=== PATIENT | female | born 1990 | race Caucasian/White ===

== ENCOUNTER 2020-08-13 11:05 | Outpatient (REF) | payer OTHER, SELFPAY ==
[2020-08-13 13:56] LABS: MANUAL DIFF FLAG NO
[2020-08-13 14:07] LABS: Basophils Percent Auto 0.2 % (0-2); Eosinophils Absolute Auto 0.2 X10*3/uL (0.0-0.4); Eosinophils Percent Auto 1.4 % (0-4); Hematocrit 40.6 % (37-47); Hemoglobin 13.1 g/dl (12.0-16.0); Imm Gran Abs Auto 0.08 X10*3/uL (0.00-0.03); Imm Gran Pct Auto 0.5 % (0.0-0.4); Lymphocytes Absolute Auto 3.9 X10*3/uL (1.2-4.9); Lymphocytes Percent Auto 26.5 % (20-40); Mean Corpuscular HGB Conc 32.3 g/dl (31.0-35.0); Mean Corpuscular Hemoglobin 27.6 pg (27.0-33.0); Mean Corpuscular Volume 85.7 fL (80-98); Mean Platelet Volume 9.1 fL (9.4-12.3); Monocytes Absolute Auto 0.9 X10*3/uL (0.1-1.2); Neutrophils Absolute Auto 9.6 X10*3/uL (2.0-8.3); Neutrophils Percent Auto 65.4 % (45-73); Platelet Count 381 X10*3/uL (160-400); Red Blood Count 4.74 X10*6/uL (4.20-5.50); Red Cell Distribution Width 13.5 % (11.0-16.0); White Blood Count 14.7 X10*3/uL (4.8-10.8)
[2020-08-13 14:52] LABS: Alanine Aminotransferase 13 U/L (0-31); Albumin Level 4.2 g/dL (3.5-5.0); Alkaline Phosphatase 112 U/L (39-117); Anion Gap 14 (12-20); Aspartate Amino Transferase 12 U/L (5-31); Bilirubin Total 0.3 mg/dL (0.0-1.0); Blood Urea Nitrogen 10 mg/dL (9-16); Calcium 9.3 mg/dL (8.4-10.2); Carbon Dioxide 26 mmol/L (22-29); Chloride 104 mmol/L (96-108); Estimated Glomerular Filt Rate > 60; Glucose Random 93 mg/dL (60-115); Potassium 4.2 mmol/L (3.3-5.1); Sodium 140 mmol/L (135-145); Total Protein 7.1 g/dL (6.5-8.0)
== END 2020-08-13 11:06 | disposition home or self-care (01) ==
LOC: HO.HMGCLDS 11:05
PROVIDERS: PCP Internal Medicine; Visit Provider Nurse Practitioner Family
DX: R10.9 Unspecified abdominal pain (principal)
CPT/HCPCS: 36415; 80053; 85025

== ENCOUNTER 2020-08-26 09:49 | Outpatient (REF) | payer OTHER, SELFPAY ==
[2020-08-26 12:41] LABS: Thyroid Stimulating Hormone 1.44 uIU/mL (0.32-4.0)
[2020-08-27 09:27] LABS: DHEA Sulfate 158 mcg/dL (18-391)
[2020-08-27 09:52] LABS: Prolactin 6.7 ng/mL
[2020-08-27 09:59] LABS: CT PCR NOT DETECTED (Not Detect.); NG PCR NOT DETECTED (Not Detect.)
[2020-08-27 10:42] LABS: BV Int Neg Control Negative (Negative); BV Int Pos Control Positive (Positive)
[2020-08-30 20:22] LABS: Testosterone, Total 34 ng/dL (2-45)
== END 2020-08-26 09:50 | disposition home or self-care (01) ==
LOC: HO.LAB 09:49
PROVIDERS: PCP Internal Medicine; Visit Provider Advanced Practice Midwife
DX: N93.9 Abnormal uterine and vaginal bleeding, unspecified (principal); L68.0 Hirsutism; E66.01 Morbid (severe) obesity due to excess calories; F17.210 Nicotine dependence, cigarettes, uncomplicated; Z68.43 Body mass index [BMI] 50.0-59.9, adult; Z72.0 Tobacco use
CPT/HCPCS: 36415; 81025; 82627; 83498; 84146; 84402; 84403; 84443; 87480; 87491; 87510; 87591; 87660; 88142; 99202

== ENCOUNTER 2021-04-01 | Outpatient (REF) | payer OTHER, SELFPAY | END 2021-04-01 00:01 | disposition home or self-care (01) | LOC: CF | PROVIDERS: Visit Provider Advanced Practice Midwife | DX: E66.01 Morbid (severe) obesity due to excess calories (principal); Z68.43 Body mass index [BMI] 50.0-59.9, adult; Z20.2 Contact with and (suspected) exposure to infections with a predominantly sexual mode of transmission | CPT/HCPCS: 81025; 99212 ==

== ENCOUNTER 2021-04-01 11:53 | Outpatient (REF) | payer OTHER, SELFPAY ==
--- NOTE | ~2021-04-01 | US_ITS ---
EXAMINATION: US PELVIS COMPLETE US PELVIS TRANSVAGINAL CLINICAL INFORMATION: 30-year-old female with history of hirsutism. LMP of 02/03/2021. COMPARISON: None TECHNIQUE: Sonographic imaging of the pelvis was performed using transabdominal and transvaginal transducers. FINDINGS: US PELVIS, COMPLETE Transabdominal imaging of the pelvis is performed. The urinary bladder is grossly normal. No pelvic free fluid. The anteflexed, anteverted uterus has normal size, contour and echotexture. No evidence of leiomyoma. The endometrium measures up to approximately 1.4 cm AP on these transabdominal images. The ovaries have normal size and echotexture. The right ovary is 2.7 x 1.5 x 3.5 cm, volume of 7.4 mL. The left ovary is 3.6 x 1.6 x 2.1 cm, volume of 6.3 mL. There are no prominent follicles or ovarian masses. US PELVIS, TRANSVAGINAL On the transvaginal images, the uterus measures 10 x 4.6 x 6 cm (cervix to fundus x AP x transverse dimension). No evidence of uterine leiomyoma. The cervix is approximately 3 cm in length. A few small nabothian cysts of the cervix are noted. No cervical mass. The endometrium has normal echotexture and measures up to 1.2 cm AP. The ovaries are not visualized on transvaginal imaging. No pelvic free fluid. US/US pelvic complete IMPRESSION: Normal sonographic examination of the uterus and ovaries.
--- NOTE | ~2021-04-01 | US_ITS ---
EXAMINATION: US PELVIS COMPLETE US PELVIS TRANSVAGINAL CLINICAL INFORMATION: 30-year-old female with history of hirsutism. LMP of 02/03/2021. COMPARISON: None TECHNIQUE: Sonographic imaging of the pelvis was performed using transabdominal and transvaginal transducers. FINDINGS: US PELVIS, COMPLETE Transabdominal imaging of the pelvis is performed. The urinary bladder is grossly normal. No pelvic free fluid. The anteflexed, anteverted uterus has normal size, contour and echotexture. No evidence of leiomyoma. The endometrium measures up to approximately 1.4 cm AP on these transabdominal images. The ovaries have normal size and echotexture. The right ovary is 2.7 x 1.5 x 3.5 cm, volume of 7.4 mL. The left ovary is 3.6 x 1.6 x 2.1 cm, volume of 6.3 mL. There are no prominent follicles or ovarian masses. US PELVIS, TRANSVAGINAL On the transvaginal images, the uterus measures 10 x 4.6 x 6 cm (cervix to fundus x AP x transverse dimension). No evidence of uterine leiomyoma. The cervix is approximately 3 cm in length. A few small nabothian cysts of the cervix are noted. No cervical mass. The endometrium has normal echotexture and measures up to 1.2 cm AP. The ovaries are not visualized on transvaginal imaging. No pelvic free fluid. US/US transvaginal IMPRESSION: Normal sonographic examination of the uterus and ovaries.
[2021-04-02 08:43] LABS: ~HepC Num1 0.07 S/CO (0.00-0.79); ~Hepatitis C Antibody Nonreactive (Nonreactive)
[2021-04-02 08:52] LABS: HBsAGNum1 0.14 S/CO (0.00-0.99); HIV AB/AG Nonreactive (Nonreactive); HIV Num 1 0.07 S/CO (0.00-0.99); Hepatitis B Surface Antigen Negative (Negative)
[2021-04-02 10:00] LABS: Syphilis Screen Nonreactive (Nonreactive)
[2021-04-02 13:58] LABS: CT PCR NOT DETECTED (Not Detect.); NG PCR NOT DETECTED (Not Detect.)
[2021-04-03 10:53] LABS: BV Int Neg Control Negative (Negative); BV Int Pos Control Positive (Positive)
== END 2021-04-01 11:54 | disposition home or self-care (01) ==
LOC: HO.LAB 11:53
PROVIDERS: Visit Provider Advanced Practice Midwife
DX: Z01.84 Encounter for antibody response examination (principal); Z11.3 Encounter for screening for infections with a predominantly sexual mode of transmission; Z11.4 Encounter for screening for human immunodeficiency virus [HIV]; N89.8 Other specified noninflammatory disorders of vagina; L68.0 Hirsutism; N93.9 Abnormal uterine and vaginal bleeding, unspecified; E66.01 Morbid (severe) obesity due to excess calories; Z68.43 Body mass index [BMI] 50.0-59.9, adult; Z20.2 Contact with and (suspected) exposure to infections with a predominantly sexual mode of transmission
CPT/HCPCS: 36415; 76830; 76856; 86780; 86803; 87340; 87389; 87480; 87491; 87510; 87591; 87660

== ENCOUNTER 2021-04-04 10:01 | Inpatient (IN) | payer OTHER, SELFPAY ==
[2021-04-04] VITALS (12 sets, daily range): BP systolic 121–160; BP diastolic 54–91; PULSE 78–95; RESP 14–24; TEMP 36.3–37.1; O2SAT 91–100; BMI 53.5; BMI 53.3
--- NOTE | ~2021-04-04 | US_ITS ---
EXAMINATION: US ABDOMEN LIMITED CLINICAL INFORMATION: Right upper quadrant pain with guarding and rebound.. COMPARISON: Pelvic ultrasound 04/01/2021. TECHNIQUE: Real-time imaging of the right upper quadrant abdominal viscera. FINDINGS: PANCREAS: The pancreas is normal in echogenicity and shows no ductal dilatation. There is no retroperitoneal effusion. LIVER: The liver is mildly enlarged measuring 20.7 cm in length. The liver surface is smooth. There is increased hepatic parenchymal echogenicity consistent with hepatic steatosis. There is no focal hepatic parenchymal lesion or intrahepatic biliary ductal dilatation. Doppler shows portal flow towards the liver. GALLBLADDER: There is a 1.2 cm stone near neck of the gallbladder. There is a second stone or small polyp only 0.5 cm. There is no gallbladder dilatation. The gallbladder measures 3.1 cm in diameter. There is no wall thickening or subserosal edema or pericholecystic fluid. Patient is tender right upper quadrant with sonographic compression/positive sonographic Villagomez's sign. COMMON BILE DUCT: Normal in caliber measuring 0.6 cm in diameter. The common duct is not seen in its entirety. The visualized portions show no calculi or sludge. RIGHT KIDNEY: Normal. No hydronephrosis. No renal calculi or focal parenchymal lesions. The kidney measures 13.7 cm in maximum dimension. FREE FLUID: None. US/US abdomen limited IMPRESSION: 1. Cholelithiasis. Positive sonographic Villagomez's sign. No gallbladder wall thickening or biliary ductal dilatation. 2. Mild hepatic enlargement secondary to hepatic steatosis. No focal parenchymal lesion. 3. Pancreas unremarkable. No right hydronephrosis.
--- NOTE | 2021-04-04 10:16 | ED_ITS ---
HPI - Abdominal Pain General Chief Complaint: Abdominal Pain Stated Complaint: abd pain Time Seen by Provider: 04/04/21 10:16 Source: patient Mode of arrival: ambulatory Limitations: no limitations History of Present Illness HPI narrative: epigastric pain for 2 days. Patient had been on metronidazole for BV and she has been having pain since. MD elicited complaint: abdominal pain Onset (ago): week(s) Pain Consistency: intermittent Location: epigastric Severity: moderate Quality: other (throbbing) Exacerbating factors: nothing Relieving factors: nothing Associated symptoms: denies other symptoms, nausea, vomiting and diarrhea Related Data Home Medications Medication Instructions Recorded Confirmed ibuprofen 200 mg tablet 200 mg PO Q6H PRN 04/01/21 04/01/21 Previous Rx's Medication Instructions Recorded metronidazole 500 mg tablet 500 mg PO BID 7 Days #14 tab 09/02/20 (Flagyl) Allergies Allergy/AdvReac Type Severity Reaction Status Date / Time No Known Allergies Allergy Verified 04/01/21 11:26 Review of Systems Constitutional: Reports no additional constitutional complaints Eyes: Reports no additional eye complaints Denies dizziness Cardiovascular: Reports no additional cardiovascular complaints Respiratory: Reports as per HPI Gastrointestinal: Reports no additional gastrointestinal complaints Genitourinary: Reports no additional female genitourinary complaints Musculoskeletal: Reports no additional musculoskeletal complaints Skin/Breast: Denies rash Reports system reviewed and no additional complaints, except as documented, Denies dizziness and Denies Sensory deficit (Neuro) Psychiatric: Denies anxiety Physical Exam Vital Signs: Vital Signs: Last Vital Signs Temp 98.3 F 04/04/21 10:03 Pulse 84 04/04/21 13:00 Resp 18 04/04/21 13:00 BP 121/68 04/04/21 13:00 Pulse Ox 99 04/04/21 13:00 Body Mass Index 53.5 Const: Other: female in pain, diaphoretic Nutritional Appearance: obese Orientation/consciousness: oriented to person and patient oriented x3 Limitations: no limitations HENMT: Head: Yes normal to inspection Ears: external ears normal General nose exam: Normal external nose present Mouth: Normal oral and palatal mucosa present and oropharynx normal Throat: Yes posterior oropharynx normal Eyes: General: appearance normal, both eyes and all related structures Neck: Other: supple Neck: Yes normal visual inspection Chest: Chest palpation & inspection: normal inspection of the chest Resp: Auscultation: clear to auscultation bilaterally Cardio: Jugular venous distension: no JVD Rate: regular rate Rhythm: regular rhythm Heart sounds: S1 normal heart sound present and S2 normal heart sound present GI: Other: right upper quadrant with guarding and rebound Auscultation: normal bowel sounds : General: Yes no CVA tenderness Back/Spine/Pelvis: Back: no CVA tenderness Skin: General skin exam: no rashes or lesions noted Neuro: General: oriented to person and patient oriented x3 Cranial nerves: Yes CN's II-XII intact bilaterally Motor exam (neuro): 5/5 motor strength present throughout Sensory Exam: No Sensory deficit (Neuro) Extrem: General: Yes normal to inspection Psych: Appearance: grossly normal Course Reevaluation(s) Reevaluation #1: unofficial bedside ultrasound reveals gallstones with question of thickened wall will obtain official US Time: 10:31 Reevaluation #2: patient with continued pain will give abx and admit to surgery Time: 13:49 MDM - Abdominal Pain Lab Data Result diagrams: 04/04/21 10:39 04/04/21 10:39 Labs: Lab Results 04/04/21 04/04/21 04/04/21 Range/Units 10:39 10:39 10:39 WBC 14.3 H (4.8-10.8) X10*3/uL RBC 4.66 (4.20-5.50) X10*6/uL Hgb 13.0 (12.0-16.0) g/dl Hct 39.6 (37.0-47.0) % MCV 85.0 (80.0-98.0) fL MCH 27.9 (27.0-33.0) pg MCHC 32.8 (31.0-35.0) g/dl RDW 14.7 (11.0-16.0) % Plt Count 323 (160-400) X10*3/uL MPV 8.2 L (9.4-12.3) fL Immature Gran % (Auto) 0.6 H (0.0-0.4) % Neut % (Auto) 72.6 (45-73) % Lymph % (Auto) 20.6 (20-40) % [place] % (Auto) 4.9 (2-11) % Eos % (Auto) 1.1 (0-4) % Baso % (Auto) 0.2 (0-2) % Lymph # (Auto) 2.9 (1.2-4.9) X10*3/uL [place] # (Auto) 0.7 (0.1-1.2) X10*3/uL Eos # (Auto) 0.2 (0.0-0.4) X10*3/uL Baso # (Auto) 0.0 (0.0-0.2) X10*3/uL Abs Immat Gran (auto) 0.08 H (0.00-0.03) X10*3/uL Absolute Neuts (auto) 10.4 H (2.0-8.3) x10*3/uL Absolute Nucleated RBC 0.000 (0.0-0.012) X10*3/uL Nucleated RBC % (auto) 0.0 (0.0-0.2) /100WBC Sodium 139 (135-145) mmol/L Potassium 4.6 (3.3-5.1) mmol/L Chloride 105 (96-108) mmol/L Carbon Dioxide 26 (22-29) mmol/L Anion Gap 13 (12-20) BUN 9 (9-16) mg/dL Creatinine 0.68 (0.5-1.4) mg/dL Estim Creat Clear Calc 198.7 Estimated GFR > 60 Random Glucose 104 (60-115) mg/dL Calcium 9.0 (8.4-10.2) mg/dL Total Bilirubin 0.3 (0.0-1.0) mg/dL Direct Bilirubin < 0.2 (0.0-0.5) mg/dL AST 12 (5-31) U/L ALT 19 (0-31) U/L Alkaline Phosphatase 94 (39-117) U/L Total Protein 6.8 (6.5-8.0) g/dL Albumin 3.9 (3.5-5.0) g/dL Lipase 16 (8-78) U/L Urine Color YELLOW Urine Appearance CLOUDY Urine pH 6.0 (5.0-8.0) Ur Specific [place] >= 1.030 H (1.005-1.025) Urine Protein TRACE (NEG-TRACE) MG/DL Urine Glucose (UA) NEG (NEG) MG/DL Urine Ketones NEG (NEG) MG/DL Urine Blood NEG (NEG) Urine Nitrite NEG (NEG) Ur Leukocyte Esterase NEG (NEG) Urine Test (NEGATIVE) 04/04/21 Range/Units 10:39 WBC (4.8-10.8) X10*3/uL RBC (4.20-5.50) X10*6/uL Hgb (12.0-16.0) g/dl Hct (37.0-47.0) % MCV (80.0-98.0) fL MCH (27.0-33.0) pg MCHC (31.0-35.0) g/dl RDW (11.0-16.0) % Plt Count (160-400) X10*3/uL MPV (9.4-12.3) fL Immature Gran % (Auto) (0.0-0.4) % Neut % (Auto) (45-73) % Lymph % (Auto) (20-40) % [place] % (Auto) (2-11) % Eos % (Auto) (0-4) % Baso % (Auto) (0-2) % Lymph # (Auto) (1.2-4.9) X10*3/uL [place] # (Auto) (0.1-1.2) X10*3/uL Eos # (Auto) (0.0-0.4) X10*3/uL Baso # (Auto) (0.0-0.2) X10*3/uL Abs Immat Gran (auto) (0.00-0.03) X10*3/uL Absolute Neuts (auto) (2.0-8.3) x10*3/uL Absolute Nucleated RBC (0.0-0.012) X10*3/uL Nucleated RBC % (auto) (0.0-0.2) /100WBC Sodium (135-145) mmol/L Potassium (3.3-5.1) mmol/L Chloride (96-108) mmol/L Carbon Dioxide (22-29) mmol/L Anion Gap (12-20) BUN (9-16) mg/dL Creatinine (0.5-1.4) mg/dL Estim Creat Clear Calc Estimated GFR Random Glucose (60-115) mg/dL Calcium (8.4-10.2) mg/dL Total Bilirubin (0.0-1.0) mg/dL Direct Bilirubin (0.0-0.5) mg/dL AST (5-31) U/L ALT (0-31) U/L Alkaline Phosphatase (39-117) U/L Total Protein (6.5-8.0) g/dL Albumin (3.5-5.0) g/dL Lipase (8-78) U/L Urine Color Urine Appearance Urine pH (5.0-8.0) Ur Specific [place] (1.005-1.025) Urine Protein (NEG-TRACE) MG/DL Urine Glucose (UA) (NEG) MG/DL Urine Ketones (NEG) MG/DL Urine Blood (NEG) Urine Nitrite (NEG) Ur Leukocyte Esterase (NEG) Urine Test NEGATIVE (NEGATIVE) Discharge Plan Discharge Clinical Impression: Acute cholecystitis, Biliary colic Patient Disposition: Admitted As Inpatient Prescriptions: No Action metronidazole [Flagyl] 500 mg tablet 500 mg PO BID 7 Days Qty: 14 RF: 0 ibuprofen 200 mg tablet 200 mg PO Q6H PRNRF: 0 PMFSH Past Medical History Medical History Morbid obesity with BMI of 50.0-59.9, adult Surgical History Hx of tonsillectomy Social History Social History Alcohol intake: current Alcohol intake frequency: a few times a month Patient Tobacco Use Status: Current everyday Tobacco user Cigarettes Per Day: 2 Substance Use Type: Marijuana Gender identity: Female
[2021-04-04 10:44] LABS: MANUAL DIFF FLAG NO
[2021-04-04 10:45] LABS: Basophils Percent Auto 0.2 % (0-2); Eosinophils Absolute Auto 0.2 X10*3/uL (0.0-0.4); Eosinophils Percent Auto 1.1 % (0-4); Hematocrit 39.6 % (37.0-47.0); Imm Gran Abs Auto 0.08 X10*3/uL (0.00-0.03); Imm Gran Pct Auto 0.6 % (0.0-0.4); Lymphocytes Absolute Auto 2.9 X10*3/uL (1.2-4.9); Lymphocytes Percent Auto 20.6 % (20-40); Mean Corpuscular HGB Conc 32.8 g/dl (31.0-35.0); Mean Corpuscular Hemoglobin 27.9 pg (27.0-33.0); Mean Platelet Volume 8.2 fL (9.4-12.3); Monocytes Absolute Auto 0.7 X10*3/uL (0.1-1.2); Monocytes Percent Auto 4.9 % (2-11); Neutrophils Absolute Auto 10.4 x10*3/uL (2.0-8.3); Neutrophils Percent Auto 72.6 % (45-73); Platelet Count 323 X10*3/uL (160-400); Red Blood Count 4.66 X10*6/uL (4.20-5.50); Red Cell Distribution Width 14.7 % (11.0-16.0); White Blood Count 14.3 X10*3/uL (4.8-10.8)
[2021-04-04 10:47] LABS: Appearance Urine CLOUDY; Color Urine YELLOW; Glucose Urine UA NEG (NEG); Leukocyte Esterase Urine NEG (NEG); Nitrite Urine NEG (NEG); Specific Gravity - Urine >= 1.030 (1.005-1.025); Urine Blood NEG (NEG); Urine Ketones NEG (NEG); Urine Protein TRACE MG/DL (NEG-TRACE)
[2021-04-04 10:49] LABS: UPreg QC Valid YES; Urine Pregnancy NEGATIVE (NEGATIVE)
[2021-04-04] MEDS: Morphine Sulfate 4 MG/ML CARTRIDGE IVPUSH (10:49)
[2021-04-04] MEDS: ondansetron HCL 4 MG/2 ML VIAL IVPUSH ×2 (10:49→18:17)
[2021-04-04] MEDS: Pantoprazole Sodium 40 MG/10 ML VIAL IVPUSH (10:55)
[2021-04-04] MEDS: Magnesium Hydrox/Alum Hydrox 30 ML ORAL.SUSP PO (10:55)
[2021-04-04] MEDS: PHENobarb/Hyoscy/Atropine/Scop 10 ML ELIXIR PO (10:55)
[2021-04-04] MEDS: Lidocaine HCl Viscous 2 % 15 ML SOLUTION MUCOUS MEM (10:55)
--- NOTE | 2021-04-04 11:00 | PC.NURSE ---
pt reports she was started on flagyl for BV and has been having epigastric pain since. she states the pain woke her up from her sleep. pt denies sob/difficulty breathing/headache/dizziness. no chest pain. pt took ibuprofen and did not get any relief. pt denies n/v/d. no other complaints. pt alert and oriented, vss.
[2021-04-04 11:05] LABS: Alanine Aminotransferase 19 U/L (0-31); Albumin Level 3.9 g/dL (3.5-5.0); Alkaline Phosphatase 94 U/L (39-117); Anion Gap 13 (12-20); Aspartate Amino Transferase 12 U/L (5-31); Bilirubin Direct < 0.2 mg/dL (0.0-0.5); Bilirubin Total 0.3 mg/dL (0.0-1.0); Blood Urea Nitrogen 9 mg/dL (9-16); Carbon Dioxide 26 mmol/L (22-29); Chloride 105 mmol/L (96-108); Creatinine Clr Calc Pharmacy 198.7; Estimated Glomerular Filt Rate > 60; Glucose Random 104 mg/dL (60-115); Lipase 16 U/L (8-78); Potassium 4.6 mmol/L (3.3-5.1); Sodium 139 mmol/L (135-145); Total Protein 6.8 g/dL (6.5-8.0)
--- NOTE | 2021-04-04 13:59 | PHA.MEDREC ---
Pharmacy Consult ? Medication Reconciliation Pharmacy has completed the medication reconciliation. Patient reports she finished her ABX metronidazole and cefixime. She only take ibuprofen as home. Usually take ibuprofen 200 mg 3 tablet but this morning took 4 tablets. Meggan Menendez, TammieD
[2021-04-04] MEDS: cefTRIAXone sodium 2 GM in 0.9 % Sodium Chloride 50 ML IV (14:48)
--- NOTE | 2021-04-04 15:04 | P.HPGS_ITS ---
History of Present Illness History of Present Illness Date of Service: 04/04/21 Chief complaint: abd pain Narrative: Barbie Tom is a 30 year old female presented to the emergency department today with a several day history of worsening high epigastric and substernal squeezing, pressure-like pain associated with nausea. She had 1 episode of vomiting associated with the pain this morning. The severity of the pain has been escalating and was 10/10 on presentation to the emergency department today. It has declined for out of 10 following administration of analgesics. She has not experienced similar pain in the past. She has not identified anything that exacerbates the pain. Initially, she thought that it was related to metronidazole, which she had started taking a short time before. She does not report fever, chills, jaundice, or dark urine. In the emergency department, laboratory studies revealed an elevated white blood count of 14.3, liver function studies were normal. Ultrasound demonstrated a gallstone near the neck of the gallbladder and a possible 2nd stone versus gallbladder wall polyp. There is no wall thickening or pericholecystic fluid to suggest the presence of acute cholecystitis, but sonographic Villagomez sign was positive. Review of Systems Constitutional: Constitutional: Denies chills and Denies fever(s) Eyes: Eyes: Denies requires corrective lenses ENT: Reports Normal hearing present Cardiovascular: Cardiovascular: Reports chest pain Respiratory: Respiratory: Reports cough and Denies wheezing Gastrointestinal: Gastrointestinal: Reports as per HPI Genitourinary: Genitourinary: Denies abnormal vaginal bleeding and Denies dysuria Musculoskeletal: Comments: Chronic right shoulder pain Integumentary/Breasts: Skin/Breast: Denies unusual bruising Neurologic: Reports Normal hearing present Hematologic/Lymphatic: Hematologic/Lymphatic: Denies easy bleeding Allergic/Immunologic: Allergic/Immunologic: Denies wheezing PMFSH Past Medical History Medical History Morbid obesity with BMI of 50.0-59.9, adult Functional capacity: independent ambulation Family History Pertinent family history: Blood clots in grandmother and uncle, no known family history of clotting disorder Surgical History Surgical History Hx of tonsillectomy Social History Social History Alcohol intake: current Alcohol intake frequency: a few times a month Patient Tobacco Use Status: Current everyday Tobacco user Cigarettes Per Day: 2 Substance Use Type: Marijuana Gender identity: Female Meds Allergies Allergy/AdvReac Type Severity Reaction Status Date / Time No Known Allergies Allergy Verified 04/01/21 11:26 Home Medications Medication Instructions Recorded Confirmed Last Taken Type ibuprofen 200 mg tablet 600 mg PO Q6H PRN 04/01/21 04/04/21 04/04/21 History Physical Exam Vital Signs: Vital Signs: Last Vital Signs Temp 98.3 F 04/04/21 10:03 Pulse 84 04/04/21 13:00 Resp 18 04/04/21 13:00 BP 121/68 04/04/21 13:00 Pulse Ox 99 04/04/21 13:00 Body Mass Index 53.5 Const: General: cooperative and alert HENMT: Head: Yes normocephalic and Yes atraumatic Eyes: General: appearance normal, both eyes and all related structures Neck: Neck: Yes trachea midline and Yes supple Resp: Effort & Inspection: normal respiratory effort Auscultation: clear to auscultation bilaterally GI: Other: Soft, no palpable masses, no obvious organomegaly. Marked right upper quadrant and moderate epigastric tenderness. Bowel sounds active. Rectal Exam - Female: deferred Skin: General skin exam: no rashes or lesions noted Neuro: Cranial nerves: Yes Normal hearing present Extrem: General: Yes normal to inspection Results Results Labs: Short CBC 04/04/21 Range/Units 10:39 WBC 14.3 H (4.8-10.8) X10*3/uL Hgb 13.0 (12.0-16.0) g/dl Hct 39.6 (37.0-47.0) % Plt Count 323 (160-400) X10*3/uL BMP 04/04/21 10:39 Sodium 139 Potassium 4.6 Chloride 105 Carbon Dioxide 26 BUN 9 Creatinine 0.68 Calcium 9.0 Liver Function 04/04/21 Range/Units 10:39 Total Bilirubin 0.3 (0.0-1.0) mg/dL Direct Bilirubin < 0.2 (0.0-0.5) mg/dL AST 12 (5-31) U/L ALT 19 (0-31) U/L Alkaline Phosphatase 94 (39-117) U/L Albumin 3.9 (3.5-5.0) g/dL Urine 04/04/21 04/04/21 Range/Units 10:39 10:39 Urine Color YELLOW Urine Appearance CLOUDY Urine pH 6.0 (5.0-8.0) Ur Specific [place] >= 1.030 H (1.005-1.025) Urine Protein TRACE (NEG-TRACE) MG/DL Urine Glucose (UA) NEG (NEG) MG/DL Urine Test NEGATIVE (NEGATIVE) Abdominal ultrasound report/results: report reviewed and image reviewed Assessment and Plan (1) Acute cholecystitis: Status: Acute (2) Morbid obesity with BMI of 50.0-59.9, adult: Status: Acute 30-year-old female presenting with gallstones, persistent epigastric and substernal pain and exam findings consistent with acute cholecystitis. Severe biliary colic as also a possibility. We discussed treatment options including antibiotic therapy and observation and surgery. We discussed the technique of laparoscopic cholecystectomy and potential need to convert to open cholecystectomy. We reviewed risks of surgery including but not limited to infection, bleeding, DVT and PE, chronic diarrhea, retained stones, bile duct stones, bile leak, and injuries to the bile ducts or other adjacent structures potentially requiring further surgery. She wishes to proceed with surgery and that will be performed later today. Quality Stroke Does the patient have a stroke diagnosis?: No VTE Prior VTE?: No VTE Risk Level:: Surgical - low VTE Device Contraindication: N/A - Device Ordered VTE Drug Contraindication: N/A - Med Ordered Procedures Date of Service Date of Service: 04/04/21
[2021-04-04] MEDS: metroNIDAZOLE/NS 500 MG/100 ML PIGGYBACK 100 MG IV (15:42)
--- NOTE | 2021-04-04 15:45 | MHC.SHP ---
Pre-Procedural Eval Section A Date of Service: 04/04/21 The patient is an INPATIENT: Yes The History & Physical has been completed within 30 days and I have reviewed it.: Yes Section B Chief Complaint: acute cholecystitis, chloelithiasis Allergies: Allergies Allergy/AdvReac Type Severity Reaction Status Date / Time No Known Allergies Allergy Verified 04/01/21 11:26 Plan I have reviewed the history and physical and performed a pertinent physical examination on my patient. No changes have occurred unless specified.
--- NOTE | 2021-04-04 15:55 | HO.ANESPROP2 ---
[facility] Active Problems Active Problems: All Active Problems (Updated 04/04/21 @ 13:50 by Nabeel Mckeon MD) Acute cholecystitis (Acute) Biliary colic (Acute) Potential exposure to STD (Acute) Hirsutism (Acute) Morbid obesity with BMI of 50.0-59.9, adult (Acute) Vaginal bleeding (Acute) Nausea & vomiting (Acute) Abdominal pain (Acute) Past Medical History Medical History Morbid obesity with BMI of 50.0-59.9, adult Functional capacity: independent ambulation Surgical History Surgical History Hx of tonsillectomy Social History Social History Alcohol intake: current Alcohol intake frequency: a few times a month Patient Tobacco Use Status: Current everyday Tobacco user Cigarettes Per Day: 2 Use of substances other than those prescribed or required for medical reasons: Yes Substance Use Type: Marijuana Substance Use Frequency: Daily Last Used Substance: Unknown Advance Directives: No Advance Directives Information Provided: No Gender identity: Female Meds Allergies Allergy/AdvReac Type Severity Reaction Status Date / Time No Known Allergies Allergy Verified 04/01/21 11:26 Home Medications Medication Instructions Recorded Confirmed Last Taken Type ibuprofen 200 mg tablet 600 mg PO Q6H PRN 04/01/21 04/04/21 04/04/21 History Exam Exam Date and Time: April 04, 2021 1555 Height,Weight and Vital Signs: Height 5 ft 8 in Weight 159.665 kg Last Vital Signs Temp 98.3 F 04/04/21 10:03 Pulse 78 04/04/21 15:18 Resp 14 04/04/21 15:18 BP 130/54 L 04/04/21 15:18 Pulse Ox 100 04/04/21 15:18 Pertinent Lab Results Pertinent Lab Results: Laboratory Tests 04/04/21 04/04/21 04/04/21 10:39 10:39 10:39 WBC 14.3 H RBC 4.66 Hgb 13.0 Hct 39.6 MCV 85.0 MCH 27.9 MCHC 32.8 RDW 14.7 Plt Count 323 MPV 8.2 L Immature Gran % (Auto) 0.6 H Neut % (Auto) 72.6 Lymph % (Auto) 20.6 [place] % (Auto) 4.9 Eos % (Auto) 1.1 Baso % (Auto) 0.2 Lymph # (Auto) 2.9 [place] # (Auto) 0.7 Eos # (Auto) 0.2 Baso # (Auto) 0.0 Abs Immat Gran (auto) 0.08 H Absolute Neuts (auto) 10.4 H Absolute Nucleated RBC 0.000 Nucleated RBC % (auto) 0.0 Sodium 139 Potassium 4.6 Chloride 105 Carbon Dioxide 26 Anion Gap 13 BUN 9 Creatinine 0.68 Estim Creat Clear Calc 198.7 Estimated GFR > 60 Random Glucose 104 Calcium 9.0 Total Bilirubin 0.3 Direct Bilirubin < 0.2 AST 12 ALT 19 Alkaline Phosphatase 94 Total Protein 6.8 Albumin 3.9 Lipase 16 Urine Color YELLOW Urine Appearance CLOUDY Urine pH 6.0 Ur Specific [place] >= 1.030 H Urine Protein TRACE Urine Glucose (UA) NEG Urine Ketones NEG Urine Blood NEG Urine Nitrite NEG Ur Leukocyte Esterase NEG Urine Test 04/04/21 10:39 WBC RBC Hgb Hct MCV MCH MCHC RDW Plt Count MPV Immature Gran % (Auto) Neut % (Auto) Lymph % (Auto) [place] % (Auto) Eos % (Auto) Baso % (Auto) Lymph # (Auto) [place] # (Auto) Eos # (Auto) Baso # (Auto) Abs Immat Gran (auto) Absolute Neuts (auto) Absolute Nucleated RBC Nucleated RBC % (auto) Sodium Potassium Chloride Carbon Dioxide Anion Gap BUN Creatinine Estim Creat Clear Calc Estimated GFR Random Glucose Calcium Total Bilirubin Direct Bilirubin AST ALT Alkaline Phosphatase Total Protein Albumin Lipase Urine Color Urine Appearance Urine pH Ur Specific [place] Urine Protein Urine Glucose (UA) Urine Ketones Urine Blood Urine Nitrite Ur Leukocyte Esterase Urine Test NEGATIVE Airway Mallampati Class: I TM Dist: >3cm Neck ROM: Full
[2021-04-04] MEDS: Lactated Ringers 1,000 ML 100 ML IVCONT ×2 (16:08→20:40)
[2021-04-04 16:29] LABS: COVID-19 Test Negative (Negative); IDNOW Serial# 9DD0AD1C
--- NOTE | 2021-04-04 17:45 | W.PM.OPN ---
Operative Note Operative Note Date of Service: 04/04/21 Narrative: Operative diagnosis: Acute cholecystitis, cholelithiasis Postoperative diagnosis: Same Procedure: Laparoscopic cholecystectomy X Ray Equipment Tester: RERE Damon Anesthesia: General endotracheal estimated blood loss: 10 cc Specimen: Gallbladder Immediate complications none Indications: This is a 30-year-old female who had acute onset of episodic, severe, squeezing epigastric and substernal pain associated with nausea and 1 episode of vomiting. Workup revealed gallstones with marked right upper quadrant tenderness and positive Villagomez sign. Laparoscopic cholecystectomy was planned. Procedure in detail: With the patient in the supine position following induction of adequate general anesthesia, the abdomen was prepped with ChloraPrep and was draped sterilely. Time-out procedure was performed. 2 g of cefotetan were infused for antibiotic prophylaxis and each trocar site was infiltrated with local anesthetic prior to making incisions. A supraumbilical incision was made and was carried down to level the fascia. The fascia was elevated in midline with Alissa clamp and holding sutures were placed on either side. Fascia was then released and was split in the midline. The peritoneal cavity was entered. The Beasley trocar was inserted and was stabilized with the fascial sutures. The abdomen was insufflated with carbon dioxide to a pressure of 15 mm of mercury. The 0 degree 30 mm laparoscopic was inserted in the peritoneal cavity was visualized. No abnormalities were noted. The gallbladder did not appear acutely inflamed. The patient was placed in reverse Trendelenburg position and was rotated slightly left side down. A 5 mm trocar was placed just to the right of the midline about a quarter the way between the xiphoid and umbilicus and 2 additional 5 mm trocars were placed, 1 in approximately the midclavicular line and the 2nd in the anterior axillary line a couple of cm below the costal margin. The gallbladder was grasped along the fundus at the anterior liver margin was retracted cephalad. It was then grasped along the infundibulum and was retracted laterally. Dissection began on the infundibulum and was carried medially to expose the cystic duct gallbladder junction. Dissection was carried circumferentially along the posterior aspect of the infundibulum. Two branches of cystic artery were identified running slightly cephalad to the cystic duct and also were dissected free circumferentially. Dissection along the gallbladder margin of the liver bed was it continued to obtain the critical view. Once this was done, the cystic duct was then singly clipped at the junction with the gallbladder and doubly clipped just medial to it. Cystic duct was then divided between clips. The 2 branches of cystic artery were treated in the same fashion. The gallbladder was then dissected free from the liver bed using a combination of blunt and L hook electrosurgical dissection. No significant bleeding was encountered. Once the gallbladder was completely freed, the laparoscopic was removed and was reinserted through the upper medial port. The specimen pouch was inserted through the Beasley trocar. The gallbladder was placed into the pouch and the pouch was closed and withdrawn along with the Sean trocar. The Sean was then reinserted and the laparoscopic placed back through it. The operative field was visualized. There was copiously irrigated with saline solution and was inspected for bleeding. No bleeding was present. Clips were noted to be intact on the cystic duct and cystic artery stumps. Patient was returned to the supine position. Upper abdominal trocars were removed under direct vision. There was no bleeding from trocar sites. Insufflation was discontinued and gas was allowed to escape from the peritoneal cavity. The laparoscope and Sean trocar were removed. The fascia at the Sean site was closed with a [id number] suture of 0 Polysorb and the holding sutures were tied to 1 another. Skin incisions were closed with subcuticular sutures of 4-0 Polysorb and Steri-Strips and dry sterile dressings were applied. Patient tolerated the procedure well and was transported to the postanesthesia care unit in stable condition. There were no immediate complications.
[2021-04-04] MEDS: oxyCODONE HCl Immed Release 5 MG TABLET PO (20:38)
[2021-04-04] MEDS: Ibuprofen 600 MG TABLET PO (22:55)
[2021-04-05] VITALS: BP 129/75; PULSE 72; RESP 16; TEMP 36.2; O2SAT 98
[2021-04-05] MEDS: Acetaminophen 325 MG TABLET 650 MG PO ×2 (00:43→08:10)
[2021-04-05] MEDS: metroNIDAZOLE 500 MG TABLET PO ×2 (00:43→08:10)
[2021-04-05 04:00] VITALS: BP 121/65; PULSE 82; RESP 16; TEMP 36.8; O2SAT 98
[2021-04-05] MEDS: Lactated Ringers 1,000 ML 100 ML IVCONT (05:53)
[2021-04-05 08:00] VITALS: BP 129/80; PULSE 89; RESP 18; TEMP 36.7; O2SAT 97
--- NOTE | 2021-04-05 10:04 | MHC.CM.PN ---
PATIENT IS INDEPENDENT WITH ALL ADLS. NO DME OR VNA SERVICES PATIENT HAS NO PCP BUT DOES USE HEALTHCARE SERVICES WHEN NEEDED AT [facility] WITH [facility] PATIENT'S SISTER WILL PROVIDE TRANSPORT HOME. NEW HCP IN CHART, NAMING MOTHER, [facility].
[2021-04-05 11:16] VITALS: BP 113/58; PULSE 93; RESP 18; TEMP 36.3; O2SAT 96
[2021-04-05] MEDS: oxyCODONE HCl Immed Release 5 MG TABLET PO (11:30)
--- NOTE | 2021-04-05 13:05 | P.PNGS_ITS ---
Subjective Subjective Date of Service: 04/05/21 Interval history: Reports significant discomfort around the umbilical incision, but trying to avoid the use of oxycodone. Preoperative pain has resolved. Tolerating solid diet. Feels ready to go home. Physical Exam Vital Signs: Vital Signs: Last Vital Signs Temp 97.3 F 04/05/21 11:16 Pulse 93 04/05/21 11:16 Resp 18 04/05/21 11:16 BP 113/58 L 04/05/21 11:16 Pulse Ox 96 04/05/21 11:16 Body Mass Index 53.3 Resp: Effort & Inspection: normal respiratory effort Auscultation: clear to auscultation bilaterally Cardio: Rate: regular rate Rhythm: regular rhythm GI: Other: Soft, dressings clean dry and intact. Bowel sounds active. Appropriate incisional tenderness. Skin: Other: Normal color, warm and dry Objective Data Active Medications Acetaminophen (Acetaminophen 325 Mg Tablet) 650 mg PO Q6H [facility] Last Admin: 04/05/21 08:10 Dose: 650 mg Documented by: FLO Lactated Ringer's (Lr) 1,000 mls @ 100 mls/hr IVCONT .Q10H [facility] Last Admin: 04/05/21 05:53 Dose: 100 mls/hr Documented by: FLO Ibuprofen (Ibuprofen 600 Mg Tablet) 600 mg PO Q6H PRN PRN Reason: Pain, Moderate (Pain Scale 4-6 Last Admin: 04/04/21 22:55 Dose: 600 mg Documented by: FLO Metronidazole (Metronidazole 500 Mg Tablet) 500 mg PO Q8H [facility] Last Admin: 04/05/21 08:10 Dose: 500 mg Documented by: FLO Morphine Sulfate (Morphine Sulfate 4 Mg/Ml Cartridge) 4 mg IVPUSH Q3H PRN; Protocol PRN Reason: Pain, severe Ondansetron HCl (Ondansetron Hcl 4 Mg/2 Ml Vial) 4 mg IVPUSH Q8H PRN PRN Reason: Nausea Oxycodone HCl (Oxycodone Hcl Immed Release 5 Mg Tablet) 5 mg PO Q4H PRN PRN Reason: Pain, Moderate (Pain Scale 4-6 Last Admin: 04/05/21 11:30 Dose: 5 mg Documented by: WILLIAM Labs CBC & Chem 7: 04/04/21 10:39 04/04/21 10:39 Labs: Laboratory Results - last 24 hr 04/04/21 16:00 COVID-19 ([facility]) Negative COVID-19 Clin Com See Note Procedures Date of Service Date of Service: 04/05/21 Progress Note: A&P Assessment and plan (1) Acute cholecystitis: Status: Acute Assessment and Plan: 30-year-old female day 1 status post laparoscopic cholecystectomy. She is doing well. She will be discharged home this afternoon and will follow up in the office in about 2 weeks. Fall Risk Details Current Medications: Current Medications Acetaminophen (Acetaminophen 325 Mg Tablet) 650 mg PO Q6H [facility] Last Admin: 04/05/21 08:10 Dose: 650 mg Documented by: Lactated Ringer's (Lr) 1,000 mls @ 100 mls/hr IVCONT .Q10H [facility] Last Admin: 04/05/21 05:53 Dose: 100 mls/hr Documented by: Ibuprofen (Ibuprofen 600 Mg Tablet) 600 mg PO Q6H PRN PRN Reason: Pain, Moderate (Pain Scale 4-6 Last Admin: 04/04/21 22:55 Dose: 600 mg Documented by: Metronidazole (Metronidazole 500 Mg Tablet) 500 mg PO Q8H [facility] Last Admin: 04/05/21 08:10 Dose: 500 mg Documented by: Morphine Sulfate (Morphine Sulfate 4 Mg/Ml Cartridge) 4 mg IVPUSH Q3H PRN; Protocol PRN Reason: Pain, severe Ondansetron HCl (Ondansetron Hcl 4 Mg/2 Ml Vial) 4 mg IVPUSH Q8H PRN PRN Reason: Nausea Oxycodone HCl (Oxycodone Hcl Immed Release 5 Mg Tablet) 5 mg PO Q4H PRN PRN Reason: Pain, Moderate (Pain Scale 4-6 Last Admin: 04/05/21 11:30 Dose: 5 mg Documented by: Time Spent With Patient Time: Total time spent is greater than 50% in coordination of care (as documented) at patient's floor/unit and/or counseling patient: Time with patient: less than 15 minutes Quality Stroke Does the patient have a stroke diagnosis?: No VTE Prior VTE?: No VTE Risk Level:: Surgical - low VTE Device Contraindication: N/A - Device Ordered VTE Drug Contraindication: N/A - Med Ordered
--- NOTE | 2021-04-05 13:07 | PM.DS ---
DS: Providers Provider Date of Service: 04/05/21 Date of admission: 04/04/21 15:16 Date of discharge: 04/05/21 Primary care physician: Unknown Physician Admitting clinician: Francheska Nixon Attending physician on admission: Francheska Nixon Attending physician on discharge: Francheska Nixon Discharging clinician: Francheska Nixon DS: Diagnosis Discharge Diagnosis (1) Acute cholecystitis: Status: Acute DS: Summary Hospital Course Hospital Course: This is a 30-year-old female who presented to the emergency department on the day of admission with a several-day history of high epigastric and low substernal squeezing pain associated with nausea and 1 episode of vomiting. Workup in the emergency department revealed gallstones without imaging evidence of acute cholecystitis, but examination findings were concerning for acute cholecystitis with significant right upper quadrant tenderness and positive Villagomez sign. Treatment options were reviewed. After discussion, she elected to proceed with laparoscopic cholecystectomy and this was performed on the day of admission. She tolerated the procedure well. By the 1st postoperative day, she was able to tolerate a solid diet and had good pain control with oral analgesics and topical ice packs to the supraumbilical incision area. She was felt to be ready for discharge at that time. Pathology results were pending at the time of discharge. Status at Discharge Functional status at discharge: independent ambulation Overall status at discharge: patient is not back to baseline Time Spent with Patient Time attestation: Total time spent providing and/or coordinating discharge services: Discharge coordination time: Less than 30 minutes Quality: Stroke Does the patient have a stroke diagnosis?: No Physical Exam Vital Signs: Vital Signs: Last Vital Signs Temp 97.3 F 04/05/21 11:16 Pulse 93 04/05/21 11:16 Resp 18 04/05/21 11:16 BP 113/58 L 04/05/21 11:16 Pulse Ox 96 04/05/21 11:16 Body Mass Index 53.3 Const: General: cooperative, alert and awake HENMT: Head: Yes normocephalic and Yes atraumatic Resp: Effort & Inspection: normal respiratory effort Auscultation: clear to auscultation bilaterally Cardio: Rate: regular rate Rhythm: regular rhythm GI: Other: Round, soft, normal bowel sounds, dressings clean dry and intact. Nontender except in incisional areas Skin: Other: Normal color, warm and dry DS: Data Data Completed and Pending Pending studies at discharge: Pending at discharge 04/04/21 17:08 Surgical [PTH] Routine Labs on day of discharge: Laboratory Results - last 24 hr 04/04/21 16:00 COVID-19 ([facility]) Negative COVID-19 Clin Com See Note Discharge Plan Discharge Patient Disposition: Home, Self-Care Discharge Diagnosis: cholecystitis, cholelithiasis Referrals: Kaiden Wintres MD [Physician] - 2 Weeks Physician,Unknown J [Primary Care Provider] - 1 Week Discharge Medications: New oxycodone 5 mg Tablet 5 mg PO Q4H PRN (Reason: Pain, Moderate (Pain Scale 4-6) Qty: 7 RF: 0 Continued ibuprofen 200 mg tablet 600 mg PO Q6H PRN (Reason: Pain) RF: 0 Discharge Orders: Discharge Order (Routine); Ordered 04/05/21 Ordered By: Francheska Nixon Diet: advance to usual diet Activity on Discharge: No heavy lifting Stand Alone Forms: Patient Portal Discharge page Activity Restrictions/Additional Instructions: Remove the dressings Wednesday night or Wednesday morning. Leave the small white tapes in place on the incisions if possible. You may shower after removing the dressings. Pat the areas dry. Use an ice pack over the umbilical incision area 4 times a day for about 10-15 minutes at a time for the 1st 2 days after surgery and then as needed for pain. If you still have metronidazole at home from your recent prescription, complete the course of the medication as prescribed. Care Plan Goals: Recovery following surgery and return to usual activity Health Concerns: Recovery following gallbladder surgery. Morbid obesity. Plan of Treatment: Avoid lifting anything over 10-15 lb and strenuous activity for 2 weeks following surgery, resume usual diet as tolerated. Assessment: Improved
--- NOTE | 2021-04-06 19:47 | HO.POSTANES ---
Post Anesthesia Evaluation Post Anesthesia Evaluation Anesthesia: General Endotracheal-GETA Mental Status: Awake Pain Control: Satisfactory Nausea/Vomiting: None Hydration: Adequate Anesthesia-Related Issues: No Anes. Related Issues
== END 2021-04-05 13:30 | disposition home or self-care (01) | DRG 263 ==
LOC: HO.ED 15:10 → HO.SSS 15:22 → HO.SSSA 17:58 → HO.S3 18:10
PROVIDERS: Admitting Provider Surgery; Emergency Provider Emergency Medicine; Visit Provider Surgery
PROC: 0FT44ZZ Resection of Gallbladder, Percutaneous Endoscopic Approach (ICD-10-PCS; CPT 47562; principal; 2021-04-04 16:00)
DX: K80.00 Calculus of gallbladder with acute cholecystitis without obstruction (principal); F17.210 Nicotine dependence, cigarettes, uncomplicated; Z71.6 Tobacco abuse counseling; Z20.822 Contact with and (suspected) exposure to COVID-19; Z79.1 Long term (current) use of non-steroidal anti-inflammatories (NSAID)
CPT/HCPCS: 47562; 36415; 76705; 80048; 80076; 81003; 81025; 83690; 85025; 87040; 87635; 88304; 99024; 99285; J0131; J0696; J1100; J1170; J2250; J2270; J2405; J3010

== ENCOUNTER → 2021-05-01 11:12 | Outpatient (BNVA) | payer OTHER, SELFPAY | PROVIDERS: Visit Provider Advanced Practice Midwife ==

== ENCOUNTER 2021-05-20 10:44 | Outpatient (REF) | payer OTHER, SELFPAY ==
[2021-05-22 21:32] LABS: TS Negative Control Passed; TS Panel A 0; TS Panel B 0; TS Positive Control Passed; TSpotTB Negative (Negative)
== END 2021-05-20 10:45 | disposition home or self-care (01) ==
LOC: HO.HMGCLDS 10:44
PROVIDERS: PCP Internal Medicine; Visit Provider Internal Medicine
DX: Z11.1 Encounter for screening for respiratory tuberculosis (principal)
CPT/HCPCS: 36415; 86481

== ENCOUNTER 2021-05-22 09:21 | Outpatient (REF) | payer OTHER, SELFPAY ==
[2021-05-22 10:13] LABS: Alanine Aminotransferase 15 U/L (0-31); Albumin Level 3.9 g/dL (3.5-5.0); Alkaline Phosphatase 101 U/L (39-117); Anion Gap 9 (12-20); Aspartate Amino Transferase 9 U/L (5-31); Bilirubin Total 0.5 mg/dL (0.0-1.0); Blood Urea Nitrogen 10 mg/dL (9-16); Calcium 9.1 mg/dL (8.4-10.2); Carbon Dioxide 28 mmol/L (22-29); Chloride 106 mmol/L (96-108); Cholesterol 163 mg/dL; Estimated Glomerular Filt Rate > 60; Glucose Fasting 104 mg/dL (60-99); HDL Cholesterol 37 mg/dL; LDL Cholesterol Calculated 104 mg/dl; Potassium 4.2 mmol/L (3.3-5.1); Sodium 139 mmol/L (135-145); Total Protein 6.9 g/dL (6.5-8.0); Triglycerides 113 mg/dL
[2021-05-22 10:33] LABS: TSH reflex Free T4 1.44 uIU/mL (0.32-4.0)
[2021-05-23 06:02] LABS: Rubella IgG Antibody 1.33 Index
== END 2021-05-22 09:22 | disposition home or self-care (01) ==
LOC: HO.LAB 09:21
PROVIDERS: PCP Internal Medicine; Visit Provider Internal Medicine
DX: Z00.00 Encounter for general adult medical examination without abnormal findings (principal); L98.9 Disorder of the skin and subcutaneous tissue, unspecified
CPT/HCPCS: 36415; 80053; 80061; 84443; 86735; 86762; 86765

== ENCOUNTER 2021-08-13 13:51 | Outpatient (REF) | payer OTHER, SELFPAY ==
[2021-08-13 16:40] LABS: CT PCR NOT DETECTED (Not Detect.); NG PCR NOT DETECTED (Not Detect.)
[2021-08-14 13:03] LABS: BV Int Neg Control Negative (Negative); BV Int Pos Control Positive (Positive)
== END 2021-08-13 13:52 | disposition home or self-care (01) ==
LOC: HO.LNP 13:51
PROVIDERS: Visit Provider Physician Assistant
DX: N89.8 Other specified noninflammatory disorders of vagina (principal)
CPT/HCPCS: 87480; 87491; 87510; 87591; 87660

== ENCOUNTER 2021-08-30 08:53 | Emergency (ER) | payer OTHER, SELFPAY ==
[2021-08-30 08:58] VITALS: BP 144/99; PULSE 102; RESP 18; TEMP 36.1; O2SAT 95; BMI 53.1
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
[2021-08-30] MEDS: Ketorolac Tromethamine 30 MG/ML VIAL IM (09:42)
[2021-08-30] MEDS: Cyclobenzaprine HCl 10 MG TABLET PO (09:42)
== END 2021-08-30 09:45 | disposition home or self-care (01) ==
LOC: HO.ED 09:29
PROVIDERS: Emergency Provider Emergency Medicine; PCP Internal Medicine
DX: Z04.1 Encounter for examination and observation following transport accident (principal); M54.50 Low back pain, unspecified
CPT/HCPCS: 96372; 99284; J1885

== ENCOUNTER 2021-10-25 02:11 | Emergency (ER) | payer OTHER, SELFPAY ==
--- NOTE | ~2021-10-25 | CT_ITS ---
EXAMINATION: CT ABDOMEN AND PELVIS WITHOUT CONTRAST CLINICAL INFORMATION: Pelvic pain COMPARISON: Ultrasound 07/30/2020 TECHNIQUE: Multidetector volumetric imaging was performed from the superior aspect of the liver through the pubic symphysis. Sagittal and coronal reformatted images were obtained on the technologist's workstation. This CT examination was performed using dose optimization techniques as appropriate, variously including the following: *Automated exposure control *Adjustment of mA and/or kV according to patient size (this includes techniques or standardized protocols for targeted exams where dose is matched to indication/reason for exam; i.e. extremities or head) *Use of iterative reconstruction technique DLP: 1412 mGy-cm FINDINGS: LUNG BASES: The visualized lung bases are unremarkable. LIVER, GALLBLADDER, AND BILIARY TREE: The liver is enlarged, measuring approximately 23 cm in craniocaudal dimension. No focal hepatic lesion or biliary ductal dilatation is identified. Patient is status post cholecystectomy. PANCREAS: Unremarkable. SPLEEN: Unremarkable. ADRENAL GLANDS: Unremarkable. KIDNEYS AND URETERS: The kidneys are normal in size, shape, and attenuation. No hydronephrosis, hydroureter, or calculi seen. No perinephric stranding. BLADDER: Minimally distended and not adequately evaluated. GASTROINTESTINAL TRACT: No evidence of bowel obstruction or significant wall thickening. The appendix is unremarkable. No free fluid or free air is seen. ABDOMINAL WALL: No significant hernia is appreciated. LYMPH NODES: Borderline enlarged right pelvic sidewall lymph node, nonspecific. VASCULAR: Unremarkable. PELVIC VISCERA: Unremarkable. OSSEOUS STRUCTURES: Unremarkable. CT/CT abdomen pelvis wo con IMPRESSION: No acute findings identified in the abdomen/pelvis.
[2021-10-25 02:18] VITALS: BP 151/75; PULSE 98; RESP 20; TEMP 36.6; O2SAT 97; BMI 53.1
--- NOTE | 2021-10-25 02:30 | ED_ITS ---
HPI - Female Genitourinary General Chief complaint: Urogenital-Female Stated complaint: urogen-female Time Seen by Provider: 10/25/21 02:14 Source: patient Mode of arrival: ambulatory Limitations: no limitations History of Present Illness HPI Narrative: denies new sexual partner, reports swelling in the vaginal area MD elicited complaint: pelvic pain and prolapse Onset (ago): day(s) (2) Location of symptoms: suprapubic and vaginal Severity: moderate Female Urogenital Radiation: Suprapubic Quality of pain: dull and aching Consistency: constant Vaginal discharge: white and yellow Vaginal bleeding: none Urinary symptoms: Urgency and Frequency Exacerbating factors: urination Relieving factors: none Associated symptoms: prolapse and other (pelvic pain) Treatment prior to arrival: none Sexual activity: Yes Patient : No Related Data Previous Rx's Medication Instructions Recorded albuterol sulfate 90 mcg/actuation 1 inh INHALATION QID PRN #6.7 g 09/30/21 aerosol inhaler azithromycin 250 mg tablet See Rx Instructions PO .COMPLEX #6 09/30/21 tab cefuroxime axetil 500 mg tablet 500 mg PO BID 7 Days #14 tab 10/25/21 doxycycline monohydrate 100 mg 100 mg PO BID 10 Days #20 tab 10/25/21 tablet hydrocodone 5 mg-acetaminophen 325 1 tab PO Q6H PRN #10 tab 10/25/21 mg tablet ondansetron 4 mg disintegrating 4 mg PO Q8H PRN #20 tab 10/25/21 tablet Allergies Allergy/AdvReac Type Severity Reaction Status Date / Time No Known Allergies Allergy Verified 10/25/21 02:22 Review of Systems Review of Systems: Constitutional : No Fever, No Chills ENT/Mouth : No sore throat, No Rhinorrhea Eyes: No Eye Pain, No Redness Cardiovascular : No Chest Pain, No SOB Respiratory : No Cough, No Sputum, No Wheezing Gastrointestinal : no Nausea, No Vomiting, No Diarrhea, positive abdominal pain, Genitourinary : no irregular bleeding, No Dysuria, No Urinary Frequency, positive pelvic pain, pos vaginal lump felt Musculoskeletal : No Myalgias Skin : No rash Neuro : No Weakness, No Headache Psych : No Anxiety/Panic, No Depression Heme/Lymph: No bruising, No Lymphadenopathy Endocrine : No Polyuria, No Polydipsia All other systems reviewed and are negative PMFSH Past Medical History Attestation statement: The following information was validated with the patient. Medical History Annual physical exam Anxiety Hx of acute cholecystitis Morbid obesity with BMI of 50.0-59.9, adult Normal pelvic exam Skin lesion Sleep apnea Surgical History Hx of tonsillectomy Social History Social History Household Members: Children Household Members Other:: 8 yr old son, Housing: Apartment Are you a primary child adolescent care to a significant other at home: Yes Do you presently have visiting nurse or other home services: No Alcohol intake: current Alcohol intake frequency: holidays/special occasions only Patient Tobacco Use Status: Current someday Tobacco user Tobacco use type: Cigarette Cigarette Packs Per Day: 1 Cigarettes Per Day: 20.0 Smoked in Last 30 Days: Yes e-Cigarette/Vaping Use: Currently Using Second Hand Smoke Exposure: No Use of substances other than those prescribed or required for medical reasons: Yes Substance Use Type: Marijuana Substance Use Frequency: Occasionally Last Used Substance: Days (ago) Advance Directives Date on File: 04/07/21 Patient : No service: No Current occupational status: unemployed Gender identity: Female Physical Exam Vital Signs: Vital Signs: Last Vital Signs Temp 98 F 10/25/21 02:18 Pulse 98 10/25/21 02:18 Resp 20 10/25/21 02:18 BP 151/75 H 10/25/21 02:18 Pulse Ox 97 10/25/21 02:18 BMI result Body Mass Index 53.1 Appearance: Alert. Oriented X3. No acute distress. Eyes: Pupils equal, round and reactive to light. ENT: Pharynx normal. Neck: Normal inspection. Neck supple. CVS: Normal heart rate and rhythm. Pulses normal. Respiratory: No respiratory distress. Breath sounds normal. Abdomen: Soft and mild suprapubic ttp : yellow discharge noted, no swelling, prolapsed area ?bladder ttp noted, no labial abscess no bartholin cyst, CMT + Skin: Skin warm and dry. Normal skin color. Normal skin turgor. Extremities: No lower extremity edema. No calf ttp Neuro: Oriented X 3. No motor deficit. No sensory deficit. MDM - Female Genitourinary MDM Narrative Medical decision making narrative: 31 yo female with hx of yeast infection, anxiety, here with what appears to be prolapsed bladder - will obtain labs, UA, pelvic labs, CT scan for mass, bladder scan. Lab Data Result diagrams: 10/25/21 03:04 10/25/21 03:04 Labs: Lab Results 10/25/21 10/25/21 10/25/21 Range/Units 02:47 02:47 03:04 WBC 14.2 H (4.8-10.8) X10*3/uL RBC 4.28 (4.20-5.50) X10*6/uL Hgb 11.3 L (12.0-16.0) g/dl Hct 35.2 L (37.0-47.0) % MCV 82.2 (80.0-98.0) fL MCH 26.4 L (27.0-33.0) pg MCHC 32.1 (31.0-35.0) g/dl RDW 14.7 (11.0-16.0) % Plt Count 331 (160-400) X10*3/uL MPV 8.7 L (9.4-12.3) fL Immature Gran % (Auto) 0.6 H (0.0-0.4) % Neut % (Auto) 62.6 (45-73) % Lymph % (Auto) 29.0 (20-40) % [place] % (Auto) 5.9 (2-11) % Eos % (Auto) 1.8 (0-4) % Baso % (Auto) 0.1 (0-2) % Lymph # (Auto) 4.1 (1.2-4.9) X10*3/uL [place] # (Auto) 0.8 (0.1-1.2) X10*3/uL Eos # (Auto) 0.3 (0.0-0.4) X10*3/uL Baso # (Auto) 0.0 (0.0-0.2) X10*3/uL Abs Immat Gran (auto) 0.08 H (0.00-0.03) X10*3/uL Absolute Neuts (auto) 8.9 H (2.0-8.3) x10*3/uL Absolute Nucleated RBC 0.000 (0.0-0.012) X10*3/uL Nucleated RBC % (auto) 0.0 (0.0-0.2) /100WBC Smear Tech's Comments VERIFIED Sodium (135-145) mmol/L Potassium (3.3-5.1) mmol/L Chloride (96-108) mmol/L Carbon Dioxide (22-29) mmol/L Anion Gap (12-20) BUN (9-16) mg/dL Creatinine (0.5-1.4) mg/dL Estim Creat Clear Calc Estimated GFR Random Glucose (60-115) mg/dL Calcium (8.4-10.2) mg/dL Urine Color DK YELLOW Urine Appearance CLOUDY Urine pH 6.0 (5.0-8.0) Ur Specific [place] >= 1.030 H (1.005-1.025) Urine Protein TRACE (NEG-TRACE) MG/DL Urine Glucose (UA) NEG (NEG) MG/DL Urine Ketones 5 (NEG) MG/DL Urine Blood NEG (NEG) Urine Nitrite NEG (NEG) Ur Leukocyte Esterase 2+ H (NEG) Urine RBC 1-4 (0) /HPF Urine WBC 10-14 H (0-4) /HPF Ur Squamous Epith Cells 2+ /LPF Urine Bacteria 1+ /LPF Urine Mucus 4+ /LPF Urine Test NEGATIVE (NEGATIVE) 10/25/21 Range/Units 03:04 WBC (4.8-10.8) X10*3/uL RBC (4.20-5.50) X10*6/uL Hgb (12.0-16.0) g/dl Hct (37.0-47.0) % MCV (80.0-98.0) fL MCH (27.0-33.0) pg MCHC (31.0-35.0) g/dl RDW (11.0-16.0) % Plt Count (160-400) X10*3/uL MPV (9.4-12.3) fL Immature Gran % (Auto) (0.0-0.4) % Neut % (Auto) (45-73) % Lymph % (Auto) (20-40) % [place] % (Auto) (2-11) % Eos % (Auto) (0-4) % Baso % (Auto) (0-2) % Lymph # (Auto) (1.2-4.9) X10*3/uL [place] # (Auto) (0.1-1.2) X10*3/uL Eos # (Auto) (0.0-0.4) X10*3/uL Baso # (Auto) (0.0-0.2) X10*3/uL Abs Immat Gran (auto) (0.00-0.03) X10*3/uL Absolute Neuts (auto) (2.0-8.3) x10*3/uL Absolute Nucleated RBC (0.0-0.012) X10*3/uL Nucleated RBC % (auto) (0.0-0.2) /100WBC Smear Tech's Comments Sodium 138 (135-145) mmol/L Potassium 3.8 (3.3-5.1) mmol/L Chloride 103 (96-108) mmol/L Carbon Dioxide 27 (22-29) mmol/L Anion Gap 12 (12-20) BUN 6 L (9-16) mg/dL Creatinine 0.67 (0.5-1.4) mg/dL Estim Creat Clear Calc 199.2 Estimated GFR > 60 Random Glucose 101 (60-115) mg/dL Calcium 9.4 (8.4-10.2) mg/dL Urine Color Urine Appearance Urine pH (5.0-8.0) Ur Specific [place] (1.005-1.025) Urine Protein (NEG-TRACE) MG/DL Urine Glucose (UA) (NEG) MG/DL Urine Ketones (NEG) MG/DL Urine Blood (NEG) Urine Nitrite (NEG) Ur Leukocyte Esterase (NEG) Urine RBC (0) /HPF Urine WBC (0-4) /HPF Ur Squamous Epith Cells /LPF Urine Bacteria /LPF Urine Mucus /LPF Urine Test (NEGATIVE) Discharge Plan Discharge Clinical Impression: Pelvic pain, Female bladder prolapse, Acute pelvic inflammatory disease (PID) Patient Disposition: Home, Self-Care Instructions: Pelvic Inflammatory Disease (ED), Urinary Tract Infection in Women (ED), Pelvic Pain (ED) Additional Instructions: return to ED for any worsening symptoms or concerns take all medications as prescribed follow up with [facility] and no intercourse for 10 days Prescriptions: New cefuroxime axetil 500 mg tablet 500 mg PO BID 7 Days Qty: 14 0RF doxycycline monohydrate 100 mg tablet 100 mg PO BID 10 Days Qty: 20 0RF hydrocodone-acetaminophen 5-325 mg tablet 1 tab PO Q6H PRN (Reason: pain) Qty: 10 0RF Rx Instructions: partial fill okay ondansetron 4 mg tablet,disintegrating 4 mg PO Q8H PRN (Reason: nausea and vomiting) Qty: 20 0RF No Action azithromycin 250 mg tablet See Rx Instructions PO .COMPLEX Qty: 6 0RF Rx Instructions: take 500 mg today (day 1), then 250 mg for 4 days (days 2-5) PO albuterol sulfate 90 mcg/actuation HFA aerosol inhaler 1 inh inhalation QID PRN (Reason: shortness of breath or wheezing) Qty: 6.7 1RF Referrals: Serafin Grover MD [Physician] - 1 week Stand Alone Forms: Work/School Release
[2021-10-25 02:56] LABS: Appearance Urine CLOUDY; Color Urine DK YELLOW; Glucose Urine UA NEG (NEG); Leukocyte Esterase Urine 2+ (NEG); Nitrite Urine NEG (NEG); Specific Gravity - Urine >= 1.030 (1.005-1.025); UACC Culture Trigger YES; UPreg QC Valid YES; Urine Blood NEG (NEG); Urine Ketones 5 MG/DL (NEG); Urine Pregnancy NEGATIVE (NEGATIVE); Urine Protein TRACE MG/DL (NEG-TRACE)
[2021-10-25 03:02] LABS: Bacteria Urine 1+ /LPF; Mucus Urine 4+ /LPF; Squamous Epithelial Cell Urine 2+ /LPF
[2021-10-25 03:10] LABS: Basophils Percent Auto 0.1 % (0-2); Eosinophils Absolute Auto 0.3 X10*3/uL (0.0-0.4); Eosinophils Percent Auto 1.8 % (0-4); Hematocrit 35.2 % (37.0-47.0); Hemoglobin 11.3 g/dl (12.0-16.0); Imm Gran Abs Auto 0.08 X10*3/uL (0.00-0.03); Imm Gran Pct Auto 0.6 % (0.0-0.4); Lymphocytes Absolute Auto 4.1 X10*3/uL (1.2-4.9); MANUAL DIFF FLAG SCAN; Mean Corpuscular HGB Conc 32.1 g/dl (31.0-35.0); Mean Corpuscular Hemoglobin 26.4 pg (27.0-33.0); Mean Corpuscular Volume 82.2 fL (80.0-98.0); Mean Platelet Volume 8.7 fL (9.4-12.3); Monocytes Absolute Auto 0.8 X10*3/uL (0.1-1.2); Monocytes Percent Auto 5.9 % (2-11); Neutrophils Absolute Auto 8.9 x10*3/uL (2.0-8.3); Neutrophils Percent Auto 62.6 % (45-73); Platelet Count 331 X10*3/uL (160-400); Red Blood Count 4.28 X10*6/uL (4.20-5.50); Red Cell Distribution Width 14.7 % (11.0-16.0); SCAN SMEAR FLAG 1; White Blood Count 14.2 X10*3/uL (4.8-10.8)
[2021-10-25 03:27] LABS: Anion Gap 12 (12-20); Blood Urea Nitrogen 6 mg/dL (9-16); Calcium 9.4 mg/dL (8.4-10.2); Carbon Dioxide 27 mmol/L (22-29); Chloride 103 mmol/L (96-108); Creatinine Clr Calc Pharmacy 199.2; Estimated Glomerular Filt Rate > 60; Glucose Random 101 mg/dL (60-115); Potassium 3.8 mmol/L (3.3-5.1); SLIDE REVIEW VERIFIED; Sodium 138 mmol/L (135-145)
[2021-10-25] MEDS: cefTRIAXone sodium 500 MG, Lidocaine HCl 1 % MPF 1 ML IM (05:03)
[2021-10-25 10:23] LABS: CT PCR NOT DETECTED (Not Detect.); NG PCR NOT DETECTED (Not Detect.)
== END 2021-10-25 05:11 | disposition home or self-care (01) ==
LOC: HO.ED 04:19
PROVIDERS: Emergency Provider Emergency Medicine; PCP Internal Medicine
DX: N73.0 Acute parametritis and pelvic cellulitis (principal); R39.15 Urgency of urination; R35.0 Frequency of micturition; N81.10 Cystocele, unspecified; F17.210 Nicotine dependence, cigarettes, uncomplicated; Z71.6 Tobacco abuse counseling; Z79.899 Other long term (current) drug therapy
CPT/HCPCS: 36415; 74176; 80048; 81001; 81025; 85025; 87086; 87491; 87591; 96365; 99284; J0696

== ENCOUNTER 2021-10-28 12:56 | Outpatient (REF) | payer OTHER, SELFPAY ==
[2021-10-29 06:49] LABS: HBc Num1 0.06 S/CO (0.00-0.79); HIV AB/AG Nonreactive (Nonreactive); HIV Num 1 0.06 S/CO (0.00-0.99); Hepatitis B Core Antibody Nonreactive (Nonreactive); ~HepC Num1 0.07 S/CO (0.00-0.79); ~Hepatitis C Antibody Nonreactive (Nonreactive)
[2021-10-29 06:51] LABS: Syphilis Screen Nonreactive (Nonreactive)
[2021-10-29 13:01] LABS: BV Int Neg Control Negative (Negative); BV Int Pos Control Positive (Positive)
== END 2021-10-28 12:57 | disposition home or self-care (01) ==
LOC: HO.LAB 12:56
PROVIDERS: PCP Internal Medicine; Visit Provider Advanced Practice Midwife
DX: Z11.4 Encounter for screening for human immunodeficiency virus [HIV] (principal); R10.2 Pelvic and perineal pain; N89.8 Other specified noninflammatory disorders of vagina; Z20.2 Contact with and (suspected) exposure to infections with a predominantly sexual mode of transmission
CPT/HCPCS: 36415; 86704; 86780; 86803; 87389; 87480; 87510; 87660; 99212

== ENCOUNTER 2021-10-28 14:01 | Outpatient (REF) | payer OTHER, SELFPAY | END 2021-10-28 14:02 | disposition home or self-care (01) | LOC: HO.LAB 14:01 | PROVIDERS: PCP Internal Medicine; Visit Provider Advanced Practice Midwife | DX: Z13.89 Encounter for screening for other disorder (principal) ==

== ENCOUNTER → 2021-11-03 13:13 | Outpatient (BNVA) | payer OTHER, SELFPAY | PROVIDERS: PCP Internal Medicine; Visit Provider Advanced Practice Midwife | DX: N76.0 Acute vaginitis (principal); B96.89 Other specified bacterial agents as the cause of diseases classified elsewhere | CPT/HCPCS: 99212 ==

== ENCOUNTER 2021-12-13 11:45 | Emergency (ER) | payer OTHER, SELFPAY ==
--- NOTE | ~2021-12-13 | XR_ITS ---
EXAMINATION: XR CHEST CLINICAL INFORMATION: Cough COMPARISON: 03/11/2017 TECHNIQUE: Frontal view of the chest was obtained. FINDINGS: Lungs are well expanded and clear. No evidence of airspace disease or pleural effusion. Cardiac silhouette has normal size. The hilar contours are normal. The visualized bones and upper abdomen are unremarkable. XR/XR chest 1V IMPRESSION: No evidence of pneumonia. No acute cardiopulmonary findings.
[2021-12-13 13:01] VITALS: BP 143/99; PULSE 99; RESP 18; TEMP 37.1; O2SAT 98; BMI 53.1
[2021-12-13 14:28] LABS: Influenza A PCR NEGATIVE (Negative); Influenza B PCR NEGATIVE (Negative); Resp Syncy Virus RNA Qual PCR NEGATIVE (Negative); SARS COV2 PCR INHOUSE NEGATIVE (Negative)
--- NOTE | 2021-12-13 16:01 | ED_ITS ---
HPI - General Adult General Chief complaint: General Medical Stated complaint: Cold Symptoms Not Feeling Well Time Seen by Provider: 12/13/21 15:07 Source: patient Mode of arrival: ambulatory Limitations: no limitations History of Present Illness HPI narrative: 31-year-old female who presents with 4 days of cough, sinus congestion, left- sided sinus pain and pressure, headache, sore throat. No fevers or chills. Related Data Previous Rx's Medication Instructions Recorded cefuroxime axetil 500 mg tablet 500 mg PO BID 7 days #14 tabs 10/25/21 doxycycline monohydrate 100 mg 100 mg PO BID 10 days #20 tabs 10/25/21 tablet hydrocodone 5 mg-acetaminophen 325 1 tab PO Q6H PRN pain #10 tabs 10/25/21 mg tablet ondansetron 4 mg disintegrating 4 mg PO Q8H PRN nausea and 10/25/21 tablet vomiting #20 tabs metronidazole 500 mg tablet 500 mg PO BID 14 days #28 tabs 10/28/21 amoxicillin 875 mg-potassium 1 tab PO Q12H #14 tabs 12/13/21 clavulanate 125 mg tablet prednisone 20 mg tablet 40 mg PO DAILY #10 tabs 12/13/21 Allergies Allergy/AdvReac Type Severity Reaction Status Date / Time No Known Allergies Allergy Verified 12/13/21 13:09 Review of Systems Review of Systems: Yes all other systems are reviewed and are negative Constitutional: Constitutional: Reports no additional constitutional complaints, Denies body ache(s), Denies chills, Denies fever(s), Reports headache(s) and Denies weakness Eyes: Eyes: Reports no additional eye complaints and Denies change in vision ENT: Reports system reviewed and no additional complaints, except as documented, Denies dizziness, Reports headache(s), Reports nasal congestion, Denies nasal discharge, Denies neck pain, Reports sinus pain, Reports sinus pressure and Reports sore throat Cardiovascular: Cardiovascular: Reports no additional cardiovascular complaints, Denies chest pain, Denies leg edema and Denies dyspnea Respiratory: Respiratory: Reports no additional respiratory complaints, Reports cough and Denies dyspnea Gastrointestinal: Gastrointestinal: Reports no additional gastrointestinal complaints, Denies abdominal pain, Denies diarrhea, Denies nausea and Denies vomiting Genitourinary: Genitourinary: Reports no additional female genitourinary complaints and Denies urinary incontinence Musculoskeletal: Musculoskeletal: Reports no additional musculoskeletal complaints, Denies back pain, Denies arthralgias, Denies joint swelling, Denies neck pain, Denies numbness and Denies tingling Integumentary/Breasts: Skin/Breast: Reports system reviewed and no additional complaints, except as docu and Denies rash Neurologic: Reports system reviewed and no additional complaints, except as documented, Denies dizziness, Reports headache(s), Denies numbness, Denies tingling and Denies weakness PMFSH Past Medical History Attestation statement: The following information was validated with the patient. Source: old records reviewed and nursing notes reviewed Medical History Anxiety Hx of acute cholecystitis Morbid obesity with BMI of 50.0-59.9, adult Skin lesion Sleep apnea Surgical History Hx of tonsillectomy Social History Social History Household Members: Children Household Members Other:: 8 yr old son, Housing: Apartment Are you a primary pet care worker to a significant other at home: Yes Do you presently have visiting nurse or other home services: No Alcohol intake: current Alcohol intake frequency: holidays/special occasions only Patient Tobacco Use Status: Current someday Tobacco user Tobacco use type: Cigarette Cigarette Packs Per Day: 1 Cigarettes Per Day: 20.0 e-Cigarette/Vaping Use: Currently Using Second Hand Smoke Exposure: No Substance Use Type: Marijuana Advance Directives: Yes Advance Directives on File: Yes Advance Directives Date on File: 04/07/21 service: No Current occupational status: unemployed Gender identity: Female Physical Exam ED Vital Signs: Vital Signs - 24 hr 12/13/21 13:01 Temperature 98.7 F Pulse Rate 99 Respiratory Rate 18 Blood Pressure 143/99 H Pulse Oximetry 98 Oxygen Delivery Method Room Air BMI result Body Mass Index 53.1 Const General: cooperative, healthy appearing, comfortable and no acute distress Orientation/consciousness: patient oriented x3 Limitations: no limitations HENMT Head: Yes normal to inspection Ears: hearing grossly normal bilaterally and TM abnormal (Mild bilateral TM erythema) General nose exam: Normal external nose present Face and sinus: Yes normal facial exam and Yes sinus tenderness (Left maxillary) Mouth: Normal oral and palatal mucosa present Throat: Yes posterior oropharynx normal, Yes tonsils normal and Yes uvula midline Eyes General: appearance normal, both eyes and all related structures Pupils: Equal, round and reactive pupils present Neck Neck: Yes normal visual inspection, Yes full ROM and Yes no lymphadenopathy Chest Chest palpation & inspection: normal inspection of the chest Resp Effort & Inspection: normal respiratory effort Auscultation: clear to auscultation bilaterally Cardio Rate: regular rate Rhythm: regular rhythm Peripheral pulses: Peripheral pulses 2+ throughout GI Inspection: Yes normal to inspection Palpation (GI): Soft to palpation and nontender Back/Spine/Pelvis Thoracic/Lumbar Spine: thoracic and lumbar spine normal to inspection Skin General skin exam: no rashes or lesions noted Neuro General: patient oriented x3 and moves all extremities Cranial nerves: Yes Equal, round and reactive pupils present Cognition (Neuro): normal cognition Gait exam (Neuro): Normal gait present Motor exam (neuro): 5/5 motor strength present throughout Sensory Exam: Normal double simultaneous stimulation for sensation Extrem General: Yes normal to inspection Course Course Course Narrative: COVID test is negative. Chest x-ray shows no acute finding. Exam is consistent with sinusitis. Patient will be treated with course of antibiotics and prednisone. Reviewed worrisome signs and symptoms of when to return to the emergency department. Comfortable discharge home. Medical Decision Making MDM Narrative Medical decision making narrative: 31-year-old female here with URI symptoms for 4 days. On exam patient has a sinusitis. Lungs are clear. Vitals are stable. Will check COVID testing and chest x-ray Medical Records Medical records reviewed: Yes I reviewed the patient's medical records. Lab Data Lab results reviewed: Yes I reviewed the patient's lab results. Labs: Lab Results 12/13/21 Range/Units 13:44 Influenza Type A (PCR) NEGATIVE (Negative) Influenza Type B (PCR) NEGATIVE (Negative) RSV RNA Qual (PCR) NEGATIVE (Negative) SARS-CoV-2 RNA (RT-PCR) NEGATIVE (Negative) Imaging Data Chest x-ray: Attestation: I personally reviewed and interpreted this imaging study as follows: Radiologist's impression: [address] [address] XRay Report Signed Patient: Barbie Tom MR#: [id number] : 1990 Acct:[id number] Age/Sex: 31 / F ADM Date: 12/13/21 Loc: HO.ED Attending Dr: Ordering Physician: Mary ED Physician Date of Service: 12/13/21 Procedure(s): XR chest 1V Accession Number(s): [id number] cc: Generic ED Physician~ EXAMINATION: XR CHEST CLINICAL INFORMATION: Cough COMPARISON: 03/11/2017 TECHNIQUE: Frontal view of the chest was obtained. FINDINGS: Lungs are well expanded and clear. No evidence of airspace disease or pleural effusion. Cardiac silhouette has normal size. The hilar contours are normal. The visualized bones and upper abdomen are unremarkable. XR/XR chest 1V IMPRESSION: No evidence of pneumonia. No acute cardiopulmonary findings. ? Discharge Plan Discharge Clinical Impression: Sinusitis Patient Disposition: Home, Self-Care Instructions: Sinusitis (ED) Additional Instructions: COVID and flu testing are negative X-ray shows no acute finding Increase fluids, rest Motrin or Tylenol as needed Prescriptions: New prednisone 20 mg tablet 40 mg PO DAILY Qty: 10 0RF amoxicillin-pot clavulanate 875-125 mg tablet 1 tab PO Q12H Qty: 14 0RF No Action cefuroxime axetil 500 mg tablet 500 mg PO BID 7 Days Qty: 14 0RF doxycycline monohydrate 100 mg tablet 100 mg PO BID 10 Days Qty: 20 0RF hydrocodone-acetaminophen 5-325 mg tablet 1 tab PO Q6H PRN (Reason: pain) Qty: 10 0RF Rx Instructions: partial fill okay ondansetron 4 mg tablet,disintegrating 4 mg PO Q8H PRN (Reason: nausea and vomiting) Qty: 20 0RF metronidazole 500 mg tablet 500 mg PO BID 14 Days Qty: 28 0RF Referrals: Madina Corado MD [Primary Care Provider] - Stand Alone Forms: Work/School Release Interventions: ED Discharge Assessment Last Done: 12/13/21 16:12 Discharge Date/Time: 12/13/21 16:15
== END 2021-12-13 16:15 | disposition home or self-care (01) ==
PROVIDERS: Emergency Provider Student in an Organized Health Care Education/Training Program; PCP Internal Medicine
DX: J32.0 Chronic maxillary sinusitis (principal); H92.03 Otalgia, bilateral; Z20.822 Contact with and (suspected) exposure to COVID-19; E66.01 Morbid (severe) obesity due to excess calories; Z68.43 Body mass index [BMI] 50.0-59.9, adult; F17.210 Nicotine dependence, cigarettes, uncomplicated; F12.90 Cannabis use, unspecified, uncomplicated
CPT/HCPCS: 0241U; 71045; 99282; 99283

== ENCOUNTER 2022-04-07 14:00 | Outpatient (REF) | payer OTHER, SELFPAY ==
[2022-04-08 15:15] LABS: CT PCR NOT DETECTED (Not Detect.); NG PCR NOT DETECTED (Not Detect.)
== END 2022-04-07 14:01 | disposition home or self-care (01) ==
LOC: HO.LNP 14:00
PROVIDERS: Visit Provider Advanced Practice Midwife
DX: Z11.3 Encounter for screening for infections with a predominantly sexual mode of transmission (principal); Z11.8 Encounter for screening for other infectious and parasitic diseases
CPT/HCPCS: 87491; 87591

== ENCOUNTER → 2022-05-04 10:06 | Outpatient (REF) | payer OTHER, SELFPAY | LOC: HO.SL 10:06 | PROVIDERS: PCP Internal Medicine; Visit Provider Internal Medicine | DX: G47.33 Obstructive sleep apnea (adult) (pediatric) (principal) | CPT/HCPCS: 95806 ==

== ENCOUNTER 2022-05-06 14:25 | Outpatient (REF) | payer OTHER, SELFPAY ==
[2022-05-06 16:02] LABS: Influenza A PCR NEGATIVE (Negative); Influenza B PCR NEGATIVE (Negative); Resp Syncy Virus RNA Qual PCR POSITIVE (Negative); SARS COV2 PCR INHOUSE NEGATIVE (Negative)
== END 2022-05-06 14:26 | disposition home or self-care (01) ==
LOC: HO.LNP 14:25
PROVIDERS: Visit Provider Nurse Practitioner Family
DX: Z20.822 Contact with and (suspected) exposure to COVID-19 (principal); R09.89 Other specified symptoms and signs involving the circulatory and respiratory systems
CPT/HCPCS: 0241U

== ENCOUNTER 2022-06-18 09:50 | Outpatient (REF) | payer OTHER, SELFPAY ==
--- NOTE | ~2022-06-18 | CT_ITS ---
EXAMINATION: CT HEAD WITHOUT CONTRAST CLINICAL INFORMATION: Headache COMPARISON: None TECHNIQUE: Contiguous axial imaging was performed from the skull base to vertex without intravenous administration of contrast. This CT examination was performed using dose optimization techniques as appropriate, variously including the following: *Automated exposure control *Adjustment of mA and/or kV according to patient size (this includes techniques or standardized protocols for targeted exams where dose is matched to indication/reason for exam; i.e. extremities or head) *Use of iterative reconstruction technique DLP: 837 mGy-cm FINDINGS: There is no evidence of acute intracranial hemorrhage or territorial infarction. No abnormal mass effect or midline shift is seen. Lobo to white matter differentiation is well preserved. No extra-axial fluid collections are identified. The ventricles are normal in size. There is no abnormal attenuation within the brain parenchyma. The osseous structures and soft tissues are normal. The mastoid air cells and visualized portions of the paranasal sinuses are well aerated. CT/CT head/brain wo IV con IMPRESSION: No acute intracranial pathology.
== END 2022-06-18 09:51 | disposition home or self-care (01) ==
LOC: HO.CT 09:50
PROVIDERS: PCP Internal Medicine; Visit Provider Internal Medicine
DX: R51.9 Headache, unspecified (principal); F41.9 Anxiety disorder, unspecified
CPT/HCPCS: 70450

== ENCOUNTER → 2022-06-25 11:05 | Outpatient (BNVA) | payer OTHER, SELFPAY | PROVIDERS: PCP Internal Medicine; Visit Provider Nurse Practitioner Family | DX: G47.30 Sleep apnea, unspecified (principal); E66.01 Morbid (severe) obesity due to excess calories; U07.0 Vaping-related disorder; Z68.43 Body mass index [BMI] 50.0-59.9, adult; Z87.891 Personal history of nicotine dependence | CPT/HCPCS: 99202 ==

== ENCOUNTER 2022-07-04 13:43 | Outpatient (REF) | payer OTHER, SELFPAY ==
[2022-07-04 14:44] LABS: Influenza A PCR NEGATIVE (Negative); Influenza B PCR NEGATIVE (Negative); Resp Syncy Virus RNA Qual PCR NEGATIVE (Negative); SARS COV2 PCR INHOUSE NEGATIVE (Negative)
== END 2022-07-04 13:44 | disposition home or self-care (01) ==
LOC: HO.LNP 13:43
PROVIDERS: Visit Provider Physician Assistant Medical
DX: Z20.822 Contact with and (suspected) exposure to COVID-19 (principal); R05.9 Cough, unspecified
CPT/HCPCS: 0241U

== ENCOUNTER 2022-10-07 09:55 | Outpatient (REF) | payer OTHER, SELFPAY ==
[2022-10-07 11:28] LABS: MANUAL DIFF FLAG NO
[2022-10-07 11:55] LABS: Basophils Percent Auto 0.3 % (0-2); Eosinophils Absolute Auto 0.2 X10*3/uL (0.0-0.4); Eosinophils Percent Auto 1.6 % (0-4); Hematocrit 41.2 % (37.0-47.0); Hemoglobin 13.2 g/dl (12.0-16.0); Imm Gran Abs Auto 0.07 X10*3/uL (0.00-0.03); Imm Gran Pct Auto 0.6 % (0.0-0.4); Lymphocytes Absolute Auto 3.4 X10*3/uL (1.2-4.9); Lymphocytes Percent Auto 29.2 % (20-40); Mean Corpuscular Hemoglobin 26.9 pg (27.0-33.0); Mean Corpuscular Volume 83.9 fL (80.0-98.0); Mean Platelet Volume 8.8 fL (9.4-12.3); Monocytes Absolute Auto 0.6 X10*3/uL (0.1-1.2); Monocytes Percent Auto 5.2 % (2-11); Neutrophils Absolute Auto 7.3 x10*3/uL (2.0-8.3); Neutrophils Percent Auto 63.1 % (45-73); Platelet Count 364 X10*3/uL (160-400); Red Blood Count 4.91 X10*6/uL (4.20-5.50); Red Cell Distribution Width 14.1 % (11.0-16.0); White Blood Count 11.6 X10*3/uL (4.8-10.8)
[2022-10-07 12:45] LABS: Alanine Aminotransferase 21 U/L (0-31); Albumin Level 3.8 g/dL (3.5-5.0); Alkaline Phosphatase 99 U/L (39-117); Anion Gap 13 (12-20); Aspartate Amino Transferase 13 U/L (5-31); Bilirubin Total 0.3 mg/dL (0.0-1.0); Blood Urea Nitrogen 6 mg/dL (9-16); Calcium 9.2 mg/dL (8.4-10.2); Carbon Dioxide 26 mmol/L (22-29); Chloride 107 mmol/L (96-108); Cholesterol 164 mg/dL; Estimated Glomerular Filt Rate > 60; Glucose Fasting 97 mg/dL (60-99); HDL Cholesterol 34 mg/dL; LDL Cholesterol Calculated 111 mg/dl; Potassium 4.5 mmol/L (3.3-5.1); Sodium 141 mmol/L (135-145); Total Protein 6.6 g/dL (6.5-8.0); Triglycerides 96 mg/dL
[2022-10-07 13:13] LABS: TSH reflex Free T4 1.29 uIU/mL (0.32-4.0)
== END 2022-10-07 09:56 | disposition home or self-care (01) ==
LOC: HO.WFDLDS 09:55
PROVIDERS: Visit Provider Internal Medicine
DX: Z00.00 Encounter for general adult medical examination without abnormal findings (principal)
CPT/HCPCS: 36415; 80053; 80061; 84443; 85025

== ENCOUNTER → 2022-10-26 10:49 | Outpatient (BNVA) | payer OTHER, SELFPAY | PROVIDERS: PCP Internal Medicine; Visit Provider Nurse Practitioner Family | DX: G47.30 Sleep apnea, unspecified (principal) | CPT/HCPCS: 99212 ==

== ENCOUNTER 2022-11-12 07:29 | Outpatient (REF) | payer OTHER, SELFPAY ==
[2022-11-12 17:24] LABS: CT PCR NOT DETECTED (Not Detect.); NG PCR NOT DETECTED (Not Detect.)
[2022-11-13 05:09] LABS: Syphilis Screen Nonreactive (Nonreactive)
[2022-11-13 05:27] LABS: HBc Num1 0.07 S/CO (0.00-0.79); HIV AB/AG Nonreactive (Nonreactive); HIV Num 1 0.06 S/CO (0.00-0.99); Hepatitis B Core Antibody Nonreactive (Nonreactive); ~Hepatitis C Antibody Nonreactive (Nonreactive)
[2022-11-13 13:44] LABS: BV Int Neg Control Negative (Negative); BV Int Pos Control Positive (Positive)
[2022-11-14 07:19] LABS: DHEA Sulfate 149 mcg/dL (14-349); Follicle Stimulating Hormone 9.6 mIU/mL; Prolactin 6.3 ng/mL
[2022-11-18 16:58] LABS: Testosterone, Free 5.1 pg/mL (0.1-6.4); Testosterone, Total 36 ng/dL (2-45)
[2022-11-28 22:34] LABS: Estradiol Free 0.86 pg/mL; Estradiol, Ultrasensitive 41 pg/mL
== END 2022-11-12 07:30 | disposition home or self-care (01) ==
LOC: HO.LAB 07:29
PROVIDERS: PCP Internal Medicine; Visit Provider Advanced Practice Midwife
DX: Z11.4 Encounter for screening for human immunodeficiency virus [HIV] (principal); Z20.2 Contact with and (suspected) exposure to infections with a predominantly sexual mode of transmission; N92.6 Irregular menstruation, unspecified; R10.2 Pelvic and perineal pain; R23.2 Flushing; F41.9 Anxiety disorder, unspecified; L73.2 Hidradenitis suppurativa
CPT/HCPCS: 0353U; 81025; 82627; 82670; 82681; 83001; 83498; 84146; 84402; 84403; 86704; 86780; 86803; 87389; 87480; 87510; 87660; 99212

== ENCOUNTER 2022-11-12 08:17 | Outpatient (REF) | payer OTHER, SELFPAY | END 2022-11-12 08:18 | disposition home or self-care (01) | LOC: HO.LNP 08:17 | PROVIDERS: Visit Provider Advanced Practice Midwife | DX: Z13.89 Encounter for screening for other disorder (principal) ==

== ENCOUNTER 2022-11-17 14:03 | Emergency (ER) | payer OTHER, SELFPAY ==
--- NOTE | ~2022-11-17 | XR_ITS ---
EXAMINATION: XR CHEST CLINICAL INFORMATION: Left chest and upper back pain COMPARISON: 12/13/2021 TECHNIQUE: 2 views of the chest were obtained. FINDINGS: No significant abnormality is noted involving the heart, lungs, mediastinum, bony thorax or soft tissues. Cholecystectomy clips. XR/XR chest 2V IMPRESSION: Unremarkable examination.
--- NOTE | 2022-11-17 14:04 | ECG_ITS ---
Test Reason : cp Blood Pressure : / mmHG Vent. Rate : 117 BPM Atrial Rate : 117 BPM P-R Int : 112 ms QRS Dur : 076 ms QT Int : 312 ms P-R-T Axes : 032 031 043 degrees QTc Int : 435 ms Poor data quality Sinus tachycardia Otherwise normal ECG No previous ECGs available Referred By: Kalyani Lamb Electronically Signed By:Nash Sheriff
--- NOTE | 2022-11-17 14:10 | ED.GENADULT ---
HPI - General Adult General Chief complaint: Chest Pain Stated complaint: Chest Pain Time Seen by Provider: 11/17/22 19:49 Source: patient Mode of arrival: ambulatory History of Present Illness HPI narrative: 32-year-old female presents with atraumatic pain the started at the left inferior border of the shoulder blade and has not been associated with any fever, chills but states that the pain prevents her from deep inspiration she otherwise denies any GI or symptoms. Patient states that from the limited movement she is now having significant discomfort along her left shoulder from the base the neck out her left upper extremity. Related Data Previous Rx's Medication Instructions Recorded medroxyprogesterone 10 mg tablet 10 mg PO DAILY #10 tabs 11/12/22 (Provera) vitamin with calcium 1 tab PO DAILY #90 tabs 11/12/22 no.72-iron 27 mg-folic acid 1 mg tablet ( Vitamins Plus Low Iron) cyclobenzaprine 10 mg tablet 10 mg PO BEDTIME PRN muscle spasm 11/17/22 #4 tabs ketorolac 10 mg tablet 10 mg PO Q6H PRN pain 5 days #20 11/17/22 tabs Allergies Allergy/AdvReac Type Severity Reaction Status Date / Time No Known Allergies Allergy Verified 11/17/22 14:11 Review of Systems Review of Systems: Pertinent positives and negatives as stated in HPI [facility] Past Medical History Source: nursing notes reviewed Medical History Anxiety FH: cholecystectomy Flu-like symptoms Hx of acute cholecystitis Hydradenitis Irregular menses Morbid obesity with BMI of 50.0-59.9, adult Pelvic cramping Skin lesion Sleep apnea Surgical History Hx of tonsillectomy Family History Family History Mother Heart disease Vascular disease Father Lupus Pre-diabetes Paternal Grandfather Diabetes HTN (hypertension) Social History Social History Household Members: Children Household Members Other:: 8 yr old son, Housing: Apartment Are you a primary clinical care coordinator to a significant other at home: Yes Do you presently have visiting nurse or other home services: No Alcohol intake: current Alcohol intake frequency: holidays/special occasions only Patient Tobacco Use Status: Former Tobacco user Tobacco use type: Cigarette Cigarette Packs Per Day: 1 Cigarettes Per Day: 2 Years Smoked: 25 Smoked in Last 30 Days: No e-Cigarette/Vaping Use: Currently Using Second Hand Smoke Exposure: No Use of substances other than those prescribed or required for medical reasons: No Substance Use Type: Marijuana Advance Directives: Yes Advance Directives on File: Yes Advance Directives Date on File: 04/07/21 Patient : No service: No Current occupational status: unemployed Gender identity: Female Cognitive needs: No Hearing needs: No Vision needs: Yes Physical Exam ED Vital Signs: Vital Signs - 24 hr 11/17/22 14:12 11/17/22 17:34 Temperature 98 F 96.8 F Pulse Rate 109 H 104 H Respiratory Rate 19 18 Blood Pressure 133/54 L 151/91 H Pulse Oximetry 99 99 Oxygen Delivery Method Room Air Room Air BMI result Body Mass Index 55.3 VITAL SIGNS: Reviewed. GENERAL: Well developed, well nourished, in no acute distress. HEAD: Normocephalic/atraumatic EYES: PERRLA, EOMI EARS: Ext canals without abnormality NOSE: Nares patent bilateral OROPHARYNX: no oral lesions noted, posterior pharynx clear NECK: Supple, no adenopathy LUNGS: Normal breath sounds. No adventitious sounds or accessory muscle use. SpO2<99> CARDIOVASCULAR: Regular rate and rhythm without noted murmurs ABDOMEN: Soft, non-tender, non-distended with bowel sounds. MUSCULOSKELETAL: No tenderness, deformities, or effusions noted on gross inspection; BACK: There are clear muscle spasms along the left scapula and due to inactivity appear to extend from left base of neck out work towards the left shoulder. EXTREMITIES: No cyanosis, clubbing or edema. SKIN: Inspection of the skin reveals no rashes NEUROLOGIC: Alert and oriented x 4. Strength and sensation to light touch were grossly intact x 4. Course Course Course Narrative: This is an RME: Additional HPI, ROS, PE not included below will be deferred to primary provider. Patient is a 32-year-old female with history of hirsutism, obesity, anxiety, cholecystectomy presenting to the emergency department with a pulled muscle under left shoulder blade since yesterday afternoon which today began radiating to her left chest. Also reports feeling hot, is very diaphoretic, anxious. Feels short of breath, pain with breathing. Tight, pulling sensation through chest and back. No fever. Just started a new medication for hydrademitis suppurativa. Plan: EKG, labs, CXR Medical Decision Making Medical Decision Making [facility] Narrative: 32-year-old female with history and clinical presentation after review of all investigations which appear to be chronically stable I suspect that this is a muscle spasm, there is no traumatic injury reported and there is no symptoms or history to suggest acute infection. Patient was treated with combination analgesics, muscle relaxants as well as lidocaine patch and discharged home in stable condition. Differential Diagnosis Please see the discussion above Lab Data Please see the discussion above 11/17/22 14:26 11/17/22 14:26 Labs: Lab Results 11/17/22 11/17/22 11/17/22 Range/Units 14:26 14:26 14:26 WBC 15.3 H (4.8-10.8) X10*3/uL RBC 5.48 (4.20-5.50) X10*6/uL Hgb 14.8 (12.0-16.0) g/dl Hct 45.7 (37.0-47.0) % MCV 83.4 (80.0-98.0) fL MCH 27.0 (27.0-33.0) pg MCHC 32.4 (31.0-35.0) g/dl RDW 13.9 (11.0-16.0) % Plt Count 409 H (160-400) X10*3/uL MPV 8.3 L (9.4-12.3) fL Immature Gran % (Auto) 0.4 (0.0-0.4) % Neut % (Auto) 68.8 (45-73) % Lymph % (Auto) 24.8 (20-40) % Harris % (Auto) 4.4 (2-11) % Eos % (Auto) 1.2 (0-4) % Baso % (Auto) 0.4 (0-2) % Lymph # (Auto) 3.8 (1.2-4.9) X10*3/uL Harris # (Auto) 0.7 (0.1-1.2) X10*3/uL Eos # (Auto) 0.2 (0.0-0.4) X10*3/uL Baso # (Auto) 0.1 (0.0-0.2) X10*3/uL Abs Immat Gran (auto) 0.06 H (0.00-0.03) X10*3/uL Absolute Neuts (auto) 10.5 H (2.0-8.3) x10*3/uL Absolute Nucleated RBC 0.000 (0.0-0.012) X10*3/uL Nucleated RBC % (auto) 0.0 (0.0-0.2) /100WBC PT (10.0-13.1) SEC INR (0.9-1.1) Sodium 140 (135-145) mmol/L Potassium 4.2 (3.3-5.1) mmol/L Chloride 106 (96-108) mmol/L Carbon Dioxide 24 (22-29) mmol/L Anion Gap 14 (12-20) BUN 9 (9-16) mg/dL Creatinine 0.68 (0.5-1.4) mg/dL Estim Creat Clear Calc 192.9 Estimated GFR > 60 Random Glucose 103 (60-115) mg/dL Calcium 10.3 H D (8.4-10.2) mg/dL Total Bilirubin 0.6 (0.0-1.0) mg/dL AST 13 (5-31) U/L ALT 19 (0-31) U/L Alkaline Phosphatase 107 (39-117) U/L Troponin I High Sens (<3.5-17.0) ng/L Total Protein 7.8 (6.5-8.0) g/dL Albumin 4.3 (3.5-5.0) g/dL Beta HCG, Quant < 2 mIU/mL Urine Color Urine Appearance Urine pH (5.0-9.0) Ur Specific White (1.005-1.025) Urine Protein (Neg-Trace) mg/dL Urine Glucose (UA) (Negative) mg/dL Urine Ketones (Negative) mg/dL Urine Blood (Negative) Urine Nitrite (Negative) Ur Leukocyte Esterase (Negative) 11/17/22 11/17/22 11/17/22 Range/Units 14:26 14:26 17:42 WBC (4.8-10.8) X10*3/uL RBC (4.20-5.50) X10*6/uL Hgb (12.0-16.0) g/dl Hct (37.0-47.0) % MCV (80.0-98.0) fL MCH (27.0-33.0) pg MCHC (31.0-35.0) g/dl RDW (11.0-16.0) % Plt Count (160-400) X10*3/uL MPV (9.4-12.3) fL Immature Gran % (Auto) (0.0-0.4) % Neut % (Auto) (45-73) % Lymph % (Auto) (20-40) % Harris % (Auto) (2-11) % Eos % (Auto) (0-4) % Baso % (Auto) (0-2) % Lymph # (Auto) (1.2-4.9) X10*3/uL Harris # (Auto) (0.1-1.2) X10*3/uL Eos # (Auto) (0.0-0.4) X10*3/uL Baso # (Auto) (0.0-0.2) X10*3/uL Abs Immat Gran (auto) (0.00-0.03) X10*3/uL Absolute Neuts (auto) (2.0-8.3) x10*3/uL Absolute Nucleated RBC (0.0-0.012) X10*3/uL Nucleated RBC % (auto) (0.0-0.2) /100WBC PT 11.0 (10.0-13.1) SEC INR 1.0 (0.9-1.1) Sodium (135-145) mmol/L Potassium (3.3-5.1) mmol/L Chloride (96-108) mmol/L Carbon Dioxide (22-29) mmol/L Anion Gap (12-20) BUN (9-16) mg/dL Creatinine (0.5-1.4) mg/dL Estim Creat Clear Calc Estimated GFR Random Glucose (60-115) mg/dL Calcium (8.4-10.2) mg/dL Total Bilirubin (0.0-1.0) mg/dL AST (5-31) U/L ALT (0-31) U/L Alkaline Phosphatase (39-117) U/L Troponin I High Sens < 2.7 (<3.5-17.0) ng/L Total Protein (6.5-8.0) g/dL Albumin (3.5-5.0) g/dL Beta HCG, Quant mIU/mL Urine Color Dark Yellow Urine Appearance Cloudy Urine pH 5.5 (5.0-9.0) Ur Specific White 1.025 (1.005-1.025) Urine Protein Trace (Neg-Trace) mg/dL Urine Glucose (UA) Negative (Negative) mg/dL Urine Ketones Trace (Negative) mg/dL Urine Blood Negative (Negative) Urine Nitrite Negative (Negative) Ur Leukocyte Esterase Negative (Negative) Independent Interpretation I performed an independent interpretation of an: EKG Interpretation: Poor data quality, but appears to be sounds tachycardia without evidence of STEMI, HR-117, VT/QRS/QTC is within normal limits. Radiology Impression Radiologist Impression: My interpretation is in agreement with radiology's impression. External Record Review External record reviewed: Prior outpatient labs Discharge Plan Discharge Clinical Impression: Muscle spasm, Atypical chest pain Patient Disposition: Home, Self-Care Instructions: Muscle Spasm (ED), Chest Wall Pain (ED) Additional Instructions: 1. Tylenol 1000 mg, orally, every 6 hours as needed for pain control. Do not exceed 4000 mg within 24 hours. 2. Lidocaine patch, apply to area of maximal tenderness as directed on the outside packaging. 3. 2 prescriptions have been sent to your pharmacy please take these medications as prescribed. 4. Follow-up with your primary care provider in the next 1-2 days for re-evaluation further outpatient management. Return to the ER for any worsening symptoms. Prescriptions: New cyclobenzaprine 10 mg tablet 10 mg PO BEDTIME PRN (Reason: muscle spasm) Qty: 4 0RF ketorolac 10 mg tablet 10 mg PO Q6H PRN (Reason: pain) 5 Days Qty: 20 0RF No Action Vitamin Plus Low Iron 27 mg iron- 1 mg tablet 1 tab PO DAILY Qty: 90 4RF medroxyprogesterone [Provera] 10 mg tablet 10 mg PO DAILY Qty: 10 0RF Referrals: Madina Corado MD [Primary Care Provider] - Stand Alone Forms: Work/School Release
[2022-11-17 14:12] VITALS: BP 133/54; PULSE 109; RESP 19; TEMP 36.6; O2SAT 99; BMI 55.3
[2022-11-17 14:36] LABS: MANUAL DIFF FLAG NO
[2022-11-17 14:37] LABS: Basophils Absolute Auto 0.1 X10*3/uL (0.0-0.2); Basophils Percent Auto 0.4 % (0-2); Eosinophils Absolute Auto 0.2 X10*3/uL (0.0-0.4); Eosinophils Percent Auto 1.2 % (0-4); Hematocrit 45.7 % (37.0-47.0); Hemoglobin 14.8 g/dl (12.0-16.0); Imm Gran Abs Auto 0.06 X10*3/uL (0.00-0.03); Imm Gran Pct Auto 0.4 % (0.0-0.4); Lymphocytes Absolute Auto 3.8 X10*3/uL (1.2-4.9); Lymphocytes Percent Auto 24.8 % (20-40); Mean Corpuscular HGB Conc 32.4 g/dl (31.0-35.0); Mean Corpuscular Volume 83.4 fL (80.0-98.0); Mean Platelet Volume 8.3 fL (9.4-12.3); Monocytes Absolute Auto 0.7 X10*3/uL (0.1-1.2); Monocytes Percent Auto 4.4 % (2-11); Neutrophils Absolute Auto 10.5 x10*3/uL (2.0-8.3); Neutrophils Percent Auto 68.8 % (45-73); Platelet Count 409 X10*3/uL (160-400); Red Blood Count 5.48 X10*6/uL (4.20-5.50); Red Cell Distribution Width 13.9 % (11.0-16.0); White Blood Count 15.3 X10*3/uL (4.8-10.8)
[2022-11-17 14:53] LABS: Alanine Aminotransferase 19 U/L (0-31); Albumin Level 4.3 g/dL (3.5-5.0); Alkaline Phosphatase 107 U/L (39-117); Anion Gap 14 (12-20); Aspartate Amino Transferase 13 U/L (5-31); Bilirubin Total 0.6 mg/dL (0.0-1.0); Blood Urea Nitrogen 9 mg/dL (9-16); Calcium 10.3 mg/dL (8.4-10.2); Carbon Dioxide 24 mmol/L (22-29); Chloride 106 mmol/L (96-108); Creatinine Clr Calc Pharmacy 192.9; Estimated Glomerular Filt Rate > 60; Glucose Random 103 mg/dL (60-115); Potassium 4.2 mmol/L (3.3-5.1); Sodium 140 mmol/L (135-145); Total Protein 7.8 g/dL (6.5-8.0)
[2022-11-17 15:02] LABS: HCG Quantitative < 2 mIU/mL; Troponin-I High Sensitivity < 2.7 ng/L (<3.5-17.0)
[2022-11-17 17:34] VITALS: BP 151/91; PULSE 104; RESP 18; TEMP 36; O2SAT 99
[2022-11-17 17:52] LABS: Appearance Urine Cloudy; Color Urine Dark Yellow; Glucose Urine UA Negative (Negative); Leukocyte Esterase Urine Negative (Negative); Nitrite Urine Negative (Negative); PH 5.5 (5.0-9.0); Specific Gravity - Urine 1.025 (1.005-1.025); Urine Blood Negative (Negative); Urine Ketones Trace mg/dL (Negative); Urine Protein Trace mg/dL (Neg-Trace)
--- NOTE | 2022-11-17 19:43 | PC.NURSE ---
pt right upper arm infiltrated, iv removed
[2022-11-17] MEDS: Cyclobenzaprine HCl 10 MG TABLET PO (21:03)
[2022-11-17] MEDS: Acetaminophen 325 MG TABLET 975 MG PO (21:03)
[2022-11-17] MEDS: Lidocaine 4 % Patch ADH..PATCH 1 PATCH TRANSDERMA (21:04)
[2022-11-17] MEDS: Ketorolac Tromethamine 15 MG/ML VIAL IM (21:04)
--- NOTE | 2022-11-17 21:09 | PC.NURSE ---
pt tolerated po and IM medications well
== END 2022-11-17 21:25 | disposition home or self-care (01) ==
PROVIDERS: Registered Nurse Emergency; Emergency Provider Student in an Organized Health Care Education/Training Program; PCP Internal Medicine
DX: R07.89 Other chest pain (principal); M62.838 Other muscle spasm; Z87.891 Personal history of nicotine dependence; Z79.899 Other long term (current) drug therapy
CPT/HCPCS: 36415; 71046; 80053; 81003; 84484; 84702; 85025; 85610; 93005; 96372; 99284; 99285; J1885

== ENCOUNTER 2022-12-04 10:26 | Outpatient (AMB) | payer OTHER, SELFPAY ==
--- NOTE | 2022-12-04 10:27 | A.OFFVIS_ITS ---
Intake Intake Visit Reasons: TV lab work Intake Note: The patient agreed to use of a medical malpractice paralegal during this encounter. Scribed for YENNIFER Cevallos by Violet Reina medical malpractice paralegal, on 12/04/2022 at 10:55 am EST Supervisor Knitting Required: No Information Interpreted: non-clinical & clinical Allergies No Known Allergies Allergy (Verified 12/04/22 10:27) HPI HPI Comments History of Present Illness Details Doximity live video 10:54 -?11:05. Phone Call due to Covid-19 Pandemic. Video was utilized. She presents via phone/live video to discuss?test results secondary to irregular menses. Has not had a menses. Finished her course of Provera, finished 11/23/22. Reports acne on face and chest since last week. Admits to hx of irregular menses prior to having her son, did not bleed for one year. Took Provera and sx resolved within 3 weeks. Hx of BV at last visit, not treated, asymptomatic. Reports occasional cramps. She is interested in conceiving in the future. Not currently on BC. PFSH Medical History Anxiety FH: cholecystectomy Flu-like symptoms Hx of acute cholecystitis Hydradenitis Irregular menses Morbid obesity with BMI of 50.0-59.9, adult Pelvic cramping Skin lesion Sleep apnea Surgical History Hx of tonsillectomy Family History Mother Heart disease Vascular disease Father Lupus Pre-diabetes Paternal Grandfather Diabetes HTN (hypertension) Social History Household Members: Children Household Members Other:: 8 yr old son, Housing: Apartment Are you a primary rn medicare to a significant other at home: Yes Do you presently have visiting nurse or other home services: No Alcohol intake: current Alcohol intake frequency: holidays/special occasions only Patient Tobacco Use Status: Former Tobacco user Tobacco use type: Cigarette Cigarette Packs Per Day: 1 Cigarettes Per Day: 2 Years Smoked: 25 e-Cigarette/Vaping Use: Currently Using Second Hand Smoke Exposure: No Substance Use Type: Marijuana Advance Directives Date on File: 04/07/21 service: No Current occupational status: unemployed Gender identity: Female Cognitive needs: No Hearing needs: No Vision needs: Yes Female Reproductive History Menstrual Age of Menarche: 11 Review of Systems Const All systems reviewed & are unremarkable except as noted in HPI and below Reports abnormal menses Results Reviewed Results Reviewed: Laboratory Tests 11/12/22 11/17/22 08:45 14:26 Free Estradiol 0.86 Total Estradiol 41 FSH 9.6 Prolactin 6.3 Total Testosterone 36 Fr Testosterone Dialys 5.1 DHEA Sulfate 149 Beta HCG, Quant < 2 17-Hydroxyprogesterone 17 Assessment & Plan Assessment & Plan (1) Irregular menses: Code(s): N92.6 - Irregular menstruation, unspecified Plan: Reviewed test results with patient. Discussed work up including pelvic US. Monitor bleeding. Do home HCG test if she does not have bleeding. Reviewed causes of irregular menses including Ashermans syndrome, hormones, weight changes, illness, stress and medications. Discussed treatment for endometrial protection from developing hyperplasia leading to possible atypia, endometrial cancer including interittent Provera. Contact office if no bleeding in the next one week. RTO for test results. I spent 11 minutes speaking with the patient on the phone plus an additional 2 minutes reviewing and updating records for a total of 13 minutes ? (2) Pelvic cramping: Code(s): R10.2 - Pelvic and perineal pain Plan: Counseled on BV. (3) Encounter to discuss test results: Code(s): Z71.2 - Person consulting for explanation of examination or test findings Orders: Orders US pelvic and transvaginal Today N92.6 - Irregular menstruation, unspecified Telehealth Telehealth Location of provider rendering services: practice address Location of patient: address on file Patient Identification confirmed using: Name, : Yes Telehealth method: video Patient verbally consented to treatment: Yes Patient verbally consented to billing insurance company: Yes Patient informed of any privacy concerns related to visit: Yes Coding Level of Care Code Tele Est Pt Level 3 (03009) Diagnoses Irregular menses N92.6 Pelvic cramping R10.2 Encounter to discuss test results Z71.2
== END 2022-12-04 11:37 | disposition home or self-care (01) ==
LOC: HO.HWS 10:26
PROVIDERS: PCP Internal Medicine; Visit Provider Advanced Practice Midwife
DX: N92.6 Irregular menstruation, unspecified (principal); R10.2 Pelvic and perineal pain; Z71.2 Person consulting for explanation of examination or test findings
CPT/HCPCS: 99213

== ENCOUNTER → 2022-12-04 10:26 | Outpatient (BNVA) | payer OTHER, SELFPAY | PROVIDERS: PCP Internal Medicine; Visit Provider Advanced Practice Midwife ==

== ENCOUNTER 2022-12-08 14:24 | Outpatient (REF) | payer OTHER, SELFPAY ==
--- NOTE | ~2022-12-08 | US_ITS ---
EXAMINATION: US PELVIS CLINICAL INFORMATION: Irregular menses, last menstrual period 08/22/2022. COMPARISON: None available. TECHNIQUE: Ultrasound of the pelvis is performed using both transabdominal and transvaginal transducers along with Doppler. Transvaginal imaging is performed due to inadequate visualization transabdominally. FINDINGS: Uterus: The uterus is anteverted and measures 9.0 x 5.1 x 6.2 cm. No discrete fibroid identified. The double wall endometrial thickness is 2.3 mm. Endometrium appears hypervascular. The uterus is smooth in contour and has normal myometrial echogenicity. No visible fibroid. Adnexa: Right ovary measures 2.6 x 1.4 x 2.3 cm, volume 4.3 mL and is unremarkable. Left ovary was not identified. No significant free fluid. US/US pelvic and transvaginal IMPRESSION: 1. Endometrium appears abnormally hypervascular with thickness of 2.3 cm. Correlation with clinical exam and possible gynecologic consultation recommended. Recommend follow up ultrasound in 6-8 weeks. 2. Right ovary unremarkable. Left ovary is not identified. 3. No discrete fibroid. 4. No significant free fluid.
== END 2022-12-08 14:25 | disposition home or self-care (01) ==
LOC: HO.US 14:24
PROVIDERS: PCP Internal Medicine; Visit Provider Advanced Practice Midwife
DX: N92.6 Irregular menstruation, unspecified (principal)
CPT/HCPCS: 76830; 76856

== ENCOUNTER 2022-12-25 13:18 | Outpatient (AMB) | payer OTHER, SELFPAY ==
--- NOTE | 2022-12-25 13:28 | A.OFFVIS_ITS ---
Intake Vital Signs 12/25/22 13:30 Height 5 ft 7 in Weight 352 lb 11.834 oz BMI 55.2 BP 128/84 Intake Visit Reasons: Ultra sound follow up Intake Note: The patient agreed to use of a medical center manager during this encounter. Scribed for YENNIFER Cevallos by Violet Reina medical center manager, on 12/25/2022 at 1:45 pm EST Marketing Support Specialist Required: No Information Interpreted: non-clinical & clinical Accompanied by: Self / Same As Patient Allergies No Known Allergies Allergy (Verified 12/25/22 13:31) Is last menstrual period known: No HPI HPI Comments History of Present Illness Details She presents to discuss test results secondary to irregular menses. Re ports her menses have been irregular for a long time. LMP was July. Completed Provera on 11/23/22 and had withdrawal bleed on . Not currently sexually active. Going through a breakup. Patient denies any contraindications to control such as tobacco use, migraines with aura, high blood pressure, liver disease, blood clotting disorders, DVT and PE. [facility] Medical History Anxiety FH: cholecystectomy Flu-like symptoms Hx of acute cholecystitis Hydradenitis Irregular menses Morbid obesity with BMI of 50.0-59.9, adult Pelvic cramping Skin lesion Sleep apnea Surgical History Hx of tonsillectomy Family History Mother Heart disease Vascular disease Father Lupus Pre-diabetes Paternal Grandfather Diabetes HTN (hypertension) Social History Household Members: Children Household Members Other:: 8 yr old son, Housing: Apartment Are you a primary inpatient care manager rn to a significant other at home: Yes Do you presently have visiting nurse or other home services: No Alcohol intake: current Alcohol intake frequency: holidays/special occasions only Patient Tobacco Use Status: Former Tobacco user Tobacco use type: Cigarette Cigarette Packs Per Day: 1 Cigarettes Per Day: 2 Years Smoked: 25 e-Cigarette/Vaping Use: Currently Using Second Hand Smoke Exposure: No Substance Use Type: Marijuana Advance Directives Date on File: 04/07/21 service: No Current occupational status: unemployed Gender identity: Female Cognitive needs: No Hearing needs: No Vision needs: Yes Female Reproductive History Menstrual Age of Menarche: 11 Review of Systems Const All systems reviewed & are unremarkable except as noted in HPI and below Reports abnormal menses Physical Exam Vital Signs: Last Vital Signs BP 128/84 12/25/22 13:30 BMI result Body Mass Index 55.2 Const General: cooperative, healthy appearing, no acute distress, well developed and alert Results Reviewed Results Reviewed: 12/08/22 US FINDINGS: Uterus: The uterus is anteverted and measures 9.0 x 5.1 x 6.2 cm. No discrete fibroid identified. The double wall endometrial thickness is 2.3 mm. Endometrium appears hypervascular. The uterus is smooth in contour and has normal myometrial echogenicity. No visible fibroid. Adnexa: Right ovary measures 2.6 x 1.4 x 2.3 cm, volume 4.3 mL and is unremarkable. Left ovary was not identified. No significant free fluid. IMPRESSION: ? 1. Endometrium appears abnormally hypervascular with thickness of 2.3 cm. Correlation with clinical exam and possible gynecologic consultation recommended. Recommend follow up ultrasound in 6-8 weeks. ? 2. Right ovary unremarkable. Left ovary is not identified. ? 3. No discrete fibroid. ? 4. No significant free fluid. Assessment & Plan Assessment & Plan (1) Irregular menses: Code(s): N92.6 - Irregular menstruation, unspecified (2) Encounter to discuss test results: Code(s): Z71.2 - Person consulting for explanation of examination or test findings Plan: Reviewed test results with patient. Reviewed normal spacing of menses, contact office that are spaced out shorter than 3? weeks and greater than 3 months. Discussed causes of irregular menses including stress, medications, illness, hormones, injuries or trauma, weight changes. Encouraged weight loss. Maintain a healthy diet and routine exercise. Counseled on BC for cycle control vs intermittent Provera. She opts for intermittent Provera, monthly as needed. Reviewed use, side effects and warning of Provera, including ACHES. She was instructed to go to ER if she develops loss of vision, severe headache that does not resolve, chest pain, difficulty breathing, abdominal pain, or severe pain or tenderness in extremity. She will call the office with any concerns. RTO as scheduled 04/12/23 for AG. (3) Endometrial thickening on ultrasound: Code(s): R93.89 - Abnormal findings on diagnostic imaging of other specified body structures Plan: Repeat US in 6-8 weeks. RTO for test results. Orders: Orders US pelvic and transvaginal 7 Weeks N92.6 - Irregular menstruation, unspecified, R93.89 - Abnormal findings on diagnostic imaging of other specified body structures Medications: Changed From medroxyprogesterone (Provera) 10 mg PO DAILY 10 tabs 0RF To medroxyprogesterone (Provera) repeat monthly as needed 10 mg PO DAILY 60 tabs 0RF Coding Level of Care Code Est Pt Level 3 (35515) Diagnoses Irregular menses N92.6 Encounter to discuss test results Z71.2 Endometrial thickening on ultrasound R93.89
[2022-12-25 13:30] VITALS: BP 128/84; BMI 55.2
== END 2022-12-25 13:57 | disposition home or self-care (01) ==
LOC: HO.HWS 13:18
PROVIDERS: PCP Internal Medicine; Visit Provider Advanced Practice Midwife
DX: N92.6 Irregular menstruation, unspecified (principal); Z71.2 Person consulting for explanation of examination or test findings; R93.89 Abnormal findings on diagnostic imaging of other specified body structures
CPT/HCPCS: 99213

== ENCOUNTER → 2022-12-25 13:18 | Outpatient (BNVA) | payer OTHER, SELFPAY | PROVIDERS: PCP Internal Medicine; Visit Provider Advanced Practice Midwife | DX: Z71.2 Person consulting for explanation of examination or test findings (principal); N92.6 Irregular menstruation, unspecified; R93.89 Abnormal findings on diagnostic imaging of other specified body structures | CPT/HCPCS: 99212 ==

== ENCOUNTER 2023-02-08 10:15 | Outpatient (AMB) | payer OTHER, SELFPAY ==
[2023-02-08 10:45] VITALS: BP 130/78; PULSE 94; TEMP 36.5; O2SAT 98; BMI 54.8
--- NOTE | 2023-02-08 10:45 | MHC.OFFWIV ---
Intake Vital Signs 02/08/23 10:45 Height 5 ft 7 in Weight 350 lb BMI 54.8 BP 130/78 Blood Pressure Location Rt brachial Position Sitting Pulse 94 Pulse Source Pulse Oximeter Temp 97.7 F Temp Source Temporal Artery Scan Pulse Oximetry (%) 98 Intake Visit Reasons: EST/sore thoat(masked lobby) Intake Note: pt is here for c/o sore throat Patient Tobacco Use Status: Former Tobacco user Allergies No Known Allergies Allergy (Verified 02/08/23 10:46) Do you need a note to return to daycare/school/sports/work: Yes HPI HPI Comments History of Present Illness Details This is a 32-year-old female with a past medical history of obstructive sleep apnea compliant with her CPAP machine and seasonal allergies presenting for evaluation of a sore throat that she has had since Wednesday. Patient has been taking Motrin, Tylenol and NyQuil without relief of her discomfort. Patient describes her sore throat as ?sandpaper when I swallow. ? Patient denies having any fevers, chills, ear pain, cough or shortness of breath. [facility] Medical History Irregular menses Hydradenitis Pelvic cramping FH: cholecystectomy Flu-like symptoms Anxiety Sleep apnea Skin lesion Hx of acute cholecystitis Morbid obesity with BMI of 50.0-59.9, adult Surgical History Hx of tonsillectomy Family History Mother Heart disease Vascular disease Father Lupus Pre-diabetes Paternal Grandfather Diabetes HTN (hypertension) Social History Household Members: Children Household Members Other:: 8 yr old son, Housing: Apartment Are you a primary patient care secretary to a significant other at home: Yes Do you presently have visiting nurse or other home services: No Alcohol intake: current Alcohol intake frequency: holidays/special occasions only Patient Tobacco Use Status: Former Tobacco user Tobacco use type: Cigarette Cigarette Packs Per Day: 1 Cigarettes Per Day: 2 Years Smoked: 25 e-Cigarette/Vaping Use: Currently Using Second Hand Smoke Exposure: No Substance Use Type: Marijuana Advance Directives Date on File: 04/07/21 service: No Current occupational status: unemployed Gender identity: Female Cognitive needs: No Hearing needs: No Vision needs: Yes Female Reproductive History Menstrual Age of Menarche: 11 Review of Systems Const All systems reviewed & are unremarkable except as noted in HPI and below Reports as per HPI, Denies chills, Denies fever(s), Denies lethargy and Denies malaise ENT Denies dry mouth, Denies facial pain, Denies mouth lesions, Denies nasal congestion, Denies nasal discharge, Denies sinus pressure, Reports sore throat and Denies throat swelling Card Reports no additional complaints Resp Reports no additional complaints Zi/Lymph Denies lymphadenopathy Aller/Immun Denies throat swelling Physical Exam Vital Signs: Last Vital Signs Temp 97.7 F 02/08/23 10:45 Pulse 94 02/08/23 10:45 BP 130/78 02/08/23 10:45 Pulse Ox 98 02/08/23 10:45 BMI result Body Mass Index 54.8 Const General: cooperative, healthy appearing, comfortable, no acute distress and other (afebrile) Nutritional Appearance: obese Orientation/consciousness: patient oriented x3 Limitations: no limitations HEENT Head: Yes normal to inspection Ears: hearing grossly normal bilaterally, external ears normal, TM normal on the right and TM abnormal (left TM with mild fluid level and bulging; no erythema, canal clear) bulging on the left and with fluid behind the TM on the left General nose exam: Normal external nose present Face and sinus: Yes normal facial exam Mouth: Normal oral and palatal mucosa present Throat: Yes posterior oropharynx normal, Yes uvula midline and Yes postnasal drainage Eyes General: appearance normal, both eyes and all related structures Conjunctivae: conjunctivae normal Sclerae: sclerae normal EOM: EOMs intact bilaterally Neck Neck: Yes normal visual inspection Lymphatic: no lymphadenopathy noted Resp Effort & Inspection: normal respiratory effort (no tachypnea) and no audible wheezes Auscultation: clear to auscultation bilaterally Cardio Rate: regular rate Rhythm: regular rhythm Skin General skin exam: no rashes or lesions noted Neuro General: patient oriented x3 Psych Appearance: grossly normal Speech and movement: Normal speech and movement present Affect: normal affect Thought process: Normal thought process present Thought content: Normal thought content present Insight: Good insight present (Psych) Judgement: Good judgement present (Psych) Results AMB Rapid Strep AMB Rapid Strep Negative Last Edit by Joe Olivas CMA on 02/08/23 11:00 Results Reviewed Results Reviewed: Laboratory Last Values Strep Scn Rapid Clinic Negative 02/08/23 10:57 Negative rapid strep reviewed with patient. Assessment & Plan Assessment & Plan (1) Pharyngitis, acute: Code(s): J02.9 - Acute pharyngitis, unspecified Plan Patient is seen and evaluated; she is afebrile and non.toxic appearing. Rapid strep test is negative. Lungs are clear to auscultation bilaterally and posterior oropharynx is clear. Patient is instructed to use fluticasone nasal spray and/or oral antihistamines such as loratadine daily for ongoing management of her symptoms. Orders: Orders AMB Rapid Strep Screen Today Z13.9 - Encounter for screening, unspecified Coding Level of Care Code Est Pt Level 3 (00869) Diagnoses Pharyngitis, acute J02.9 Time Spent (min) 20
== END 2023-02-08 11:53 | disposition home or self-care (01) ==
PROVIDERS: PCP Internal Medicine; Visit Provider Physician Assistant
DX: J02.9 Acute pharyngitis, unspecified (principal)
CPT/HCPCS: 87880; 99213

== ENCOUNTER 2023-02-12 11:08 | Outpatient (REF) | payer OTHER, SELFPAY ==
--- NOTE | ~2023-02-12 | US_ITS ---
EXAMINATION: US PELVIS CLINICAL INFORMATION: Irregular menstruation. COMPARISON: Pelvic ultrasound 12/08/2022. TECHNIQUE: Ultrasound of the pelvis is performed using both transabdominal and transvaginal transducers along with Doppler. Transvaginal imaging is performed due to inadequate visualization transabdominally. FINDINGS: Uterus: The uterus is anteverted and anteflexed. The uterus measures 9.2 x 4.4 x 6.4 cm. The uterus appears normal. The double wall endometrial thickness is 0.8 mm. The uterus is smooth in contour and has normal myometrial echogenicity. No visible fibroid. Adnexa: Right ovary measures 2.3 x 1.4 x 2.1 cm. Volume 3.5 mL. The right ovary appears normal. Left ovary measures 3.6 x 1.4 x 2.1 cm. Volume 5.5 mL. The left ovary appears normal. No fluid in the pelvic cul-de-sac. US/US pelvic and transvaginal IMPRESSION: Normal pelvic ultrasound.
== END 2023-02-12 11:09 | disposition home or self-care (01) ==
LOC: HO.US 11:08
PROVIDERS: PCP Internal Medicine; Visit Provider Advanced Practice Midwife
DX: N92.6 Irregular menstruation, unspecified (principal); R93.89 Abnormal findings on diagnostic imaging of other specified body structures
CPT/HCPCS: 76830; 76856

== ENCOUNTER 2023-03-04 12:42 | Outpatient (REF) | payer OTHER, SELFPAY ==
[2023-03-04 17:30] LABS: CT PCR NOT DETECTED (Not Detect.); NG PCR NOT DETECTED (Not Detect.)
[2023-03-05 11:11] LABS: BV Int Neg Control Negative (Negative); BV Int Pos Control Positive (Positive)
== END 2023-03-04 12:43 | disposition home or self-care (01) ==
LOC: HO.LAB 12:42
PROVIDERS: PCP Internal Medicine; Visit Provider Advanced Practice Midwife
DX: N89.8 Other specified noninflammatory disorders of vagina (principal); N94.9 Unspecified condition associated with female genital organs and menstrual cycle
CPT/HCPCS: 0353U; 87480; 87510; 87660; 99212

== ENCOUNTER 2023-03-04 12:42 | Outpatient (AMB) | payer OTHER, SELFPAY ==
--- NOTE | 2023-03-04 13:02 | A.OFFVIS_ITS ---
Intake Vital Signs 03/04/23 13:03 Height 5 ft 7 in Weight 337 lb BMI 52.8 BP 122/76 Intake Visit Reasons: Ultra sound follow up Intake Note: pt c/o vag irritation and discharge The patient agreed to use of a medical accounts receivable specialist during this encounter. Scribed for YENNIFER Cevallos by Kalyani Chase medical accounts receivable specialist, on 03/04/2023 at 1:16 pm, EST. Allergies No Known Allergies Allergy (Verified 03/04/23 13:03) HPI HPI Comments History of Present Illness Details C/o vaginal irritation and discharge. She is concerned she might be allergic to latex. Currently sexual active with a new partner. She is interested in having a baby, but not at this time. Had sex twice with new partner while using a condom and both times reported itchiness afterwards. After cleaning the vaginal area with a washcloth or baby wipe she reports a burning sensation. Reports regular menses. She is not currently taking control. Has not smoked since 04/26/2022. [facility] Medical History Irregular menses Hydradenitis Pelvic cramping FH: cholecystectomy Flu-like symptoms Anxiety Sleep apnea Skin lesion Hx of acute cholecystitis Morbid obesity with BMI of 50.0-59.9, adult Surgical History Hx of tonsillectomy Family History Mother Heart disease Vascular disease Father Lupus Pre-diabetes Paternal Grandfather Diabetes HTN (hypertension) Social History Household Members: Children Household Members Other:: 8 yr old son, Housing: Apartment Are you a primary ocular care technician to a significant other at home: Yes Do you presently have visiting nurse or other home services: No Alcohol intake: current Alcohol intake frequency: holidays/special occasions only Patient Tobacco Use Status: Former Tobacco user Tobacco use type: Cigarette Cigarette Packs Per Day: 1 Cigarettes Per Day: 2 Years Smoked: 25 e-Cigarette/Vaping Use: Currently Using Second Hand Smoke Exposure: No Substance Use Type: Marijuana Advance Directives Date on File: 04/07/21 service: No Current occupational status: unemployed Gender identity: Female Cognitive needs: No Hearing needs: No Vision needs: Yes Female Reproductive History Menstrual Age of Menarche: 11 Review of Systems Const All systems reviewed & are unremarkable except as noted in HPI and below Reports vaginal pruritus and Reports other (burning sensation after cleaning area) Physical Exam Vital Signs: Last Vital Signs BP 122/76 03/04/23 13:03 BMI result Body Mass Index 52.8 Const General: cooperative, healthy appearing, no acute distress, well developed and alert Orientation/consciousness: patient oriented x3 HEENT Head: Yes normal to inspection Eyes General: appearance normal, both eyes and all related structures Neck Neck: Yes normal visual inspection Thyroid: Thyroid normal Chest Chest palpation & inspection: normal inspection of the chest Breast/axilla inspection: normal inspection of the breasts (no puckering, dimpling, peau de orange, retraction, discharge, masses) Breast/axilla palpation: normal palpation of the breasts Resp Effort & Inspection: normal respiratory effort GI Inspection: Yes normal to inspection Palpation (GI): Soft to palpation Rectal Exam - Female: deferred General: Yes bladder normal to inspection and Yes bladder normal to palpation External Female Exam: normal appearance of the urethra and erythema (mild labial minora) Speculum Exam - Vagina: normal appearance of the vagina, normal palpation and abnormal vaginal discharge (Moderate to large frothy discharge) frothy Speculum Exam - Cervix: normal palpation Bimanual exam- vagina & uterus: normal bimanual exam, normal palpation, uterine size normal, bladder normal to palpation and normal palpation Bimanual Exam- Adnexa, other: normal adnexae and no masses Skin General skin exam: no rashes or lesions noted Neuro General: patient oriented x3 Cognition (Neuro): normal cognition Extrem General: Yes normal to inspection Psych Attitude: cooperative Thought process: Normal thought process present Results Reviewed Results Reviewed: Ultrasound of the plevic/transvag, obtained on 02/12/2023: EXAMINATION: US PELVIS CLINICAL INFORMATION: Irregular menstruation. COMPARISON: Pelvic ultrasound 12/08/2022. TECHNIQUE: Ultrasound of the pelvis is performed using both transabdominal and transvaginal transducers along with Doppler. Transvaginal imaging is performed due to inadequate visualization transabdominally. FINDINGS: Uterus: The uterus is anteverted and anteflexed. The uterus measures 9.2 x 4.4 x 6.4 cm. The uterus appears normal. The double wall endometrial thickness is 0.8 mm. The uterus is smooth in contour and has normal myometrial echogenicity. No visible fibroid. Adnexa: Right ovary measures 2.3 x 1.4 x 2.1 cm. Volume 3.5 mL. The right ovary appears normal. Left ovary measures 3.6 x 1.4 x 2.1 cm. Volume 5.5 mL. The left ovary appears normal. No fluid in the pelvic cul-de-sac. US/US pelvic and transvaginal IMPRESSION: Normal pelvic ultrasound. Assessment & Plan Assessment & Plan (1) Vaginal burning: Code(s): N94.9 - Unspecified condition associated with female genital organs and menstrual cycle Plan: BV testing and GC/CT panel today. STD blood work ordered. Await results and treat accordingly. Advised to clean with water only, no soaps to the area. Can apply cold pack to the area. No intimacy until sx resolve. Recommeded for her to continue to monitor her menses. (2) Vaginal discharge: Code(s): N89.8 - Other specified noninflammatory disorders of vagina (3) Encounter to discuss test results: Code(s): Z71.2 - Person consulting for explanation of examination or test findings Orders: Orders Bacterial Vaginosis Panel Today N89.8 - Other specified noninflammatory disorders of vagina CT NG by PCR Today N89.8 - Other specified noninflammatory disorders of vagina Coding Level of Care Code Est Pt Level 3 (58798) Diagnoses Vaginal burning N94.9 Vaginal discharge N89.8 Encounter to discuss test results Z71.2
[2023-03-04 13:03] VITALS: BP 122/76; BMI 52.8
== END 2023-03-04 13:39 | disposition home or self-care (01) ==
PROVIDERS: PCP Internal Medicine; Visit Provider Advanced Practice Midwife
DX: N94.9 Unspecified condition associated with female genital organs and menstrual cycle (principal); N89.8 Other specified noninflammatory disorders of vagina; Z71.2 Person consulting for explanation of examination or test findings
CPT/HCPCS: 99213

== ENCOUNTER 2023-03-04 13:35 | Outpatient (REF) | payer OTHER, SELFPAY | END 2023-03-04 13:36 | disposition home or self-care (01) | LOC: HO.LNP 13:35 | PROVIDERS: Visit Provider Advanced Practice Midwife | DX: Z13.89 Encounter for screening for other disorder (principal) ==

== ENCOUNTER 2023-04-27 09:49 | Outpatient (AMB) | payer OTHER, SELFPAY ==
[2023-04-27 10:13] VITALS: BP 106/68; BMI 52.3
--- NOTE | 2023-04-27 10:13 | MHC.OFFVIS ---
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 Doing well with no concerns. She tries to eat healthy, currently not keeping up with that due to the stressors with her mom and stepdad health issues. She stays active with walking. Menses are every other month, not taking any Provera now. She is not taking PNV as she does not want a future at this time. Currently is sexually active. Long distance relationship, not using condoms, withdrawal method. Open to a future . She denies vaginal itching and irritation. She previously treated for Trichomonas. STI screening offered; she accepts. Denies family history of breast, ovarian or colon cancer. Last pap smear 2020, negative. [facility] Medical History Irregular menses Hydradenitis Pelvic cramping FH: cholecystectomy Flu-like symptoms Anxiety Sleep apnea Skin lesion Hx of acute cholecystitis Morbid obesity with BMI of 50.0-59.9, adult Surgical History Hx of tonsillectomy Family History Mother Heart disease Vascular disease Father Lupus Pre-diabetes Paternal Grandfather Diabetes HTN (hypertension) Social History Household Members: Children Household Members Other:: 8 yr old son, Housing: Apartment Are you a primary chiropractic care to a significant other at home: Yes Do you presently have visiting nurse or other home services: No Alcohol intake: current Alcohol intake frequency: holidays/special occasions only Patient Tobacco Use Status: Former Tobacco user Tobacco use type: Cigarette Cigarette Packs Per Day: 1 Cigarettes Per Day: 2 Years Smoked: 25 e-Cigarette/Vaping Use: Currently Using Second Hand Smoke Exposure: No Substance Use Type: Marijuana Advance Directives Date on File: 04/07/21 service: No Current occupational status: unemployed Gender identity: Female Cognitive needs: No Hearing needs: No Vision needs: Yes Female Reproductive History Menstrual Age of Menarche: 11 Duration of menses: 6-7 days Date of last menstrual period: 04/10/23 control method: none Total pregnancies: 1 Full term: 1 Number of Living Children: 1 Date of last pap smear: 08/26/20 (neg) Review of Systems Const All systems reviewed & are unremarkable except as noted in HPI and below Reports as per HPI Eyes Reports no additional complaints ENT Reports no additional complaints Card Reports no additional complaints Resp Reports no additional complaints GI Reports as per HPI and Reports no additional complaints Reports as per HPI Musc Reports no additional complaints Skin/Breast Reports as per HPI Neuro Reports no additional complaints Psych Reports no additional complaints Endo Reports no additional complaints Zi/Lymph Reports no additional complaints Aller/Immun Reports no additional complaints Physical Exam Vital Signs: Last Vital Signs BP 106/68 04/27/23 10:13 BMI result Body Mass Index 52.3 Const General: cooperative, healthy appearing, no acute distress, well developed and alert Orientation/consciousness: patient oriented x3 HEENT Head: Yes normal to inspection Eyes General: appearance normal, both eyes and all related structures Neck Neck: Yes normal visual inspection Thyroid: Thyroid normal Chest Chest palpation & inspection: normal inspection of the chest and other (no puckering, dimpling, peau de orange, retraction, discharge, masses) Breast/axilla inspection: normal inspection of the breasts Breast/axilla palpation: normal palpation of the breasts Resp Effort & Inspection: normal respiratory effort GI Other: obese Inspection: Yes normal to inspection Palpation (GI): Soft to palpation Rectal Exam - Female: deferred General: Yes bladder normal to palpation External Female Exam: normal external appearance and normal appearance of the urethra Speculum Exam - Vagina: normal appearance of the vagina, normal palpation and normal vaginal discharge Speculum Exam - Cervix: normal appearance of the cervix and normal palpation Bimanual exam- vagina & uterus: normal bimanual exam, normal palpation, uterine size normal, bladder normal to palpation, normal palpation and non-tender Bimanual Exam- Adnexa, other: no masses Skin General skin exam: no rashes or lesions noted Rashes: no rashes Neuro General: patient oriented x3 Cognition (Neuro): normal cognition Extrem General: Yes normal to inspection Psych Attitude: cooperative Thought process: Normal thought process present Assessment & Plan Assessment & Plan (1) Encounter for well woman exam with routine gynecological exam: Code(s): Z01.419 - Encounter for gynecological examination (general) (routine) without abnormal findings (2) Trichomonas contact, treated: Code(s): Z20.2 - Contact with and (suspected) exposure to infections with a predominantly sexual mode of transmission Plan Discussed: Current recommendations for pap smears per ASCCP guidelines. Breast awareness and periodic breast exams. Maintain a healthy lifestyle including a well balanced diet and routine exercise. Use condoms for STI and prevention. MASON for Trichomonas completed today. Strongly recommended to start vitamins if not on contraception. Sign up for the patient portal if not already enrolled. All of her questions and concerns were addressed to the best of my ability. 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 Orders: Orders CT NG by PCR Today Z20.2 - Contact with and (suspected) exposure to infections with a predominantly sexual mode of transmission Pap Smear Today Z01.419 - Encounter for gynecological examination (general) (routine) without abnormal findings Bacterial Vaginosis Panel Today Z20.2 - Contact with and (suspected) exposure to infections with a predominantly sexual mode of transmission Medications: Refilled PNV,calcium [id number] acid 27 mg iron- 1 mg ( Vitamins Plus Low Iron) 1 tab PO DAILY 90 tabs 4RF Coding Level of Care Code Est Pt Prev Care 18-39y(13152) Diagnoses Encounter for well woman exam with routine gynecological exam Z01. Trichomonas contact, treated Z20.2
== END 2023-04-27 12:31 | disposition home or self-care (01) ==
PROVIDERS: PCP Internal Medicine; Visit Provider Advanced Practice Midwife
DX: Z01.419 Encounter for gynecological examination (general) (routine) without abnormal findings (principal); Z20.2 Contact with and (suspected) exposure to infections with a predominantly sexual mode of transmission
CPT/HCPCS: 99395

== ENCOUNTER 2023-04-27 09:49 | Outpatient (REF) | payer OTHER, SELFPAY ==
[2023-04-27 18:47] LABS: CT PCR NOT DETECTED (Not Detect.); NG PCR NOT DETECTED (Not Detect.)
[2023-04-28 14:21] LABS: BV Int Neg Control Negative (Negative); BV Int Pos Control Positive (Positive)
[2023-05-02 14:49] LABS: HPV mRNA E6/E7 rflx Not Detected (Not Detected)
== END 2023-04-27 09:50 | disposition home or self-care (01) ==
LOC: HO.LNP 09:49
PROVIDERS: PCP Internal Medicine; Visit Provider Advanced Practice Midwife
DX: Z01.419 Encounter for gynecological examination (general) (routine) without abnormal findings (principal); Z11.51 Encounter for screening for human papillomavirus (HPV); Z20.2 Contact with and (suspected) exposure to infections with a predominantly sexual mode of transmission
CPT/HCPCS: 0353U; 87480; 87510; 87624; 87660; 88142

== ENCOUNTER 2023-04-27 10:55 | Outpatient (REF) | payer OTHER, SELFPAY | END 2023-04-27 10:56 | disposition home or self-care (01) | LOC: HO.LAB 10:55 | PROVIDERS: Visit Provider Advanced Practice Midwife | DX: Z13.89 Encounter for screening for other disorder (principal) ==

== ENCOUNTER 2023-07-11 06:49 | Emergency (ER) | payer OTHER, SELFPAY ==
--- NOTE | ~2023-07-11 | XR_ITS ---
EXAMINATION: XR CHEST CLINICAL INFORMATION: Cough. COMPARISON: Chest x-ray dated 11/17/2022. TECHNIQUE: AP view of the chest was obtained. FINDINGS: The cardiomediastinal silhouette is within normal limits in size. Lungs bilaterally are symmetrically expanded. There is slight thickening of the central airways and mild perihilar reticular prominence, suggesting reactive airways disease or bronchitis. No focal consolidation, effusion or pneumothorax is seen. Minimal S-shaped thoracolumbar scoliosis is seen. XR/XR chest 1V IMPRESSION: Findings are suggestive of reactive airways disease or bronchitis. No focal pneumonia.
[2023-07-11 07:00] VITALS: BP 146/100; PULSE 124; RESP 18; TEMP 35.8; O2SAT 94; BMI 49.4
--- NOTE | 2023-07-11 07:16 | ED_ITS ---
HPI - URI/Sore Throat General Chief Complaint: Upper Respiratory Symptoms Stated Complaint: chest tightness/cough Time Seen by Provider: 07/11/23 07:10 Source: patient Mode of arrival: ambulatory Limitations: no limitations History of Present Illness HPI Narrative: This is a 33-year-old female history of obesity, PID, sleep apnea, hirsutism presenting to the emergency department for evaluation of fatigue x3 days with associated dry cough, myalgias, shortness of breath, chest congestion x2 days. Patient reports ?I feel like I got hit by a bus?. She reports she is coughing so much she vomits and her abdominal muscles and chest wall muscles hurt. No known sick contacts. Denies diarrhea, headache, vision changes, dizziness. Related Data Home Medications Medication Instructions Recorded Confirmed benzoyl peroxide 10 % topical topical 02/08/23 cleanser clindamycin phosphate 1 % topical 1 appl topical BID 02/08/23 gel triamcinolone acetonide 0.025 % appl topical DAILY 02/08/23 topical cream naproxen 220 mg-diphenhydramine 25 1 tab PO BEDTIME 04/27/23 mg tablet Previous Rx's Medication Instructions Recorded cyclobenzaprine 10 mg tablet 10 mg PO BEDTIME PRN muscle spasm 11/17/22 #4 tabs medroxyprogesterone 10 mg tablet 10 mg PO DAILY #60 tabs 12/25/22 (Provera) vitamin with calcium 1 tab PO DAILY #90 tabs 04/27/23 no.72-iron 27 mg-folic acid 1 mg tablet ( Vitamins Plus Low Iron) albuterol sulfate 90 mcg/actuation 2 inh inhalation Q4-6H PRN 07/11/23 breath activated powder inhaler shortness of breath or wheezing #1 ea benzonatate 100 mg capsule 100 mg PO BID PRN cough #20 caps 07/11/23 doxycycline hyclate 100 mg capsule 100 mg PO BID 10 days #20 caps 07/11/23 prednisone 20 mg tablet 40 mg (2 x 20 mg) PO DAILY 5 days 07/11/23 #10 tabs Allergies Allergy/AdvReac Type Severity Reaction Status Date / Time No Known Allergies Allergy Verified 04/27/23 10:13 Review of Systems Review of Systems: Yes all other systems are reviewed and are negative PMFSH Past Medical History Attestation statement: The following information was validated with the patient. Source: old records reviewed and nursing notes reviewed Medical History Irregular menses Hydradenitis Pelvic cramping FH: cholecystectomy Flu-like symptoms Anxiety Sleep apnea Skin lesion Hx of acute cholecystitis Morbid obesity with BMI of 50.0-59.9, adult Surgical History Hx of tonsillectomy Family History Family History Mother Heart disease Vascular disease Father Lupus Pre-diabetes Paternal Grandfather Diabetes HTN (hypertension) Social History Social History Household Members: Children Household Members Other:: 8 yr old son, Housing: Apartment Are you a primary hemodialysis patient care specialist to a significant other at home: Yes Do you presently have visiting nurse or other home services: No Alcohol intake: current Alcohol intake frequency: holidays/special occasions only Patient Tobacco Use Status: Former Tobacco user Tobacco use type: Cigarette Cigarette Packs Per Day: 1 Cigarettes Per Day: 2 Years Smoked: 25 Smoked in Last 30 Days: Yes e-Cigarette/Vaping Use: Currently Using Second Hand Smoke Exposure: No Use of substances other than those prescribed or required for medical reasons: No Substance Use Type: Marijuana Advance Directives: Yes Advance Directives on File: Yes Advance Directives Date on File: 04/07/21 Patient : No service: No Current occupational status: unemployed Gender identity: Female Cognitive needs: No Hearing needs: No Vision needs: Yes Physical Exam Vital Signs: Vital Signs: Last Vital Signs Temp 98.3 F 07/11/23 07:25 Pulse 124 H 07/11/23 07:00 Resp 18 07/11/23 07:00 BP 146/100 H 07/11/23 07:00 Pulse Ox 94 07/11/23 07:00 O2 Del Method Room Air 07/11/23 07:00 BMI result Body Mass Index 49.4 vss Appearance: Alert.? Oriented X3.? No acute distress.? Head: Normocephalic, atraumatic, no step-offs or deformities Eyes: Pupils equal, round and reactive to light.? CVS: Normal heart rate and rhythm.? Pulses normal.? Respiratory: No respiratory distress.? Breath sounds normal.? Abdomen: Soft and nontender.? Skin: Skin warm and dry.? Normal skin color.? Normal skin turgor.? Extremities: No lower extremity edema.? No calf ttp. 5/5 strength to bilateral upper and lower extremities Back: No midline tenderness, no C-spine tenderness, full range of motion, no CVA tenderness bilaterally Neuro: Oriented X 3.? No motor deficit.? No sensory deficit. CN 2-12 intact Course Reevaluation(s) Reevaluation #1: CXR w/ signs of reactive airway disease or bronchitis. Will treat for bronchitits at this time due to productive sputum. No PNA noted. EKG non isch emic just tachycardia. FLU/COVID/RSV --> pending will call with results only if positive. Time: 08:19 Reevaluation #2: Called patient to discuss the results and discharge as she was not in the room when I went to go speak to her.Educated patient on diagnosis and treatment plan, answered all question, patient verbalizes understanding. At this time patient will be discharged home, advised to return with new or worsening symptoms. Educated on worrisome signs and symptoms and when to return. At this time I feel comfortable discharge home. Medical Decision Making Medical Decision Making [facility] Narrative: 0715 33 year old female presents w/ URI sx X 3 days PE benign Likely URI w/ viral illness ( Flu vs covid vs RSV), vs bronchitis. Unlikely PE, ACS, Dissection, ARDS, electrolyte abnormaities, PNA, pneumothorax. tachycardia and low grade temp documented by triage likely secondary to viral illness unlikely spesis Plan- imaging, labs Differential Diagnosis Differential Diagnoses: The differential diagnosis associated with the presentation includes Likely URI w/ viral illness ( Flu vs covid vs RSV), vs bronchitis. Unlikely PE, ACS, Dissection, ARDS, electrolyte abnormaities, PNA, pneumothorax. Admission/Observation Consideration of admission/observation: Escalation of care including admission/observation considered unlikely Lab Data Labs: Lab Results 07/11/23 Range/Units 07:35 Influenza Type A (PCR) NEGATIVE (Negative) Influenza Type B (PCR) NEGATIVE (Negative) RSV RNA Qual (PCR) NEGATIVE (Negative) SARS-CoV-2 RNA (RT-PCR) NEGATIVE (Negative) S. pyogenes GrpA SALAS Negative (Negative) Independent Interpretation I performed an independent interpretation of an: EKG and Plain X-Ray Radiology Impression Discussion of test interpretation with radiology: I have reviewed the radiologist's reading. Critical Care Time Critical Care Time Critical Care Time: No Discharge Plan Discharge Clinical Impression: Acute bronchitis Patient Disposition: Home, Self-Care Instructions: Upper Respiratory Infection (ED) Additional Instructions: Take your medications as prescribed. If you were prescribed antibiotics today, it is important that you take your medication to their entirety, do not skip any doses, do not finish them early. Follow-up with your primary care provider this week. Return to the emergency department with new or worsening symptoms. Such as fevers, chills, chest pain, shortness of breath, nausea, vomiting, dizziness, headache, vision changes, lethargy In case of emergency call 911 Prescriptions: New doxycycline hyclate 100 mg capsule 100 mg PO BID 10 Days Qty: 20 0RF albuterol sulfate 90 mcg/actuation aerosol powdr breath activated 2 inh inhalation Q4-6H PRN (Reason: shortness of breath or wheezing) Qty: 1 0RF prednisone 20 mg tablet 40 mg PO DAILY 5 Days Qty: 10 0RF benzonatate 100 mg capsule 100 mg PO BID PRN (Reason: cough) Qty: 20 0RF No Action cyclobenzaprine 10 mg tablet 10 mg PO BEDTIME PRN (Reason: muscle spasm) Qty: 4 0RF clindamycin phosphate 1 % gel 1 appl topical BID triamcinolone acetonide 0.025 % cream topical DAILY benzoyl peroxide 10 % cleanser topical medroxyprogesterone [Provera] 10 mg tablet 10 mg PO DAILY Qty: 60 0RF Rx Instructions: repeat monthly as needed naproxen-diphenhydramine 220-25 mg tablet 1 tab PO BEDTIME Vitamin Plus Low Iron 27 mg iron- 1 mg tablet 1 tab PO DAILY Qty: 90 4RF Referrals: Madina Corado MD [Primary Care Provider] - 2 days Stand Alone Forms: Work/School Release Interventions: ED Discharge Assessment Last Done: 07/11/23 08:35 Discharge Date/Time: 07/11/23 08:36
--- NOTE | 2023-07-11 07:17 | ECG_ITS ---
Test Reason : CP Blood Pressure : / mmHG Vent. Rate : 107 BPM Atrial Rate : 107 BPM P-R Int : 126 ms QRS Dur : 070 ms QT Int : 310 ms P-R-T Axes : 019 017 021 degrees QTc Int : 413 ms Sinus tachycardia Possible Left atrial enlargement Borderline ECG When compared with ECG of 17-NOV-2022 14:04, Nonspecific T wave abnormality no longer evident in Lateral leads Referred By: Ezio West Electronically Signed By:Nash Sheriff
[2023-07-11 07:25] VITALS: TEMP 36.8
[2023-07-11 07:50] LABS: IDNOW Serial# 08D9AD1C
[2023-07-11 07:51] LABS: Strep A Nucleic Acid Negative (Negative)
[2023-07-11 08:22] LABS: Influenza A PCR NEGATIVE (Negative); Influenza B PCR NEGATIVE (Negative); Resp Syncy Virus RNA Qual PCR NEGATIVE (Negative); SARS COV2 PCR INHOUSE NEGATIVE (Negative)
== END 2023-07-11 08:36 | disposition home or self-care (01) ==
PROVIDERS: Physician Assistant; Emergency Provider Emergency Medicine; PCP Internal Medicine
DX: J20.9 Acute bronchitis, unspecified (principal); R07.89 Other chest pain; R05.9 Cough, unspecified; Z20.828 Contact with and (suspected) exposure to other viral communicable diseases; Z20.822 Contact with and (suspected) exposure to COVID-19
CPT/HCPCS: 0241U; 71045; 87651; 93005; 99283; 99284

== ENCOUNTER → 2023-07-11 07:17 | Outpatient (BNV) | payer OTHER, SELFPAY | PROVIDERS: Emergency Provider Emergency Medicine; PCP Internal Medicine; Visit Provider Internal Medicine Cardiovascular Disease | DX: R00.0 Tachycardia, unspecified (principal) | CPT/HCPCS: 93010 ==

== ENCOUNTER 2023-08-10 14:32 | Outpatient (REF) | payer OTHER, SELFPAY | END 2023-08-10 14:33 | disposition home or self-care (01) | LOC: HO.LNP 14:32 | PROVIDERS: PCP Internal Medicine; Visit Provider Advanced Practice Midwife | DX: Z20.2 Contact with and (suspected) exposure to infections with a predominantly sexual mode of transmission (principal); L65.9 Nonscarring hair loss, unspecified | CPT/HCPCS: 99212 ==

== ENCOUNTER 2023-08-10 14:51 | Outpatient (REF) | payer OTHER, SELFPAY | END 2023-08-10 14:52 | disposition home or self-care (01) | LOC: HO.LAB 14:51 | PROVIDERS: Visit Provider Advanced Practice Midwife | DX: Z13.89 Encounter for screening for other disorder (principal) ==

== ENCOUNTER 2023-08-10 15:00 | Outpatient (REF) | payer OTHER, SELFPAY ==
[2023-08-11 07:24] LABS: Syphilis Screen Nonreactive (Nonreactive)
[2023-08-11 07:42] LABS: HBc Num1 0.08 S/CO (0.00-0.79); HIV AB/AG Nonreactive (Nonreactive); HIV Num 1 0.05 S/CO (0.00-0.99); Hepatitis B Core Antibody Nonreactive (Nonreactive); ~HepC Num1 0.14 S/CO (0.00-0.79); ~Hepatitis C Antibody Nonreactive (Nonreactive)
[2023-08-11 11:43] LABS: CT PCR NOT DETECTED (Not Detect.); NG PCR NOT DETECTED (Not Detect.)
[2023-08-11 13:52] LABS: BV Int Neg Control Negative (Negative); BV Int Pos Control Positive (Positive)
== END 2023-08-10 15:01 | disposition home or self-care (01) ==
LOC: HO.LAB 15:00
PROVIDERS: PCP Internal Medicine; Visit Provider Advanced Practice Midwife
DX: Z20.2 Contact with and (suspected) exposure to infections with a predominantly sexual mode of transmission (principal); Z11.3 Encounter for screening for infections with a predominantly sexual mode of transmission; Z11.59 Encounter for screening for other viral diseases
CPT/HCPCS: 0353U; 86704; 86780; 86803; 87389; 87480; 87510; 87660

== ENCOUNTER 2023-08-18 10:47 | Outpatient (AMB) | payer OTHER, SELFPAY ==
--- NOTE | 2023-08-18 10:49 | A.OFFPC_ITS ---
Vital Signs 08/18/23 10:50 Height 5 ft 7 in Weight 325 lb BMI 50.9 BP 126/84 Blood Pressure Location Lt brachial Position Sitting Pulse 110 H Pulse Source Pulse Oximeter Pulse Oximetry (%) 98 Oxygen Delivery Method Room Air Intake Visit Reasons: hair loss Intake Note: Pt is here today for a sick visit. Pt c/o hair loss over the last month. Pt also c/o headache behind her R eye that goes to the back of her head for the last 5 days. Allergies No Known Allergies Allergy (Verified 08/18/23 10:53) Tobacco use date assessed: 08/18/23 Dental Screening Dental Screen Date: 08/18/23 Did you have a dental visit in the last 12 months?: Yes Did you have a dental problem in the last 6 months where you did not have access to dental care?: No Was dental information given to patient?: Patient has dentist HPI hair loss HPI Details Pt presents c/o excessive hair loss for 1 month, Pt has been under a lot stress related to her 11-year-old son's depression/mental health problems. Patient reports feeling anxious and is interested in starting counseling but den ies depression suicidal ideation. Patient is not interested in taking medications PFSH Medical History Irregular menses Hydradenitis Pelvic cramping FH: cholecystectomy Flu-like symptoms Anxiety Sleep apnea Skin lesion Hx of acute cholecystitis Morbid obesity with BMI of 50.0-59.9, adult Surgical History Hx of tonsillectomy Family History Mother Heart disease Vascular disease Father Lupus Pre-diabetes Paternal Grandfather Diabetes HTN (hypertension) Social History Household Members: Children Household Members Other:: 8 yr old son, Housing: Apartment Are you a primary acute care nursing assistant to a significant other at home: Yes Do you presently have visiting nurse or other home services: No Alcohol intake: current Alcohol intake frequency: holidays/special occasions only Patient Tobacco Use Status: Former Tobacco user Tobacco use type: Cigarette Cigarette Packs Per Day: 1 Cigarettes Per Day: 2 Years Smoked: 25 e-Cigarette/Vaping Use: Currently Using Second Hand Smoke Exposure: No Substance Use Type: Marijuana Advance Directives Date on File: 04/07/21 service: No Current occupational status: unemployed Gender identity: Female Cognitive needs: No Hearing needs: No Vision needs: Yes Female Reproductive History Menstrual Age of Menarche: 11 Questionnaire PHQ-9 Over the last 2 weeks, how often have you been bothered by any of the following problems? 1. Little interest or pleasure in doing things: several days 2. Feeling down, depressed, or hopeless: several days 3. Trouble falling or staying asleep, or sleeping too much: nearly every day 4. Feeling tired or having little energy: more than half the days 5. Poor appetite or overeating: nearly every day 6. Feeling bad about yourself - or that you are a failure or have let yourself or your family down: more than half the days 7. Trouble concentrating on things, such as reading the newspaper or watching television: more than half the days 8. Moving or speaking so slowly that other people could have noticed. Or the opposite - being so fidgety or restless that you have been moving around a lot more than usual: several days 9. Thoughts that you would be better off or of hurting yourself in some way: not at all Total score: 15 Depression Screening Interpretation: Positive (Patient will be referred to counseling she declined medications.) Depression Screening Follow-up: Community Mental Health Worker F/U and Declines treatment Depression Screening Done: Yes [id number] - PHQ-9 Billing: Yes Source: Developed by Drs. Jack Deras, Arabella Dc, Damon Chowdary and colleagues, with an educational andres from [employer]. Thrive Questionnaire Date Thrive assessed: 08/18/23 I am a: Patient What is your living situation today?: I have a steady place to live Within the past 12 months, did the food you bought not last and you didn't have the money to get more?: Never true Within the past 12 months, did you worry whether your food would run out before you got money to buy more?: Sometimes True Do you have trouble paying for medicines?: No Do you have trouble getting transportation to medical appointments?: No Do you have trouble paying your heating and electricity bill?: No Do you have trouble taking care of your child, family member or friend?: No Do you have trouble with day-to-day activities such as bathing, preparing meals, shopping, managing finances, etc.?: No Are you currently unemployed and looking for a job?: No Are you interested in more education?: No Please select the resources that you would like help with: None THRIVE Score: 1 AUDIT C Alcohol Use Questionnaire (AUDIT-C) 1. How often do you have a drink containing alcohol?: Monthly or less 2. How many drinks containing alcohol do you have on a typical day when you are drinking?: 5 or 6 3. How often do you have six or more drinks on one occasion?: Less than monthly Total Score: 4 YAMILET-7 AMB Questionnaire YAMILET-7 Date YAMILET - 7 assessed: 08/18/23 Feeling nervous, anxious, or on edge: 3 = Nearly every day Not being able to stop or control worryin = More than half the days Worrying too much about different things: 2 = More than half the days Trouble relaxin = More than half the days Being so restless that it is hard to sit still: 1 = Several days Becoming easily annoyed or irritable: 1 = Several days Feeling afraid as if something awful might happen: 3 = Nearly every day Total YAMILET-7 score (0-4 normal; 5-9 mild; 10-14 moderate; 15-21 severe): 14 Source: Developed by Drs. Jack Deras, Arabella Dc, Damon Chowdary and colleagues, with an educational andres from [employer]. Review of Systems Const All systems reviewed & are unremarkable except as noted in HPI and below Reports no additional complaints Eyes Reports no additional complaints ENT Reports no additional complaints Card Reports no additional complaints Resp Reports no additional complaints GI Reports no additional complaints Reports no additional complaints Musc Reports no additional complaints Physical exam (Primary Care) Vital Signs: Last Vital Signs Pulse 110 H 08/18/23 10:50 BP 126/84 08/18/23 10:50 Pulse Ox 98 08/18/23 10:50 Oxygen Delivery Method Room Air 08/18/23 10:50 BMI result Body Mass Index 50.9 Tobacco/Smoking Status: Tobacco use Status Tobacco use date assessed 08/18/23 08/18/23 11:00 Patient Tobacco Use Status Former Tobacco user 08/18/23 10:49 Tobacco use type Cigarette 08/18/23 10:49 e-Cigarette/Vaping Use Currently Using 08/18/23 10:49 PHQ-9: PHQ-9 Score PHQ-9: Total score 15 08/18/23 11:35 Depression Screening Interpretation: Positive (Patient will be referred to counseling she declined medications.) Depression Screening Follow-up: Community Mental Health Worker F/U and Declines treatment Thrive Assessment: Date of Thrive Assessment Date Thrive assessed 08/18/23 08/18/23 11:00 Const General: no acute distress HENMT Head: Yes normal to inspection Throat: Yes posterior oropharynx normal Eyes General: appearance normal, both eyes and all related structures Resp Effort & Inspection: normal respiratory effort Auscultation: clear to auscultation bilaterally Cardio Rhythm: regular rhythm Heart sounds: S1 normal heart sound present and S2 normal heart sound present Assessment and Plan Assessment & Plan (1) Hair loss: Code(s): L65.9 - Nonscarring hair loss, unspecified Plan: Patient will return for fasting blood work including vitamin-D level and TSH. (2) Annual physical exam: Code(s): Z00.00 - Encounter for general adult medical examination without abnormal findings (3) Anxiety: Code(s): F41.9 - Anxiety disorder, unspecified Plan: Stress management mindfulness increase physical activity discussed with the patient. She will be referred to counseling. Patient will follow-up in 2 months Orders: Orders Comprehensive [place]. Panel Fast Today F41.9 - Anxiety disorder, unspecified, L65.9 - Nonscarring hair loss, unspecified, Z00.00 - Encounter for general adult medical examination without abnormal findings IRON PROFILE Today F41.9 - Anxiety disorder, unspecified, L65.9 - Nonscarring hair loss, unspecified, Z00.00 - Encounter for general adult medical examination without abnormal findings Lipid Panel Today F41.9 - Anxiety disorder, unspecified, L65.9 - Nonscarring hair loss, unspecified, Z00.00 - Encounter for general adult medical examination without abnormal findings Vitamin B12 and Folate Today F41.9 - Anxiety disorder, unspecified, L65.9 - Nonscarring hair loss, unspecified, Z00.00 - Encounter for general adult medical examination without abnormal findings Complete Blood Count Auto Diff Today F41.9 - Anxiety disorder, unspecified, L65.9 - Nonscarring hair loss, unspecified, Z00.00 - Encounter for general adult medical examination without abnormal findings Vitamin D 25-OH Total Today F41.9 - Anxiety disorder, unspecified, L65.9 - Nonscarring hair loss, unspecified, Z00.00 - Encounter for general adult medical examination without abnormal findings TSH reflex Free T4 Today F41.9 - Anxiety disorder, unspecified, L65.9 - Nonscarring hair loss, unspecified, Z00.00 - Encounter for general adult medical examination without abnormal findings Coding Level of Care Code Est Pt Level 3 (59005) Diagnoses Hair loss L65.9 Annual physical exam Z00.00 Anxiety F41.9
[2023-08-18 10:50] VITALS: BP 126/84; PULSE 110; O2SAT 98; BMI 50.9
== END 2023-08-18 15:57 | disposition home or self-care (01) ==
LOC: HO.HMGC 10:47
PROVIDERS: PCP Internal Medicine; Visit Provider Internal Medicine
DX: L65.9 Nonscarring hair loss, unspecified (principal); F41.9 Anxiety disorder, unspecified
CPT/HCPCS: 99213

== ENCOUNTER 2023-08-23 08:36 | Outpatient (REF) | payer OTHER, SELFPAY ==
[2023-08-23 08:54] LABS: MANUAL DIFF FLAG NO
[2023-08-23 09:46] LABS: Basophils Absolute Auto 0.1 X10*3/uL (0.0-0.2); Basophils Percent Auto 0.4 % (0-2); Eosinophils Absolute Auto 0.1 X10*3/uL (0.0-0.4); Eosinophils Percent Auto 1.1 % (0-4); Hematocrit 41.9 % (37.0-47.0); Hemoglobin 13.3 g/dl (12.0-16.0); Imm Gran Abs Auto 0.08 X10*3/uL (0.00-0.03); Imm Gran Pct Auto 0.6 % (0.0-0.4); Lymphocytes Absolute Auto 2.9 X10*3/uL (1.2-4.9); Lymphocytes Percent Auto 23.5 % (20-40); Mean Corpuscular HGB Conc 31.7 g/dl (31.0-35.0); Mean Corpuscular Hemoglobin 27.4 pg (27.0-33.0); Mean Corpuscular Volume 86.2 fL (80.0-98.0); Mean Platelet Volume 8.9 fL (9.4-12.3); Monocytes Absolute Auto 0.8 X10*3/uL (0.1-1.2); Monocytes Percent Auto 6.5 % (2-11); Neutrophils Absolute Auto 8.5 x10*3/uL (2.0-8.3); Neutrophils Percent Auto 67.9 % (45-73); Platelet Count 350 X10*3/uL (160-400); Red Blood Count 4.86 X10*6/uL (4.20-5.50); Red Cell Distribution Width 15.1 % (11.0-16.0); White Blood Count 12.5 X10*3/uL (4.8-10.8)
[2023-08-23 10:27] LABS: Alanine Aminotransferase 10 U/L (0-31); Albumin Level 3.9 g/dL (3.5-5.0); Alkaline Phosphatase 83 U/L (39-117); Anion Gap 10 (12-20); Aspartate Amino Transferase 9 U/L (5-31); Bilirubin Total 0.4 mg/dL (0.0-1.0); Blood Urea Nitrogen 9 mg/dL (9-16); Calcium 9.1 mg/dL (8.4-10.2); Carbon Dioxide 27 mmol/L (22-29); Chloride 106 mmol/L (96-108); Cholesterol 161 mg/dL (<200); Estimated Glomerular Filt Rate > 60; Glucose Fasting 99 mg/dL (60-99); HDL Cholesterol 41 mg/dL (>40); Iron 44 mcg/dL (30-160); LDL Cholesterol Calculated 105 mg/dL (<100); Percent Iron Saturation 12 % (15-50); Potassium 3.9 mmol/L (3.3-5.1); Sodium 139 mmol/L (135-145); Total Iron Binding Capacity 361 mcg/dL (228-428); Total Protein 7.5 g/dL (6.5-8.0); Triglycerides 79 mg/dL (<150); Unsaturated Iron Binding 317 ug/dL
[2023-08-23 10:45] LABS: TSH reflex Free T4 1.62 uIU/mL (0.32-4.0); Vitamin D 25-OH Total 8.3 ng/mL (>30)
[2023-08-23 10:55] LABS: Folate 5.3 ng/mL (> or = 4.0); Vitamin B12 360 pg/mL (200-900)
== END 2023-08-23 08:37 | disposition home or self-care (01) ==
LOC: HO.LAB 08:36
PROVIDERS: PCP Internal Medicine; Visit Provider Internal Medicine
DX: Z00.00 Encounter for general adult medical examination without abnormal findings (principal); L65.9 Nonscarring hair loss, unspecified; F41.9 Anxiety disorder, unspecified
CPT/HCPCS: 36415; 80053; 80061; 82306; 82607; 82746; 83540; 84443; 85025

== ENCOUNTER 2023-10-07 12:55 | Outpatient (AMB) | payer OTHER, SELFPAY ==
[2023-10-07 13:02] VITALS: BP 122/74; PULSE 91; O2SAT 98; BMI 51.2
--- NOTE | 2023-10-07 13:02 | MHC.PC.OV ---
Vital Signs 10/07/23 13:02 Height 5 ft 7 in Weight 327 lb BMI 51.2 BP 122/74 Blood Pressure Location Rt brachial Position Sitting Pulse 91 Pulse Source Pulse Oximeter Pulse Oximetry (%) 98 Oxygen Delivery Method Room Air Intake Visit Reasons: PE Intake Note: Pt is here today for PE. Pt states that she would like to get tested for Syphilis. Allergies No Known Allergies Allergy (Verified 10/07/23 13:05) Medication List - Last Reconciled 10/07/23 by Madina Corado MD albuterol sulfate 90 mcg/actuation 2 inhalations inhalation Q4-6H PRN benzoyl peroxide 10% topical cholecalciferol (vitamin D3) 50 mcg PO DAILY clindamycin phosphate 1% 1 appl topical BID medroxyprogesterone (Provera) 10 mg PO DAILY metronidazole 0.75%(37.5mg/5gram) 1 appful vaginal BEDTIME 5 days PNV,calcium 82-mztk-pkydx acid 27 mg iron- 1 mg ( Vitamins Plus Low Iron) 1 tab PO DAILY triamcinolone acetonide 0.025% appl topical DAILY Tobacco use date assessed: 08/18/23 Dental Screening Dental Screen Date: 08/18/23 HPI PE HPI Details Patient presents for physical. She has been under lot of stress related to her 11-year-old son with ADHD. Patient continues to experience right-sided headaches with a sensation of flashing lights lasting up to 20 minutes. Patient had negative CT of the brain and ophthalmological exam. 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 to a significant other at home: Yes Do you presently have visiting nurse or other home services: No Alcohol intake: current Alcohol intake frequency: holidays/special occasions only Patient Tobacco Use Status: Former Tobacco user Tobacco use type: Cigarette Cigarette Packs Per Day: 1 Cigarettes Per Day: 2 Years Smoked: 25 e-Cigarette/Vaping Use: Currently Using Second Hand Smoke Exposure: No Substance Use Type: Marijuana Advance Directives Date on File: 04/07/21 service: No Current occupational status: unemployed Gender identity: Female Cognitive needs: No Hearing needs: No Vision needs: Yes Female Reproductive History Menstrual Age of Menarche: 11 Questionnaire PHQ-9 Over the last 2 weeks, how often have you been bothered by any of the following problems? 1. Little interest or pleasure in doing things: not at all 2. Feeling down, depressed, or hopeless: several days 3. Trouble falling or staying asleep, or sleeping too much: more than half the days 4. Feeling tired or having little energy: several days 5. Poor appetite or overeating: more than half the days 6. Feeling bad about yourself - or that you are a failure or have let yourself or your family down: several days 7. Trouble concentrating on things, such as reading the newspaper or watching television: not at all 8. Moving or speaking so slowly that other people could have noticed. Or the opposite - being so fidgety or restless that you have been moving around a lot more than usual: not at all 9. Thoughts that you would be better off or of hurting yourself in some way: not at all Total score: 7 Depression Screening Interpretation: Negative Depression Screening Done: Yes Source: Developed by Drs. Jack Deras, Arabella Dc, Damon Chowdary and colleagues, with an educational andres from [employer]. Thrive Questionnaire Date Thrive assessed: 08/18/23 I am a: Patient What is your living situation today?: I have a steady place to live Within the past 12 months, did the food you bought not last and you didn't have the money to get more?: Never true Within the past 12 months, did you worry whether your food would run out before you got money to buy more?: Never true THRIVE Score: 0 AUDIT C Alcohol Use Questionnaire (AUDIT-C) 1. How often do you have a drink containing alcohol?: Monthly or less 2. How many drinks containing alcohol do you have on a typical day when you are drinking?: 3 or 4 3. How often do you have six or more drinks on one occasion?: Less than monthly Total Score: 3 YAMILET-7 AMB Questionnaire YAMILET-7 Date YAMILET - 7 assessed: 10/07/23 Feeling nervous, anxious, or on edge: 3 = Nearly every day Not being able to stop or control worryin = More than half the days Worrying too much about different things: 2 = More than half the days Trouble relaxin = Nearly every day Being so restless that it is hard to sit still: 2 = More than half the days Becoming easily annoyed or irritable: 2 = More than half the days Feeling afraid as if something awful might happen: 1 = Several days Total YAMILET-7 score (0-4 normal; 5-9 mild; 10-14 moderate; 15-21 severe): 15 Source: Developed by Drs. Jack Deras, Arabella Dc, Damon Chowdary and colleagues, with an educational andres from [employer]. Review of Systems Const All systems reviewed & are unremarkable except as noted in HPI and below Reports no additional complaints Eyes Reports no additional complaints ENT Reports no additional complaints Card Reports no additional complaints Resp Reports no additional complaints GI Reports no additional complaints Reports no additional complaints Physical exam (Primary Care) Vital Signs: Last Vital Signs Pulse 91 10/07/23 13:02 BP 122/74 10/07/23 13:02 Pulse Ox 98 10/07/23 13:02 Oxygen Delivery Method Room Air 10/07/23 13:02 BMI result Body Mass Index 51.2 Tobacco/Smoking Status: Tobacco use Status Tobacco use date assessed 08/18/23 10/07/23 13:03 Patient Tobacco Use Status Former Tobacco user 10/07/23 13:03 Tobacco use type Cigarette 10/07/23 13:03 e-Cigarette/Vaping Use Currently Using 10/07/23 13:03 PHQ-9: PHQ-9 Score PHQ-9: Total score 7 10/07/23 13:09 Depression Screening Interpretation: Negative Thrive Assessment: Date of Thrive Assessment Date Thrive assessed 08/18/23 10/07/23 13:03 Const General: no acute distress HENMT Head: Yes normal to inspection Ears: hearing grossly normal bilaterally General nose exam: Normal external nose present Face and sinus: Yes normal facial exam Throat: Yes posterior oropharynx normal Eyes General: appearance normal, both eyes and all related structures Neck Neck: Yes no lymphadenopathy and Yes supple Resp Effort & Inspection: normal respiratory effort Auscultation: clear to auscultation bilaterally Cardio Rhythm: regular rhythm Heart sounds: S1 normal heart sound present and S2 normal heart sound present GI Inspection: Yes normal to inspection Palpation (GI): Soft to palpation Percussion: Yes normal to percussion Auscultation: normal bowel sounds Skin Other: scarring and subcutaneous nodules in axillary and inguinal region bilaterally Assessment and Plan Assessment & Plan (1) Annual physical exam: Code(s): Z00.00 - Encounter for general adult medical examination without abnormal findings Plan: Well-balanced diet regular physical activity weight loss discussed with the patient. (2) Hydradenitis: Code(s): L73.2 - Hidradenitis suppurativa Plan: Start 50 mg of spironolactone. Patient will continue topical treatment as prescribed by Dermatology (3) Migraine headache: Code(s): G43.909 - Migraine, unspecified, not intractable, without status migrainosus Plan: Patient will try Imitrex p.r.n. and will follow-up in 2 months Orders: Orders Syphilis Screen Today Z00.00 - Encounter for general adult medical examination without abnormal findings Medications: New cholecalciferol (vitamin D3) 50 mcg PO DAILY 90 caps 2RF sumatriptan succinate take 1 tab at onset of headache; if no relief, may repeat 1 tab after at least 2 hrs; max = 2 tabs/24 hrs PO 10 tabs 0RF spironolactone 50 mg PO DAILY 90 tabs 0RF Discontinued PNV,calcium 13-qefm-cjalp acid 27 mg iron- 1 mg ( Vitamins Plus Low Iron) Discontinued Reason: Doctor's Order 1 tab PO DAILY 90 tabs 4RF Coding Level of Care Code Est Pt Prev Care 18-39y([id number]) Diagnoses Annual physical exam Z00.00 Hydradenitis L73.2 Migraine headache G43.909
== END 2023-10-07 13:39 | disposition home or self-care (01) ==
PROVIDERS: Visit Provider Internal Medicine
DX: Z00.00 Encounter for general adult medical examination without abnormal findings (principal); L73.2 Hidradenitis suppurativa; G43.909 Migraine, unspecified, not intractable, without status migrainosus
CPT/HCPCS: 99395

== ENCOUNTER 2023-10-08 10:46 | Outpatient (REF) | payer OTHER, SELFPAY ==
[2023-10-08 12:49] LABS: Syphilis Screen Nonreactive (Nonreactive)
[2023-10-08 12:54] LABS: Vitamin D 25-OH Total 16.7 ng/mL (>30)
== END 2023-10-08 10:47 | disposition home or self-care (01) ==
LOC: HO.LAB 10:46
PROVIDERS: PCP Internal Medicine; Visit Provider Internal Medicine
DX: Z00.00 Encounter for general adult medical examination without abnormal findings (principal); E55.9 Vitamin D deficiency, unspecified
CPT/HCPCS: 36415; 82306; 86780

== ENCOUNTER 2023-10-28 10:21 | Emergency (ER) | payer OTHER, SELFPAY ==
[2023-10-28 10:29] VITALS: BP 136/91; PULSE 105; RESP 18; TEMP 36.6; O2SAT 99; BMI 45.6
--- NOTE | 2023-10-28 11:04 | ED.SKABFB ---
HPI - Skin/Abscess/Foreign Bdy General Chief complaint: Skin/Abscess/Foreign Body Stated complaint: Cyst Time Seen by Provider: 10/28/23 10:26 Source: patient and RN notes reviewed Mode of arrival: ambulatory Limitations: no limitations History of Present Illness ED Provider: Lydia Somers PA-C HPI narrative: This is a [id number]hy-female, with a hx of obesity, PID, sleep apnea, hirsutism, and hidradenitis suppurativa, presenting to the ER with a complaint of ?painful lump in pionidal region x 1 week. Patient reports that she has a history of similar symptoms which required an incision and drainage, last time was multiple years ago. She states that she had subjective fevers about 1 week ago, no recent fevers. She reports that the pain worsens with palpation. She is fearful to have bowel movement secondary to worsening pain No chest pain, shortness of breath, abdominal pain, nausea, vomiting or diarrhea. Denies history of IV drug abuse. She is unsure when her last tetanus immunization was. No other complaints or concerns at this time. MD complaint: abscess/boil Onset (ago): week(s) Tetanus up to date: unsure Severity: moderate Quality: stabbing Pain Consistency: constant Relieving factors: none Exacerbating factors: palpation Context: none Associated symptoms: denies other symptoms Treatments prior to arrival: none Related Data Home Medications ?Medication ?Instructions ?Recorded ?Confirmed benzoyl peroxide 10 % topical topical 02/08/23 10/07/23 cleanser clindamycin phosphate 1 % topical 1 appl topical BID 02/08/23 10/07/23 gel triamcinolone acetonide 0.025 % appl topical DAILY 02/08/23 10/07/23 topical cream Previous Rx's ?Medication ?Instructions ?Recorded medroxyprogesterone 10 mg tablet 10 mg PO DAILY #60 tabs 12/25/22 (Provera) albuterol sulfate 90 mcg/actuation 2 inh inhalation Q4-6H PRN 07/11/23 breath activated powder inhaler shortness of breath or wheezing #1 ea metronidazole 0.75 % (37.5 mg/5 1 appful vaginal BEDTIME 5 days 08/13/23 gram) vaginal gel #70 grams cholecalciferol (vitamin D3) 50 50 mcg PO DAILY #90 caps 10/07/23 mcg (2,000 unit) capsule spironolactone 50 mg tablet 50 mg PO DAILY #90 tabs 10/07/23 sumatriptan succinate 100 mg tablet See Rx Instructions PO .COMPLEX 10/07/23 #10 tabs acetaminophen 650 mg 650 mg PO Q8H PRN pain #30 tabs 10/28/23 tablet,extended release (Tylenol 8 Hour) cephalexin 500 mg capsule 500 mg PO QID 5 days #20 caps 10/28/23 ibuprofen 600 mg tablet 600 mg PO Q6H PRN pain #30 tabs 10/28/23 Allergies Allergy/AdvReac Type Severity Reaction Status Date / Time No Known Allergies Allergy Verified 10/28/23 10:30 Review of Systems Review of Systems: Yes all other systems are reviewed and are negative Constitutional: Constitutional: Reports as per [facility] Past Medical History Medical History Irregular menses Hydradenitis Pelvic cramping FH: cholecystectomy Flu-like symptoms Anxiety Sleep apnea Skin lesion Hx of acute cholecystitis Morbid obesity with BMI of 50.0-59.9, adult Surgical History Hx of tonsillectomy Family History Family History Mother Heart disease Vascular disease Father Lupus Pre-diabetes Paternal Grandfather Diabetes HTN (hypertension) Social History Social History Household Members: Children Household Members Other:: 8 yr old son, Housing: Apartment Are you a primary multi care technician to a significant other at home: Yes Do you presently have visiting nurse or other home services: No Alcohol intake: current Alcohol intake frequency: holidays/special occasions only Patient Tobacco Use Status: Former Tobacco user Tobacco use type: Cigarette Cigarette Packs Per Day: 1 Cigarettes Per Day: 2 Years Smoked: 25 e-Cigarette/Vaping Use: Currently Using Second Hand Smoke Exposure: No Substance Use Type: Marijuana Advance Directives: Yes Advance Directives on File: Yes Advance Directives Date on File: 04/07/21 service: No Current occupational status: unemployed Gender identity: Female Cognitive needs: No Hearing needs: No Vision needs: Yes Physical Exam Vital Signs: Vital Signs: Last Vital Signs Temp 97.8 F 10/28/23 10:29 Pulse 105 H 10/28/23 10:29 Resp 18 10/28/23 10:29 BP 136/91 H 10/28/23 10:29 Pulse Ox 99 10/28/23 10:29 O2 Del Method Room Air 10/28/23 10:29 BMI result Body Mass Index 45.6 Const: General: cooperative, comfortable and no acute distress Orientation/consciousness: patient oriented x3 Limitations: no limitations HEENT: Head: Yes normal to inspection, Yes normocephalic and Yes atraumatic Ears: hearing grossly normal bilaterally General nose exam: Normal external nose present Face and sinus: Yes normal facial exam Mouth: Normal oral and palatal mucosa present, oropharynx normal and moist mucous membranes Throat: Yes posterior oropharynx normal Eyes: General: appearance normal, both eyes and all related structures Eyelids: Yes eyelids normal Conjunctivae: conjunctivae normal Sclerae: sclerae normal Pupils: Equal, round and reactive pupils present EOM: EOMs intact bilaterally Neck: Neck: Yes normal visual inspection, Yes full ROM and Yes no lymphadenopathy Lymphatic: no lymphadenopathy noted Chest: Chest palpation & inspection: normal inspection of the chest Resp: Effort & Inspection: normal respiratory effort and able to speak in complete sentences Auscultation: clear to auscultation bilaterally, no crackles, no rales, no rhonchi and no wheezes Cardio: Rate: regular rate Rhythm: regular rhythm Heart sounds: S1 normal heart sound present and S2 normal heart sound present GI: Other: Right gluteal cleft with 1 cm palpable indurated and fluctuant abscess, with no surrounding erythema or warmth. Does not track into perirectal region. Inspection: Yes normal to inspection Skin: General skin exam: no rashes or lesions noted Trauma: no lacerations or abrasions Wounds: no wounds Neuro: General: patient oriented x3 and moves all extremities Cranial nerves: Yes Equal, round and reactive pupils present Extrem: General: Yes normal to inspection Right upper extremity: normal to inspection Left upper extremity: normal to inspection Right lower extremity: normal to inspection Left lower extremity: normal to inspection Medical Decision Making Medical Decision Making MDM Narrative: This is a 33-year-old female who presents emergency department with complaints of pilonidal cyst. On arrival, patient mildly tachycardic at 105, likely due to pain. all other vital signs within normal limits. She is afebrile. Physical examination finding consistent with pilonidal abscess requiring incision and drainage. I discussed this with patient who is agreeable for incision and drainage. See procedure note for detail. Will place patient on course of antibiotics. Advised to return in 2-3 days for wound check. Given return precautions. She understands and agrees with plan. Patient stable for discharge. Differential Diagnosis Differential Diagnoses: The differential diagnosis associated with the presentation includes Cyst, abscess, cellulitis Procedures Abscess I/D Site: jelena-rectal Side (if applicable): right Local Anesthetic: lidocaine 1% Amount of anesthesia used (mL): 3 Technique: incised with blade Amount of fluid expressed (mL): 15 Sent for culture/gram staining?: No Irrigation: No Packing used?: iodoform Discharge Plan Discharge Clinical Impression: Infected pilonidal cyst Patient Disposition: Home, Self-Care Instructions: Pilonidal Cyst (ED), Abscess (ED), Abscess Follow-up (ED), Abscess Incision and Drainage (DC) Additional Instructions: You were seen in the emergency department today due to a infected pilonidal abscess/cyst. We had to excise and drain this area. A wick was placed in this area, please have this removed in 3 days. You may return here or follow-up with your primary care physician. Take prescribed antibiotic as directed, finish the entire course even if you are feeling better. This area may continue to drain, please change dressings as warranted. If any new or worsening symptoms occur including increased redness, swelling, pain, fevers, chills, please return for re-evaluation. Prescriptions: New cephalexin 500 mg capsule 500 mg PO QID 5 Days Qty: 20 0RF ibuprofen 600 mg tablet 600 mg PO Q6H PRN (Reason: pain) Qty: 30 0RF acetaminophen [Tylenol 8 Hour] 650 mg tablet extended release 650 mg PO Q8H PRN (Reason: pain) Qty: 30 0RF No Action metronidazole 0.75 % (37.5mg/5 gram) gel 1 appful vaginal BEDTIME 5 Days Qty: 70 0RF albuterol sulfate 90 mcg/actuation aerosol powdr breath activated 2 inh inhalation Q4-6H PRN (Reason: shortness of breath or wheezing) Qty: 1 0RF clindamycin phosphate 1 % gel 1 appl topical BID triamcinolone acetonide 0.025 % cream topical DAILY benzoyl peroxide 10 % cleanser topical cholecalciferol (vitamin D3) 50 mcg (2,000 unit) capsule 50 mcg PO DAILY Qty: 90 2RF spironolactone 50 mg tablet 50 mg PO DAILY Qty: 90 0RF sumatriptan succinate 100 mg tablet See Rx Instructions PO .COMPLEX Qty: 10 0RF Rx Instructions: take 1 tab at onset of headache; if no relief, may repeat 1 tab after at least 2 hrs; max = 2 tabs/24 hrs PO medroxyprogesterone [Provera] 10 mg tablet 10 mg PO DAILY Qty: 60 0RF Rx Instructions: repeat monthly as needed Stand Alone Forms: Work/School Release Print Language: Mauritanian
[2023-10-28] MEDS: Lidocaine HCl 1 % MPF 5 ML VIAL INFILTRATI (12:23)
[2023-10-28 12:37] VITALS: BP 118/55; PULSE 78; RESP 17; TEMP 36.6; O2SAT 99
[2023-10-28] MEDS: Diphth,Pertus(ACell),Tet Adult 0.5 ML SYRINGE IM (12:43)
[2023-10-28 12:52] VITALS: BP 118/55; PULSE 78; RESP 17; TEMP 36.6; O2SAT 99
--- NOTE | 2023-10-28 12:52 | PC.NURSE ---
tdap given left deltoid, tolerated well, VIS given.
== END 2023-10-28 12:52 | disposition home or self-care (01) ==
PROVIDERS: Emergency Provider Student in an Organized Health Care Education/Training Program; PCP Internal Medicine
DX: L05.01 Pilonidal cyst with abscess (principal); R00.0 Tachycardia, unspecified; Z79.899 Other long term (current) drug therapy; Z23 Encounter for immunization
CPT/HCPCS: 10080; 90471; 90715; 99284

== ENCOUNTER 2023-12-15 12:41 | Outpatient (AMB) | payer OTHER, SELFPAY ==
--- NOTE | 2023-12-15 12:50 | MHC.PC.OV ---
Vital Signs 12/15/23 12:56 Height 5 ft 8 in Weight 329 lb BMI 50.0 BP 114/70 Blood Pressure Location Rt brachial Position Sitting Pulse 97 Pulse Source Pulse Oximeter Pulse Oximetry (%) 98 Oxygen Delivery Method Room Air Intake Visit Reasons: 2-3 month follow up Intake Note: Pt is here today for a follow up visit. Pt states that she just found out she is . Allergies No Known Allergies Allergy (Verified 12/15/23 13:01) Medication List - Last Reconciled 12/15/23 by Madina Corado MD acetaminophen ER (Tylenol 8 Hour) 650 mg PO Q8H PRN albuterol sulfate 90 mcg/actuation 2 inhalations inhalation Q4-6H PRN benzoyl peroxide 10% topical cholecalciferol (vitamin D3) 50 mcg PO DAILY clindamycin phosphate 1% 1 appl topical BID ibuprofen 600 mg PO Q6H PRN medroxyprogesterone (Provera) 10 mg PO DAILY metronidazole 0.75%(37.5mg/5gram) 1 appful vaginal BEDTIME 5 days spironolactone 50 mg PO DAILY sumatriptan succinate take 1 tab at onset of headache; if no relief, may repeat 1 tab after at least 2 hrs; max = 2 tabs/24 hrs PO triamcinolone acetonide 0.025% appl topical DAILY Tobacco use date assessed: 12/15/23 Dental Screening Dental Screen Date: 12/15/23 Did you have a dental visit in the last 12 months?: Yes Did you have a dental problem in the last 6 months where you did not have access to dental care?: No Was dental information given to patient?: Patient has dentist HPI 2-3 month follow up HPI Details Patient presents for the follow-up. Sumatriptan was effective for episode of migraine headaches. Patient was taking spironolactone for hidradenitis but stopped after she found out she was . She has an appointment with OBGYN next week. [facility] Medical History Irregular menses Hydradenitis Pelvic cramping FH: cholecystectomy Flu-like symptoms Anxiety Sleep apnea Skin lesion Hx of acute cholecystitis Morbid obesity with BMI of 50.0-59.9, adult Surgical History Hx of tonsillectomy Family History Mother Heart disease Vascular disease Father Lupus Pre-diabetes Paternal Grandfather Diabetes HTN (hypertension) Social History Household Members: Children Household Members Other:: 8 yr old son, Housing: Apartment Are you a primary hospice home care coordinator to a significant other at home: Yes Do you presently have visiting nurse or other home services: No Alcohol intake: current Alcohol intake frequency: holidays/special occasions only Patient Tobacco Use Status: Former Tobacco user Tobacco use type: Cigarette Cigarette Packs Per Day: 1 Cigarettes Per Day: 2 Years Smoked: 25 e-Cigarette/Vaping Use: Currently Using Second Hand Smoke Exposure: No Substance Use Type: Marijuana Advance Directives Date on File: 04/07/21 service: No Current occupational status: unemployed Gender identity: Female Cognitive needs: No Hearing needs: No Vision needs: Yes Female Reproductive History Menstrual Age of Menarche: 11 Questionnaire PHQ-9 Over the last 2 weeks, how often have you been bothered by any of the following problems? 5. Poor appetite or overeating: several days 6. Feeling bad about yourself - or that you are a failure or have let yourself or your family down: several days 7. Trouble concentrating on things, such as reading the newspaper or watching television: not at all 8. Moving or speaking so slowly that other people could have noticed. Or the opposite - being so fidgety or restless that you have been moving around a lot more than usual: several days 9. Thoughts that you would be better off or of hurting yourself in some way: not at all Source: Developed by Drs. Jack Deras, Arabella Dc, Damon Chowdary and colleagues, with an educational andres from [employer]. Thrive Questionnaire Date Thrive assessed: 08/18/23 I am a: Patient What is your living situation today?: I have a steady place to live Within the past 12 months, did the food you bought not last and you didn't have the money to get more?: Never true Within the past 12 months, did you worry whether your food would run out before you got money to buy more?: Never true Do you have trouble paying for medicines?: No Do you have trouble getting transportation to medical appointments?: No Do you have trouble paying your heating and electricity bill?: No Do you have trouble taking care of your child, family member or friend?: No Do you have trouble with day-to-day activities such as bathing, preparing meals, shopping, managing finances, etc.?: No Are you currently unemployed and looking for a job?: No Are you interested in more education?: No Please select the resources that you would like help with: Housing/Usp Currently or been in a relationship where the following occur: No concerns reported THRIVE Score: 0 AUDIT C Alcohol Use Questionnaire (AUDIT-C) 1. How often do you have a drink containing alcohol?: Monthly or less 2. How many drinks containing alcohol do you have on a typical day when you are drinking?: 1 or 2 3. How often do you have six or more drinks on one occasion?: Never Total Score: 1 YAMILET-7 AMB Questionnaire YAMILET-7 Date YAMILET - 7 assessed: 10/07/23 Feeling nervous, anxious, or on edge: 1 = Several days Not being able to stop or control worryin = Several days Worrying too much about different things: 1 = Several days Trouble relaxin = Several days Being so restless that it is hard to sit still: 1 = Several days Becoming easily annoyed or irritable: 1 = Several days Feeling afraid as if something awful might happen: 1 = Several days Total YAMILET-7 score (0-4 normal; 5-9 mild; 10-14 moderate; 15-21 severe): 7 Source: Developed by Drs. Jack Deras, Arabella Dc, Damon Chowdary and colleagues, with an educational andres from [employer]. Review of Systems Const All systems reviewed & are unremarkable except as noted in HPI and below Eyes Reports no additional complaints Card Reports no additional complaints Resp Reports no additional complaints GI Reports no additional complaints Reports no additional complaints Physical exam (Primary Care) Vital Signs: Last Vital Signs Pulse 97 12/15/23 12:56 BP 114/70 12/15/23 12:56 Pulse Ox 98 12/15/23 12:56 Oxygen Delivery Method Room Air 12/15/23 12:56 BMI result Body Mass Index 50.0 Tobacco/Smoking Status: Tobacco use Status Tobacco use date assessed 12/15/23 12/15/23 13:02 Patient Tobacco Use Status Former Tobacco user 12/15/23 12:50 Tobacco use type Cigarette 12/15/23 12:50 e-Cigarette/Vaping Use Currently Using 12/15/23 12:50 Thrive Assessment: Date of Thrive Assessment Date Thrive assessed 08/18/23 12/15/23 12:50 Currently or been in a relationship where the following occur: No concerns reported Const General: no acute distress HENMT Head: Yes normal to inspection Mouth: Normal oral and palatal mucosa present Eyes General: appearance normal, both eyes and all related structures Resp Effort & Inspection: normal respiratory effort Auscultation: clear to auscultation bilaterally Cardio Rhythm: regular rhythm Heart sounds: S1 normal heart sound present and S2 normal heart sound present GI Inspection: Yes normal to inspection Palpation (GI): Soft to palpation Percussion: Yes normal to percussion Auscultation: normal bowel sounds Assessment and Plan Assessment & Plan (1) Vitamin D deficiency: Code(s): E55.9 - Vitamin D deficiency, unspecified Plan: on 4000 IU, check the level (2) Early stage of : Code(s): Z34.90 - Encounter for supervision of normal , unspecified, unspecified trimester Plan: start MVI Orders: Orders Vitamin D 25-OH Total Today E55.9 - Vitamin D deficiency, unspecified Medications: Discontinued spironolactone Discontinued Reason: Doctor's Order 50 mg PO DAILY 90 tabs 0RF medroxyprogesterone (Provera) repeat monthly as needed Discontinued Reason: Doctor's Order 10 mg PO DAILY 60 tabs 0RF Coding Level of Care Code Est Pt Level 3 (96434) Diagnoses Vitamin D deficiency E55.9 Early stage of Z34.90
[2023-12-15 12:56] VITALS: BP 114/70; PULSE 97; O2SAT 98; BMI 50.0
== END 2023-12-15 13:29 | disposition home or self-care (01) ==
PROVIDERS: PCP Internal Medicine; Visit Provider Internal Medicine
DX: E55.9 Vitamin D deficiency, unspecified (principal); Z34.90 Encounter for supervision of normal pregnancy, unspecified, unspecified trimester
CPT/HCPCS: 99213

== ENCOUNTER 2023-12-15 13:20 | Outpatient (REF) | payer OTHER, SELFPAY ==
[2023-12-15 17:19] LABS: Vitamin D 25-OH Total 35.7 ng/mL (>30)
== END 2023-12-15 13:21 | disposition home or self-care (01) ==
LOC: HO.HMGCLDS 13:20
PROVIDERS: PCP Internal Medicine; Visit Provider Internal Medicine
DX: E55.9 Vitamin D deficiency, unspecified (principal)
CPT/HCPCS: 36415; 82306

== ENCOUNTER 2023-12-21 12:40 | Outpatient (REF) | payer OTHER, SELFPAY ==
--- NOTE | ~2023-12-21 | US_ITS ---
EXAMINATION: US OBSTETRICAL ULTRASOUND CLINICAL INFORMATION: Dating and viability. COMPARISON: Pelvic ultrasound 02/12/2023. LMP: 10/19/2023. Gestational age by maternal dates is 9 weeks 0 days. Estimated date of delivery by maternal dates is 07/25/2024. TECHNIQUE: Both transabdominal endovaginal scanning was performed. FINDINGS: No gestational sac is seen. The endometrium is thickened at 3.4 cm within a trace amount of fluid in the endometrial canal. The right ovary measures 2.7 x 2.3 x 2.4 cm and appears normal. Left ovary measures 1.8 x 1.4 x 2.3 cm and appears unremarkable. No free fluid present in the cul-de-sac. US/US OB pelvic and transvaginal IMPRESSION: No intrauterine is identified at this time. Correlation with beta hCG levels is recommended, as nonvisualization of a gestational sac could be due to an early stage of . Alternatively, lack of an intrauterine gestational sac may also be seen with missed or ectopic , although no adnexal mass is seen to strongly suggest ectopic . Short-term sonographic follow-up and serial beta hCG levels are recommended to assess for development of an intrauterine gestational sac.
== END 2023-12-21 12:41 | disposition home or self-care (01) ==
LOC: HO.US 12:40
PROVIDERS: PCP Internal Medicine; Visit Provider Advanced Practice Midwife
DX: Z34.90 Encounter for supervision of normal pregnancy, unspecified, unspecified trimester (principal)
CPT/HCPCS: 76801; 76817

== ENCOUNTER 2023-12-23 09:39 | Emergency (ER) | payer OTHER, SELFPAY ==
[2023-12-23 09:43] VITALS: BP 137/69; PULSE 93; RESP 18; TEMP 36.9; O2SAT 99; BMI 52.5
--- NOTE | 2023-12-23 10:21 | ED_ITS ---
HPI - General Chief complaint: Vaginal Bleeding Stated complaint: Abd pain - 6 weeks Time Seen by Provider: 12/23/23 09:44 Source: patient Mode of arrival: ambulatory Limitations: no limitations History of Present Illness ED Provider: Stevan Lamb PA-C HPI Narrative: 33 yo female who is currently 6 weeks presents to the ER for evaluation of lower abdominal cramping that started last night and has not gone away. She reports after going to the bathroom last night she wiped herself and had some pink blood on the toilet paper. No clots. No further bleeding or spotting. She reports she has lower abdominal cramping that is central, not focused on 1 side. No nausea or vomiting. No other abdominal pain. She states her last menstrual period was on October 18. She did not have sexual intercourse with her partner until November 15. She thinks she is about 6 weeks . She denies any vaginal discharge. She follows with OBGYN here. She states she had an ultrasound done 2 days ago but does not know the results. MD Complaint: vaginal bleeding and other (Lower abdominal cramping) Onset (ago): hour(s) (18) Pain Consistency: constant Location: pelvis Severity: moderate Quality: Cramping Radiation: pelvis Relieving factors: none Exacerbating factors: none Associated symptoms: denies other symptoms Vaginal discharge: none Vaginal bleeding: light Date of Last Menstrual Period: 10/19/23 Patient : Yes OB History - Previous Pregnancies: miscarriage Related Data : 3 Para: 1 Total number of abortions (spontaneous and elective): 1 Home Medications ?Medication ?Instructions ?Recorded ?Confirmed triamcinolone acetonide 0.025 % appl topical DAILY 02/08/23 12/15/23 topical cream Previous Rx's ?Medication ?Instructions ?Recorded albuterol sulfate 90 mcg/actuation 2 inh inhalation Q4-6H PRN 07/11/23 breath activated powder inhaler shortness of breath or wheezing #1 ea metronidazole 0.75 % (37.5 mg/5 1 appful vaginal BEDTIME 5 days 08/13/23 gram) vaginal gel #70 grams cholecalciferol (vitamin D3) 50 50 mcg PO DAILY #90 caps 10/07/23 mcg (2,000 unit) capsule sumatriptan succinate 100 mg tablet See Rx Instructions PO .COMPLEX 10/07/23 #10 tabs acetaminophen 650 mg 650 mg PO Q8H PRN pain #30 tabs 10/28/23 tablet,extended release (Tylenol 8 Hour) ibuprofen 600 mg tablet 600 mg PO Q6H PRN pain #30 tabs 10/28/23 Allergies Allergy/AdvReac Type Severity Reaction Status Date / Time No Known Allergies Allergy Verified 12/23/23 09:45 Review of Systems 2 Review of Systems: Yes all other systems are reviewed and are negative [facility] Past Medical History Medical History Irregular menses Hydradenitis Pelvic cramping FH: cholecystectomy Flu-like symptoms Anxiety Sleep apnea Skin lesion Hx of acute cholecystitis Morbid obesity with BMI of 50.0-59.9, adult Surgical History Hx of tonsillectomy : 3 Para: 1 Total number of abortions (spontaneous and elective): 1 Date of Last Menstrual Period: 10/19/23 Family History Family History Mother Heart disease Vascular disease Father Lupus Pre-diabetes Paternal Grandfather Diabetes HTN (hypertension) Social History Social History Household Members: Children Household Members Other:: 8 yr old son, Housing: Apartment Are you a primary home care manager rn to a significant other at home: Yes Do you presently have visiting nurse or other home services: No Alcohol intake: current Alcohol intake frequency: holidays/special occasions only Patient Tobacco Use Status: Former Tobacco user Tobacco use type: Cigarette Cigarette Packs Per Day: 1 Cigarettes Per Day: 2 Years Smoked: 25 e-Cigarette/Vaping Use: Currently Using Second Hand Smoke Exposure: No Substance Use Type: Marijuana Advance Directives Date on File: 04/07/21 service: No Current occupational status: unemployed Gender identity: Female Cognitive needs: No Hearing needs: No Vision needs: Yes Physical Exam 2 Vital Signs: Vital Signs: Last Vital Signs Temp 0 F L 12/23/23 12:07 Pulse 0 L 12/23/23 12:07 Resp 0 L 12/23/23 12:07 BP 0/0 L 12/23/23 12:07 Pulse Ox 0 L 12/23/23 12:07 O2 Del Method Room Air 12/23/23 12:07 BMI result Body Mass Index 52.5 Appearance: Alert. Oriented X3. No acute distress. Head: normocephalic, atraumatic. Eyes: Pupils equal, round and reactive to light. ENT: Pharynx normal. No tonsillar swelling or exudate. Neck: Normal inspection. Neck supple. CVS: Normal heart rate and rhythm. Pulses normal. Respiratory: No respiratory distress. Breath sounds normal. Abdomen: Obese, Soft and nontender. +BS x4. Pelvic deferred Skin: Skin warm and dry. Normal skin color. Normal skin turgor. No rashes. Extremities: No lower extremity edema. No joint swelling. Neuro/psych: Oriented X 3. No motor deficit. No sensory deficit. CN II-XII intact. Normal speech and cognition. Medical Decision Making Medical Decision Making [facility] Narrative: 33-year-old who is currently in the early stages of presents to the ER for evaluation of pelvic cramping and 1 episode of spotting yesterday. History of miscarriage in the past at home at approximately 8 weeks gestation. Patient had a pelvic ultrasound done 2 days ago in the office, read is not back yet. I reviewed the images and does not appear to have a yolk sac or IUP. HCG is over 3000 today. Blood type is A positive. No need for RhoGAM today. Concerned she may have an ectopic . Will need to repeat the ultrasound to assess for possible intrauterine versus ectopic . 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 They are going to come back to the emergency room to get the ultrasound performed. Differential Diagnosis Differential Diagnoses: The differential diagnosis associated with the presentation includes Spontaneous , 1st trimester bleeding, implantation bleeding, UTI, STI Admission/Observation Consideration of admission/observation: Escalation of care including admission/observation considered Lab Data [facility] Lab Attestation statement: I reviewed the patient's lab results. Mild leukocytosis, no anemia, 12/23/23 11:07 12/23/23 11:07 Labs: Lab Results 12/23/23 Range/Units 11:07 WBC 12.6 H (4.8-10.8) X10*3/uL RBC 4.34 (4.20-5.50) X10*6/uL Hgb 12.4 (12.0-16.0) g/dl Hct 37.8 (37.0-47.0) % MCV 87.1 (80.0-98.0) fL MCH 28.6 (27.0-33.0) pg MCHC 32.8 (31.0-35.0) g/dl RDW 14.7 (11.0-16.0) % Plt Count 302 (160-400) X10*3/uL MPV 8.4 L (9.4-12.3) fL Immature Gran % (Auto) 0.6 H (0.0-0.4) % Neut % (Auto) 73.3 H (45-73) % Lymph % (Auto) 19.5 L (20-40) % [place] % (Auto) 5.9 (2-11) % Eos % (Auto) 0.5 (0-4) % Baso % (Auto) 0.2 (0-2) % Lymph # (Auto) 2.5 (1.2-4.9) X10*3/uL [place] # (Auto) 0.7 (0.1-1.2) X10*3/uL Eos # (Auto) 0.1 (0.0-0.4) X10*3/uL Baso # (Auto) 0.0 (0.0-0.2) X10*3/uL Abs Immat Gran (auto) 0.08 H (0.00-0.03) X10*3/uL Absolute Neuts (auto) 9.3 H (2.0-8.3) x10*3/uL Absolute Nucleated RBC 0.000 (0.0-0.012) X10*3/uL Nucleated RBC % (auto) 0.0 (0.0-0.2) /100WBC Sodium 138 (135-145) mmol/L Potassium 3.9 (3.3-5.1) mmol/L Chloride 106 (96-108) mmol/L Carbon Dioxide 25 (22-29) mmol/L Anion Gap 11 L (12-20) BUN 5 L (9-16) mg/dL Creatinine 0.59 (0.5-1.4) mg/dL Estim Creat Clear Calc 215.1 Estimated GFR > 60 Random Glucose 95 (60-115) mg/dL Calcium 9.2 (8.4-10.2) mg/dL Magnesium 2.0 (1.6-2.6) mg/dL Total Bilirubin 0.4 (0.0-1.0) mg/dL Direct Bilirubin 0.2 (0.0-0.5) mg/dL AST 10 (5-31) U/L ALT 10 (0-31) U/L Alkaline Phosphatase 80 (39-117) U/L Total Protein 6.9 (6.5-8.0) g/dL Albumin 3.8 (3.5-5.0) g/dL Beta HCG, Quant 3115 mIU/mL Blood Type A Positive External Record Review External record reviewed: Outpatient record, Prior outpatient labs and Prior outpatient radiology Prescription Management I considered prescription management with: Pain Medication and Other (Methotrexate) Chronic Conditions Patient?s care impacted by: Other (Morbid obesity) Critical Care Time Critical Care Time Critical Care Time: No Discharge Plan Discharge Clinical Impression: Threatened Patient Disposition: Left W/O Completing Treatment Prescriptions: No Action metronidazole 0.75 % (37.5mg/5 gram) gel 1 appful vaginal BEDTIME 5 Days Qty: 70 0RF albuterol sulfate 90 mcg/actuation aerosol powdr breath activated 2 inh inhalation Q4-6H PRN (Reason: shortness of breath or wheezing) Qty: 1 0RF ibuprofen 600 mg tablet 600 mg PO Q6H PRN (Reason: pain) Qty: 30 0RF acetaminophen [Tylenol 8 Hour] 650 mg tablet extended release 650 mg PO Q8H PRN (Reason: pain) Qty: 30 0RF triamcinolone acetonide 0.025 % cream topical DAILY cholecalciferol (vitamin D3) 50 mcg (2,000 unit) capsule 50 mcg PO DAILY Qty: 90 2RF sumatriptan succinate 100 mg tablet See Rx Instructions PO .COMPLEX Qty: 10 0RF Rx Instructions: take 1 tab at onset of headache; if no relief, may repeat 1 tab after at least 2 hrs; max = 2 tabs/24 hrs PO Interventions: ED Discharge Assessment Last Done: 12/23/23 12:07 LWBS Worksheet Last Done: 12/23/23 12:09 Discharge Date/Time: 12/23/23 12:09 Print Language: Belarusian
[2023-12-23 11:11] LABS: MANUAL DIFF FLAG NO
[2023-12-23 11:12] LABS: Basophils Percent Auto 0.2 % (0-2); Eosinophils Absolute Auto 0.1 X10*3/uL (0.0-0.4); Eosinophils Percent Auto 0.5 % (0-4); Hematocrit 37.8 % (37.0-47.0); Hemoglobin 12.4 g/dl (12.0-16.0); Imm Gran Abs Auto 0.08 X10*3/uL (0.00-0.03); Imm Gran Pct Auto 0.6 % (0.0-0.4); Lymphocytes Absolute Auto 2.5 X10*3/uL (1.2-4.9); Lymphocytes Percent Auto 19.5 % (20-40); Mean Corpuscular HGB Conc 32.8 g/dl (31.0-35.0); Mean Corpuscular Hemoglobin 28.6 pg (27.0-33.0); Mean Corpuscular Volume 87.1 fL (80.0-98.0); Mean Platelet Volume 8.4 fL (9.4-12.3); Monocytes Absolute Auto 0.7 X10*3/uL (0.1-1.2); Monocytes Percent Auto 5.9 % (2-11); Neutrophils Absolute Auto 9.3 x10*3/uL (2.0-8.3); Neutrophils Percent Auto 73.3 % (45-73); Platelet Count 302 X10*3/uL (160-400); Red Blood Count 4.34 X10*6/uL (4.20-5.50); Red Cell Distribution Width 14.7 % (11.0-16.0); White Blood Count 12.6 X10*3/uL (4.8-10.8)
[2023-12-23 11:31] LABS: Alanine Aminotransferase 10 U/L (0-31); Albumin Level 3.8 g/dL (3.5-5.0); Alkaline Phosphatase 80 U/L (39-117); Anion Gap 11 (12-20); Aspartate Amino Transferase 10 U/L (5-31); Bilirubin Direct 0.2 mg/dL (0.0-0.5); Bilirubin Total 0.4 mg/dL (0.0-1.0); Blood Urea Nitrogen 5 mg/dL (9-16); Calcium 9.2 mg/dL (8.4-10.2); Carbon Dioxide 25 mmol/L (22-29); Chloride 106 mmol/L (96-108); Creatinine Clr Calc Pharmacy 215.1; Estimated Glomerular Filt Rate > 60; Glucose Random 95 mg/dL (60-115); HCG Quantitative 3115 mIU/mL; Potassium 3.9 mmol/L (3.3-5.1); Sodium 138 mmol/L (135-145); Total Protein 6.9 g/dL (6.5-8.0)
[2023-12-23 12:07] VITALS: BP 0/0; PULSE 0; RESP 0; TEMP -17.7; TEMP 0; O2SAT 0
== END 2023-12-23 12:09 | disposition left against medical advice (07) ==
PROVIDERS: Physician Assistant; Emergency Provider Emergency Medicine; PCP Internal Medicine
DX: O20.0 Threatened abortion (principal); Z3A.01 Less than 8 weeks gestation of pregnancy
CPT/HCPCS: 36415; 80048; 80076; 83735; 84702; 85025; 86900; 86901; 99282; 99283

== ENCOUNTER 2023-12-23 12:15 | Emergency (ER) | payer OTHER, SELFPAY ==
--- NOTE | ~2023-12-23 | US_ITS ---
EXAMINATION: US OBSTETRICAL ULTRASOUND CLINICAL INFORMATION: Cramping. 6 weeks . Beta hCG greater than 3000. COMPARISON: Obstetrical ultrasound dated 12/21/2023. LMP: 10/19/2023. Gestational age by maternal dates is 9 weeks 2 days. Estimated date of delivery by maternal dates is 07/25/2024. TECHNIQUE: Transabdominal and transvaginal scanning was performed. FINDINGS: No gestational sac is seen. The endometrium remains thickened, measuring 3.5 cm. MATERNAL ADNEXA: The right maternal ovary measures 3.6 x 2.1 x 2.8 cm. There is a 1.7 x 1.7 x 1.6 right ovarian cyst. The left maternal ovary measures 2.6 x 1.6 x 1.7. No free fluid within the cul-de-sac. US/US OB pelvic and transvaginal IMPRESSION: No intrauterine is identified. Nonvisualization of a gestational sac could be due to an early stage of . Alternatively, lack of an intrauterine gestational sac may also be seen with missed or ectopic , although no adnexal mass is seen to strongly suggest an ectopic . Short-term sonographic follow-up and serial beta hCG levels are recommended.
--- NOTE | 2023-12-23 12:20 | ED_ITS ---
HPI - Female Genitourinary General Chief complaint: Vaginal Bleeding Stated complaint: Abd pain Time Seen by Provider: 12/23/23 12:15 Source: patient Mode of arrival: ambulatory Limitations: no limitations History of Present Illness ED Provider: Stevan Lamb PA-C HPI Narrative: 33 yo female who is currenlty 6 weeks presents to the ER for evaluation of lower abdominal cramping that started last night and has not gone away. She reports after going to the bathroom last night she wiped herself and had some pink blood on the toilet paper. No clots. No further bleeding or sp otting. She reports she has lower abdominal cramping that is central, not focused on 1 side. No nausea or vomiting. No other abdominal pain. She states her last menstrual period was on October 18. She did not have sexual intercourse with her partner until November 15. She thinks she is about 6 weeks . She denies any vaginal discharge. She follows with OBGYN here. She states she had an ultrasound done 2 days ago but does not know the results. MD elicited complaint: vaginal bleeding, possible miscarriage and other (Pelvic cramping) Pertinent past history: prior miscarriages Onset (ago): hour(s) (18) Severity: moderate Quality of pain: cramping Consistency: constant Vaginal discharge: none Vaginal bleeding: scant Exacerbating factors: none Relieving factors: none Associated symptoms: denies other symptoms Treatment prior to arrival: none Sexual activity: Yes Patient : Yes Date of Last Menstrual Period: 10/19/23 Related Data : 3 Para: 1 Total number of abortions (spontaneous and elective): 1 Home Medications ?Medication ?Instructions ?Recorded ?Confirmed triamcinolone acetonide 0.025 % appl topical DAILY 02/08/23 12/15/23 topical cream Previous Rx's ?Medication ?Instructions ?Recorded albuterol sulfate 90 mcg/actuation 2 inh inhalation Q4-6H PRN 07/11/23 breath activated powder inhaler shortness of breath or wheezing #1 ea metronidazole 0.75 % (37.5 mg/5 1 appful vaginal BEDTIME 5 days 08/13/23 gram) vaginal gel #70 grams cholecalciferol (vitamin D3) 50 50 mcg PO DAILY #90 caps 10/07/23 mcg (2,000 unit) capsule sumatriptan succinate 100 mg tablet See Rx Instructions PO .COMPLEX 10/07/23 #10 tabs acetaminophen 650 mg 650 mg PO Q8H PRN pain #30 tabs 10/28/23 tablet,extended release (Tylenol 8 Hour) ibuprofen 600 mg tablet 600 mg PO Q6H PRN pain #30 tabs 10/28/23 Allergies Allergy/AdvReac Type Severity Reaction Status Date / Time No Known Allergies Allergy Verified 12/23/23 13:21 Review of Systems Review of Systems: Yes all other systems are reviewed and are negative [facility] Past Medical History Medical History Irregular menses Hydradenitis Pelvic cramping FH: cholecystectomy Flu-like symptoms Anxiety Sleep apnea Skin lesion Hx of acute cholecystitis Morbid obesity with BMI of 50.0-59.9, adult Surgical History Hx of tonsillectomy : 3 Para: 1 Total number of abortions (spontaneous and elective): 1 Date of Last Menstrual Period: 10/19/23 Family History Family History Mother Heart disease Vascular disease Father Lupus Pre-diabetes Paternal Grandfather Diabetes HTN (hypertension) Social History Social History Household Members: Children Household Members Other:: 8 yr old son, Housing: Apartment Are you a primary career resource specialist to a significant other at home: Yes Do you presently have visiting nurse or other home services: No Alcohol intake: current Alcohol intake frequency: holidays/special occasions only Patient Tobacco Use Status: Former Tobacco user Tobacco use type: Cigarette Cigarette Packs Per Day: 1 Cigarettes Per Day: 2 Years Smoked: 25 e-Cigarette/Vaping Use: Currently Using Second Hand Smoke Exposure: No Substance Use Type: Marijuana Advance Directives Date on File: 04/07/21 service: No Current occupational status: unemployed Gender identity: Female Cognitive needs: No Hearing needs: No Vision needs: Yes Physical Exam Vital Signs: Vital Signs: Last Vital Signs Temp 98.7 F 12/23/23 16:02 Pulse 87 12/23/23 16:02 Resp 16 12/23/23 16:02 BP 114/65 12/23/23 16:02 Pulse Ox 99 12/23/23 16:02 O2 Del Method Room Air 12/23/23 16:02 BMI result Body Mass Index 53.2 Appearance: Alert. Oriented X3. No acute distress. Head: normocephalic, atraumatic. Eyes: Pupils equal, round and reactive to light. ENT: Pharynx normal. No tonsillar swelling or exudate. Neck: Normal inspection. Neck supple. CVS: Normal heart rate and rhythm. Pulses normal. Respiratory: No respiratory distress. Breath sounds normal. Abdomen: Obese Soft and nontender. +BS x4. pelvic deferred Skin: Skin warm and dry. Normal skin color. Normal skin turgor. No rashes. Extremities: No lower extremity edema. No joint swelling. Neuro/psych: Oriented X 3. No motor deficit. No sensory deficit. CN II-XII intact. Normal speech and cognition. Medical Decision Making Medical Decision Making [facility] Narrative: 33 yo female currently in the early state of here with cramping and spotting. Beta hCG is 3100. Pelvic ultrasound today does not show any intrauterine , no adnexal mass. Doctors are be consulted who came to evaluate the patient at the bedside. Cultures were sent. Plan is to have the patient return in 48 hours for repeat ultrasound and beta hCG. 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 Grover evaluated the patient at the bedside - rec hcg and U/S in 48 hours Lab Data [facility] Lab Attestation statement: I reviewed the patient's lab results. Radiology Impression Discussion of test interpretation with radiology: I have reviewed the radiologist's reading. Radiologist Impression: EXAMINATION: US OBSTETRICAL ULTRASOUND CLINICAL INFORMATION: Cramping. 6 weeks . Beta hCG greater than 3000. COMPARISON: Obstetrical ultrasound dated 12/21/2023. LMP: 10/19/2023. Gestational age by maternal dates is 9 weeks 2 days. Estimated date of delivery by maternal dates is 07/25/2024. TECHNIQUE: Transabdominal and transvaginal scanning was performed. FINDINGS: No gestational sac is seen. The endometrium remains thickened, measuring 3.5 cm. MATERNAL ADNEXA: The right maternal ovary measures 3.6 x 2.1 x 2.8 cm. There is a 1.7 x 1.7 x 1.6 right ovarian cyst. The left maternal ovary measures 2.6 x 1.6 x 1.7. No free fluid within the cul-de-sac. US/US OB pelvic and transvaginal IMPRESSION: No intrauterine is identified. Nonvisualization of a gestational sac could be due to an early stage of . Alternatively, lack of an intrauterine gestational sac may also be seen with missed or ectopic , although no adnexal mass is seen to strongly suggest an ectopic . Short-term sonographic follow-up and serial beta hCG levels are recommended. External Record Review External record reviewed: Office record, Outpatient record, Prior outpatient labs and Prior outpatient radiology Prescription Management I considered prescription management with: Other (MTX) Chronic Conditions Patient?s care impacted by: Other (morbid obesity) Critical Care Time Critical Care Time Critical Care Time: No Discharge Plan Discharge Clinical Impression: Threatened Patient Disposition: Home, Self-Care Instructions: Threatened Miscarriage (ED) Additional Instructions: Your level was 3115. Your ultrasound today did not show any evidence of inside the uterus. The OBGYN doctor recommends that you come back on Wednesday for repeat lab work a nd ultrasound. Prescriptions: No Action metronidazole 0.75 % (37.5mg/5 gram) gel 1 appful vaginal BEDTIME 5 Days Qty: 70 0RF albuterol sulfate 90 mcg/actuation aerosol powdr breath activated 2 inh inhalation Q4-6H PRN (Reason: shortness of breath or wheezing) Qty: 1 0RF ibuprofen 600 mg tablet 600 mg PO Q6H PRN (Reason: pain) Qty: 30 0RF acetaminophen [Tylenol 8 Hour] 650 mg tablet extended release 650 mg PO Q8H PRN (Reason: pain) Qty: 30 0RF triamcinolone acetonide 0.025 % cream topical DAILY cholecalciferol (vitamin D3) 50 mcg (2,000 unit) capsule 50 mcg PO DAILY Qty: 90 2RF sumatriptan succinate 100 mg tablet See Rx Instructions PO .COMPLEX Qty: 10 0RF Rx Instructions: take 1 tab at onset of headache; if no relief, may repeat 1 tab after at least 2 hrs; max = 2 tabs/24 hrs PO Interventions: ED Discharge Assessment Last Done: 12/23/23 16:02 Discharge Date/Time: 12/23/23 16:04 Print Language: Polish
[2023-12-23 13:20] VITALS: BP 103/42; PULSE 83; RESP 18; TEMP 37.4; O2SAT 99; BMI 53.2
--- NOTE | 2023-12-23 14:12 | P.CONOB_ITS ---
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 No nausea or vomiting. No other abdominal pain. She states her last menstrual period was on October 18. She did not have sexual intercourse with her partner until November 15. In the emergency room hCG is 3115, blood type A positive. Pelvic ultrasound showed the following: No gestational sac is seen. The endometrium remains thickened, measuring 3.5 cm. MATERNAL ADNEXA: The right maternal ovary measures 3.6 x 2.1 x 2.8 cm. There is a 1.7 x 1.7 x 1.6 right ovarian cyst. The left maternal ovary measures 2.6 x 1.6 x 1.7. No free fluid within the cul-de-sac. cc:: CC: OB [facility] Past Medical History Medical History Irregular menses Hydradenitis Pelvic cramping FH: cholecystectomy Flu-like symptoms Anxiety Sleep apnea Skin lesion Hx of acute cholecystitis Morbid obesity with BMI of 50.0-59.9, adult Family History Family History Mother Heart disease Vascular disease Father Lupus Pre-diabetes Paternal Grandfather Diabetes HTN (hypertension) Surgical History Surgical History Hx of tonsillectomy Social History Social History Household Members: Children Household Members Other:: 8 yr old son, Housing: Apartment Are you a primary manager care management to a significant other at home: Yes Do you presently have visiting nurse or other home services: No Alcohol intake: current Alcohol intake frequency: holidays/special occasions only Patient Tobacco Use Status: Former Tobacco user Tobacco use type: Cigarette Cigarette Packs Per Day: 1 Cigarettes Per Day: 2 Years Smoked: 25 e-Cigarette/Vaping Use: Currently Using Second Hand Smoke Exposure: No Substance Use Type: Marijuana Advance Directives: Yes Advance Directives on File: Yes Advance Directives Date on File: 04/07/21 Do you have a plan to hurt others: No Plan Patient : Yes service: No Current occupational status: unemployed Gender identity: Female Cognitive needs: No Hearing needs: No Vision needs: Yes Meds Allergies Allergy/AdvReac Type Severity Reaction Status Date / Time No Known Allergies Allergy Verified 12/23/23 13:21 Home Medications ?Medication ?Instructions ?Recorded ?Confirmed ?Last Taken ?Type triamcinolone acetonide 0.025 % appl topical DAILY 02/08/23 12/15/23 Unknown History topical cream 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 Physical Exam Vitals Vital signs: Temp Pulse Resp BP Pulse Ox O2 Del Method 99.3 F 83 18 103/42 L 99 Room Air 12/23/23 13:20 12/23/23 13:20 12/23/23 13:20 12/23/23 13:20 12/23/23 13:20 12/23/23 13:20 BMI result Body Mass Index 53.2 Abdomen Auscultation/Inspection/Palpation: Soft, Non-distended and No tenderness Female Genitalia (Pelvic) Vulva: No lesions Lesion: Pustule Vagina: Nontender Cervix: Grossly normal Uterus: Normal size and Nontender Adnexa/Parametria: Adnexal Tenderness: None, Adnexal Mass: None, Parametrial Tenderness: None and Parametrial Mass: None Assessment and Plan (1) Early stage of : Status: Acute Discussed with the patient the level of HCG level and the finding on ultrasound showing no intrauterine gestation The differential diagnosis discussed with the patient included either early ectopic versus early SAB with a small possibility of normal intrauterine gestation. Options of treatment were discussed with the patient includin- Expected management to come back to the emergency room for re-evaluation and repeat hCG and ultrasound in 48 hours . 2- Treat as if she has tubal with methotrexate or 3- Uterine aspiration. All the pros and cons and risks and benefits of each treatment approach were discussed with the patient. 1-The advantage of expectant management were discussed with the patient, being prevention of possible exposure to teratogenicity or risk of spontaneous in case of an early normal , the risk being delayed diagnosis and treatment of ectopic and possible rupture with all its possible consequences including intra-abdominal bleed and possible . 2- Explained to the patient that the use of curettage as a diagnostic tool is limited by the potential for disruption of a viable . In addition, discussed with the patient that the sensitivity of curettage in finding chorionic villi is only 70 percent. Pipelle endometrial biopsy is even less sensitive than curettage for detection of villi; sensitivities reported is between 30 and 60 percent. If curettage is performed, serum HCG levels can be followed postcurettage if histopathology does not confirm the clinical impression. When an IUP has been evacuated, hCG levels should drop by at least 15 percent the day after evacuation. There might be an advantage of performing aspiration only on patients with both an HCG concentration below the discriminatory zone and a low doubling rate, since 30 percent of these patients have a nonviable intrauterine gestation, and the remainder have an ectopic . Knowing the results of aspiration avoids unnecessary methotrexate treatment of the 30 percent of patients without ectopic . 3-Furthermore discussed with the patient the 3rd option which is treatment with methotrexate without uterine aspiration. The advantage of early treatment of presumed tubal with methotrexate was discussed with the patient, including but not limited to reducing the risk of ruptured ectopic with all its potential consequences, in addition discussed with the patient methotrexate treatment risks including but not limited to, possible exposure to methotrexate to a normal intra and and increase the risk of spontaneous and congenital anomalies. The patient decided to wait come back to emergency room for re-evaluation in 48 hours. Explained to the patient to the importance of compliance and timely re- evaluation with HCG follow-up in 48 hours for an early and accurate diagnosis, and to call or go to the emergency room if pain or vaginal bleeding occurs, all questions answered, the patient verbalized understanding and agreed with the plan. Instructions given to patient to come back to the emergency room in case of pelvic pain, vaginal bleeding otherwise come back in 48 hours to the ER for re-evaluation with imaging and labs and for further management.
[2023-12-23 15:31] VITALS: BP 112/84; PULSE 84; RESP 16; TEMP 37.1; O2SAT 98
[2023-12-23 16:02] VITALS: BP 114/65; PULSE 87; RESP 16; TEMP 37.1; O2SAT 99
[2023-12-23 17:48] LABS: Bacterial Vaginosis PCR POSITIVE (Negative); Candida Group PCR NOT DETECTED (Not Detect); Candida glab krusei PCR NOT DETECTED (Not Detect); Trichomonas vaginalis PCR NOT DETECTED (Not Detect)
[2023-12-23 18:11] LABS: CT PCR NOT DETECTED (Not Detect.); NG PCR NOT DETECTED (Not Detect.)
== END 2023-12-23 16:04 | disposition home or self-care (01) ==
PROVIDERS: Physician Assistant; Emergency Provider Emergency Medicine
DX: O20.0 Threatened abortion (principal); Z3A.01 Less than 8 weeks gestation of pregnancy
CPT/HCPCS: 0352U; 76801; 76817; 87491; 87591; 99283; 99284

== ENCOUNTER → 2023-12-23 13:23 | Outpatient (BNV) | payer OTHER, SELFPAY | PROVIDERS: Emergency Provider Emergency Medicine; Visit Provider Obstetrics & Gynecology | DX: Z34.90 Encounter for supervision of normal pregnancy, unspecified, unspecified trimester (principal) | CPT/HCPCS: 99283 ==

== ENCOUNTER 2023-12-25 08:20 | Emergency (ER) | payer OTHER, SELFPAY ==
--- NOTE | ~2023-12-25 | US_ITS ---
EXAMINATION: ULTRASOUND OF THE PELVIS CLINICAL INFORMATION: Early . Vaginal bleeding. Rule out ectopic . Patient states first trimester spotting/bleeding. Abnormally rising quadrants. Beta hCG 1 12/23/2023 was 3115 and on 12/25/2023, 4912. COMPARISON: Pelvic ultrasound dated 12/23/2023 and 12/21/2023. TECHNIQUE: Transabdominal and transvaginal pelvic ultrasound. A transvaginal study was performed in addition to the transabdominal study which did not yield an adequate examination of the uterus and ovaries due to superimposed distended gas-filled loops of bowel. FINDINGS: Patient's last menstrual period is not known. On the recent previous obstetrical ultrasounds, no intrauterine was identified. Uterus: The uterus is anteverted and is suboptimally visualized. The uterus is normal in size, measuring 12.5 x 6.3 x 7.8 cm. The endometrial stripe is indistinct and heterogeneously echogenic and appears to be abnormally thickened with increased vascular flow, measuring 3.6 cm in thickness, similar to the prior exam. No uterine gestational sac is seen. No focal myometrial mass is seen. The cervical length is normal measuring 3.3 cm. There is a trace amount of endocervical free fluid noted. Ovaries: The ovaries bilaterally are poorly visualized and appear grossly normal in size, with the right ovary measuring 2.3 x 1.3 x 1.6 cm (2.4 mL volume) and the left ovary measuring 1.8 x 1.4 x 1.4 cm (1.8 mL volume). In the right adnexa, arising from or adjacent to the right ovary, there is a 1.3 x 1.8 x 1.9 cm hypoechoic avascular complex cystic mass seen, not imaged on the prior to ultrasound and of uncertain significance. No images with color Doppler of this structure were included on the current study and visualization of this structure overall is suboptimal. Possible ectopic cannot be excluded and close clinical correlation and follow-up will be needed. Other: No significant free fluid collection seen. US/US OB pelvic and transvaginal IMPRESSION: 1. No intrauterine is seen. 2. Ovaries are poorly visualized but grossly normal in size. In the right adnexa, a 1.9 cm complex cystic mass is seen, not imaged on prior studies. This is of uncertain significance and may represent a complex cystic mass, such as a exophytic corpus luteum. Ectopic cannot be excluded. Close clinical correlation and serial beta-HCG and follow-up ultrasound assessment is recommended. 3. Abnormally thickened and heterogeneous echogenic endometrial stripe is seen with increased vascular flow, similar to the prior exam. Findings may be related to abnormal endometrial hyperplasia/neoplasia or possibly a molar given the elevated hCG levels. 4. No significant free fluid in the pelvis. This critical result was discussed with Dr. Grover 12/25/2023, 2:02 PM and it was ascertained that the content and urgency of this report was understood at the time of direct communication.
[2023-12-25 08:22] VITALS: BP 149/91; PULSE 106; RESP 20; TEMP 37; O2SAT 98; BMI 52.0
--- NOTE | 2023-12-25 08:50 | ED_ITS ---
HPI - Female Genitourinary General Chief complaint: Vaginal Bleeding Stated complaint: hcg test for Time Seen by Provider: 12/25/23 08:43 Source: patient Mode of arrival: ambulatory Limitations: no limitations History of Present Illness ED Provider: DR. Ryan HPI Narrative: 33-year-old female who is currently in early gestation was seen in the emergency department 2 days ago for abdominal/pelvic cramps and vaginal spotting patient was evaluated by Dr. Grover in the emergency department had hCG and was 3115 and had ultrasound which showed no IUP patient was instructed to return to the emergency room today to repeat hCG and ultrasound. Patient had minor pelvic contractions with vaginal spotting. No severe abdominal/pelvic pain, no nausea, no vomiting. Related Data Home Medications ?Medication ?Instructions ?Recorded ?Confirmed triamcinolone acetonide 0.025 % appl topical DAILY 02/08/23 12/15/23 topical cream Previous Rx's ?Medication ?Instructions ?Recorded albuterol sulfate 90 mcg/actuation 2 inh inhalation Q4-6H PRN 07/11/23 breath activated powder inhaler shortness of breath or wheezing #1 ea metronidazole 0.75 % (37.5 mg/5 1 appful vaginal BEDTIME 5 days 08/13/23 gram) vaginal gel #70 grams cholecalciferol (vitamin D3) 50 50 mcg PO DAILY #90 caps 10/07/23 mcg (2,000 unit) capsule sumatriptan succinate 100 mg tablet See Rx Instructions PO .COMPLEX 10/07/23 #10 tabs acetaminophen 650 mg 650 mg PO Q8H PRN pain #30 tabs 10/28/23 tablet,extended release (Tylenol 8 Hour) ibuprofen 600 mg tablet 600 mg PO Q6H PRN pain #30 tabs 10/28/23 Allergies Allergy/AdvReac Type Severity Reaction Status Date / Time No Known Allergies Allergy Verified 12/25/23 08:24 Review of Systems 2 Review of Systems: All other systems are reviewed and are negative Constitutional: Reports as per HPI and Reports no additional constitutional complaints Eyes: Reports as per HPI and Reports no additional eye complaints Reports system reviewed and no additional complaints, except as documented Cardiovascular: Reports as per HPI and Reports no additional cardiovascular complaints Respiratory: Reports as per HPI and Reports no additional respiratory complaints Gastrointestinal: Reports as per HPI and Reports no additional gastrointestinal complaints Genitourinary: Reports no additional female genitourinary complaints Musculoskeletal: Reports no additional musculoskeletal complaints Skin/Breast: Reports system reviewed and no additional complaints, except as docu Psychiatric: Reports no additional psychiatric complaints Endocrine: Reports no additional endocrine complaints Hematologic/Lymphatic: Reports no additional hematologic/lymphatic complaints Allergic/Immunologic: Reports no additional allergic/immunologic complaints Reports system reviewed and no additional complaints, except as documented and Reports Abnormal speech present PMFSH Past Medical History Medical History Irregular menses Hydradenitis Pelvic cramping FH: cholecystectomy Flu-like symptoms Anxiety Sleep apnea Skin lesion Hx of acute cholecystitis Morbid obesity with BMI of 50.0-59.9, adult Surgical History Hx of tonsillectomy Family History Family History Mother Heart disease Vascular disease Father Lupus Pre-diabetes Paternal Grandfather Diabetes HTN (hypertension) Social History Social History Household Members: Children Household Members Other:: 8 yr old son, Housing: Apartment Are you a primary coronary care unit nurse to a significant other at home: Yes Do you presently have visiting nurse or other home services: No Alcohol intake: current Alcohol intake frequency: holidays/special occasions only Patient Tobacco Use Status: Former Tobacco user Tobacco use type: Cigarette Cigarette Packs Per Day: 1 Cigarettes Per Day: 2 Years Smoked: 25 e-Cigarette/Vaping Use: Currently Using Second Hand Smoke Exposure: No Substance Use Type: Marijuana Advance Directives: No Advance Directives Information Provided: No Advance Directives Date on File: 04/07/21 Do you have a plan to hurt others: No Plan service: No Current occupational status: unemployed Gender identity: Female Cognitive needs: No Hearing needs: No Vision needs: Yes Physical Exam 2 Vital Signs: Vital Signs: Last Vital Signs Temp 98.6 F 12/25/23 08:22 Pulse 106 H 12/25/23 08:22 Resp 20 12/25/23 08:22 BP 149/91 H 12/25/23 08:22 Pulse Ox 98 12/25/23 08:22 O2 Del Method Room Air 12/25/23 08:22 BMI result Body Mass Index 52.0 Vital signs have been reviewed and appear to be correct. Blood pressure elevated. Heart rate elevated. Respiratory rate normal. Temperature normal. Oxygen saturation normal. Appearance: Alert. Oriented X3. No acute distress. Head: Normal external exam. Normocephalic. Atraumatic. No Michele signs noted. No raccoon eyes noted Eyes: PERRLA. EOMI. Conjunctiva and sclera normal. Eyelids normal. ENT: TM's Normal. Pharynx normal. Uvula midline. Moist mucous membranes. No trismus noted. No drooling noted. No muffled voice noted. Neck: Normal inspection. Neck supple. FROM. No adenopathy. Thyroid Normal. No meningeal signs. No neck mass noted. CVS: Normal heart rate and rhythm. Heart sound normal. No murmurs noted. Pulses normal throughout. Respiratory: No respiratory distress. Painless inspiration. Breath sounds normal. No wheezes/rales/rhonchi noted. Chest nontender. No accessory muscle usage noted or decreased air movement noted. Abdomen: Soft and nontender. Bowel sounds normal in all 4 quadrants. No distention noted. No organomegaly noted. No visible injury noted. Back: No CVA tenderness. Full range of motion noted. Skin: Skin warm and dry. Normal skin color. Normal skin turgor. No rashes/lesions/lacerations noted. Extremities: No lower extremity edema. Extremities exhibit normal range of motion. Extremities nontender. Neuro: Oriented X 3. Cranial nerve exam: II-XII are grossly intact No motor deficit. No sensory deficit. Reflexes normal. Course Reevaluation(s) Reevaluation #1: 33-year-old female in her early with GCS 4912 today ultrasound showed no IUP which raised the concern of ectopic , Dr. Grover is discussing with the patient the findings today, patient was offered methotrexate by Dr. Grover but patient disagree on the plan and would like to get 2nd opinion, patient will sign against medical advice and go to [facility] ER. Time: 13:59 Medical Decision Making Differential Diagnosis Differential Diagnoses: The differential diagnosis associated with the presentation includes (Early , ectopic , threatened , severe anemia, electrolyte derangement.) Admission/Observation Consideration of admission/observation: Escalation of care including admission/observation considered Consult Healthcare Provider Management of the patient was discussed with: Agricultural Economics Teacher (Dr. Grover) Lab Data MDM Lab Attestation statement: I reviewed the patient's lab results. 12/25/23 08:37 12/25/23 08:37 Labs: Lab Results 12/25/23 Range/Units 08:37 WBC 14.4 H (4.8-10.8) X10*3/uL RBC 4.48 (4.20-5.50) X10*6/uL Hgb 12.8 (12.0-16.0) g/dl Hct 38.5 (37.0-47.0) % MCV 85.9 (80.0-98.0) fL MCH 28.6 (27.0-33.0) pg MCHC 33.2 (31.0-35.0) g/dl RDW 14.8 (11.0-16.0) % Plt Count 330 (160-400) X10*3/uL MPV 8.5 L (9.4-12.3) fL Immature Gran % (Auto) 0.7 H (0.0-0.4) % Neut % (Auto) 73.6 H (45-73) % Lymph % (Auto) 19.3 L (20-40) % [place] % (Auto) 5.6 (2-11) % Eos % (Auto) 0.7 (0-4) % Baso % (Auto) 0.1 (0-2) % Lymph # (Auto) 2.8 (1.2-4.9) X10*3/uL [place] # (Auto) 0.8 (0.1-1.2) X10*3/uL Eos # (Auto) 0.1 (0.0-0.4) X10*3/uL Baso # (Auto) 0.0 (0.0-0.2) X10*3/uL Abs Immat Gran (auto) 0.10 H (0.00-0.03) X10*3/uL Absolute Neuts (auto) 10.6 H (2.0-8.3) x10*3/uL Absolute Nucleated RBC 0.000 (0.0-0.012) X10*3/uL Nucleated RBC % (auto) 0.0 (0.0-0.2) /100WBC Sodium 139 (135-145) mmol/L Potassium 3.8 (3.3-5.1) mmol/L Chloride 107 (96-108) mmol/L Carbon Dioxide 23 (22-29) mmol/L Anion Gap 13 (12-20) BUN 4 L (9-16) mg/dL Creatinine 0.66 (0.5-1.4) mg/dL Estim Creat Clear Calc 191.2 Estimated GFR > 60 Random Glucose 96 (60-115) mg/dL Calcium 9.1 (8.4-10.2) mg/dL Total Bilirubin 0.3 (0.0-1.0) mg/dL AST 10 (5-31) U/L ALT 12 (0-31) U/L Alkaline Phosphatase 78 (39-117) U/L Total Protein 7.1 (6.5-8.0) g/dL Albumin 3.9 (3.5-5.0) g/dL Beta HCG, Quant 4912 mIU/mL Urine Color Yellow Urine Appearance Cloudy Urine pH 5.5 (5.0-9.0) Ur Specific [place] 1.020 (1.005-1.025) Urine Protein Negative (Neg-Trace) mg/dL Urine Glucose (UA) Negative (Negative) mg/dL Urine Ketones Trace (Negative) mg/dL Urine Blood Moderate (2+) H (Negative) Urine Nitrite Negative (Negative) Ur Leukocyte Esterase Negative (Negative) Urine RBC 0-2 (0-2) /HPF Urine WBC 0-5 (0-5) /HPF Ur Squamous Epith Cells 11-20 (0-2) /HPF Urine Bacteria 1+ (None Seen) Hyaline Casts 0-2 (0-2) /LPF Urine Test POSITIVE H (NEGATIVE) Independent Interpretation I performed an independent interpretation of an: Ultrasound (1. No intrauterine is seen. 2. Ovaries are poorly visualized but grossly normal in size. In the right adnexa, a 1.9 cm complex cystic mass is seen, not imaged on prior studies. This is of uncertain significance and may represent a complex cystic mass, such as a exophytic corpus luteum. E) Radiology Impression Discussion of test interpretation with radiology: I have reviewed the radiologist's reading. Critical Care Time Critical Care Time Critical Care Time: Yes Total Critical Care Time: 45 Attestation: The patient was critically ill with a high probability of imminent or life- threatening deterioration. I spent greater than 30 minutes of discontinuous time evaluating the patient, delivering critical care at the bedside, discussing evaluating data with consultants. Critical care time does not include time spent performing separately billable procedures or teaching. Time spent performing critical care was 45 minutes. Discharge Plan Discharge Clinical Impression: Early stage of Patient Disposition: Left Against Medical Advice Instructions: Ectopic (DC) Prescriptions: No Action metronidazole 0.75 % (37.5mg/5 gram) gel 1 appful vaginal BEDTIME 5 Days Qty: 70 0RF albuterol sulfate 90 mcg/actuation aerosol powdr breath activated 2 inh inhalation Q4-6H PRN (Reason: shortness of breath or wheezing) Qty: 1 0RF ibuprofen 600 mg tablet 600 mg PO Q6H PRN (Reason: pain) Qty: 30 0RF acetaminophen [Tylenol 8 Hour] 650 mg tablet extended release 650 mg PO Q8H PRN (Reason: pain) Qty: 30 0RF triamcinolone acetonide 0.025 % cream topical DAILY cholecalciferol (vitamin D3) 50 mcg (2,000 unit) capsule 50 mcg PO DAILY Qty: 90 2RF sumatriptan succinate 100 mg tablet See Rx Instructions PO .COMPLEX Qty: 10 0RF Rx Instructions: take 1 tab at onset of headache; if no relief, may repeat 1 tab after at least 2 hrs; max = 2 tabs/24 hrs PO Print Language: Wolof
[2023-12-25 08:51] LABS: Basophils Percent Auto 0.1 % (0-2); Eosinophils Absolute Auto 0.1 X10*3/uL (0.0-0.4); Eosinophils Percent Auto 0.7 % (0-4); Hematocrit 38.5 % (37.0-47.0); Hemoglobin 12.8 g/dl (12.0-16.0); Imm Gran Pct Auto 0.7 % (0.0-0.4); Lymphocytes Absolute Auto 2.8 X10*3/uL (1.2-4.9); Lymphocytes Percent Auto 19.3 % (20-40); MANUAL DIFF FLAG NO; Mean Corpuscular HGB Conc 33.2 g/dl (31.0-35.0); Mean Corpuscular Hemoglobin 28.6 pg (27.0-33.0); Mean Corpuscular Volume 85.9 fL (80.0-98.0); Mean Platelet Volume 8.5 fL (9.4-12.3); Monocytes Absolute Auto 0.8 X10*3/uL (0.1-1.2); Monocytes Percent Auto 5.6 % (2-11); Neutrophils Absolute Auto 10.6 x10*3/uL (2.0-8.3); Neutrophils Percent Auto 73.6 % (45-73); Platelet Count 330 X10*3/uL (160-400); Red Blood Count 4.48 X10*6/uL (4.20-5.50); Red Cell Distribution Width 14.8 % (11.0-16.0); White Blood Count 14.4 X10*3/uL (4.8-10.8)
[2023-12-25 08:52] LABS: Appearance Urine Cloudy; Color Urine Yellow; Glucose Urine UA Negative (Negative); Leukocyte Esterase Urine Negative (Negative); Nitrite Urine Negative (Negative); PH 5.5 (5.0-9.0); UMIC TRIGGER UACC YES; Urine Blood Moderate (2+) (Negative); Urine Ketones Trace mg/dL (Negative); Urine Protein Negative (Neg-Trace)
[2023-12-25 09:02] LABS: UPreg QC Valid YES; Urine Pregnancy POSITIVE (NEGATIVE)
--- NOTE | 2023-12-25 09:12 | PC.NURSE ---
ultrasound being completed at this time.
[2023-12-25 09:13] LABS: Alanine Aminotransferase 12 U/L (0-31); Albumin Level 3.9 g/dL (3.5-5.0); Alkaline Phosphatase 78 U/L (39-117); Anion Gap 13 (12-20); Aspartate Amino Transferase 10 U/L (5-31); Bilirubin Total 0.3 mg/dL (0.0-1.0); Blood Urea Nitrogen 4 mg/dL (9-16); Calcium 9.1 mg/dL (8.4-10.2); Carbon Dioxide 23 mmol/L (22-29); Chloride 107 mmol/L (96-108); Creatinine Clr Calc Pharmacy 191.2; Estimated Glomerular Filt Rate > 60; Glucose Random 96 mg/dL (60-115); HCG Quantitative 4912 mIU/mL; Potassium 3.8 mmol/L (3.3-5.1); Sodium 139 mmol/L (135-145); Total Protein 7.1 g/dL (6.5-8.0)
[2023-12-25 09:40] LABS: Bacteria Urine 1+ (None Seen); Hyaline Casts Urine 0-2 /LPF (0-2); RBC Urine 0-2 /HPF (0-2); WBC Urine 0-5 /HPF (0-5)
--- NOTE | 2023-12-25 11:50 | P.CONOB_ITS ---
ELECTRICIAN LOCOMOTIVE - CN: HPI Data of Consult Consult date: 12/25/23 Primary Care Provider: Madina Corado MD Consult Narrative Narrative: I was consulted on Barbie Tom who is a 33 year old who is currenlty in early gestation presenting to the ER 2 days ago complaining of lower pelvic cramping that started 1 day prior to presentation, it was associated with vaginal spotting and both complaint have completely resolved. No nausea or vomiting. No other abdominal pain. She states her last menstrual period was on October 18. She did not have sexual intercourse with her partner until November 15. On 12/22In the emergency room hCG is 3115, blood type A positive. Pelvic ultrasound showed the following: No gestational sac is seen. The endometrium remains thickened, measuring 3.5 cm. MATERNAL ADNEXA: The right maternal ovary measures 3.6 x 2.1 x 2.8 cm. There is a 1.7 x 1.7 x 1.6 right ovarian cyst. The left maternal ovary measures 2.6 x 1.6 x 1.7. No free fluid within the cul-de-sac. The patient was counseled about different options of treatment and decided to proceed with expectant management, and was instructed to come back to emergency room in 48 hours to be re-evaluated with repeat hCG and pelvic ultrasound. The patient has been doing well with minimal pelvic cramping and spotting over the last 48 hours. Today hCG went up to 4912 Repeat Pelvic ultrasound was repeated in the ER today showed the following: IMPRESSION: 1. No intrauterine is seen. 2. Ovaries are poorly visualized but grossly normal in size. In the right adnexa, a 1.9 cm complex cystic mass is seen, not imaged on prior studies. This is of uncertain significance and may represent a complex cystic mass, such as a exophytic corpus luteum. Ectopic cannot be excluded. Close clinical correlation and serial beta-HCG and follow-up ultrasound assessment is recommended. 3. Abnormally thickened and heterogeneous echogenic endometrial stripe is seen with increased vascular flow, similar to the prior exam. Findings may be related to abnormal endometrial hyperplasia/neoplasia or possibly a molar given the elevated hCG levels. 4. No significant free fluid in the pelvis. cc:: CC: OB PMF Past Medical History Medical History Irregular menses Hydradenitis Pelvic cramping FH: cholecystectomy Flu-like symptoms Anxiety Sleep apnea Skin lesion Hx of acute cholecystitis Morbid obesity with BMI of 50.0-59.9, adult Family History Family History Mother Heart disease Vascular disease Father Lupus Pre-diabetes Paternal Grandfather Diabetes HTN (hypertension) Surgical History Surgical History Hx of tonsillectomy Social History Social History Household Members: Children Household Members Other:: 8 yr old son, Housing: Apartment Are you a primary healthcare marketer to a significant other at home: Yes Do you presently have visiting nurse or other home services: No Alcohol intake: current Alcohol intake frequency: holidays/special occasions only Patient Tobacco Use Status: Former Tobacco user Tobacco use type: Cigarette Cigarette Packs Per Day: 1 Cigarettes Per Day: 2 Years Smoked: 25 e-Cigarette/Vaping Use: Currently Using Second Hand Smoke Exposure: No Substance Use Type: Marijuana Advance Directives: No Advance Directives Information Provided: No Advance Directives Date on File: 04/07/21 Do you have a plan to hurt others: No Plan service: No Current occupational status: unemployed Gender identity: Female Cognitive needs: No Hearing needs: No Vision needs: Yes Meds Allergies Allergy/AdvReac Type Severity Reaction Status Date / Time No Known Allergies Allergy Verified 12/25/23 08:24 Home Medications ?Medication ?Instructions ?Recorded ?Confirmed ?Last Taken ?Type triamcinolone acetonide 0.025 % appl topical DAILY 02/08/23 12/15/23 Unknown History topical cream E[employer]ICIAN LOCOM[employer] Physical Exam Vitals Vital signs: Temp Pulse Resp BP Pulse Ox O2 Del Method 98.6 F 106 H 20 149/91 H 98 Room Air 12/25/23 08:22 12/25/23 08:22 12/25/23 08:22 12/25/23 08:22 12/25/23 08:22 12/25/23 08:22 BMI result Body Mass Index 52.0 Abdomen Auscultation/Inspection/Palpation: Soft, Non-distended and No tenderness Additional Comments: the pt declined pelvic exam today ELECTRICIAN LOCOMOTIVE - Results Labs 12/25/23 08:37 12/25/23 08:37 Labs: Short CBC 12/25/23 Range/Units 08:37 WBC 14.4 H (4.8-10.8) X10*3/uL Hgb 12.8 (12.0-16.0) g/dl Hct 38.5 (37.0-47.0) % Plt Count 330 (160-400) X10*3/uL BMP 12/25/23 08:37 Sodium 139 Potassium 3.8 Chloride 107 Carbon Dioxide 23 BUN 4 L Creatinine 0.66 Calcium 9.1 Liver Function 12/25/23 Range/Units 08:37 Total Bilirubin 0.3 (0.0-1.0) mg/dL AST 10 (5-31) U/L ALT 12 (0-31) U/L Alkaline Phosphatase 78 (39-117) U/L Albumin 3.9 (3.5-5.0) g/dL Urine 12/25/23 Range/Units 08:37 Urine Color Yellow Urine Appearance Cloudy Urine pH 5.5 (5.0-9.0) Ur Specific [place] 1.020 (1.005-1.025) Urine Protein Negative (Neg-Trace) mg/dL Urine Glucose (UA) Negative (Negative) mg/dL Urine Test POSITIVE H (NEGATIVE) Imaging US - abdomen: Radiologist's impression: ITS Impressions Pelvic/Transvag US 12/25/23 10:23 IMPRESSION: 1. No intrauterine is seen. 2. Ovaries are poorly visualized but grossly normal in size. In the right adnexa, a 1.9 cm complex cystic mass is seen, not imaged on prior studies. This is of uncertain significance and may represent a complex cystic mass, such as a exophytic corpus luteum. Ectopic cannot be excluded. Close clinical correlation and serial beta-HCG and follow-up ultrasound assessment is recommended. 3. Abnormally thickened and heterogeneous echogenic endometrial stripe is seen with increased vascular flow, similar to the prior exam. Findings may be related to abnormal endometrial hyperplasia/neoplasia or possibly a molar given the elevated hCG levels. 4. No significant free fluid in the pelvis. This critical result was discussed with Dr. Grover 12/25/2023, 2:02 PM and it was ascertained that the content and urgency of this report was understood at the time of direct communication. Assessment and Plan (1) Ectopic : Status: Acute Plan Discussed with the patient the findings on ultrasound 1.9 cmright adnexal mass possible ectopic with no evidence of intrauterine , also discussed the patient the level of HCG above the discriminatory zone of 3500 where a high percentage of intrauterine gestation should be seen on ultrasound , both increasing the suspicion of ectopic although intrauterine is still a possibility. explained to the patient that hcg level rate of rise is above the minimum expected within 48 hours which is present in high of intrauterine gestation. However, even hCG patterns consistent with a growing gestation do not eliminate the possibility of an ectopic . Discussed with the patient treatment options including the following: Option 1, expected management, repeat HCG every 24-48 hours with warning signs of SAB versus ectopic, waiting for the clinical picture is a little more clear to the diagnosis of ectopic versus intrauterine with the risk of delaying diagnosis of an ectopic intra-abdominal rupture and bleeding and risk of morbidity mortality and benefit of preventing methotrexate treatment and its possible exposure of a possible intrauterine and risk of teratogenicity and SAB. Option 2, to start with Suction D and C to rule out intrauterine followed by HCG levels and determined SAB versus ectopic, the risk of this approach being termination of a live intrauterine that is early undetected by ultrasound, the risk being delayed diagnosis of ectopic and/or potential consequences. Option 3 is methotrexate treatment; All the pros and cons risks and benefits of this approach were discussed with the patient including but not limited to, failure rate of MTX ~15%, possible exposure of methotrexate teratogenicity to an early intrauterine not diagnosed by ultrasound with the risk of SAB and severe deformities, possibility of a early intrauterine . The patient stated that this is a very desirable and decided to decline all options for the tie being , will go to another ER today for a 2nd opinion prior to making a decision Explained to the pt the importance of timely diagnosis & treatment in case of an ectopic , the consequences of delay of treatment could cause rupture with intraabdominal bleeding which could lead to . All questions were answered pt verbalized understanding especially the urgency of the clinical situation. instructions given to the patient to come back to the ER today in case she could not have access to care today, for any pain or vagial bleeding.
--- NOTE | 2023-12-25 12:37 | PC.NURSE ---
pt tearful requesting update at this time. pt notified that official US results are not back yet. MD notified of pt's status. plan of care ongoing.
--- NOTE | 2023-12-25 13:45 | PC.NURSE ---
pt speaking w/ ED provider and Dr. Grover in regards to US results/plan of care/options at this time.
--- NOTE | 2023-12-25 14:36 | PC.NURSE ---
pt spoke w/ dr. najera in regards to next step. pt states she wants to leave ED to seek second opinion at another emergency department. pt provided w/ results of scans/HCG/discharge paperwork.
[2023-12-25 14:44] VITALS: BP 118/85; PULSE 88; RESP 18; TEMP 37.1; O2SAT 98
== END 2023-12-25 14:45 | disposition left against medical advice (07) ==
PROVIDERS: Emergency Provider Emergency Medicine; PCP Internal Medicine
DX: O26.851 Spotting complicating pregnancy, first trimester (principal); O34.81 Maternal care for other abnormalities of pelvic organs, first trimester; N83.291 Other ovarian cyst, right side; Z53.29 Procedure and treatment not carried out because of patient's decision for other reasons
CPT/HCPCS: 36415; 76801; 76817; 80053; 81001; 81003; 81025; 84702; 85025; 99283; 99284

== ENCOUNTER → 2023-12-25 08:38 | Outpatient (BNV) | payer OTHER, SELFPAY | PROVIDERS: Emergency Provider Emergency Medicine; PCP Internal Medicine; Visit Provider Obstetrics & Gynecology | DX: O00.90 Unspecified ectopic pregnancy without intrauterine pregnancy (principal) | CPT/HCPCS: 99283 ==

== ENCOUNTER 2024-02-09 11:27 | Outpatient (AMB) | payer OTHER, SELFPAY ==
--- NOTE | 2024-02-09 11:28 | MHC.OFFVIS ---
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 Required: No Allergies No Known Allergies Allergy (Verified 02/09/24 11:29) Medication List - Last Reconciled 02/09/24 by Chanda Lopez MD acetaminophen ER (Tylenol 8 Hour) 650 mg PO Q8H PRN albuterol sulfate 90 mcg/actuation 2 inhalations inhalation Q4-6H PRN cholecalciferol (vitamin D3) 50 mcg PO DAILY ibuprofen 600 mg PO Q6H PRN metronidazole 0.75%(37.5mg/5gram) 1 appful vaginal BEDTIME 5 days sumatriptan succinate take 1 tab at onset of headache; if no relief, may repeat 1 tab after at least 2 hrs; max = 2 tabs/24 hrs PO triamcinolone acetonide 0.025% appl topical DAILY HPI Comments Details: 33 y/o female patient presents for follow up of TYRON. she stopped using CPAP 1 year ago as she felt she was drowning with it. The home sleep study result was moderate degree of sleep apnea. The AHI was 22/hr and oxygen adama was 82%. she also feels there is water condensation in the tubes.she called home care [facility] and was tried on different settings. [facility] Medical History (Updated 02/09/24 @ 11:43 by Chanda Lopez MD) Obstructive sleep apnea hypopnea, moderate Irregular menses Hydradenitis Pelvic cramping FH: cholecystectomy Flu-like symptoms Anxiety Sleep apnea Skin lesion Hx of acute cholecystitis Morbid obesity with BMI of 50.0-59.9, adult Surgical History Hx of tonsillectomy Family History Mother Heart disease Vascular disease Father Lupus Pre-diabetes Paternal Grandfather Diabetes HTN (hypertension) Social History Household Members: Children Household Members Other:: 8 yr old son, Housing: Apartment Are you a primary memory care program director to a significant other at home: Yes Do you presently have visiting nurse or other home services: No Alcohol intake: current Alcohol intake frequency: holidays/special occasions only Patient Tobacco Use Status: Former Tobacco user Tobacco use type: Cigarette Cigarette Packs Per Day: 1 Cigarettes Per Day: 2 Years Smoked: 25 e-Cigarette/Vaping Use: Currently Using Second Hand Smoke Exposure: No Substance Use Type: Marijuana Advance Directives Date on File: 04/07/21 service: No Current occupational status: unemployed Gender identity: Female Cognitive needs: No Hearing needs: No Vision needs: Yes Female Reproductive History Menstrual Age of Menarche: 11 Physical Exam Vital Signs: Last Vital Signs Pulse 89 02/09/24 11:29 Resp 17 02/09/24 11:29 BP 130/76 02/09/24 11:29 Pulse Ox 99 02/09/24 11:29 Oxygen Delivery Method Room Air 02/09/24 11:29 BMI result Body Mass Index 53.7 Const General: cooperative Nutritional Appearance: obese Orientation/consciousness: patient oriented x3 HEENT Throat: Yes other (mallampati grade 4) Neck Neck: Yes full ROM and Yes supple Resp Effort & Inspection: normal respiratory effort and able to speak in complete sentences Neuro General: patient oriented x3, gait normal and moves all extremities Cognition (Neuro): normal cognition Motor exam (neuro): Pronator motor function not present and no tremor noted Assessment & Plan Assessment & Plan (1) Obstructive sleep apnea hypopnea, moderate: Code(s): G47.33 - Obstructive sleep apnea (adult) (pediatric) Category: Medical Plan Continue to use APAP [id number] without humidifier will schedule her for a PAP titration study Orders: Orders RT PSG in-lab sleep titration Today G47.33 - Obstructive sleep apnea (adult) (pediatric) Coding Level of Care Code Est Pt Level 4 (19548) Diagnoses Obstructive sleep apnea hypopnea, moderate G47.33
[2024-02-09 11:29] VITALS: BP 130/76; PULSE 89; RESP 17; O2SAT 99; BMI 53.7
== END 2024-02-09 11:47 | disposition home or self-care (01) ==
PROVIDERS: Absent Provider Psychiatry & Neurology Neurology; PCP Internal Medicine; Visit Provider Psychiatry & Neurology Neurology
DX: G47.33 Obstructive sleep apnea (adult) (pediatric) (principal)
CPT/HCPCS: 99214

== ENCOUNTER → 2024-02-09 11:27 | Outpatient (BNVA) | payer OTHER, SELFPAY | PROVIDERS: Absent Provider Psychiatry & Neurology Neurology; PCP Internal Medicine; Visit Provider Psychiatry & Neurology Neurology | DX: G47.33 Obstructive sleep apnea (adult) (pediatric) (principal) | CPT/HCPCS: 99212 ==

== ENCOUNTER → 2024-03-05 20:30 | Outpatient (REF) | payer OTHER, SELFPAY | LOC: HO.SL 20:30 | PROVIDERS: PCP Internal Medicine; Visit Provider Psychiatry & Neurology Neurology | DX: G47.33 Obstructive sleep apnea (adult) (pediatric) (principal) | CPT/HCPCS: 95811 ==

== ENCOUNTER → 2024-03-05 20:30 | Outpatient (BNV) | payer OTHER, SELFPAY | PROVIDERS: PCP Internal Medicine; Visit Provider Psychiatry & Neurology Neurology | DX: G47.33 Obstructive sleep apnea (adult) (pediatric) (principal) | CPT/HCPCS: 95811 ==

== ENCOUNTER 2024-07-05 16:30 | Emergency (ER) | payer OTHER, SELFPAY ==
--- NOTE | ~2024-07-05 | XR_ITS ---
CLINICAL HISTORY: sob Two views of the chest. Comparison 07/11/2023. Findings: Heart size is upper limits of normal. Body habitus mildly limits the study. The lungs are under ventilated. No focal consolidation or pleural effusion is seen. Impression: No consolidation. This document has been electronically signed by: Thiago Elizabeth MD on 07/05/2024 17:40:06
[2024-07-05 16:54] VITALS: BP 145/82; PULSE 107; RESP 22; TEMP 37.4; O2SAT 95; BMI 55.2
--- NOTE | 2024-07-05 16:54 | ED.URI ---
HPI - URI/Sore Throat General Chief Complaint: Upper Respiratory Symptoms Stated Complaint: flu like symptoms Time Seen by Provider: 07/05/24 18:31 Source: patient, RN notes reviewed and old records reviewed Mode of arrival: ambulatory History of Present Illness ED Provider: Cookie Henderson PA-C HPI Narrative: 34-year-old female with a past medical history sleep apnea, GERD, obesity, complaining of generalized fatigue, dry cough, subjective fever, headache, SOB x yesterday. Reports some chest tightness with coughing. +sick contacts. Denies travel, OCP's, cigarette smoking. Reports family history of clotting issues, denies personal history. Related Data Home Medications ?Medication ?Instructions ?Recorded ?Confirmed triamcinolone acetonide 0.025 % appl topical DAILY 02/08/23 02/09/24 topical cream Previous Rx's ?Medication ?Instructions ?Recorded albuterol sulfate 90 mcg/actuation 2 inh inhalation Q4-6H PRN 07/11/23 breath activated powder inhaler shortness of breath or wheezing #1 ea metronidazole 0.75 % (37.5 mg/5 1 appful vaginal BEDTIME 5 days 08/13/23 gram) vaginal gel #70 grams cholecalciferol (vitamin D3) 50 50 mcg PO DAILY #90 caps 10/07/23 mcg (2,000 unit) capsule sumatriptan succinate 100 mg tablet See Rx Instructions PO .COMPLEX 10/07/23 #10 tabs acetaminophen 650 mg 650 mg PO Q8H PRN pain #30 tabs 10/28/23 tablet,extended release (Tylenol 8 Hour) ibuprofen 600 mg tablet 600 mg PO Q6H PRN pain #30 tabs 10/28/23 albuterol sulfate 90 mcg/actuation 2 puff inhalation Q4-6H PRN 07/05/24 aerosol inhaler shortness of breath or wheezing #6.7 grams benzonatate 100 mg capsule 100 mg PO TID PRN cough #14 caps 07/05/24 oseltamivir 75 mg capsule (Tamiflu) 75 mg PO Q12H 5 days #10 caps 07/05/24 Allergies Allergy/AdvReac Type Severity Reaction Status Date / Time No Known Allergies Allergy Verified 07/05/24 16:56 Review of Systems Review of Systems: Yes all other systems are reviewed and are negative Constitutional: Constitutional: Reports as per HPI ON LICENSE OF [facility] Past Medical History Attestation statement: The following information was validated with the patient. Source: old records reviewed Medical History Obstructive sleep apnea hypopnea, moderate Irregular menses Hydradenitis Pelvic cramping FH: cholecystectomy Flu-like symptoms Anxiety Sleep apnea Skin lesion Hx of acute cholecystitis Morbid obesity with BMI of 50.0-59.9, adult Surgical History Hx of tonsillectomy Family History Family History Mother Heart disease Vascular disease Father Lupus Pre-diabetes Paternal Grandfather Diabetes HTN (hypertension) Social History Social History Household Members: Children Household Members Other:: 8 yr old son, Housing: Apartment Are you a primary regular senior care provider to a significant other at home: Yes Do you presently have visiting nurse or other home services: No Alcohol intake: current Alcohol intake frequency: holidays/special occasions only Patient Tobacco Use Status: Former Tobacco user Tobacco use type: Cigarette Cigarette Packs Per Day: 1 Cigarettes Per Day: 2 Years Smoked: 25 e-Cigarette/Vaping Use: Currently Using Second Hand Smoke Exposure: No Substance Use Type: Marijuana Advance Directives: Yes Advance Directives on File: Yes Advance Directives Date on File: 04/07/21 Do you have a plan to hurt others: No Plan service: No Current occupational status: unemployed Gender identity: Female Cognitive needs: No Hearing needs: No Vision needs: Yes Physical Exam Vital Signs: Vital Signs: Last Vital Signs Temp 100.8 F H 07/05/24 19:42 Pulse 112 H 07/05/24 19:42 Resp 20 07/05/24 19:42 BP 145/95 H 07/05/24 19:42 Pulse Ox 97 07/05/24 19:42 O2 Del Method Room Air 07/05/24 19:42 BMI result Body Mass Index 55.2 Const: General: cooperative, healthy appearing and no acute distress Orientation/consciousness: patient oriented x3 Limitations: no limitations HEENT: Head: Yes normal to inspection and Yes atraumatic Ears: hearing grossly normal bilaterally General nose exam: Normal external nose present Face and sinus: Yes normal facial exam Eyes: General: appearance normal, both eyes and all related structures EOM: EOMs intact bilaterally Neck: Neck: Yes normal visual inspection and Yes no meningeal signs Resp: Effort & Inspection: normal respiratory effort, no respiratory distress and no stridor Auscultation: clear to auscultation bilaterally, no crackles, no rhonchi and no wheezes Cardio: Rate: regular rate and tachycardic Heart sounds: S1 normal heart sound present and S2 normal heart sound present Skin: Rashes: no rashes Wounds: no wounds Neuro: General: patient oriented x3, tone normal and no meningeal signs Cranial nerves: Yes CN's II-XII intact bilaterally Gait exam (Neuro): Normal gait present Extrem: General: Yes normal to inspection Course Course Course Narrative: This is a Rapid Medical Exam performed in triage by Cookie Henderson PA-C. Full HPI, ROS and PE to be performed by primary ED provider. 34-year-old female with a past medical history sleep apnea, hidradenitis presenting to the ED c/o URI sx w/subj fever, cough, SOB, exertional dyspnea x yesterday. PE: Talking in complete sentences, lungs CTA Plan: Viral testing, rapid strep, CXR -1827--CXR unremarkable -influenza a positive > patient persistently tachypneic and tachycardic > will obtain labs including D-dimer to rule out PE. -1940--WBC count 11.2. D-dimer WNL > PE unlikely. Labs otherwise reassuring, troponin negative >> BP improved on re-evaluation. Patient now with low-grade fever 100.3 > Tylenol being given now. Tachycardia likely from fever. Still low suspicion for severe sepsis > patient is interested in Tamiflu. Results discussed with patient including worrisome signs and symptoms and strict return precautions, and when to return to the emergency department. They verbalized understanding and feel safe for discharge at this time. Medications Administered Discontinued Medications Generic Name Dose Route Start Last Admin Trade Name Freq PRN Reason Stop Dose Admin Acetaminophen 650 mg 07/05/24 18:56 07/05/24 19:45 Acetaminophen 325 Mg Tablet PO 07/05/24 18:57 650 mg ONCE ONE Administration Medical Decision Making Medical Decision Making [facility] Narrative: 34-year-old female with a past medical history sleep apnea, GERD, obesity, complaining of generalized fatigue, dry cough, subjective fever, headache, SOB x yesterday. On exam low-grade fever 99.4, tachycardic likely from fever, NAD/nontoxic appearing, talking in complete sentences, lungs CTA. Concern for viral illness. Rule out pneumonia/bronchitis. Lower suspicion for ACS/PE or dissection at this time Plan: Viral testing, CXR, rapid strep Please refer to course for remaining clinical decision making, interpretation of labs/imaging results, and discussions with consultants and/or family members. Differential Diagnosis Differential Diagnoses: The differential diagnosis associated with the presentation includes As above Admission/Observation Consideration of admission/observation: Escalation of care including admission/observation considered Lab Data MDM Lab Attestation statement: I reviewed the patient's lab results. 07/05/24 18:48 07/05/24 18:48 Labs: Lab Results 07/05/24 07/05/24 Range/Units 17:18 18:48 WBC 11.2 H (4.8-10.8) X10*3/uL RBC 4.49 (4.20-5.50) X10*6/uL Hgb 12.6 (12.0-16.0) g/dl Hct 37.4 (37.0-47.0) % MCV 83.3 (80.0-98.0) fL MCH 28.1 (27.0-33.0) pg MCHC 33.7 (31.0-35.0) g/dl RDW 13.7 (11.0-16.0) % Plt Count 274 (160-400) X10*3/uL MPV 8.2 L (9.4-12.3) fL Immature Gran % (Auto) Cancelled Neut % (Auto) Cancelled Lymph % (Auto) Cancelled O'Brien % (Auto) Cancelled Eos % (Auto) Cancelled Baso % (Auto) Cancelled Lymph # (Auto) Cancelled O'Brien # (Auto) Cancelled Eos # (Auto) Cancelled Baso # (Auto) Cancelled Abs Immat Gran (auto) Cancelled Absolute Neuts (auto) Cancelled Absolute Nucleated RBC 0.000 (0.0-0.012) X10*3/uL Nucleated RBC % (auto) 0.0 (0.0-0.2) /100WBC Neutrophils % (Manual) 83 H (45-73) % Band Neutrophils % 0 L (3-5) % Lymphocytes % (Manual) 6 L (20-40) % Atypical Lymphs % (Man) 3 (0-6) % Monocytes % (Manual) 7 (2-11) % Eosinophils % (Manual) 1 (0-4) % Abs Neuts (Manual) 9.3 H (2.0-8.3) X10*3/uL Lymphocytes # (Manual) 0.7 L (1.2-4.9) X10*3/uL Atyp Lymphs # (Manual) 0.3 x10*3/uL Monocytes # (Manual) 0.8 (0.1-1.2) X10*3/uL Eosinophils # (Manual) 0.1 (0.0-0.4) X10*3/uL Platelet Estimate NORMAL (NORMAL) Plt Morphology Comment NORMAL RBC Morphology NORMAL PT 11.8 (10.9-12.4) SEC INR 1.0 (0.9-1.1) D-Dimer High Sensitivty < 150 NG/ML Sodium 138 (135-145) mmol/L Potassium 4.3 (3.3-5.1) mmol/L Chloride 105 (96-108) mmol/L Carbon Dioxide 25 (22-29) mmol/L Anion Gap 12 (12-20) BUN 8 L (9-16) mg/dL Creatinine 0.70 (0.5-1.4) mg/dL Estim Creat Clear Calc 189.9 Estimated GFR > 60 Random Glucose 97 (60-115) mg/dL Calcium 9.2 (8.4-10.2) mg/dL Total Bilirubin 0.3 (0.0-1.0) mg/dL Direct Bilirubin 0.1 (0.0-0.5) mg/dL AST 22 (5-31) U/L ALT 20 (0-31) U/L Alkaline Phosphatase 93 (39-117) U/L Troponin I High Sens < 2.7 (<3.5-17.0) ng/L B-Natriuretic Peptide 26 (<100) pg/mL Total Protein 7.6 (6.5-8.0) g/dL Albumin 3.9 (3.5-5.0) g/dL Influenza Type A (PCR) POSITIVE A (Negative) Influenza Type B (PCR) NEGATIVE (Negative) RSV RNA Qual (PCR) NEGATIVE (Negative) SARS-CoV-2 RNA (RT-PCR) NEGATIVE (Negative) S. pyogenes GrpA SALAS Negative (Negative) Independent Interpretation I performed an independent interpretation of an: EKG (My interpretation EKG sinus tachycardia rate of 114. No STEMI. No ischemic changes. No change when compared to prior) and Plain X-Ray Radiology Impression Discussion of test interpretation with radiology: I have reviewed the radiologist's reading. External Record Review External record reviewed: Inpatient record, Office record, Outpatient record, Prior outpatient labs, Prior outpatient radiology, Primary care record and Outside ED record Tests considered The following testing was considered but not selected: As above Prescription Management I considered prescription management with: Pain Medication and Antibiotic Chronic Conditions Patient?s care impacted by: Other Social Determinants Patient?s care significantly limited by Social Determinants of Health including: Other Social Determinant of Health Discharge Plan Discharge Clinical Impression: Influenza A Patient Disposition: Home, Self-Care Instructions: Influenza (DC) Additional Instructions: You have the flu. Your x-ray does not show pneumonia Your blood work is reassuring [place] for cough, take as needed No antibiotics are indicated at this time Make sure you are staying hydrated. Drink plenty of fluids. Rest Alternate Tylenol and Motrin at home as needed for body aches and fever Follow-up with your doctor. If symptoms persist or worsen return to the emergency department *If you are a child & not tolerating liquid or urinating for more than 6 hours, or fevers are uncontrolled with medications at home, return to the emergency department* Prescriptions: New benzonatate 100 mg capsule 100 mg PO TID PRN (Reason: cough) Qty: 14 0RF albuterol sulfate 90 mcg/actuation HFA aerosol inhaler 2 puff inhalation Q4-6H PRN (Reason: shortness of breath or wheezing) Qty: 6.7 0RF oseltamivir [Tamiflu] 75 mg capsule 75 mg PO Q12H 5 Days Qty: 10 0RF No Action metronidazole 0.75 % (37.5mg/5 gram) gel 1 appful vaginal BEDTIME 5 Days Qty: 70 0RF albuterol sulfate 90 mcg/actuation aerosol powdr breath activated 2 inh inhalation Q4-6H PRN (Reason: shortness of breath or wheezing) Qty: 1 0RF ibuprofen 600 mg tablet 600 mg PO Q6H PRN (Reason: pain) Qty: 30 0RF acetaminophen [Tylenol 8 Hour] 650 mg tablet extended release 650 mg PO Q8H PRN (Reason: pain) Qty: 30 0RF triamcinolone acetonide 0.025 % cream topical DAILY cholecalciferol (vitamin D3) 50 mcg (2,000 unit) capsule 50 mcg PO DAILY Qty: 90 2RF sumatriptan succinate 100 mg tablet See Rx Instructions PO .COMPLEX Qty: 10 0RF Rx Instructions: take 1 tab at onset of headache; if no relief, may repeat 1 tab after at least 2 hrs; max = 2 tabs/24 hrs PO Referrals: Madina Corado MD [Primary Care Provider] - 1 week Stand Alone Forms: Work/School Release Print Language: Welsh
[2024-07-05 17:32] LABS: IDNOW Serial# 6674DD1D; Strep A Nucleic Acid Negative (Negative)
[2024-07-05 18:03] LABS: Influenza A PCR POSITIVE (Negative); Influenza B PCR NEGATIVE (Negative); Resp Syncy Virus RNA Qual PCR NEGATIVE (Negative); SARS COV2 PCR INHOUSE NEGATIVE (Negative)
[2024-07-05 18:31] VITALS: BP 140/104; PULSE 112; RESP 22; TEMP 37.6; O2SAT 97
[2024-07-05 18:53] LABS: Hematocrit 37.4 % (37.0-47.0); Hemoglobin 12.6 g/dl (12.0-16.0); Mean Corpuscular HGB Conc 33.7 g/dl (31.0-35.0); Mean Corpuscular Hemoglobin 28.1 pg (27.0-33.0); Mean Corpuscular Volume 83.3 fL (80.0-98.0); Mean Platelet Volume 8.2 fL (9.4-12.3); Platelet Count 274 X10*3/uL (160-400); Red Blood Count 4.49 X10*6/uL (4.20-5.50); Red Cell Distribution Width 13.7 % (11.0-16.0); WBC ABN SCTR FOR CBC 1
--- NOTE | 2024-07-05 18:56 | ECG_ITS ---
Test Reason : CP/SOB Blood Pressure : */* mmHG Vent. Rate : 114 BPM Atrial Rate : 114 BPM P-R Int : 124 ms QRS Dur : 74 ms QT Int : 298 ms P-R-T Axes : 23 16 15 degrees QTcB Int : 410 ms Sinus tachycardia Possible Left atrial enlargement Borderline ECG When compared with ECG of 11-Jul-2023 07:25, No significant change was found Referred By: Cookie Henderson Electronically Signed By: CHANTE MIRELES MD
[2024-07-05 18:59] LABS: Prothrombin Time 11.8 SEC (10.9-12.4)
[2024-07-05 19:01] LABS: D Dimer High Sensitivity < 150 NG/ML
[2024-07-05 19:08] LABS: Alanine Aminotransferase 20 U/L (0-31); Albumin Level 3.9 g/dL (3.5-5.0); Alkaline Phosphatase 93 U/L (39-117); Anion Gap 12 (12-20); Aspartate Amino Transferase 22 U/L (5-31); Bilirubin Direct 0.1 mg/dL (0.0-0.5); Bilirubin Total 0.3 mg/dL (0.0-1.0); Blood Urea Nitrogen 8 mg/dL (9-16); Calcium 9.2 mg/dL (8.4-10.2); Carbon Dioxide 25 mmol/L (22-29); Chloride 105 mmol/L (96-108); Creatinine Clr Calc Pharmacy 189.9; Estimated Glomerular Filt Rate > 60; Glucose Random 97 mg/dL (60-115); Potassium 4.3 mmol/L (3.3-5.1); Sodium 138 mmol/L (135-145); Total Protein 7.6 g/dL (6.5-8.0)
[2024-07-05 19:18] LABS: B Type Natriuretic Peptide 26 pg/mL (<100); Troponin-I High Sensitivity < 2.7 ng/L (<3.5-17.0)
[2024-07-05 19:22] LABS: Atypical Lymphs Percent Manual 3 % (0-6); Eosinophils Percent Manual 1 % (0-4); Lymphocytes Percent Manual 6 % (20-40); Monocytes Percent Manual 7 % (2-11); Neutrophils Percent Manual 83 % (45-73)
[2024-07-05 19:23] LABS: RBC Morphology NORMAL
[2024-07-05 19:24] LABS: Band Neutrophils Percent 0 % (3-5); Platelet Estimate NORMAL (NORMAL); Platelet Morphology Comment NORMAL
[2024-07-05 19:25] LABS: Atypical Lymph Absolute Manual 0.3 x10*3/uL; Eosinophils Absolute Manual 0.1 X10*3/uL (0.0-0.4); Lymphocytes Absolute Manual 0.7 X10*3/uL (1.2-4.9); Monocytes Absolute Manual 0.8 X10*3/uL (0.1-1.2); Neutrophils Absolute Manual 9.3 X10*3/uL (2.0-8.3); White Blood Count 11.2 X10*3/uL (4.8-10.8)
[2024-07-05 19:42] VITALS: BP 145/95; PULSE 112; RESP 20; TEMP 38.2; O2SAT 97
[2024-07-05] MEDS: Acetaminophen 325 MG TABLET 650 MG PO (19:45)
[2024-07-05 19:49] VITALS: BP 145/95; PULSE 112; RESP 20; TEMP 38.2; O2SAT 97
== END 2024-07-05 19:49 | disposition home or self-care (01) ==
PROVIDERS: Physician Assistant; Emergency Provider Emergency Medicine; PCP Internal Medicine
DX: J10.1 Influenza due to other identified influenza virus with other respiratory manifestations (principal); R05.9 Cough, unspecified; R50.9 Fever, unspecified; R51.9 Headache, unspecified; R06.02 Shortness of breath; G47.30 Sleep apnea, unspecified; R00.0 Tachycardia, unspecified; Z87.891 Personal history of nicotine dependence; Z03.818 Encounter for observation for suspected exposure to other biological agents ruled out
CPT/HCPCS: 0241U; 36415; 71046; 80048; 80076; 83880; 84484; 85007; 85027; 85379; 85610; 87651; 93005; 99283

== ENCOUNTER → 2024-07-05 16:54 | Outpatient (BNV) | payer OTHER, SELFPAY | PROVIDERS: PCP Internal Medicine; Visit Provider Radiology Diagnostic Radiology | DX: R06.02 Shortness of breath (principal) | CPT/HCPCS: 71046 ==

== ENCOUNTER → 2024-07-05 18:56 | Outpatient (BNV) | payer OTHER, SELFPAY | PROVIDERS: Emergency Provider Emergency Medicine; PCP Internal Medicine; Visit Provider Internal Medicine Cardiovascular Disease | DX: R00.0 Tachycardia, unspecified (principal) | CPT/HCPCS: 93010 ==

== ENCOUNTER 2024-07-14 08:49 | Outpatient (AMB) | payer OTHER, SELFPAY ==
--- NOTE | 2024-07-14 08:52 | A.OFFPC_ITS ---
Vital Signs 07/14/24 08:53 07/14/24 13:49 Height 5 ft 8 in Weight 371 lb 6 oz BMI 56.5 BP 140/86 H 135/85 Blood Pressure Location Lt brachial Rt brachial Position Sitting Sitting Pulse 106 H Pulse Source Pulse Oximeter Temp 98.0 F Temp Source Oral Pulse Oximetry (%) 97 Oxygen Delivery Method Room Air Intake Visit Reasons: f/u concerns Allergies No Known Allergies Allergy (Verified 07/14/24 08:53) Medication List - Last Reconciled 07/14/24 by Madina Corado MD acetaminophen ER (Tylenol 8 Hour) 650 mg PO Q8H PRN albuterol sulfate 90 mcg/actuation 2 inhalations inhalation Q4-6H PRN albuterol sulfate 90 mcg/actuation 2 puffs inhalation Q4-6H PRN cholecalciferol (vitamin D3) 50 mcg PO DAILY ibuprofen 600 mg PO Q6H PRN metronidazole 0.75%(37.5mg/5gram) 1 appful vaginal BEDTIME 5 days phentermine 37.5 mg PO DAILY sumatriptan succinate take 1 tab at onset of headache; if no relief, may repeat 1 tab after at least 2 hrs; max = 2 tabs/24 hrs PO triamcinolone acetonide 0.025% appl topical DAILY Tobacco use date assessed: 07/14/24 Dental Screening Dental Screen Date: 07/14/24 Did you have a dental visit in the last 12 months?: Yes Did you have a dental problem in the last 6 months where you did not have access to dental care?: No Was dental information given to patient?: Patient has dentist HPI f/u concerns HPI Details Pt c/o right ear pain and congestion since she had upper respiratory infection 2 weeks ago. Patient denies fever chills but reports intermittent decreased hearing. Patient has been trying to lose weight of over 6 months de creasing caloric intake increasing physical activity unsuccessfully. she is interested in trying GLP 1 agonist. Patient was made aware the by her insurance ( [employer]) guidelines patient needs to try phentermine for 3 months before being approved for GLP 1 agonist. [facility] Medical History Obstructive sleep apnea hypopnea, moderate Irregular menses Hydradenitis Pelvic cramping FH: cholecystectomy Flu-like symptoms Anxiety Sleep apnea Skin lesion Hx of acute cholecystitis Morbid obesity with BMI of 50.0-59.9, adult Surgical History Hx of tonsillectomy Family History Mother Heart disease Vascular disease Father Lupus Pre-diabetes Paternal Grandfather Diabetes HTN (hypertension) Social History Household Members: Children Household Members Other:: 8 yr old son, Housing: Apartment Are you a primary respiratory care specialist to a significant other at home: Yes Do you presently have visiting nurse or other home services: No Alcohol intake: current Alcohol intake frequency: holidays/special occasions only Patient Tobacco Use Status: Former Tobacco user Tobacco use type: Cigarette Cigarette Packs Per Day: 1 Cigarettes Per Day: 2 Years Smoked: 25 Packs Per Year: 25 Packs per year/per ci.50 e-Cigarette/Vaping Use: Currently Using Second Hand Smoke Exposure: No Substance Use Type: Marijuana Advance Directives Date on File: 04/07/21 service: No Current occupational status: unemployed Gender identity: Female Cognitive needs: No Hearing needs: No Vision needs: Yes Female Reproductive History Menstrual Age of Menarche: 11 Questionnaire PHQ-9 Over the last 2 weeks, how often have you been bothered by any of the following problems? 1. Little interest or pleasure in doing things: more than half the days 2. Feeling down, depressed, or hopeless: several days 3. Trouble falling or staying asleep, or sleeping too much: several days 4. Feeling tired or having little energy: several days 5. Poor appetite or overeating: several days 6. Feeling bad about yourself - or that you are a failure or have let yourself or your family down: not at all 7. Trouble concentrating on things, such as reading the newspaper or watching television: several days 8. Moving or speaking so slowly that other people could have noticed. Or the opposite - being so fidgety or restless that you have been moving around a lot more than usual: not at all 9. Thoughts that you would be better off or of hurting yourself in some way: not at all Total score: 7 Depression Screening Interpretation: Negative Depression Screening Done: Yes 52837 - PHQ-9 Billing: Yes Source: Developed by Drs. Jack Deras, Arabella Dc, Damon Chowdary and colleagues, with an educational andres from [employer]. Thrive Questionnaire Date Thrive assessed: 07/14/24 I am a: Patient What is your living situation today?: I have a steady place to live Within the past 12 months, did the food you bought not last and you didn't have the money to get more?: Never true Within the past 12 months, did you worry whether your food would run out before you got money to buy more?: Never true Do you have trouble paying for medicines?: No Do you have trouble getting transportation to medical appointments?: No Do you have trouble paying your heating and electricity bill?: No Do you have trouble taking care of your child, family member or friend?: No Do you have trouble with day-to-day activities such as bathing, preparing meals, shopping, managing finances, etc.?: No Are you currently unemployed and looking for a job?: No Are you interested in more education?: No Please select the resources that you would like help with: None Currently or been in a relationship where the following occur: I choose not to answer THRIVE Score: 0 AUDIT C Alcohol Use Questionnaire (AUDIT-C) 1. How often do you have a drink containing alcohol?: Monthly or less 2. How many drinks containing alcohol do you have on a typical day when you are drinking?: 3 or 4 3. How often do you have six or more drinks on one occasion?: Less than monthly Total Score: 3 Score Reviewed/Action Taken: Yes YAMILET-7 AMB Questionnaire YAMILET-7 Date YAMILET - 7 assessed: 07/14/24 Feeling nervous, anxious, or on edge: 2 = More than half the days Not being able to stop or control worryin = Several days Worrying too much about different things: 1 = Several days Trouble relaxin = Several days Being so restless that it is hard to sit still: 1 = Several days Becoming easily annoyed or irritable: 1 = Several days Feeling afraid as if something awful might happen: 0 = Not at all Total YAMILET-7 score (0-4 normal; 5-9 mild; 10-14 moderate; 15-21 severe): 7 Source: Developed by Drs. Jack Deras, Arabella Dc, Damon Chowdary and colleagues, with an educational andres from [employer]. YAMILET-7 Assessment Billing YAMILET-7 Assessment Tool: YAMILET-7 Assessment 90967 Review of Systems Const All systems reviewed & are unremarkable except as noted in HPI and below Eyes Reports no additional complaints ENT Reports no additional complaints Card Reports no additional complaints Resp Reports no additional complaints GI Reports no additional complaints Reports no additional complaints Physical exam (Primary Care) Vital Signs: Last Vital Signs Temp 98.0 F 07/14/24 08:53 Pulse 106 H 07/14/24 08:53 BP 140/86 H 07/14/24 08:53 Pulse Ox 97 07/14/24 08:53 Oxygen Delivery Method Room Air 07/14/24 08:53 BMI result Body Mass Index 56.5 Tobacco/Smoking Status: Tobacco use Status Tobacco use date assessed 07/14/24 07/14/24 08:54 Patient Tobacco Use Status Former Tobacco user 07/14/24 08:54 Tobacco use type Cigarette 07/14/24 08:54 e-Cigarette/Vaping Use Currently Using 07/14/24 08:54 PHQ-9: PHQ-9 Score PHQ-9: Total score 7 07/14/24 09:27 Depression Screening Interpretation: Negative Thrive Assessment: Date of Thrive Assessment Date Thrive assessed 07/14/24 07/14/24 09:02 Currently or been in a relationship where the following occur: I choose not to answer Const General: no acute distress HENMT Head: Yes normal to inspection Ears: TM normal on the left and TM abnormal erythematous and with loss of landmarks Face and sinus: Yes normal facial exam Mouth: Normal oral and palatal mucosa present Throat: Yes posterior oropharynx normal Eyes General: appearance normal, both eyes and all related structures Neck Neck: Yes no lymphadenopathy and Yes supple Resp Effort & Inspection: normal respiratory effort Auscultation: clear to auscultation bilaterally Cardio Rhythm: regular rhythm Heart sounds: S1 normal heart sound present and S2 normal heart sound present GI Inspection: Yes normal to inspection Palpation (GI): Soft to palpation Percussion: Yes normal to percussion Auscultation: normal bowel sounds Coding Level of Care Code Est Pt Level 4 (94117) Diagnoses Foot pain, bilateral M79.671; M79.672 Morbid obesity with BMI of 50.0-59.9, adult E66.01; Z68.43 Elevated BP without diagnosis of hypertension R03.0 Otitis media H66.90 Additional Codes YAMILET-7 Assessment Billing - YAMILET-7 Assessment Tool: YAMILET-7 Assessment 80357 ([id number]) PHQ-9 - 83130 - PHQ-9 Billing: Yes ([id number]) Assessment & Plan Assessment & Plan (1) Foot pain, bilateral: Code(s): M79.671 - Pain in right foot; M79.672 - Pain in left foot Category: Medical Plan: Patient is established with epic ambulatory specialists (2) Morbid obesity with BMI of 50.0-59.9, adult: Code(s): E66.01 - Morbid (severe) obesity due to excess calories; Z68.43 - Body mass index [BMI] 50.0-59.9, adult Category: Medical Plan: Decreasing caloric intake increasing physical activity discussed with the patient. She will try phentermine 37.5 mg daily to facilitate weight loss. Side effects discussed with the patient. She will need a blood pressure check in 1 week after starting medication (3) Elevated BP without diagnosis of hypertension: Code(s): R03.0 - Elevated blood-pressure reading, without diagnosis of hypertension Category: Medical Plan: Decreasing salt intake increasing physical activity weight loss discussed with the patient. Patient will follow-up in 1 month (4) Otitis media: Code(s): H66.90 - Otitis media, unspecified, unspecified ear Category: Medical Plan: Augmentin as prescribed and supportive care discussed with the patient Orders: Referrals Podiatry Referral M79.671 - Pain in right foot, M79.672 - Pain in left foot Medications: New amoxicillin-pot clavulanate 875-125 mg 1 tab PO BID 20 tabs 0RF phentermine must administer 30 minutes before or 1-2 hours after breakfast 37.5 mg PO DAILY 30 caps 2RF
[2024-07-14 08:53] VITALS: BP 140/86; PULSE 106; TEMP 36.7; O2SAT 97; BMI 56.5
[2024-07-14 13:49] VITALS: BP 135/85
== END 2024-07-14 09:43 | disposition home or self-care (01) ==
PROVIDERS: PCP Internal Medicine; Visit Provider Internal Medicine
DX: M79.671 Pain in right foot (principal); M79.672 Pain in left foot; E66.01 Morbid (severe) obesity due to excess calories; Z68.43 Body mass index [BMI] 50.0-59.9, adult; R03.0 Elevated blood-pressure reading, without diagnosis of hypertension; H66.90 Otitis media, unspecified, unspecified ear

== ENCOUNTER → 2024-07-14 08:49 | Outpatient (BNVA) | payer OTHER, SELFPAY | PROVIDERS: PCP Internal Medicine; Visit Provider Internal Medicine | DX: M79.671 Pain in right foot (principal); M79.672 Pain in left foot; E66.01 Morbid (severe) obesity due to excess calories; Z68.43 Body mass index [BMI] 50.0-59.9, adult; R03.0 Elevated blood-pressure reading, without diagnosis of hypertension; H66.90 Otitis media, unspecified, unspecified ear | CPT/HCPCS: 96127; 99212 ==

== ENCOUNTER 2024-07-21 10:23 | Outpatient (AMB) | payer OTHER, SELFPAY ==
--- NOTE | 2024-07-21 10:40 | AM.OFFWIN_ITS ---
Intake Vital Signs 07/21/24 10:41 Weight 372 lb BP 140/90 H Blood Pressure Location Rt brachial Position Sitting Pulse 101 H Pulse Source Pulse Oximeter Pulse Oximetry (%) 97 Oxygen Delivery Method Room Air Intake Visit Reasons: EP cyst on buttocks'/draining Intake Note: Patient here for cyst on buttocks that started draining today after a shower. this cyst developed in 3 days which is pretty quickly. Patient Tobacco Use Status: Former Tobacco user Allergies No Known Allergies Allergy (Verified 07/21/24 10:46) Medication List - Last Reconciled 07/21/24 by Fish Castellano MD acetaminophen ER (Tylenol 8 Hour) 650 mg PO Q8H PRN albuterol sulfate 90 mcg/actuation 2 inhalations inhalation Q4-6H PRN albuterol sulfate 90 mcg/actuation 2 puffs inhalation Q4-6H PRN amoxicillin-pot clavulanate 875-125 mg 1 tab PO BID cholecalciferol (vitamin D3) 50 mcg PO DAILY ibuprofen 600 mg PO Q6H PRN phentermine 37.5 mg PO DAILY sumatriptan succinate take 1 tab at onset of headache; if no relief, may repeat 1 tab after at least 2 hrs; max = 2 tabs/24 hrs PO triamcinolone acetonide 0.025% appl topical DAILY Do you need a note to return to daycare/school/sports/work: No HPI EP cyst on buttocks'/draining HPI Details Patient is 34-year-old female he is suffering from recurrent pilonidal cyst Pain started few days ago patient was given Augmentin for tooth infection that she is currently taking and still have 4 days Last night pain was severe, patient says that she spent the night crying and she almost went to emergency room This morning while she was taking a shower in cleaning herself the cyst opened up and drained pus Patient herself squeezed it as much as she could She came in today for evaluation At this point there is no swelling however redness remains She is still taking antibiotic I have added 5 more days of Augmentin She has appointment coming up with primary care next month She we will discuss referral to surgery to have the cyst removed since it is getting infected recurrently PFSH Medical History Obstructive sleep apnea hypopnea, moderate Irregular menses Hydradenitis Pelvic cramping FH: cholecystectomy Flu-like symptoms Anxiety Sleep apnea Skin lesion Hx of acute cholecystitis Morbid obesity with BMI of 50.0-59.9, adult Surgical History Hx of tonsillectomy Family History Mother Heart disease Vascular disease Father Lupus Pre-diabetes Paternal Grandfather Diabetes HTN (hypertension) Social History Household Members: Children Household Members Other:: 8 yr old son, Housing: Apartment Are you a primary daycare assistant to a significant other at home: Yes Do you presently have visiting nurse or other home services: No Alcohol intake: current Alcohol intake frequency: holidays/special occasions only Patient Tobacco Use Status: Former Tobacco user Tobacco use type: Cigarette Cigarette Packs Per Day: 1 Cigarettes Per Day: 2 Years Smoked: 25 e-Cigarette/Vaping Use: Currently Using Second Hand Smoke Exposure: No Substance Use Type: Marijuana Advance Directives Date on File: 04/07/21 service: No Current occupational status: unemployed Gender identity: Female Cognitive needs: No Hearing needs: No Vision needs: Yes Female Reproductive History Menstrual Age of Menarche: 11 Review of Systems Const Denies chills and Denies fever(s) GI Denies diarrhea and Denies nausea Neuro Reports no additional complaints Psych Reports no additional complaints Endo Reports no additional complaints Physical Exam Vital Signs: Last Vital Signs Pulse 101 H 07/21/24 10:41 BP 140/90 H 07/21/24 10:41 Pulse Ox 97 07/21/24 10:41 Oxygen Delivery Method Room Air 07/21/24 10:41 Const General: no acute distress Orientation/consciousness: patient oriented x3 Eyes General: appearance normal, both eyes and all related structures Resp Effort & Inspection: normal respiratory effort and able to speak in complete sentences Other: Erythema still present between gluteus augustin opening of cyst noted mild swelling Neuro General: patient oriented x3 Psych Mental Status: mental status grossly normal Assessment & Plan Assessment & Plan (1) Pilonidal cyst with abscess: Code(s): L05.01 - Pilonidal cyst with abscess Plan Patient is 34-year-old female he is suffering from recurrent pilonidal cyst Pain started few days ago patient was given Augmentin for tooth infection that she is currently taking and still have 4 days Last night pain was severe, patient says that she spent the night crying and she almost went to emergency room This morning while she was taking a shower in cleaning herself the cyst opened up and drained pus Patient herself squeezed it as much as she could She came in today for evaluation At this point there is no swelling however redness remains She is still taking antibiotic I have added 5 more days of Augmentin She has appointment coming up with primary care next month She we will discuss referral to surgery to have the cyst removed since it is getting infected recurrently Medications: Refilled amoxicillin-pot clavulanate 875-125 mg 1 tab PO BID 10 tabs 0RF Coding Level of Care Code Est Pt Level 3 (44147) Diagnoses Pilonidal cyst with abscess L05.01
[2024-07-21 10:41] VITALS: BP 140/90; PULSE 101; O2SAT 97
== END 2024-07-21 11:03 | disposition home or self-care (01) ==
PROVIDERS: PCP Internal Medicine; Visit Provider Internal Medicine
DX: L05.01 Pilonidal cyst with abscess (principal)

== ENCOUNTER → 2024-07-21 10:23 | Outpatient (BNVA) | payer OTHER, SELFPAY | PROVIDERS: PCP Internal Medicine | DX: L05.01 Pilonidal cyst with abscess (principal) | CPT/HCPCS: 99212 ==

== ENCOUNTER 2024-08-21 15:31 | Outpatient (AMB) | payer OTHER, SELFPAY ==
--- NOTE | 2024-08-21 15:43 | MHC.OFFVIS ---
Vital Signs 08/21/24 15:44 Height 5 ft 8 in Weight 372 lb BMI 56.6 Intake Visit Reasons: vaginal dischage Shoe Stamper Required: No Information Interpreted: non-clinical & clinical Associate Media Planner: Associate Media Planner Present (Lexi LYNNE) Accompanied by: Self / Same As Patient Allergies No Known Allergies Allergy (Verified 08/21/24 15:43) HPI Comments Details: The patient is presenting complaining of vulvovaginal irritation and itching associated with cottage cheese like discharge PFSH Medical History Obstructive sleep apnea hypopnea, moderate Irregular menses Hydradenitis Pelvic cramping FH: cholecystectomy Flu-like symptoms Anxiety Sleep apnea Skin lesion Hx of acute cholecystitis Morbid obesity with BMI of 50.0-59.9, adult Surgical History Hx of tonsillectomy Family History Mother Heart disease Vascular disease Father Lupus Pre-diabetes Paternal Grandfather Diabetes HTN (hypertension) Social History Household Members: Children Household Members Other:: 8 yr old son, Housing: Apartment Are you a primary healthcare administration intern to a significant other at home: Yes Do you presently have visiting nurse or other home services: No Alcohol intake: current Alcohol intake frequency: holidays/special occasions only Patient Tobacco Use Status: Former Tobacco user Tobacco use type: Cigarette Cigarette Packs Per Day: 1 Cigarettes Per Day: 2 Years Smoked: 25 e-Cigarette/Vaping Use: Currently Using Second Hand Smoke Exposure: No Substance Use Type: Marijuana Advance Directives Date on File: 04/07/21 service: No Current occupational status: unemployed Gender identity: Female Cognitive needs: No Hearing needs: No Vision needs: Yes Female Reproductive History Menstrual Age of Menarche: 11 Review of Systems Const All systems reviewed & are unremarkable except as noted in HPI and below Physical Exam General: Yes no CVA tenderness External Female Exam: normal external appearance and normal appearance of the urethra Speculum Exam - Vagina: normal appearance of the vagina, normal palpation, no lesions and no masses Speculum Exam - Cervix: normal appearance of the cervix, normal palpation, no lesions, no masses and nontender Bimanual exam- vagina & uterus: normal bimanual exam, normal palpation, uterine size normal, normal palpation, uterine shape normal, No Cervical tenderness present and non-tender Bimanual Exam- Adnexa, other: normal adnexae Back/Spine/Pelvis Back: no CVA tenderness Assessment & Plan Assessment & Plan (1) Vulvovaginitis: Code(s): N76.0 - Acute vaginitis Category: Medical Plan: GC/CT, Bacterial Vaginosis panel taken, Terazol 0.8% q.h.s. for 3 days was sent to the patient's pharmacy. The patient was instructed to call if symptoms don't improve in 48 hours. Medications: New terconazole 0.8% 1 appful vaginal BEDTIME 3 days 20 grams 0RF Coding Level of Care Code Est Pt Level 3 (32726) Diagnoses Vulvovaginitis N76.0
[2024-08-21 15:44] VITALS: BMI 56.6
--- OUTSIDE RECORDS SUMMARY | 2024-08-21 17:28 | XMS_ITS | Clinical Summary ---
Author Organization 175 [facility] Address [address] [place] [address] Phone Care Team Providers Care Certification Engineer Name Role Phone Madina Corado MD Primary Care Provider [phone] Social History Tobacco Use Types Packs/Day Years Used Date Smoking Tobacco: Never Assessed Comments Unknown Sex and Gender Information Value Date Recorded Sex Assigned at Not on file Legal Sex Female 4:50 AM EST Gender Identity Not on file Sexual Orientation Not on file Plan of Treatment Upcoming Encounters Date Type Department Care Team ([facility] Contact Info) Description 10/03/2024 8:30 AM EDT Consult Orthopedic Surgery [place] [id number] [phone] Jimbo Mariee, DPM [address] [address] Health Maintenance Due Date Last Done Comments DTaP,Tdap,and Td Vaccines (1 - Tdap) 2011 Hepatitis B Vaccines (1 of 3 - 19+ 3-dose series) 2011 Cervical Cancer Screening: P ap Smear 2013 COVID-19 Vaccine ( - 2023-2 5 season) 2024 Influenza Vaccine (#1) 2024 Depression Screening 08/02/2024 HIV Screening 08/02/2024 Hepatitis C Screening 08/02/2024 Social Influencers of Health Screening 08/02/2024 HIB Vaccines Aged Out No longer eligi ble based on patient's age to complete this topic HPV Vaccines Aged Out No longer eligi ble based on patient's age to complete this topic Hepatitis A Vaccines Aged Out No long er eligible based on patient's age to complete this topic IPV Vaccines Aged Out No longer eligi ble based on patient's age to complete this topic MMR Vaccines Aged Out No longer eligi ble based on patient's age to complete this topic Meningococcal ACWY Vaccine Aged Out N o longer eligible based on patient's age to complete this topic Meningococcal B Vacine Aged Out No lo nger eligible based on patient's age to complete this topic Pneumococcal Vaccine: Pediat rics (0 to 5 Years) and At-Risk Patients (6 to 64 Years) Aged Out No longer eligible b ased on patient's age to complete this topic RSV Immunization Patients Un loida 20 months Aged Out No longer eligible b ased on patient's age to complete this topic Varicella Vaccines Aged Out No longer eligible based on patient's age to complete this topic Insurance [facility] Care Teams Certification Engineer Relationship Specialty Start Date End Date Madina Corado MD [address] [place] [phone] PCP - General Internal Medicine 08/02/24
== END 2024-08-21 15:47 | disposition home or self-care (01) ==
LOC: HO.HWS 15:31
PROVIDERS: PCP Internal Medicine; Visit Provider Obstetrics & Gynecology
DX: N76.0 Acute vaginitis (principal)
CPT/HCPCS: 99213

== ENCOUNTER 2024-08-21 15:31 | Outpatient (REF) | payer OTHER, SELFPAY ==
[2024-08-22 13:45] LABS: Bacterial Vaginosis PCR POSITIVE (Negative); Candida Group PCR DETECTED (Not Detect); Candida glab krusei PCR NOT DETECTED (Not Detect); Trichomonas vaginalis PCR NOT DETECTED (Not Detect)
[2024-08-22 14:16] LABS: CT PCR NOT DETECTED (Not Detect.); NG PCR NOT DETECTED (Not Detect.)
== END 2024-08-21 15:32 | disposition home or self-care (01) ==
LOC: HO.LNP 15:31
PROVIDERS: PCP Internal Medicine; Visit Provider Obstetrics & Gynecology
DX: N76.0 Acute vaginitis (principal)
CPT/HCPCS: 81515; 87491; 87591; 99212

== ENCOUNTER 2024-08-24 12:15 | Outpatient (AMB) | payer OTHER, SELFPAY ==
[2024-08-24 12:25] VITALS: BP 142/90; PULSE 99; RESP 18; TEMP 36.6; O2SAT 97; BMI 70.5
--- NOTE | 2024-08-24 12:25 | MHC.PC.OV ---
Vital Signs 08/24/24 12:25 Height 5 ft Weight 361 lb BMI 70.5 BP 142/90 H Blood Pressure Location Lt brachial Position Sitting Respiration 18 Pulse 99 Pulse Source Pulse Oximeter Temp 98 F Temp Source Oral Pulse Oximetry (%) 97 Oxygen Delivery Method Room Air Intake Visit Reasons: 1 month follow up Intake Note: Pt is here today for her 1 month follow up. Allergies No Known Allergies Allergy (Verified 08/24/24 12:26) Medication List - Last Reconciled 08/24/24 by Madina Corado MD acetaminophen ER (Tylenol 8 Hour) 650 mg PO Q8H PRN albuterol sulfate 90 mcg/actuation 2 inhalations inhalation Q4-6H PRN albuterol sulfate 90 mcg/actuation 2 puffs inhalation Q4-6H PRN cholecalciferol (vitamin D3) 50 mcg PO DAILY ibuprofen 600 mg PO Q6H PRN metronidazole 500 mg PO BID 7 days Mounjaro (tirzepatide) 2.5 mg (0.5 mL) subcut QWEEK NS sumatriptan succinate take 1 tab at onset of headache; if no relief, may repeat 1 tab after at least 2 hrs; max = 2 tabs/24 hrs PO terconazole 0.8% 1 appful vaginal BEDTIME 3 days triamcinolone acetonide 0.025% appl topical DAILY valsartan 80 mg PO DAILY Tobacco use date assessed: 08/24/24 Dental Screening Dental Screen Date: 08/24/24 Did you have a dental visit in the last 12 months?: Yes Did you have a dental problem in the last 6 months where you did not have access to dental care?: No Was dental information given to patient?: Patient has dentist HPI 1 month follow up HPI Details Pt presents for follow-up of obesity. She has been taking phentermine but noticed frequent headaches and increase in blood pressure readings up to 150/100 at home. Patient reports episodes of palpitations but no chest pain change in the vision nausea vomiting. [facility] Medical History Obstructive sleep apnea hypopnea, moderate Irregular menses Hydradenitis Pelvic cramping FH: cholecystectomy Flu-like symptoms Anxiety Sleep apnea Skin lesion Hx of acute cholecystitis Morbid obesity with BMI of 50.0-59.9, adult Surgical History Hx of tonsillectomy Family History Mother Heart disease Vascular disease Father Lupus Pre-diabetes Paternal Grandfather Diabetes HTN (hypertension) Social History Household Members: Children Household Members Other:: 8 yr old son, Housing: Apartment Are you a primary adult caregiver to a significant other at home: Yes Do you presently have visiting nurse or other home services: No Alcohol intake: current Alcohol intake frequency: holidays/special occasions only Patient Tobacco Use Status: Former Tobacco user Tobacco use type: Cigarette Cigarette Packs Per Day: 1 Cigarettes Per Day: 2 Years Smoked: 25 e-Cigarette/Vaping Use: Currently Using Second Hand Smoke Exposure: No Substance Use Type: Marijuana Advance Directives Date on File: 04/07/21 service: No Current occupational status: unemployed Gender identity: Female Cognitive needs: No Hearing needs: No Vision needs: Yes Female Reproductive History Menstrual Age of Menarche: 11 Questionnaire PHQ-9 Over the last 2 weeks, how often have you been bothered by any of the following problems? [address]1641 - PHQ-9 Billing: Patient declined-do not bill Source: Developed by Drs. Jack Deras, Arabella Dc, Damon Chowdary and colleagues, with an educational andres from [employer]. Thrive Questionnaire Date Thrive assessed: 08/24/24 I am a: Patient What is your living situation today?: I have a steady place to live Within the past 12 months, did the food you bought not last and you didn't have the money to get more?: Never true Within the past 12 months, did you worry whether your food would run out before you got money to buy more?: Never true Do you have trouble paying for medicines?: No Do you have trouble getting transportation to medical appointments?: No Do you have trouble paying your heating and electricity bill?: No Do you have trouble taking care of your child, family member or friend?: No Do you have trouble with day-to-day activities such as bathing, preparing meals, shopping, managing finances, etc.?: No Are you currently unemployed and looking for a job?: No Are you interested in more education?: No Please select the resources that you would like help with: None Currently or been in a relationship where the following occur: I choose not to answer THRIVE Score: 0 AUDIT C Alcohol Use Questionnaire (AUDIT-C) 1. How often do you have a drink containing alcohol?: Monthly or less 2. How many drinks containing alcohol do you have on a typical day when you are drinking?: 3 or 4 3. How often do you have six or more drinks on one occasion?: Less than monthly Total Score: 3 Score Reviewed/Action Taken: Yes YAMILET-7 AMB Questionnaire YAMILET-7 Date YAMILET - 7 assessed: 08/24/24 Feeling nervous, anxious, or on edge: 0 = Not at all Not being able to stop or control worryin = Not at all Worrying too much about different things: 0 = Not at all Trouble relaxin = Not at all Being so restless that it is hard to sit still: 0 = Not at all Becoming easily annoyed or irritable: 0 = Not at all Feeling afraid as if something awful might happen: 0 = Not at all Total YAMILET-7 score (0-4 normal; 5-9 mild; 10-14 moderate; 15-21 severe): 0 Source: Developed by Drs. Jack Deras, Aarbella Dc, Damon Chowdary and colleagues, with an educational andres from [employer]. YAMILET-7 Assessment Billing YAMILET-7 Assessment Tool: YAMILET-7 Assessment 76555 Review of Systems Const All systems reviewed & are unremarkable except as noted in HPI and below Eyes Reports no additional complaints ENT Reports no additional complaints Card Reports no additional complaints Resp Reports no additional complaints GI Reports no additional complaints Reports no additional complaints Physical exam (Primary Care) Vital Signs: Last Vital Signs Temp 98 F 08/24/24 12:25 Pulse 99 08/24/24 12:25 Resp 18 08/24/24 12:25 BP 142/90 H 08/24/24 12:25 Pulse Ox 97 08/24/24 12:25 Oxygen Delivery Method Room Air 08/24/24 12:25 BMI result Body Mass Index 70.5 Tobacco/Smoking Status: Tobacco use Status Tobacco use date assessed 08/24/24 08/24/24 12:28 Patient Tobacco Use Status Former Tobacco user 08/24/24 12:28 Tobacco use type Cigarette 08/24/24 12:28 e-Cigarette/Vaping Use Currently Using 08/24/24 12:28 Thrive Assessment: Date of Thrive Assessment Date Thrive assessed 08/24/24 08/24/24 12:28 Currently or been in a relationship where the following occur: I choose not to answer Const General: no acute distress HENMT Head: Yes normal to inspection Face and sinus: Yes normal facial exam Eyes General: appearance normal, both eyes and all related structures Neck Neck: Yes no lymphadenopathy and Yes supple Resp Effort & Inspection: normal respiratory effort Auscultation: clear to auscultation bilaterally Cardio Rhythm: regular rhythm Heart sounds: S1 normal heart sound present and S2 normal heart sound present GI Inspection: Yes normal to inspection Coding Level of Care Code Est Pt Level 4 (85621) Diagnoses HTN (hypertension) I10 Morbid obesity with BMI of 50.0-59.9, adult E66.01; Z68.43 Additional Codes YAMILET-7 Assessment Billing - YAMILET-7 Assessment Tool: YAMILET-7 Assessment 16004 ([id number]) Assessment & Plan Assessment & Plan (1) HTN (hypertension): Code(s): I10 - Essential (primary) hypertension Category: Medical Plan: Low-sodium diet increase physical activity weight loss discussed with the patient. Valsartan 80 mg will be started and patient will return for blood pressure check in 1 week. She was advised to stop taking phentermine because of side effects including high blood pressure palpitations and frequent headaches (2) Morbid obesity with BMI of 50.0-59.9, adult: Comment: side effects from phentermine: high blood pressure, palpitations and frequent headaches Code(s): E66.01 - Morbid (severe) obesity due to excess calories; Z68.43 - Body mass index [BMI] 50.0-59.9, adult Category: Medical Plan: She was advised to stop taking phentermine and Mounjaro 2.5 mg weekly will be started. Patient will follow-up in 1 month Medications: New Mounjaro (tirzepatide) 2.5 mg (0.5 mL) subcut QWEEK 2 mL 1RF NS valsartan 80 mg PO DAILY 90 tabs 0RF Discontinued phentermine must administer 30 minutes before or 1-2 hours after breakfast Discontinued Reason: Doctor's Order 37.5 mg PO DAILY 30 caps 2RF
--- OUTSIDE RECORDS SUMMARY | 2024-08-24 13:28 | XMS_ITS | Clinical Summary ---
Author Organization 175 [facility] Address [address] [place] [address] Phone Care Team Providers Care Labor Service Representative Name Role Phone Madina Corado MD Primary Care Provider [phone] Social History Tobacco Use Types Packs/Day Years Used Date Smoking Tobacco: Never Assessed Comments Unknown Sex and Gender Information Value Date Recorded Sex Assigned at Not on file Legal Sex Female 4:50 AM EST Gender Identity Not on file Sexual Orientation Not on file Plan of Treatment Upcoming Encounters Date Type Department Care Team ([facility] Contact Info) Description 10/03/2024 8:30 AM EDT Consult Orthopedic Surgery [place] [id number] [phone] Jimbo Mariee, DPM [address] [address] Health Maintenance Due Date Last Done Comments [...] patient's age to complete this topic Insurance [facility] Care Teams Labor Service Representative Relationship Specialty Start Date End Date Madina Corado MD [address] [place] [phone] PCP - General Internal Medicine 08/02/24
== END 2024-08-24 13:23 | disposition home or self-care (01) ==
LOC: HO.HMCC 12:16
PROVIDERS: PCP Internal Medicine; Visit Provider Internal Medicine
DX: I10 Essential (primary) hypertension (principal); E66.01 Morbid (severe) obesity due to excess calories; Z68.43 Body mass index [BMI] 50.0-59.9, adult

== ENCOUNTER → 2024-08-24 12:15 | Outpatient (BNVA) | payer OTHER, SELFPAY | PROVIDERS: PCP Internal Medicine; Visit Provider Internal Medicine | DX: I10 Essential (primary) hypertension (principal); E66.01 Morbid (severe) obesity due to excess calories; Z68.43 Body mass index [BMI] 50.0-59.9, adult; Z71.3 Dietary counseling and surveillance | CPT/HCPCS: 96127; 99212 ==

== ENCOUNTER → 2024-08-31 09:47 | Outpatient (BNVA) | payer OTHER, SELFPAY | PROVIDERS: PCP Internal Medicine ==

== ENCOUNTER → 2024-09-14 09:21 | Outpatient (BNVA) | payer OTHER, SELFPAY | PROVIDERS: PCP Internal Medicine ==

== ENCOUNTER 2024-09-20 12:50 | Outpatient (AMB) | payer OTHER, SELFPAY ==
--- NOTE | 2024-09-20 12:53 | A.OFFVIS_ITS ---
Vital Signs 09/20/24 12:58 Height 5 ft 8 in Weight 366 lb 2 oz BMI 55.7 BP 134/76 Blood Pressure Location Lt brachial Position Sitting Pulse 93 Pulse Source Pulse Oximeter Pulse Oximetry (%) 97 Oxygen Delivery Method Room Air Intake Visit Reasons: 6m follow up Sleep Apnea Intake Note: Patient presents follow up TYRON. Tit in chart. No compliance(No CPAP)(Trialed on6-10cm water.-Start CPAP on 10cm water with F30 Medium mask.) Allergies No Known Allergies Allergy (Verified 09/20/24 13:02) HPI Comments Details: 34 y/o female patient with asthma presents for follow up of TYRON. HST c/w moderate degree of sleep apnea, her AHI was 22/hr and oxygen Je to 82%. Titration completed 05/2024 oxygen and breathing stabilized at [id number]. She has a history of asthma on two inhalers. She stopped using the CPAP because she felt she was drowning with it as the water would pool into the side of her mouth and she would choke. She has positive family history of mom having DVTs and VA. She also notices there is water condensation in the tubes in the morning, she called home care [facility] and was tried on different settings, however the machine continues to blow humid air into the hoses. 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 She takes Zepbound 2.5mg weekly and it helps with her weight loss and Valsartan 80mg PO BID for HTN. She continues to have stiffness in her neck and shoulders. She gets headaches that migrate up to the temples lasting 1- 2 hours every other day with pulsating pain in the eyes, like a disco ball which gets wider and bigger into a flashing kashia. She takes tylenolol as needed. She is being followed by her theatre manager for hydradenitis supprativa. She is motivated to lose weight, needs to improve her diet and start walking daily. [facility] Medical History Obstructive sleep apnea hypopnea, moderate Irregular menses Hydradenitis Pelvic cramping FH: cholecystectomy Flu-like symptoms Anxiety Sleep apnea Skin lesion Hx of acute cholecystitis Morbid obesity with BMI of 50.0-59.9, adult Surgical History Hx of tonsillectomy Family History Mother Heart disease Vascular disease Father Lupus Pre-diabetes Paternal Grandfather Diabetes HTN (hypertension) Social History Household Members: Children Household Members Other:: 8 yr old son, Housing: Apartment Are you a primary personal care assistant to a significant other at home: Yes Do you presently have visiting nurse or other home services: No Alcohol intake: current Alcohol intake frequency: holidays/special occasions only Patient Tobacco Use Status: Former Tobacco user Tobacco use type: Cigarette Cigarette Packs Per Day: 1 Cigarettes Per Day: 2 Years Smoked: 25 e-Cigarette/Vaping Use: Currently Using Second Hand Smoke Exposure: No Substance Use Type: Marijuana Advance Directives Date on File: 04/07/21 service: No Current occupational status: unemployed Gender identity: Female Cognitive needs: No Hearing needs: No Vision needs: Yes Female Reproductive History Menstrual Age of Menarche: 11 Physical Exam Vital Signs: Last Vital Signs Pulse 93 09/20/24 12:58 BP 134/76 09/20/24 12:58 Pulse Ox 97 09/20/24 12:58 Oxygen Delivery Method Room Air 09/20/24 12:58 BMI result Body Mass Index 55.7 Const General: cooperative Nutritional Appearance: obese Orientation/consciousness: patient oriented x3 HEENT Throat: Yes other (mallampati grade 4) Eyes Pupils: Equal, round and reactive pupils present Neck Neck: Yes full ROM and Yes supple Resp Effort & Inspection: normal respiratory effort and able to speak in complete sentences Neuro General: patient oriented x3, gait normal and moves all extremities Cranial nerves: Yes Facial sensation intact/muscles of mastication intact, Yes Equal, round and reactive pupils present, Yes Normal accommodation reflex present, Yes Normal facial strength present, Yes Midline tongue present, Yes Ability to bilaterally rotate head present and Yes Ability to bilaterally elevate shoulders present Cognition (Neuro): normal cognition Motor exam (neuro): 5/5 motor strength present throughout and Normal motor muscle tone present throughout Psych Appearance: grossly normal Thought process: Normal thought process present Thought content: Normal thought content present Results Reviewed Results Reviewed: Titration completed [id number] and F20 med mask and f/u for compliance. Assessment & Plan Assessment & Plan (1) Obstructive sleep apnea hypopnea, moderate: Code(s): G47.33 - Obstructive sleep apnea (adult) (pediatric) Category: Medical (2) Vitamin D deficiency: Code(s): E55.9 - Vitamin D deficiency, unspecified Category: Medical (3) New onset headache: Code(s): R51.9 - Headache, unspecified Category: Medical Plan TYRON titration study was completed start CPAP at [id number] with F20 med sized mask and f/u for compliance. Ordered supplies for non-heated tubing today, and pt to contact [facility] with any adjustments needed for humidifier setting adjustments and download the [employer] kallie. Labs reviewed with her today continue taking Vitamin D supplement daily. Monitor headaches/ frequency, severity and onset, don the migraine cap immediately when you sense aura, may take tylenol otc. Will trial her on Ubrelvy as Sumatriptan is a C/I to HTN. Medications: New Ubrelvy (ubrogepant) take one tablet 50mg PO at the onset of headache, if headache does not go away you may take one more 50mg tablet, do not exceeed more than 2 tablets within 24 hour period. 50 mg PO ONCE 30 days PRN 16.2 tabs 1RF headaches MDD 50mg PO NS R51.9 - Headache, unspecified Patient Instructions: Sleep Hygiene provided: set a scheduled bedtime and wake time to help regulate the circadian rhythm and balance the release of pituitary hormones. Sleep in a dark room, temperatures below 68 degrees, and no devices n bed. Limit caffeinated products 6 hours prior to bed, and limit fluids 2-4 hours prior to bed. Gentle night yoga, diffusing essential oils, and playing soft music can be relaxing. Migraines keep the migraine cap in the freezer and don the migraine cap as needed with the onset of headaches. Ubrelvy 100mg will trial her on this medication at the onset of Headache, may take one more if the headache does not go away, do not exceed more than 2 tablets within 24 hours. Coding Level of Care Code Est Pt Level 4 (09547) Diagnoses Obstructive sleep apnea hypopnea, moderate G47.33 Vitamin D deficiency E55.9 New onset headache R51.9 Time Spent (min) 30
[2024-09-20 12:58] VITALS: BP 134/76; PULSE 93; O2SAT 97; BMI 55.7
--- NOTE | 2024-09-20 13:10 | MHC.OFFVIS ---
Vital Signs 09/20/24 12:58 Height 5 ft 8 in Weight 366 lb 2 oz BMI 55.7 BP 134/76 Blood Pressure Location Lt brachial Position Sitting Pulse 93 Pulse Source Pulse Oximeter Pulse Oximetry (%) 97 Oxygen Delivery Method Room Air Intake Visit Reasons: 6m follow up Sleep Apnea Intake Note: Patient presents follow up TYRON. Tit in chart. Nt using CPAP due to filling with water. Allergies No Known Allergies Allergy (Verified 09/20/24 13:02) PFSH Medical History Obstructive sleep apnea hypopnea, moderate Irregular menses Hydradenitis Pelvic cramping FH: cholecystectomy Flu-like symptoms Anxiety Sleep apnea Skin lesion Hx of acute cholecystitis Morbid obesity with BMI of 50.0-59.9, adult Surgical History Hx of tonsillectomy Family History Mother Heart disease Vascular disease Father Lupus Pre-diabetes Paternal Grandfather Diabetes HTN (hypertension) Social History Household Members: Children Household Members Other:: 8 yr old son, Housing: Apartment Are you a primary managed care coordinator to a significant other at home: Yes Do you presently have visiting nurse or other home services: No Alcohol intake: current Alcohol intake frequency: holidays/special occasions only Patient Tobacco Use Status: Former Tobacco user Tobacco use type: Cigarette Cigarette Packs Per Day: 1 Cigarettes Per Day: 2 Years Smoked: 25 e-Cigarette/Vaping Use: Currently Using Second Hand Smoke Exposure: No Substance Use Type: Marijuana Advance Directives Date on File: 04/07/21 service: No Current occupational status: unemployed Gender identity: Female Cognitive needs: No Hearing needs: No Vision needs: Yes Female Reproductive History Menstrual Age of Menarche: 11 Physical Exam Vital Signs: Last Vital Signs Pulse 93 09/20/24 12:58 BP 134/76 09/20/24 12:58 Pulse Ox 97 09/20/24 12:58 Oxygen Delivery Method Room Air 09/20/24 12:58 BMI result Body Mass Index 55.7 Coding
--- OUTSIDE RECORDS SUMMARY | 2024-09-20 14:05 | XMS_ITS | Clinical Summary ---
Author Organization [address] [facility] Address [address] [place] [address] Phone Care Team Providers Care Cartridge Feeder Name Role Phone Madina Corado MD Primary Care Provider [phone] Social History Tobacco Use Types Packs/Day Years Used Date Smoking Tobacco: Never Assessed Comments Unknown Sex and Gender Information Value Date Recorded Sex Assigned at Not on file Legal Sex Female 4:50 AM EST Gender Identity Not on file Sexual Orientation Not on file Plan of Treatment Upcoming Encounters Date Type Department Care Team ([facility] Contact Info) Description 10/03/2024 8:30 AM EDT Consult Orthopedic Surgery [place] [id number] [phone] Jimbo Mariee, DPM [address] [address] Health Maintenance Due Date Last Done Comments DTaP,Tdap,and Td Vaccines (1 - Tdap) 2011 Hepatitis B Vaccines (1 of 3 - 19+ 3-dose series) 2011 Cervical Cancer Screening: P ap Smear 2013 COVID-19 Vaccine ( - 2023-2 5 season) 2024 Depression Screening 08/02/2024 HIV Screening 08/02/2024 Hepatitis C Screening 08/02/2024 Social Influencers of Health Screening 08/02/2024 Influenza Vaccine (Season Ended) 2025 HIB Vaccines Aged Out No longer eligi [...] age to complete this topic Meningococcal B Vaccine Aged Out No l onger eligible based on patient's age to complete [...] patient's age to complete this topic Insurance [facility] Care Teams Cartridge Feeder Relationship Specialty Start Date End Date Madina Corado MD [address] [place] [id number] PCP - General Internal Medicine 08/02/24
== END 2024-09-20 13:57 | disposition home or self-care (01) ==
LOC: HO.HSMS 12:51
PROVIDERS: Absent Provider Physician Assistant Medical; PCP Internal Medicine; Visit Provider Physician Assistant Medical
DX: G47.33 Obstructive sleep apnea (adult) (pediatric) (principal); E55.9 Vitamin D deficiency, unspecified; R51.9 Headache, unspecified
CPT/HCPCS: 99214

== ENCOUNTER → 2024-09-20 12:50 | Outpatient (BNVA) | payer OTHER, SELFPAY | PROVIDERS: Absent Provider Physician Assistant Medical; PCP Internal Medicine; Visit Provider Physician Assistant Medical | DX: G47.33 Obstructive sleep apnea (adult) (pediatric) (principal); E55.9 Vitamin D deficiency, unspecified; R51.9 Headache, unspecified; Z87.891 Personal history of nicotine dependence | CPT/HCPCS: 99212 ==

== ENCOUNTER 2024-10-11 11:15 | Outpatient (AMB) | payer OTHER, SELFPAY ==
--- NOTE | 2024-10-11 11:18 | A.OFFPC_ITS ---
Vital Signs 10/11/24 11:24 Height 5 ft 8 in Weight 365 lb 4 oz BMI 55.5 BP 136/76 Blood Pressure Location Rt brachial Position Sitting Respiration 13 Pulse 97 Pulse Source Pulse Oximeter Temp 97.4 F Temp Source Oral Pulse Oximetry (%) 98 Oxygen Delivery Method Room Air Intake Visit Reasons: mary Madina Corado Intake Note: MARY to establish care. 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 Allergies phentermine Adverse Reaction (Mild, Verified 10/11/24 11:49) htn Medication List - Last Reconciled 10/11/24 by Carolyne Yancey, HEALTH AND SAFETY TECHNICIAN- acetaminophen ER (Tylenol 8 Hour) 650 mg PO Q8H PRN albuterol sulfate 90 mcg/actuation 2 inhalations inhalation Q4-6H PRN albuterol sulfate 90 mcg/actuation 2 puffs inhalation Q4-6H PRN cholecalciferol (vitamin D3) 50 mcg PO DAILY ibuprofen 600 mg PO Q6H PRN minocycline 100 mg PO BID naratriptan 2.5 mg PO Q4H PRN 30 days MDD 5mg secukinumab (Cosentyx UnoReady Pen) mg subcut terconazole 0.8% 1 appful vaginal BEDTIME 3 days tirzepatide (weight loss) 5 mg (0.5 mL) subcut QWEEK 30 days triamcinolone acetonide 0.025% appl topical DAILY valsartan 80 mg PO BID Tobacco use date assessed: 10/11/24 Dental Screening Dental Screen Date: 10/11/24 Did you have a dental visit in the last 12 months?: Yes Did you have a dental problem in the last 6 months where you did not have access to dental care?: No Was dental information given to patient?: Patient has dentist HPI HPI Comments History of Present Illness Details Ally 34 y/o F with morbid obesity, fatty live r, reactive airway disease, hx of ectopic prengnancy, Hidradenitis Supprativa, Vit D def, HTN, family hx of early CAD (Mom [place] & Vfib arrest age 40's), family hx of vascular disease (Mom extensive Vascular disease) s/p lap gregg, R salpingectomy s/p ectopic 2023 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 - Previous PCP Dr Corado, records review ed. - Migraine headaches with visual scomata - Migraines for @ least 2 years; severe, unilateral, trigger initiated, exacerbated with phentermine use which she has since stopped. - Unilateral headaches, ocular disturban wenceslao; diagnosed migraines with negative imaging. Active w/ [facility]. Consult notes reviewed. - Obesity - on GLP1 after using phenterm ine for 3 months which caused worsening headaches and HTN - HTN well controlled on Valsartan. - Vit d def - was taking OTC Vit d but h as not been consistent w that - TYRON will be starting CPAP managed by [facility] - HS - managed by derm w/ topicals. Just started Cosentyx. - Has a pilonidal cyst which has abcesse d and required drainage in the past. It is currently draining; only painful when sitting. Would like to have it removed surgically but has limited time to schedule this. - Finally, she is very worried about her risk for early CAD or vascular disease. Her mom, who is also a patient here, has an extensive vascular and CAD history >>>> Mom's history: s/p LAD PCI by Dr. Moise in November 2019 when she presented with cardiac arrest s/p NSTEMI with stent, July 10, 2020, aortobifemoral bypass using [place]-Axel bifurcated graft 06/2022 extensive endarterectomy with pat ch angioplasty of the left groin. She also had angioplasty and stenting of the proximal bifurcation of the aorta bifem graft, Had recurrent thrombosis of bypass after stopping medications, s/p bilat femoral artery cutdowns requiring anterior compartment fasciotomy on the R, bilat femoral embolectomy 04/10/2024 status post endarterectomy fe moral, bilateral leg with saphenous vein patch angioplasty auto longest bilateral aortofemoral limbs, vein harvested from the left leg, completion abdominal aortogram bilateral lower extremity angiography runoff<<<< The patient is complaining of bilat leg pain, worse w/ walking, pelvic pain and back pain. Has swelling of lower ext that seems to be worse of late. Discoloration of her skin, purple/pink when dependent. Does not have any open areas or nonhealing sores. Does not have DM. Reports numbness in legs after prolonged sitting. Numbness in bilat arms while sleeping. Denies any chest pain. In regards to breathing, does have asthma and can have SOB at times. Has never been seen by Cards or vascular. Review of Systems - Neurological: Reports migraines, visua l disturbances; denies seeing ophthalmology-relevant findings. - Cardiovascular: Reports high blood pre ssure recently correlated with phentermine usage. - Respiratory: Denies current respirator y distress. - Musculoskeletal: Reports bilateral arm numbness depending on sleeping position. - Sleep: Reports obstructive sleep apnea ; using CPAP pending equipment. 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 - General: Denies recent changes in weig ht, appetite (enrolled in weight loss program). Physical Exam General: Well developed, well nourished, in no acute distress. Appears stated age. Head: Normocephalic, atraumatic. Eyes: Pupils are equal, round and reactive to light and accommodation. Conjunctivae are clear. Lungs: Clear to auscultation bilaterally. Dim throughout. Heart: Regular rate and rhythm. No murmurs, click, rubs or gallops are noted. Pulses: Peripheral pulses are difficult to palpate given body habitus. Bilat feet are warm to touch, toe nails are thickened. Skin is intact. She has nonpitting edema BLE. Her skin of lower ext is pink with what looks like keratosis pilaris. : draining pilonidal cyst, no erythema, no warmth. Psych: Mood and affect appropriate. Reports of generalized anxiety disorder. Results - Labs: Vitamin D deficiency noted histo rically, but recent levels were normal. - Tests: Imaging previously negative for significant cranial pathology related to migraines. Discussion Notes We discussed the potential referral to a vascular specialist, preferably [facility], as her mom sees Dr Disla. The patient is concurrently under care for sleep apnea and migraines through [facility], she should cont care there for these items. Surgical options for the ongoing polynoidal cyst have been encouraged for removal. However she has time constraints and cannot do this @ this time. Dermatology-she should cont care w/ them for her HS. Assessment and Plan 1. Migraine headaches - Manage under [facility] 2. Morbid obesity - Follow weight loss program with Jennifer barney; monitor progress. 3. Obstructive sleep apnea - Continue CPAP setup; monitor for sympt om improvement. Managed by Neuro 4. Vitamin D deficiency - was on supplementation; recheck levels . 5. Polynoidal cyst - Surgical consult if complications pers ist 6. Coronary artery disease (family histo ry) - Vascular consult for familial risk ass essment. RTO in about 8 weeks to cont est care and follow up on chronic conditions, sooner PRN. Labs today. Consent Patient was informed and verbally consented to the use of an ambient scribe for clinic note documentation during this visit. Total time spent caring for the patient today was 75 minutes. This includes time spent before the visit reviewing the chart, time spent during the visit, and time spent after the visit on documentation, reviewing laboratory results, diagnostic imaging, medications, performing a medically necessary evaluation, counseling on diagnoses, care coordination, ordering appropriate tests, ordering appropriate medications, review of tests performed by other providers, reporting test results with the patient, communication with other healthcare providers. [facility] Medical History (Updated 10/12/24 @ 10:32 by FORTINO Villafuerte-MARIANN) Anxiety Ectopic Hydradenitis Irregular menses Morbid obesity with BMI of 50.0-59.9, adult Obstructive sleep apnea hypopnea, moderate Pelvic cramping Skin lesion Sleep apnea Surgical History (Updated 10/11/24 @ 12:09 by FORTINO Villafuerte-MARIANN) Hx of cholecystectomy Hx of tonsillectomy Family History Mother Heart disease Vascular disease Father Lupus Pre-diabetes Paternal Grandfather Diabetes HTN (hypertension) Social History (Updated 10/11/24 @ 11:19 by Travis Frazier MA) Household Members: Children Household Members Other:: 8 yr old son, Housing: Apartment Are you a primary health care manager to a significant other at home: Yes Do you presently have visiting nurse or other home services: No Alcohol intake: current Alcohol intake frequency: holidays/special occasions only Patient Tobacco Use Status: Former Tobacco user Tobacco use type: Cigarette Cigarette Packs Per Day: 1 Cigarettes Per Day: 2 Years Smoked: 25 e-Cigarette/Vaping Use: Currently Using Second Hand Smoke Exposure: No Substance Use Type: Marijuana Advance Directives Date on File: 04/07/21 service: No Current occupational status: unemployed Gender identity: Female Cognitive needs: No Hearing needs: No Vision needs: Yes Female Reproductive History Menstrual Age of Menarche: 11 Questionnaire PHQ-9 Over the last 2 weeks, how often have you been bothered by any of the following problems? 1. Little interest or pleasure in doing things: not at all 2. Feeling down, depressed, or hopeless: not at all 3. Trouble falling or staying asleep, or sleeping too much: not at all 4. Feeling tired or having little energy: not at all 5. Poor appetite or overeating: not at all 6. Feeling bad about yourself - or that you are a failure or have let yourself or your family down: not at all 7. Trouble concentrating on things, such as reading the newspaper or watching television: not at all 8. Moving or speaking so slowly that other people could have noticed. Or the opposite - being so fidgety or restless that you have been moving around a lot more than usual: not at all 9. Thoughts that you would be better off or of hurting yourself in some way: not at all Total score: 0 Depression Screening Interpretation: Negative Depression Screening Done: Yes 26121 - PHQ-9 Billing: Yes Source: Developed by Drs. Jakc Deras, Arabella Dc, Damon Chowdary and colleagues, with an educational andres from [employer]. Thrive Questionnaire Date Thrive assessed: 10/11/24 I am a: Patient What is your living situation today?: I have a steady place to live Within the past 12 months, did the food you bought not last and you didn't have the money to get more?: Never true Within the past 12 months, did you worry whether your food would run out before you got money to buy more?: Never true Do you have trouble paying for medicines?: No Do you have trouble getting transportation to medical appointments?: No Do you have trouble paying your heating and electricity bill?: No Do you have trouble taking care of your child, family member or friend?: No Do you have trouble with day-to-day activities such as bathing, preparing meals, shopping, managing finances, etc.?: No Are you currently unemployed and looking for a job?: No Are you interested in more education?: No Please select the resources that you would like help with: None Currently or been in a relationship where the following occur: I choose not to answer THRIVE Score: 0 AUDIT C Alcohol Use Questionnaire (AUDIT-C) 1. How often do you have a drink containing alcohol?: Monthly or less 2. How many drinks containing alcohol do you have on a typical day when you are drinking?: 1 or 2 3. How often do you have six or more drinks on one occasion?: Monthly Total Score: 3 Score Reviewed/Action Taken: Yes YAMILET-7 AMB Questionnaire YAMILET-7 Date YAMILET - 7 assessed: 10/11/24 Feeling nervous, anxious, or on edge: 0 = Not at all Not being able to stop or control worryin = Not at all Worrying too much about different things: 0 = Not at all Trouble relaxin = Not at all Being so restless that it is hard to sit still: 0 = Not at all Becoming easily annoyed or irritable: 0 = Not at all Feeling afraid as if something awful might happen: 0 = Not at all Total YAMILET-7 score (0-4 normal; 5-9 mild; 10-14 moderate; 15-21 severe): 0 Source: Developed by Drs. Jack Deras, Arabella Dc, Damon Chowdary and colleagues, with an educational andres from [employer]. YAMILET-7 Assessment Billing YAMILET-7 Assessment Tool: YAMILET-7 Assessment 39402 Physical exam (Primary Care) Vital Signs: Last Vital Signs Temp 97.4 F 10/11/24 11:24 Pulse 97 10/11/24 11:24 Resp 13 10/11/24 11:24 BP 136/76 10/11/24 11:24 Pulse Ox 98 10/11/24 11:24 Oxygen Delivery Method Room Air 10/11/24 11:24 BMI result Body Mass Index 55.5 BMI Assessment/Plan discussion: High BMI High, discussed plan: lifestyle Tobacco/Smoking Status: Tobacco use Status Tobacco use date assessed 10/11/24 10/11/24 11:26 Patient Tobacco Use Status Former Tobacco user 10/11/24 11:26 Tobacco use type Cigarette 10/11/24 11:26 e-Cigarette/Vaping Use Currently Using 10/11/24 11:26 PHQ-9: PHQ-9 Score PHQ-9: Total score 0 10/11/24 17:33 Depression Screening Interpretation: Negative Thrive Assessment: Date of Thrive Assessment Date Thrive assessed 10/11/24 10/11/24 11:26 Currently or been in a relationship where the following occur: I choose not to answer Coding Level of Care Code Est Pt Level 5 (76576) Complex EM visit Add On G2211 Diagnoses Encounter to establish care Z76.89 Family history of early CAD Z82.49 Family history of vascular disease Z82.49 Vitamin D deficiency E55.9 Hidradenitis suppurativa L73.2 Pilonidal cyst without abscess L05.91 Migraine with aura and without status migrainosus, not intractable G43.109 Intractability: not intractable Obstructive sleep apnea hypopnea, moderate G47.33 Morbid obesity with BMI of 50.0-59.9, adult E66.01; Z68.43 Primary hypertension I10 Hypertension type: primary hypertension CPT Codes PROLONG OUTPT/OFFICE VIS - G2212 Additional Codes YAMILET-7 Assessment Billing - YAMILET-7 Assessment Tool: YAMILET-7 Assessment 86459 ([id number]) PHQ-9 - 00800 - PHQ-9 Billing: Yes ([id number]) Assessment & Plan Assessment & Plan (1) Encounter to establish care: Code(s): Z76.89 - Persons encountering health services in other specified circumstances (2) Family history of early CAD: Code(s): Z82.49 - Family history of ischemic heart disease and other diseases of the circulatory system Category: Medical (3) Family history of vascular disease: Code(s): Z82.49 - Family history of ischemic heart disease and other diseases of the circulatory system Category: Medical (4) Vitamin D deficiency: Code(s): E55.9 - Vitamin D deficiency, unspecified Category: Medical (5) Hidradenitis suppurativa: Code(s): L73.2 - Hidradenitis suppurativa Category: Medical (6) Pilonidal cyst without abscess: Code(s): L05.91 - Pilonidal cyst without abscess Category: Medical (7) Migraine with aura and without status migrainosus: Code(s): G43.109 - Migraine with aura, not intractable, without status migrainosus Category: Medical Qualifiers: Intractability: not intractable Qualified Code(s): G43.109 - Migraine with aura, not intractable, without status migrainosus (8) Obstructive sleep apnea hypopnea, moderate: Code(s): G47.33 - Obstructive sleep apnea (adult) (pediatric) Category: Medical (9) Morbid obesity with BMI of 50.0-59.9, adult: Comment: side effects from phentermine: high blood pressure, palpitations and frequent headaches Code(s): E66.01 - Morbid (severe) obesity due to excess calories; Z68.43 - Body mass index [BMI] 50.0-59.9, adult Category: Medical (10) HTN (hypertension): Code(s): I10 - Essential (primary) hypertension Category: Medical Qualifiers: Hypertension type: primary hypertension Qualified Code(s): I10 - Essential (primary) hypertension Plan . Orders: Orders Lipid Panel Today E55.9 - Vitamin D deficiency, unspecified, Z82.49 - Family history of ischemic heart disease and other diseases of the circulatory system Apolipoprotein A1 Today E55.9 - Vitamin D deficiency, unspecified, Z82.49 - Family history of ischemic heart disease and other diseases of the circulatory system Apolipoprotein B Today E55.9 - Vitamin D deficiency, unspecified, Z82.49 - Family history of ischemic heart disease and other diseases of the circulatory system Vitamin D 25-OH Total Today E55.9 - Vitamin D deficiency, unspecified, Z82.49 - Family history of ischemic heart disease and other diseases of the circulatory system Referrals Vascular Surgery Referral Z82.49 - Family history of ischemic heart disease and other diseases of the circulatory system Medications: Discontinued sumatriptan succinate Discontinued Reason: Patient no longer taking take 1 tab at onset of headache; if no relief, may repeat 1 tab after at least 2 hrs; max = 2 tabs/24 hrs PO 10 tabs 0RF Ubrelvy (ubrogepant) take one tablet 50mg PO at the onset of headache, if headache does not go away you may take one more 50mg tablet, do not exceeed more than 2 tablets within 24 hour period. Discontinued Reason: Patient Completed Course 50 mg PO ONCE 30 days PRN 16.2 tabs 1RF headaches MDD 50mg PO NS R51.9 - Headache, unspecified Patient Instructions: Walk-In Care (Urgent Care): We Make it Easy Walk-in for urgent medical issues such as: ? Seasonal Allergies ? Insect Bites ? Cough ? Diarrhea ? Acute Asthma Attacks ? Back, Knee or Joint Pain ? Ear Infection ? Fever without a Rash ? Headaches ? Nausea ? [place] [facility], Rash or Skin Irritation ? Sore Throat ? Sports Physicals ? Vomiting Most insurances are accepted. Patients do not need to be part of the [facility] to seek care at the walk-in clinic. Locations [address] [facility] [place] , [place] [address] ? [phone] [facility] Walk-In Care in [place] provides services to ages 18 and over. Open Wednesday-Wednesday: 8 a.m. to 5 p.m. and Wednesday: 9 a.m. to 3 p.m.* *Hours may vary due to staffing availability. To confirm Walk-In Care hours in [place], please call [phone]. [address] [place] [id number] ? [phone] [facility] Walk-In Care in [place] provides services to ages 12 and over. Open Wednesday-Wednesday: 8 a.m. to 5 p.m. Hours may vary due to staffing availability. To confirm Walk-In Care hours in [place], please call [phone]. LABORATORY SERVICES: [facility] Lab ? Primary Location [address] [place] [address] Wednesday through Wednesday 6:00 AM ? 5:00 PM Wednesday 7:00 AM ? 11:00 AM* [phone] The [facility] Lab is centrally located near the front entrance of the [facility] for easy outpatient access. Convenient parking is provided for outpatients. *Hours may vary due to staffing availability. To confirm Laboratory hours for any location, please call [phone]. Offsite Location For your convenience, we offer offsite laboratory draw stations at the following locations: [address] [place] [address] ? [facility] [address], [address] Wednesday through Wednesday 7:30 AM ? 1:00 PM* [phone] *Hours may vary due to staffing availability. To confirm Laboratory hours for any location, please call [phone]. [place] [address], [place] Wednesday through Wednesday 6:00 AM ? 3:30 PM* Wednesday 6:30 AM ? 3 PM* [phone] *Hours may vary due to staffing availability. To confirm Laboratory hours for any location, please call [phone]. [address] [facility] Wednesday through Wednesday 7:30 AM ? 4:00 PM* [phone] *Hours may vary due to staffing availability. To confirm Laboratory hours for any location, please call [phone]. [address] [facility] Wednesday through 9:00 AM ? 4:00 PM* *Hours may vary due to staffing availability. To confirm Laboratory hours for any location, please call [phone]. Appointments are not necessary. Walk-ins are welcome. Like all the departments throughout the [facility], our Lab undergoes frequent reviews to ensure the quality and accuracy of test results, and our staff takes special pride in its status as a nationally accredited facility. Patient Portal: ONE PATIENT. ONE RECORD. BETTER CARE. [facility] has a fully integrated, cutting- edge mobile electronic health information system that has revolutionized the way we care for our patients and manage our organization. This system improves communication and coordination enabling us to provide safe, higher-quality care, and an overall positive experience for staff and patients. Our first priority, as always, is to deliver the highest quality care possible. The system is running in the background supporting that priority. This portal is for all [facility] services and practices. If you are experiencing any technical difficulties with enrolling or logging into the Patient Portal please complete the [facility] Patient Portal Technical Support Form. [facility] now offers a new secure on-line interactive tool for patients to review their health information ? Patient Portal. This interactive web portal will enable patients and their families to take an active role in their care by providing easy, secure access to their health information via the internet. The Patient Portal provides patients with instant access to their health information, including laboratory results, medications, allergies, demographic information, visit history, and more. In addition to managing their own care, parents and health care proxies with authorized consent will appreciate the ability to access the records of those individuals for whom they provide care. Please note: if you wish to gain access (Proxy) to another patient?s portal, you will be required to come to the Medical Records Department in person at [facility]. Both the patient giving proxy access and the proxy will need to provide photo identification and complete the appropriate authorization. The Patient Portal also allows track their appointments online. The [facility] Patient Portal also saves patients time by allowing them to submit updates to their demographic and contact information prior to their visits. Portal email notifications will also alert patients to any new activity on their portal, such as test results and new appointments. In order to initially enroll in the [facility] Patient Portal, you will need to enter some required information including the following: ? your [facility] Medical Record number ? your personal home email address ? name ? date of Please note: In order to enroll in the [facility] Patient Portal, we need to have your email address on file in your electronic medical record. The email address needs to be specific for one person (yourself) in order for your Portal enrollment to be successful. You can update your email address in person with our Registration staff when you are registering for a hospital visit. Otherwise, you will need to come to the Health Information Management (Medical Records) Department at [facility]. We are open from Wednesday ? Wednesday from 7:30 a.m. ? 4:30 p.m. You will be required to present a photo id. Once you have successfully enrolled in the Patient Portal, you will receive a one-time user id and password for the Portal, sent to your email address. This will allow you to log into the Patient Portal within 99 hrs and reset your own logon id and password, and define personal security questions. Once your permanent login and password have been set, you can log into the [facility] Patient Portal at any time via the blue button above or from the Portal Logon button on any page of the [facility] website. [facility] and [facility] encourage all of our patients to enroll in Patient Portal as it presents a valuable opportunity for patients and their families to actively participate in their care and stay healthy Welcome to [facility]. We look forward to working with you.
[2024-10-11 11:24] VITALS: BP 136/76; PULSE 97; RESP 13; TEMP 36.3; O2SAT 98; BMI 55.5
--- OUTSIDE RECORDS SUMMARY | 2024-10-11 12:33 | XMS_ITS | Clinical Summary ---
Author Organization 175 [facility] Address [address] [place] [address] Phone Care Team Providers Care Copy Center Specialist Name Role Phone Madina Corado MD Primary Care Provider [phone] Social History Tobacco Use Types Packs/Day Years Used Date Smoking Tobacco: Never Assessed Comments Unknown Sex and Gender Information Value Date Recorded Sex Assigned at Not on file Legal Sex Female 4:50 AM EST Gender Identity Not on file Sexual Orientation Not on file Plan of Treatment Upcoming Encounters Date Type Department Care Team ([facility] Contact Info) Description 12/26/2024 3:00 PM EDT Office Visit Orthopedic Surgery - [place] [address] [phone] Jimbo Mariee, DPM [address] [address] Health Maintenance Due Date Last Done Comments [...] patient's age to complete this topic Insurance [facility] Care Teams Copy Center Specialist Relationship Specialty Start Date End Date Madina Corado MD [address] [place] [phone] PCP - General Internal Medicine 08/02/24
== END 2024-10-11 12:22 | disposition home or self-care (01) ==
LOC: HO.HMCFM 11:16
PROVIDERS: PCP Nurse Practitioner Family; Visit Provider Nurse Practitioner Family
DX: L05.91 Pilonidal cyst without abscess (principal); E66.01 Morbid (severe) obesity due to excess calories; Z68.43 Body mass index [BMI] 50.0-59.9, adult; E55.9 Vitamin D deficiency, unspecified; Z76.89 Persons encountering health services in other specified circumstances; Z82.49 Family history of ischemic heart disease and other diseases of the circulatory system; L73.2 Hidradenitis suppurativa; G43.109 Migraine with aura, not intractable, without status migrainosus; G47.33 Obstructive sleep apnea (adult) (pediatric); I10 Essential (primary) hypertension

== ENCOUNTER → 2024-10-11 11:15 | Outpatient (BNVA) | payer OTHER, SELFPAY | PROVIDERS: PCP Nurse Practitioner Family; Visit Provider Nurse Practitioner Family | DX: E66.01 Morbid (severe) obesity due to excess calories (principal); E55.9 Vitamin D deficiency, unspecified; I10 Essential (primary) hypertension; G47.33 Obstructive sleep apnea (adult) (pediatric); L73.2 Hidradenitis suppurativa; L05.91 Pilonidal cyst without abscess; G43.109 Migraine with aura, not intractable, without status migrainosus; Z68.43 Body mass index [BMI] 50.0-59.9, adult; Z76.89 Persons encountering health services in other specified circumstances; Z82.49 Family history of ischemic heart disease and other diseases of the circulatory system | CPT/HCPCS: 96127; 99212 ==

== ENCOUNTER 2024-10-12 09:36 | Outpatient (REF) | payer OTHER, SELFPAY ==
--- OUTSIDE RECORDS SUMMARY | 2024-10-12 09:53 | XMS_ITS | Clinical Summary ---
Author Organization 175 [facility] Address [address] [place] [address] Phone Care Team Providers Care First Aid Trainer Name Role Phone Madina Corado MD Primary Care Provider [phone] Social History Tobacco Use Types Packs/Day Years Used Date Smoking Tobacco: Never Assessed Comments Unknown Sex and Gender Information Value Date Recorded Sex Assigned at Not on file Legal Sex Female 4:50 AM EST Gender Identity Not on file Sexual Orientation Not on file Plan of Treatment Upcoming Encounters Date Type Department Care Team ([facility] Contact Info) Description 12/26/2024 3:00 PM EDT Office Visit Orthopedic Surgery - [place] [address] [phone] Jimbo Mariee, DPM [address] [address] Health Maintenance Due Date Last Done Comments [...] patient's age to complete this topic Insurance [facility] Care Teams First Aid Trainer Relationship Specialty Start Date End Date Madina Corado MD [address] [place] [phone] PCP - General Internal Medicine 08/02/24
[2024-10-12 11:37] LABS: Cholesterol 184 mg/dL (<200); HDL Cholesterol 39 mg/dL (>40); LDL Cholesterol Calculated 114 mg/dL (<100); Triglycerides 157 mg/dL (<150)
[2024-10-12 11:56] LABS: Vitamin D 25-OH Total 13.6 ng/mL (>30)
[2024-10-15 22:29] LABS: Apolipoprotein A1 125 mg/dL (>=125); Apolipoprotein B 108 mg/dL (<90)
== END 2024-10-12 09:37 | disposition home or self-care (01) ==
LOC: HO.LAB 09:36
PROVIDERS: PCP Nurse Practitioner Family; Visit Provider Nurse Practitioner Family
DX: E55.9 Vitamin D deficiency, unspecified (principal); Z82.49 Family history of ischemic heart disease and other diseases of the circulatory system
CPT/HCPCS: 36415; 80061; 82172; 82306

== ENCOUNTER 2024-12-05 10:24 | Outpatient (AMB) | payer OTHER, SELFPAY ==
--- NOTE | 2024-12-05 10:39 | A.OFFPC_ITS ---
Vital Signs 12/05/24 10:48 Height 5 ft 8 in Weight 365 lb 2 oz BMI 55.5 BP 124/70 Blood Pressure Location Lt brachial Position Sitting Respiration 12 Pulse 77 Pulse Source Pulse Oximeter Temp 97.2 F Temp Source Oral Pulse Oximetry (%) 98 Oxygen Delivery Method Room Air Intake Visit Reasons: 8 weeks 30 min fu on labs and cont to est care Intake Note: Follow up to review labs. Patient c/o having two bumps on tongue when on her menstrual cycle and painful and burning sensation when talking. Patient also has question about a shot she gets with dermatology. Job Placement Specialist Required: No Allergies phentermine Adverse Reaction (Mild, Verified 12/05/24 11:00) htn Medication List - Last Reconciled 12/05/24 by FORTINO Villafuerte-MARIANN acetaminophen ER (Tylenol 8 Hour) 650 mg PO Q8H PRN albuterol sulfate 90 mcg/actuation 2 inhalations inhalation Q4-6H PRN albuterol sulfate 90 mcg/actuation 2 puffs inhalation Q4-6H PRN cholecalciferol (vitamin D3) 50 mcg PO DAILY ibuprofen 600 mg PO Q6H PRN minocycline 100 mg PO BID naratriptan 2.5 mg PO Q4H PRN 30 days MDD 5mg secukinumab (Cosentyx UnoReady Pen) mg subcut terconazole 0.8% 1 appful vaginal BEDTIME 3 days tirzepatide (weight loss) 5 mg (0.5 mL) subcut QWEEK 30 days triamcinolone acetonide 0.025% appl topical DAILY valsartan 80 mg PO BID Tobacco use date assessed: 12/05/24 Dental Screening Dental Screen Date: 12/05/24 Did you have a dental visit in the last 12 months?: Yes Did you have a dental problem in the last 6 months where you did not have access to dental care?: No Was dental information given to patient?: Patient has dentist HPI HPI Comments History of Present Illness Details Ally 34 y/o F with morbid obesity, fatty live r, reactive airway disease, hx of ectopic prengnancy, Hidradenitis Supprativa, Vit D def, HTN, family hx of early CAD (Mom CT & Vfib arrest age 40's), family hx of vascular disease (Mom extensive Vascular disease) , HLD, elevated apolipoprotein B s/p lap gregg, R salpingectomy s/p ectopic 2023 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 - Referral for vascular concerns on hold until imaging obtained, this is ordered and pending. - complaining of bilat leg pain, worse w / walking, pelvic pain and back pain. Has swelling of lower ext that seems to be worse of late. Discoloration of her skin, purple/pink when dependent. Does not have any open areas or nonhealing sores. Does not have DM. Reports numbness in legs after prolonged sitting. Numbness in bilat arms while sleeping. Denies any chest pain. In regards to breathing, does have asthma and can have SOB at times. - Persistent pilonidal cyst requiring cardona rgical consultation; she wants to wait til she has time off from work to schedule this. - Work demands impacting sleep; chronic headaches ; active w/ Neuro - High cholesterol & vitamin D deficienc y noted on recent labs. - Caregiver role strain, taking care of Mom who had surgery - Frustrated not losing wt. [facility] app[facility] scheduled next month. - HS not controlled on current meds, Osvaldo m. Review of Systems - General: Reports sleep disruptions. - Cardiovascular: Reports high cholester ol; denies recent chest pain or palpitations. - Neurological: Reports chronic headache s. - Skin: Reports intermittent drainage fr om pilonidal cyst. - Musculoskeletal: Denies new joint pain or muscle weakness. - Endocrine: Reports vitamin D deficienc y. Physical Exam General: Well developed, well nourished, in no acute distress. Appears stated age. Head: Normocephalic, atraumatic. Eyes: Pupils are equal, round and reactive to light and accommodation. Conjunctivae are clear. Lungs: Clear to auscultation bilaterally. Dim throughout. Heart: Regular rate and rhythm. No murmurs, click, rubs or gallops are noted. Pulses: Peripheral pulses are difficult to palpate given body habitus. Bilat feet are warm to touch, toe nails are thickened. Skin is intact. She has nonpitting edema BLE. Her skin of lower ext is pink with what looks like keratosis pilaris. : draining pilonidal cyst, no erythema, no warmth. Psych: Mood and affect appropriate. Reports of generalized anxiety disorder. Results - Labs: Vitamin D level is low at 13 - Cholesterol levels are high - See below Discussion Notes I discussed with the patient the importance of managing elevated cholesterol levels due to her genetic predisposition and the potential benefits of starting atorvastatin therapy. We also reviewed the nature and ongoing issues with the pilonidal cyst and the plan for surgical intervention. I explained the connection between inadequate sleep and metabolic concerns, emphasizing the role of restorative sleep in overall health. The patient is to follow up with the vascular provider pending imaging results, and I have initiated communication regarding further management of her condition. I reassured her of ongoing support in managing her healthcare needs. Assessment and Plan 1. Vascular concerns - Follow-up planned after imaging result s 2. Pilonidal cyst - Surgical consult when she has time 3. Sleep disturbance - active w/ [facility] neuro 4. Headaches - Neurology consultation ongoing 5. Vitamin D deficiency - Vitamin D supplementation prescribed, take as directed. 6. Hypercholesterolemia - Atorvastatin initiated Cards consult in place and scheduled. 7. Obesity scheduled w/ [facility] Patient Instructions - Take atorvastatin daily as prescribed for cholesterol management. - Continue Vitamin D supplementation yobani ly. - Follow up with vascular specialist upo n completion of imaging. - Take precautions to prevent pilonidal cyst irritation until surgery. - Monitor sleep quality and maintain con sistent sleep schedule. - Schedule follow-up appointments as nee ded for condition management. - RT0 3 MONTS TO FU ON VASCULAR TESTING, REPEAT LABS DUE Consent Patient was informed and verbally consented to the use of an ambient scribe for clinic note documentation during this visit. Total time spent caring for the patient today was 45 minutes. This includes time spent before the visit reviewing the chart, time spent during the visit, and time spent after the visit on documentation, reviewing laboratory results, diagnostic imaging, medications, performing a medically necessary evaluation, c ounseling on diagnoses, care coordination, ordering appropriate tests, ordering appropriate medications, review of tests performed by other providers, reporting test results with the patient, communication with other healthcare providers. PFSH Medical History (Updated 12/05/24 @ 15:01 by Carolyne Yancey [facility]) Anxiety Ectopic Hydradenitis Irregular menses Morbid obesity with BMI of 50.0-59.9, adult Obstructive sleep apnea hypopnea, moderate Pelvic cramping Skin lesion Sleep apnea Surgical History (Updated 10/11/24 @ 12:09 by Carolyne Yancey [facility]) Hx of cholecystectomy Hx of tonsillectomy Family History Mother Heart disease Vascular disease Father Lupus Pre-diabetes Paternal Grandfather Diabetes HTN (hypertension) Social History (Updated 10/11/24 @ 11:19 by Travis Frazier MA) Household Members: Children Household Members Other:: 8 yr old son, Both parents involved: No Caregiver staying overnight: No Housing: Apartment Are you a primary laboratory animal caretaker to a significant other at home: Yes Do you presently have visiting nurse or other home services: No 75 years or older and lives alone: No Alcohol intake: current Alcohol intake frequency: holidays/special occasions only Patient Tobacco Use Status: Former Tobacco user Tobacco use type: Cigarette Cigarette Packs Per Day: 1 Cigarettes Per Day: 2 Years Smoked: 25 e-Cigarette/Vaping Use: Currently Using Second Hand Smoke Exposure: No Substance Use Type: Marijuana Advance Directives Date on File: 04/07/21 service: No Current occupational status: unemployed Gender identity: Female Cognitive needs: No Hearing needs: No Vision needs: Yes Female Reproductive History Menstrual Age of Menarche: 11 Questionnaire Thrive Questionnaire Date Thrive assessed: 07/14/24 I am a: Patient What is your living situation today?: I have a steady place to live Within the past 12 months, did the food you bought not last and you didn't have the money to get more?: Never true Within the past 12 months, did you worry whether your food would run out before you got money to buy more?: Never true Do you have trouble paying for medicines?: No Do you have trouble getting transportation to medical appointments?: No Do you have trouble paying your heating and electricity bill?: No Do you have trouble taking care of your child, family member or friend?: No Do you have trouble with day-to-day activities such as bathing, preparing meals, shopping, managing finances, etc.?: No Are you currently unemployed and looking for a job?: No Are you interested in more education?: No Please select the resources that you would like help with: None Currently or been in a relationship where the following occur: I choose not to answer THRIVE Score: 0 YAMILET-7 AMB Questionnaire YAMILET-7 Date YAMILET - 7 assessed: 10/11/24 Source: Developed by Drs. Jack Deras, Arabella Dc, Damon Chowdary and colleagues, with an educational andres from [employer]. Physical exam (Primary Care) Vital Signs: Last Vital Signs Temp 97.2 F 12/05/24 10:48 Pulse 77 12/05/24 10:48 Resp 12 12/05/24 10:48 BP 124/70 12/05/24 10:48 Pulse Ox 98 12/05/24 10:48 Oxygen Delivery Method Room Air 12/05/24 10:48 BMI result Body Mass Index 55.5 Tobacco/Smoking Status: Tobacco use Status Tobacco use date assessed 12/05/24 12/05/24 10:42 Patient Tobacco Use Status Former Tobacco user 12/05/24 10:42 Tobacco use type Cigarette 12/05/24 10:42 e-Cigarette/Vaping Use Currently Using 12/05/24 10:42 Thrive Assessment: Date of Thrive Assessment Date Thrive assessed 07/14/24 12/05/24 10:42 Currently or been in a relationship where the following occur: I choose not to answer Coding Level of Care Code Est Pt Level 5 (38502) Complex EM visit Add On G2211 Diagnoses Morbid obesity with BMI of 50.0-59.9, adult E66.01; Z68.43 Pilonidal cyst without abscess L05.91 Mixed hyperlipidemia E78.2 Hyperlipidemia type: mixed hyperlipidemia Family history of vascular disease Z82.49 Family history of early CAD Z82.49 Hidradenitis suppurativa L73.2 Vitamin D deficiency E55.9 Migraine with aura and without status migrainosus, not intractable G43.109 Intractability: not intractable Assessment & Plan Assessment & Plan (1) Morbid obesity with BMI of 50.0-59.9, adult: Comment: side effects from phentermine: high blood pressure, palpitations and frequent headaches Code(s): E66.01 - Morbid (severe) obesity due to excess calories; Z68.43 - Body mass index [BMI] 50.0-59.9, adult Category: Medical (2) Pilonidal cyst without abscess: Comment: has referral to Gen Surg she will schedule when she has time Code(s): L05.91 - Pilonidal cyst without abscess Category: Medical (3) HLD (hyperlipidemia): Onset Date: ~09/2024 Comment: + apolipoprotein B elevated 11/2024 start atorvastatin 20mg QD Cards f/u scheduled Code(s): E78.5 - Hyperlipidemia, unspecified Category: Medical Qualifiers: Hyperlipidemia type: mixed hyperlipidemia Qualified Code(s): E78.2 - Mixed hyperlipidemia (4) Family history of vascular disease: Comment: mom Code(s): Z82.49 - Family history of ischemic heart disease and other diseases of the circulatory system Category: Medical (5) Family history of early CAD: Comment: mom Code(s): Z82.49 - Family history of ischemic heart disease and other diseases of the circulatory system Category: Medical (6) Hidradenitis suppurativa: Comment: ACTIVE W/ DERM ON COSENTYX POORLY MANAGED IN BILAT AXILLA Code(s): L73.2 - Hidradenitis suppurativa Category: Medical (7) Vitamin D deficiency: Comment: start vit d3 Code(s): E55.9 - Vitamin D deficiency, unspecified Category: Medical (8) Migraine with aura and without status migrainosus: Code(s): G43.109 - Migraine with aura, not intractable, without status migrainosus Category: Medical Qualifiers: Intractability: not intractable Qualified Code(s): G43.109 - Migraine with aura, not intractable, without status migrainosus Plan . Orders: Orders Vitamin D 25-OH Total 3 Months E55.9 - Vitamin D deficiency, unspecified, E78.2 - Mixed hyperlipidemia Lipid Panel 3 Months E55.9 - Vitamin D deficiency, unspecified, E78.2 - Mixed hyperlipidemia Medications: New atorvastatin (Lipitor) 20 mg PO BEDTIME 90 tabs 2RF
[2024-12-05 10:48] VITALS: BP 124/70; PULSE 77; RESP 12; TEMP 36.2; O2SAT 98; BMI 55.5
--- OUTSIDE RECORDS SUMMARY | 2024-12-05 11:37 | XMS_ITS | Clinical Summary ---
Author Organization 175 [facility] Address [address] [place] [address] Phone Care Team Providers Care Informatica Architect Name Role Phone Madina Corado MD Primary Care Provider [phone] Social History Tobacco Use Types Packs/Day Years Used Date Smoking Tobacco: Never Assessed Comments Unknown Sex and Gender Information Value Date Recorded Sex Assigned at Not on file Legal Sex Female 4:50 AM EST Gender Identity Not on file Sexual Orientation Not on file Plan of Treatment Upcoming Encounters Date Type Department Care Team ([facility] Contact Info) Description 12/26/2024 3:00 PM EDT Office Visit Orthopedic Surgery - [place] [id number] [address] [phone] Jimbo Mariee, DPM [address] [address] Health Maintenance Due Date Last Done Comments DTaP,Tdap,and Td Vaccines (1 - Tdap) 2011 Hepatitis B Vaccines (1 of 3 - 19+ 3-dose series) 2011 Cervical Cancer Screening: P ap Smear 2013 COVID-19 Vaccine ( - 2023-2 5 season) 2024 Depression Screening 08/02/2024 HIV Screening 08/02/2024 Hepatitis C Screening 08/02/2024 Social Influencers of Health Screening 08/02/2024 Influenza Vaccine (#1) 2025 HIB Vaccines Aged Out No longer [...] 5 Years) and At-Risk Patients (6 to 49 Years) Aged Out No longer eligible b ased on patient's age to complete this topic RSV Immunization Patients Un loida 20 months Aged Out No longer eligible b ased on patient's age to complete this topic Varicella Vaccines Aged Out No longer eligible based on patient's age to complete this topic Insurance [facility] Care Teams Informatica Architect Relationship Specialty Start Date End Date Madina Corado MD [address] [place] [phone] PCP - General Internal Medicine 08/02/24
== END 2024-12-05 11:23 | disposition home or self-care (01) ==
LOC: HO.HMCFM 10:24
PROVIDERS: PCP Nurse Practitioner Family; Visit Provider Nurse Practitioner Family
DX: L05.91 Pilonidal cyst without abscess (principal); E66.01 Morbid (severe) obesity due to excess calories; Z68.43 Body mass index [BMI] 50.0-59.9, adult; E78.2 Mixed hyperlipidemia; Z82.49 Family history of ischemic heart disease and other diseases of the circulatory system; L73.2 Hidradenitis suppurativa; E55.9 Vitamin D deficiency, unspecified; G43.109 Migraine with aura, not intractable, without status migrainosus

== ENCOUNTER → 2024-12-05 10:24 | Outpatient (BNVA) | payer OTHER, SELFPAY | PROVIDERS: PCP Nurse Practitioner Family; Visit Provider Nurse Practitioner Family | DX: I10 Essential (primary) hypertension (principal); E66.01 Morbid (severe) obesity due to excess calories; E55.9 Vitamin D deficiency, unspecified; E78.5 Hyperlipidemia, unspecified; H51.9 Unspecified disorder of binocular movement; E78.00 Pure hypercholesterolemia, unspecified; L05.91 Pilonidal cyst without abscess; E78.2 Mixed hyperlipidemia; G43.109 Migraine with aura, not intractable, without status migrainosus; Z82.49 Family history of ischemic heart disease and other diseases of the circulatory system; Z68.43 Body mass index [BMI] 50.0-59.9, adult | CPT/HCPCS: 99212 ==

== ENCOUNTER 2025-01-29 10:30 | Outpatient (AMB) | payer OTHER, SELFPAY ==
[2025-01-29 10:33] VITALS: PULSE 99; O2SAT 97; BMI 54.7
--- NOTE | 2025-01-29 10:33 | MHC.OFFVIS ---
Vital Signs 01/29/25 10:33 Height 5 ft 8 in Weight 360 lb BMI 54.7 Pulse 99 Pulse Source Pulse Oximeter Pulse Oximetry (%) 97 Oxygen Delivery Method Room Air Intake Visit Reasons: 4m follow up Intake Note: Patient presents follow up TYRON/migraine. No compliance. States still drowning her and not using machine. Patient states she hs been up for last 48hrs. State pressure on her chest/shoulders cant take deep breath. Accompanied by: Self / Same As Patient Allergies phentermine Adverse Reaction (Mild, Verified 01/29/25 22:33) htn HPI Comments Details: 34 y/o female patient with asthma presents for follow up of severe TYRON. HST c/w moderate degree of sleep apnea, her AHI was 22/hr and oxygen Je to 82%. Titration completed 05/2024 oxygen and breathing stabilized at [id number]. She got a new tube and supplies, however still feels like she is being smothered by her mask as she continues to be claustrophobic. We discussed using the mask and cpap machine 2 hours daily while watching tv so she can get acclimated to using her machine. Pressures and temperatures can be adjusted via settings with a cpap mentor. Humidity and condensation will be eliminated as she is able to use her device and understand the features better. Titration completed and can still adjust pressures by 2cmH20 if pressures are still too strong. She has a history of asthma on two inhalers.. She is napping daily for 1-2 hours. She also notices there is water condensation in the tubes in the morning, she called home care company and was tried on different settings, however the machine continues to blow humid air into the hoses. 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 She continues to have stiffness in her neck and shoulders and has pressure headaches that migrate up to the temples lasting 1- 2 hours every other day with pulsating pain in the eyes. 8/10 for hours and will. Aura:a disco ball which gets wider and bigger into a flashing [place], line, that looks She takes tylenolol as needed. [facility] Medical History Ectopic Obstructive sleep apnea hypopnea, moderate Irregular menses Hydradenitis Pelvic cramping Anxiety Sleep apnea Skin lesion Morbid obesity with BMI of 50.0-59.9, adult Surgical History Hx of cholecystectomy Hx of tonsillectomy Family History Mother Heart disease Vascular disease Father Lupus Pre-diabetes Paternal Grandfather Diabetes HTN (hypertension) Social History Household Members: Children Household Members Other:: 8 yr old son, Housing: Apartment Are you a primary home health care social worker to a significant other at home: Yes Do you presently have visiting nurse or other home services: No Alcohol intake: current Alcohol intake frequency: holidays/special occasions only Patient Tobacco Use Status: Former Tobacco user Tobacco use type: Cigarette Cigarette Packs Per Day: 1 Cigarettes Per Day: 2 Years Smoked: 25 e-Cigarette/Vaping Use: Currently Using Second Hand Smoke Exposure: No Substance Use Type: Marijuana Advance Directives Date on File: 04/07/21 Do you have a plan to hurt others: No Plan service: No Current occupational status: unemployed Gender identity: Female Cognitive needs: No Hearing needs: No Vision needs: Yes Female Reproductive History Menstrual Age of Menarche: 11 Physical Exam Vital Signs: Last Vital Signs Pulse 99 01/29/25 10:33 Pulse Ox 97 01/29/25 10:33 Oxygen Delivery Method Room Air 01/29/25 10:33 BMI result Body Mass Index 54.7 Const General: cooperative Nutritional Appearance: obese Orientation/consciousness: patient oriented x3 HEENT Throat: Yes other (mallampati grade 4) Eyes Pupils: Equal, round and reactive pupils present Neck Neck: Yes full ROM and Yes supple Resp Effort & Inspection: normal respiratory effort and able to speak in complete sentences Neuro General: patient oriented x3, gait normal and moves all extremities Cranial nerves: Yes Facial sensation intact/muscles of mastication intact, Yes Equal, round and reactive pupils present, Yes Normal accommodation reflex present, Yes Normal facial strength present, Yes Midline tongue present, Yes Ability to bilaterally rotate head present and Yes Ability to bilaterally elevate shoulders present Cognition (Neuro): normal cognition Motor exam (neuro): 5/5 motor strength present throughout and Normal motor muscle tone present throughout Psych Appearance: grossly normal Thought process: Normal thought process present Thought content: Normal thought content present Results Reviewed Results Reviewed: HST reviewed with pt. she has severe tyron. Assessment & Plan Assessment & Plan (1) Obstructive sleep apnea hypopnea, moderate: Comment: mask fitting Code(s): G47.33 - Obstructive sleep apnea (adult) (pediatric) Category: Medical (2) Vitamin D deficiency: Comment: start vit d3 Code(s): E55.9 - Vitamin D deficiency, unspecified Category: Medical (3) New onset headache: Code(s): R51.9 - Headache, unspecified Category: Medical Plan TYRON titration study was completed start CPAP at [id number]. Mask is uncomfortable, send for mask fitting. Ordered supplies for non-heated tubing today, and pt to contact [facility] with any adjustments needed for humidifier setting adjustments and download the Med[employer]centive kallie. may adjust her temperature settings to compensate for condensation. Labs reviewed continue taking Vitamin D supplement daily. Monitor headaches/ frequency naratriptan r/f. /a month Asthma f/u with pcp for r/f and evaluation as she is a former smoker of cigarettes and MJ. Will trial her on Ubrelvy if Naritritptan is not effective Sumatriptan is a C/I to HTN. Patient Instructions: Sleep Hygiene provided: set a scheduled bedtime and wake time to help regulate the circadian rhythm and balance the release of pituitary hormones. Sleep in a dark room, temperatures below 68 degrees, and no devices n bed. Limit caffeinated products 6 hours prior to bed, and limit fluids 2-4 hours prior to bed. Gentle night yoga, diffusing essential oils, and playing soft music can be relaxing. Coding Level of Care Code Est Pt Level 4 (48835) Diagnoses Obstructive sleep apnea hypopnea, moderate G47.33 Vitamin D deficiency E55.9 New onset headache R51.9
--- OUTSIDE RECORDS SUMMARY | 2025-01-29 12:41 | XMS_ITS | Clinical Summary ---
Author Organization 175 [facility] Address [address] [place] [address] Phone Care Team Providers Care Yard Loader Operator Name Role Phone Madina Corado MD Primary Care Provider [phone] Social History Tobacco Use Types Packs/Day Years Used Date Smoking Tobacco: Never Assessed Comments Unknown Sex and Gender Information Value Date Recorded Sex Assigned at Not on file Legal Sex Female 4:50 AM EST Gender Identity Not on file Sexual Orientation Not on file Plan of Treatment Upcoming Encounters Date Type Department Care Team ([facility] Contact Info) Description 02/13/2025 3:00 PM EDT Office Visit Orthopedic Surgery [place] [phone] [address] Jimbo Mariee, DPM [address] [address] Health Maintenance Due Date Last Done Comments DTaP,Tdap,and Td Vaccines (1 - Tdap) 2011 Hepatitis B Vaccines (1 of 3 - 19+ 3-dose series) 2011 Cervical Cancer Screening: P ap Smear 2013 Depression Screening 05/24/2024 HIV Screening 08/02/2024 Hepatitis C Screening 08/02/2024 Social Influencers of Health Screening 08/02/2024 COVID-19 Vaccine (2023-2 5 season) 2025 Influenza Vaccine (#1) 2025 HIB Vaccines Aged [...] patient's age to complete this topic Insurance [address] [place] [address] MEDICAID - [place] Care Teams Yard Loader Operator Relationship Specialty Start Date End Date Madina Corado MD [address] [place] [address] PCP - General Internal Medicine 08/02/24
== END 2025-01-29 11:27 | disposition home or self-care (01) ==
LOC: HO.HSMS 10:31
PROVIDERS: Visit Provider Physician Assistant Medical
DX: G47.33 Obstructive sleep apnea (adult) (pediatric) (principal); E55.9 Vitamin D deficiency, unspecified; R51.9 Headache, unspecified
CPT/HCPCS: 99214

== ENCOUNTER → 2025-01-29 10:30 | Outpatient (BNVA) | payer OTHER, SELFPAY | PROVIDERS: Visit Provider Physician Assistant Medical | DX: G47.33 Obstructive sleep apnea (adult) (pediatric) (principal); E55.9 Vitamin D deficiency, unspecified; R51.9 Headache, unspecified; J45.909 Unspecified asthma, uncomplicated; Z87.891 Personal history of nicotine dependence | CPT/HCPCS: 99212 ==

== ENCOUNTER 2025-01-29 22:08 | Emergency (ER) | payer OTHER, SELFPAY ==
--- NOTE | 2025-01-29 | ECG_ITS ---
Test Reason : CP Blood Pressure : */* mmHG Vent. Rate : 93 BPM Atrial Rate : 93 BPM P-R Int : 118 ms QRS Dur : 88 ms QT Int : 354 ms P-R-T Axes : 21 12 15 degrees QTcB Int : 440 ms Normal sinus rhythm Normal ECG When compared with ECG of 05-Jul-2024 19:08, No significant change was found Referred By: Generic ED Physician Electronically Signed By: CHANTE MIRELES MD
--- NOTE | ~2025-01-29 | XR_ITS ---
CLINICAL HISTORY: Chest pain SOB 1 view chest x-ray. Comparison: CR - XR CHEST 2V - 07/05/24 17:08 EST Findings: Lung volumes are small. There is hazy opacity in the lungs amdcg-rgspvuf-gopg-left. Cardiomediastinal silhouette is within normal limits. IMPRESSION: Hazy opacity in the lungs muwng-xokkfsu-ynao-left which may be secondary to small lung volumes, however mild edema or pneumonitis is difficult to exclude. Consider follow-up upright PA chest radiograph with better inspiration. This document has been electronically signed by: Gonzalo Inman MD on 01/30/2025 03:26:11
--- NOTE | ~2025-01-29 | CT_ITS ---
CLINICAL HISTORY: SOB, eleavted dimer CT angiography chest with contrast. 3D Postprocessing. Comparison: CR - XR CHEST 1V - 01/30/25 02:38 EDT Findings: The heart is normal size. RV/LV ratio is normal. Unremarkable thoracic aorta and great vessels. No aneurysm. No central or proximal segmental pulmonary embolism. The visualized thyroid and mediastinum are unremarkable. Zmjuv-ia-ballirda right effusion. Streaky right basilar densities. The visualized upper abdomen is unremarkable. Impression: No evidence pulmonary embolism. Distal branching is not entirely well evaluated based on motion artifact. Lnhof-sb-vpqvrlhc right effusion with streaky right basilar densities. Pneumonia versus atelectasis. This document has been electronically signed by: Bernard Ogden MD on 01/30/2025 05:25:23
[2025-01-29 22:31] VITALS: BP 114/65; PULSE 98; RESP 20; TEMP 36.6; O2SAT 100; BMI 54.7
[2025-01-29 22:42] LABS: MANUAL DIFF FLAG NO
[2025-01-29 22:43] LABS: Hematocrit 36.5 % (37.0-47.0); Hemoglobin 12.3 g/dl (12.0-16.0); Imm Gran Abs Auto 0.10 X10*3/uL (0.00-0.03); Imm Gran Pct Auto 0.6 % (0.0-0.4); Lymphocytes Absolute Auto 3.0 X10*3/uL (1.2-4.9); Mean Corpuscular HGB Conc 33.7 g/dl (31.0-35.0); Mean Corpuscular Hemoglobin 28.1 pg (27.0-33.0); Mean Corpuscular Volume 83.5 fL (80.0-98.0); NRBC Abs Auto 0.000 X10*3/uL (0.0-0.012); NRBC Pct Auto 0.0 /100WBC (0.0-0.2); Platelet Count 321 X10*3/uL (160-400); Red Blood Count 4.37 X10*6/uL (4.20-5.50); White Blood Count 16.1 X10*3/uL (4.8-10.8)
[2025-01-29 23:00] LABS: Alanine Aminotransferase 15 U/L (0-31); Albumin Level 4.0 g/dL (3.5-5.0); Alkaline Phosphatase 82 U/L (39-117); Anion Gap 13 (12-20); Aspartate Amino Transferase 14 U/L (5-31); Blood Urea Nitrogen 11 mg/dL (9-16); Calcium 9.0 mg/dL (8.4-10.2); Carbon Dioxide 26 mmol/L (22-29); Chloride 106 mmol/L (96-108); Creatinine Clr Calc Pharmacy 194.3; Estimated Glomerular Filt Rate > 60; Potassium 3.9 mmol/L (3.3-5.1); Sodium 141 mmol/L (135-145); Total Protein 7.0 g/dL (6.5-8.0)
[2025-01-29 23:07] LABS: Troponin-I High Sensitivity < 2.7 ng/L (<3.5-17.0)
[2025-01-30 02:22] VITALS: PULSE 93; RESP 20
--- NOTE | 2025-01-30 02:32 | ED_ITS ---
HPI - Chest Pain General Chief Complaint: Chest Pain Stated Complaint: SOB; heart feels weird Time Seen by Provider: 01/30/25 02:25 Source: patient Limitations: no limitations History of Present Illness ED Provider: Mabel Lance PA-C HPI narrative: 34-year-old female with a history of hypertension, hyperlipidemia, morbid obesity, TYRON, hirsutism, migraines, hidradenitis suppurativa who presents with chest pain. Patient states she developed right-sided chest discomfort earlier today. Patient states the pain originates in right shoulder blade, radiates to anterior chest. Pain is pleuritic, worse with deep breathing. Patient states her mother was just diagnosed with a ?blood disorder?. She is not sure what condition she has. Denies recent cough or cold symptoms, new shortness of breath, fever. Related Data Home Medications ?Medication ?Instructions ?Recorded ?Confirmed triamcinolone acetonide 0.025 % appl topical DAILY 12/05/24 topical cream minocycline 100 mg capsule 100 mg PO BID 10/11/2411/21 secukinumab 300 mg/2 mL mg subcut 10/11/24 12/05/24 subcutaneous pen injector (Cosentyx UnoReady Pen) alcohol swabs (Alcohol Prep Pads) pad topical DIREC BILL 01/29/25 empty container (Sharps Container) ea miscellaneous DIRECTED 01/29/25 Previous Rx's ?Medication ?Instructions ?Recorded albuterol sulfate 90 mcg/actuation 2 inh inhalation Q4 -6H PRN 07/11/23 breath activated powder inhaler shortness of breath or wheezing #1 ea acetaminophen 650 mg 650 mg PO Q8H PRN pain #30 t abs 10/28/23 tablet,extended release (Tylenol 8 Hour) ibuprofen 600 mg tablet 600 mg PO Q6H PRN pain #30 t abs 10/28/23 albuterol sulfate 90 mcg/actuation 2 puff inhalation Q 4-6H PRN 07/05/24 aerosol inhaler shortness of breath or wheez ing #6.7 grams terconazole 0.8 % vaginal cream 1 appful vaginal BEDTI ME 3 days 08/21/24 #20 grams naratriptan 2.5 mg tablet 2.5 mg PO Q4H PRN migraine 0 09/21/24 headache 30 days #10 tabs cholecalciferol (vitamin D3) 50 50 mcg PO DAILY #90 ca ps 10/17/24 mcg (2,000 unit) capsule valsartan 80 mg tablet 80 mg PO BID #180 tabs 11/20 atorvastatin 20 mg tablet (Lipitor) 20 mg PO BEDTIME # 90 tabs 12/05/24 tirzepatide (weight loss) 5 mg/0.5 5 mg (0.5 mL) subcu t QWEEK 30 days 01/29/25 mL subcutaneous pen injector #2.5 mL amoxicillin 500 mg tablet 1,000 mg (2 x 500 mg) PO Q8H 9 01/30/25 days #54 tabs doxycycline hyclate 100 mg capsule 100 mg PO BID #19 c aps 01/30/25 Allergies Allergy/AdvReac Type Severity Reaction Status Date / Time phentermine AdvReac Mild htn Verified 01/29/25 22:33 Review of Systems 2 Review of Systems: Yes all other systems are reviewed and are negative Constitutional: Constitutional: Denies fatigue and Denies fever(s) Cardiovascular: Cardiovascular: Reports chest pain and Denies dyspnea Respiratory: Respiratory: Denies cough and Denies dyspnea Gastrointestinal: Gastrointestinal: Denies abdominal pain, Denies nausea and Denies vomiting Endocrine: Endocrine: Denies fatigue PMFSH Past Medical History Attestation statement: The following information was validated with the patient. Medical History Ectopic Obstructive sleep apnea hypopnea, moderate Irregular menses Hydradenitis Pelvic cramping Anxiety Sleep apnea Skin lesion Morbid obesity with BMI of 50.0-59.9, adult Surgical History Hx of cholecystectomy Hx of tonsillectomy Family History Family History Mother Heart disease Vascular disease Father Lupus Pre-diabetes Paternal Grandfather Diabetes HTN (hypertension) Social History Social History Household Members: Children Household Members Other:: 8 yr old son, Housing: Apartment Are you a primary director career services to a significant other at home: Yes Do you presently have visiting nurse or other home services: No Alcohol intake: current Alcohol intake frequency: holidays/special occasions only Patient Tobacco Use Status: Former Tobacco user Tobacco use type: Cigarette Cigarette Packs Per Day: 1 Cigarettes Per Day: 2 Years Smoked: 25 Smoked in Last 30 Days: No e-Cigarette/Vaping Use: Currently Using Second Hand Smoke Exposure: No Use of substances other than those prescribed or required for medical reasons: Yes Substance Use Type: Marijuana Substance Use Frequency: Daily Last Used Substance: Weeks (ago) Advance Directives: No Advance Directives Information Provided: Yes Advance Directives Date on File: 04/07/21 Do you have a plan to hurt others: No Plan service: No Current occupational status: unemployed Gender identity: Female Cognitive needs: No Hearing needs: No Vision needs: Yes Physical Exam 2 Vital Signs: Vital Signs: Last Vital Signs Temp 97.9 F 01/29/25 22:31 Pulse 86 01/30/25 04:00 Resp 30 H 01/30/25 04:00 BP 114/65 01/29/25 22:31 Pulse Ox 97 01/30/25 04:00 O2 Del Method Room Air 01/30/25 04:00 BMI result Body Mass Index 54.7 Const: Other: Sleeping soundly in bed, easily woken with verbal stimuli, appears older than stated age Orientation/consciousness: patient oriented x3 Resp: Effort & Inspection: normal respiratory effort Cardio: Other: Normal peripheral perfusion Skin: Other: Warm dry no rash Neuro: General: patient oriented x3, gait normal, no focal motor deficits and CN's II-XI intact bilaterally Extrem: Other: Both calves are of equal size Psych: Other: Cooperative Medications Administered Discontinued Medications Generic Name Dose Route Start Last Admin Trade Name Marvelq PRN Reason Stop Dose Admin Sodium Chloride 500 mls @ 500 mls/hr 01/30/25 03:33 01/30/25 04:04 Ns IV 01/30/25 04:32 Infused .Q1H ONE Infusion Iohexol 100 ml 01/30/25 04:23 01/30/25 04:35 Iohexol 350 Mg/Ml 100 Ml Infus..Btl IV 01/30/25 04:24 100 ml ONCE ONE Administration Medical Decision Making Medical Decision Making MDM Narrative: 34-year-old female with a history of hypertension, hyperlipidemia, morbid obesity, TYRON, hirsutism, migraines, hidradenitis suppurativa who presents with chest pain. Patient states she developed right-sided chest discomfort earlier today. Patient states the pain originates in right shoulder blade, radiates to anterior chest. Pain is pleuritic, worse with deep breathing. Patient states her mother was just diagnosed with a ?blood disorder?. She is not sure what condition she has. Denies recent cough or cold symptoms, new shortness of breath, fever. Problem: Asthma, morbid obesity History: Per patient I have considered the following differential diagnoses: ACS, PE, viral syndrome, pneumonia, asthma exacerbation, anxiety Plan: ACS was considered, despite her age, the patient does have risk factors for coronary artery disease, screening labs including troponin EKG and chest x- ray were ordered. Also considering PE, the patient does have her own risk factors that predispose her to being hypercoagulable, and now she is stating that she discovered she may have a ?bleeding disorder?. Adding a dimer. The patient has no infectious signs symptoms to suggest viral syndrome or pneumonia. She has no active wheezing to suggest asthma exacerbation. The patient did state that she has new psychosocial stressors, perhaps her anxiety is playing a role with her discomfort today. I have independently reviewed the following tests: Labs: Leukocytosis of 16 without left shift, not anemic, no electrolyte abnormality, troponin less than 2.7, dimer 844, not , urine not infected Chest x-ray: Findings: Heart size is upper limits of normal. Body habitus mildly limits the study. The lungs are under ventilated. No focal consolidation or pleural effusion is seen. Impression: No consolidation. EKG: Normal sinus rhythm, rate of 93, no ischemic changes no ectopy QTC 440 I have independently reviewed the following tests: CTA chest:Impression: No evidence pulmonary embolism. Distal branching is not entirely well evaluated based on motion artifact. Zyuql-ii-smrzhsiz right effusion with streaky right basilar densities. Pneumonia versus atelectasis. The patient does not smoke tobacco, she still smokes marijuana, we will cover with doxy instead of azithromycin for atypical coverage, and amoxicillin t.i.d.. Differential Diagnosis Differential Diagnoses: The differential diagnosis associated with the presentation includes See medical decision-making Admission/Observation Consideration of admission/observation: Escalation of care including admission/observation considered Not applicable Lab Data MDM Lab Attestation statement: I reviewed the patient's lab results. 01/29/25 22:38 01/29/25 22:38 Labs: Lab Results 01/29/25 01/29/25 01/30/25 Range/Units 22:38 22:38 03:39 WBC 16.1 H (4.8-10.8) X10*3/uL RBC 4.37 (4.20-5.50) X10*6/uL Hgb 12.3 (12.0-16.0) g/dl Hct 36.5 L (37.0-47.0) % MCV 83.5 (80.0-98.0) fL MCH 28.1 (27.0-33.0) pg MCHC 33.7 (31.0-35.0) g/dl RDW 14.2 (11.0-16.0) % Plt Count 321 (160-400) X10*3/uL MPV 8.4 L (9.4-12.3) fL Immature Gran % (Auto) 0.6 H (0.0-0.4) % Neut % (Auto) 68.8 (45-73) % Lymph % (Auto) 18.4 L (20-40) % Lamar % (Auto) 5.6 (2-11) % Eos % (Auto) 6.3 H (0-4) % Baso % (Auto) 0.3 (0-2) % Lymph # (Auto) 3.0 (1.2-4.9) X10*3/uL [place] # (Auto) 0.9 (0.1-1.2) X10*3/uL Eos # (Auto) 1.0 H (0.0-0.4) X10*3/uL Baso # (Auto) 0.1 (0.0-0.2) X10*3/uL Abs Immat Gran (auto) 0.10 H (0.00-0.03) X10*3/uL Absolute Neuts (auto) 11.1 H (2.0-8.3) x10*3/uL Absolute Nucleated RBC 0.000 (0.0-0.012) X10*3/uL Nucleated RBC % (auto) 0.0 (0.0-0.2) /100WBC D-Dimer High Sensitivty Cancelled 844 Hold Blue Top SEE NOTE Sodium 141 (135-145) mmol/L Potassium 3.9 (3.3-5.1) mmol/L Chloride 106 (96-108) mmol/L Carbon Dioxide 26 (22-29) mmol/L Anion Gap 13 (12-20) BUN 11 (9-16) mg/dL Creatinine 0.68 (0.5-1.4) mg/dL Estim Creat Clear Calc 194.3 Estimated GFR > 60 Random Glucose 95 (60-115) mg/dL Calcium 9.0 (8.4-10.2) mg/dL Total Bilirubin 0.3 (0.0-1.0) mg/dL AST 14 (5-31) U/L ALT 15 (0-31) U/L Alkaline Phosphatase 82 (39-117) U/L Troponin I High Sens < 2.7 (<3.5-17.0) ng/L Total Protein 7.0 (6.5-8.0) g/dL Albumin 4.0 (3.5-5.0) g/dL Urine Color Yellow Urine Appearance Turbid Urine pH 5.5 (5.0-9.0) Ur Specific [place] >= 1.030 H (1.005-1.025) Urine Protein Negative (Neg-Trace) mg/dL Urine Glucose (UA) Negative (Negative) mg/dL Urine Ketones Trace (Negative) mg/dL Urine Blood Negative (Negative) Urine Nitrite Negative (Negative) Ur Leukocyte Esterase Negative (Negative) Urine RBC 0-2 (0-2) /HPF Urine WBC 0-5 (0-5) /HPF Ur Squamous Epith Cells 11-20 (0-2) /HPF Urine Bacteria 4+ (None Seen) Hyaline Casts 0-2 (0-2) /LPF Urine Test NEGATIVE (NEGATIVE) Independent Interpretation I performed an independent interpretation of an: EKG Radiology Impression Discussion of test interpretation with radiology: I have reviewed the radiologist's reading. Discharge Plan Discharge Clinical Impression: Pneumonia Patient Disposition: Home, Self-Care Instructions: Community Acquired Pneumonia (ED) Additional Instructions: You do not have a clot in the lung, you were found to have a developing early pneumonia. See home care instructions. Take both antibiotics as directed. Make sure to complete the course of each antibiotic. Follow up with your primary care provider as needed. Prescriptions: New doxycycline hyclate 100 mg capsule 100 mg PO BID Qty: 19 0RF amoxicillin 500 mg tablet 1,000 mg PO Q8H 9 Days Qty: 54 0RF No Action cholecalciferol (vitamin D3) 50 mcg (2,000 unit) capsule 50 mcg PO DAILY Qty: 90 2RF valsartan 80 mg tablet 80 mg PO BID Qty: 180 1RF tirzepatide (weight loss) 5 mg/0.5 mL pen injector 5 mg subcut QWEEK 30 Days Qty: 2.5 1RF albuterol sulfate 90 mcg/actuation aerosol powdr breath activated 2 inh inhalation Q4-6H PRN (Reason: shortness of breath or wheezing) Qty: 1 0RF albuterol sulfate 90 mcg/actuation HFA aerosol inhaler 2 puff inhalation Q4-6H PRN (Reason: shortness of breath or wheezing) Qty: 6.7 0RF ibuprofen 600 mg tablet 600 mg PO Q6H PRN (Reason: pain) Qty: 30 0RF acetaminophen [Tylenol 8 Hour] 650 mg tablet extended release 650 mg PO Q8H PRN (Reason: pain) Qty: 30 0RF triamcinolone acetonide 0.025 % cream topical DAILY alcohol swabs [Alcohol Prep Pads] Pads, Medicated topical DIRECTED [employer] Misc miscellaneous DIRECTED atorvastatin [Lipitor] 20 mg tablet 20 mg PO BEDTIME Qty: 90 2RF naratriptan 2.5 mg tablet 2.5 mg PO Q4H MDD 5mg PRN (Reason: migraine headache) 30 Days Qty: 10 2RF Rx Instructions: do not exceed 2 doses per 24 hrs terconazole 0.8 % cream 1 appful vaginal BEDTIME 3 Days Qty: 20 0RF Cosentyx UnoReady Pen 300 mg/2 mL pen injector subcut minocycline 100 mg capsule 100 mg PO BID Print Language: Arabic
--- OUTSIDE RECORDS SUMMARY | 2025-01-30 02:39 | XMS_ITS | Clinical Summary ---
Author Organization 175 [facility] Address [address] [place] [address] Phone Care Team Providers Care Dam Tender Name Role Phone Madina Corado MD Primary Care Provider [phone] Social History Tobacco Use Types Packs/Day Years Used Date Smoking Tobacco: Never Assessed Comments Unknown Sex and Gender Information Value Date Recorded Sex Assigned at Not on file Legal Sex Female 4:50 AM EST Gender Identity Not on file Sexual Orientation Not on file Plan of Treatment Upcoming Encounters Date Type Department Care Team ([facility] Contact Info) Description 02/13/2025 3:00 PM EDT Office Visit Orthopedic Surgery [place] [phone] [address] Jimbo Mariee, DPM [address] [address] Health Maintenance Due Date Last [...] to complete this topic Insurance [address] [place] [address] MEDICAID - [place] Care Teams Dam Tender Relationship Specialty Start Date End Date Madina Corado MD [address] [place] [address] PCP - General Internal Medicine 08/02/24
--- OUTSIDE RECORDS SUMMARY | 2025-01-30 02:39 | XMS_ITS | Clinical Summary ---
Author Organization [facility] Address [address] [place] [phone] Phone Care Team Providers Care Metal Trim Erector Name Role Phone Pcp, Unknown Primary Care Provider Unavailabl e Pcp, Unknown Unavailable Unavailable Allergies No known active allergies Medications naproxen (NAPROSYN) 500 MG tablet Take 1 tablet (500 mg total) by mouth 2 (two) times a day with meals for 10 days. 20 tablet 01/17/2020 Active Active Problems No known active problems Social History Tobacco Use Types Packs/Day Years Used Date Smoking Tobacco: Every Day Smokeless Tobacco: Never Alcohol Use Standard Drinks/Week Comments Yes 0 (1 standard drink = 0.6 oz pur e alcohol) Education Answer Date Recorded Are you interested in more education? Not on virgie e 09/18/2022 Are you concerned about learning? Not on file 09/18/2022 No 09/18/2022 No 09/18/2022 Digital Access Answer Date Recorded No 10/17/2022 No 10/17/2022 No 10/17/2022 Reliable internet access at home? Not on file 10/17/2022 Device with a working camera? Not on file Comments Unknown Sex and Gender Information Value Date Recorded Sex Assigned at Female 10/24/2019 4:27 PM EDT Legal Sex Female 3:54 PM EDT Gender Identity Female 10/24/2019 4:27 PM EDT Sexual Orientation Not on file Last Filed Vital Signs Vital Sign Reading Time Taken Comments Blood Pressure 132/86 03/08/2021 3:39 PM EDT Pulse 82 03/08/2021 3:39 PM EDT Temperature 36.2 C (97.2 F) 03/08/2021 3:39 PM EDT Respiratory Rate 20 03/08/2021 3:39 PM EDT Oxygen Saturation 97% 03/08/2021 3:39 PM EDT Inhaled Oxygen Concentration - - Weight 154.2 kg (340 lb) 03/08/2021 12:29 PM EDT Height 172.7 cm (5' 8 ) 03/08/2021 12:30 PM EDT Body Mass Index 51.7 03/08/2021 12:29 PM EDT Plan of Treatment Health Maintenance Due Date Last Done Comments Adult Td,Tdap Booster 1992 DEPRESSION SCREENING 2004 SMOKING Hx and SMOKELESS TOBACCO SCREENING 2005 HEPATITIS C SCREENING 2010 HIV ONE-TIME SCREENING (18-6 5 YEARS) 2010 PNEUMOCOCCAL VACCINES (0-49 years) (1 of 2 - PCV) 2011 PAP SMEAR 2013 INFLUENZA VACCINE (#1) 2024 COVID-19 VACCINE (3 - 2024-2 6 season) 2025 12/13/2020, 11/22/2020 HEPATITIS A VACCINES Aged Out No long er eligible based on patient's age to complete this topic HIB VACCINES Aged Out No longer eligi ble based on patient's age to complete this topic MENINGOCOCCAL VACCINES (ACWY) Aged Out No longer eligible based on patient's age to complete this topic MENINGOCOCCAL VACCINES (B) Aged Out N o longer eligible based on patient's age to complete this topic Medical Devices Not on file Insurance #[address] [place] [address] [facility] [employer] [place] [employer] [place] [place] [place] [employer] [place] [place] [address] [place] [address] [employer] [facility] [place] [employer] [facility] [place] [employer] [facility] Care Teams Metal Trim Erector Relationship Specialty Start Date End Date Pcp, Unknown PCP - General 01/17/20 Pcp, Unknown 01/17/20 Additional Source Comments The information contained in this document represents components of the legal health record. It is not the complete legal health record.[facility]
[2025-01-30 02:56] LABS: D Dimer High Sensitivity 844 NG/ML
[2025-01-30 03:54] LABS: UPreg QC Valid YES
[2025-01-30 04:00] VITALS: PULSE 86; RESP 30; O2SAT 97
[2025-01-30] MEDS: iohexoL 350 MG/ML 100 ML INFUS..BTL IV (04:35)
[2025-01-30 04:37] LABS: Appearance Urine Turbid; Glucose Urine UA Negative (Negative); PH 5.5 (5.0-9.0); Specific Gravity - Urine >= 1.030 (1.005-1.025)
[2025-01-30 05:42] VITALS: BP 100/62; PULSE 92; RESP 24; TEMP 36.8; O2SAT 95
[2025-01-30 06:02] VITALS: BP 100/62; PULSE 92; RESP 24; TEMP 36.8; O2SAT 95
== END 2025-01-30 06:04 | disposition home or self-care (01) ==
PROVIDERS: Physician Assistant Medical; Emergency Provider Emergency Medicine
DX: J18.9 Pneumonia, unspecified organism (principal); R07.89 Other chest pain; R06.02 Shortness of breath; R07.1 Chest pain on breathing; M25.511 Pain in right shoulder; F41.9 Anxiety disorder, unspecified; I10 Essential (primary) hypertension; Z79.899 Other long term (current) drug therapy; Z87.891 Personal history of nicotine dependence
CPT/HCPCS: 36415; 71045; 71275; 80053; 81001; 81025; 84484; 85025; 85379; 93005; 99285; Q9967

== ENCOUNTER → 2025-01-29 22:27 | Outpatient (BNV) | payer OTHER, SELFPAY | PROVIDERS: Emergency Provider Emergency Medicine; Visit Provider Internal Medicine Cardiovascular Disease | DX: R07.9 Chest pain, unspecified (principal) | CPT/HCPCS: 93010 ==

== ENCOUNTER → 2025-01-30 02:38 | Outpatient (BNV) | payer OTHER, SELFPAY | PROVIDERS: Emergency Provider Emergency Medicine; Visit Provider Radiology Diagnostic Radiology | DX: J90 Pleural effusion, not elsewhere classified (principal); R91.8 Other nonspecific abnormal finding of lung field | CPT/HCPCS: 71045; 71275 ==

== ENCOUNTER 2025-01-31 12:18 | Outpatient (AMB) | payer OTHER, SELFPAY ==
[2025-01-31 13:17] VITALS: BP 118/68; PULSE 88; BMI 55.0
--- NOTE | 2025-01-31 13:17 | A.OFFVIS_ITS ---
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/O'Brando/Hyperlipidemia/HX Heart Dis Allergies phentermine Adverse Reaction (Mild, Verified 01/29/25 22:33) htn Medication List - Last Reconciled 01/31/25 by Esequiel Benson MD acetaminophen ER (Tylenol 8 Hour) 650 mg PO Q8H PRN albuterol sulfate 90 mcg/actuation 2 inhalations inhalation Q4-6H PRN albuterol sulfate 90 mcg/actuation 2 puffs inhalation Q4-6H PRN alcohol swabs (Alcohol Prep Pads) pad topical DIRECTED amoxicillin 1,000 mg (2 x 500 mg) PO Q8H 9 days atorvastatin (Lipitor) 20 mg PO BEDTIME cholecalciferol (vitamin D3) 50 mcg PO DAILY doxycycline hyclate 100 mg PO BID empty container (Sharps Container) ea miscellaneous DIRECTED ibuprofen 600 mg PO Q6H PRN minocycline 100 mg PO BID naratriptan 2.5 mg PO Q4H PRN 30 days MDD 5mg secukinumab (Cosentyx UnoReady Pen) mg subcut terconazole 0.8% 1 appful vaginal BEDTIME 3 days tirzepatide (weight loss) 5 mg (0.5 mL) subcut QWEEK 30 days triamcinolone acetonide 0.025% appl topical DAILY valsartan 80 mg PO BID HPI Comments Details: Barbie is here for consultation strong family history of cardiac issues. Apparently her mother has had coronary disease as well as vascular disease and hence she is very concerned. Patient herself does not have any documented coronary artery disease but she is worried that she may be on the way of developing some because of her family history. She is markedly obese and has many comorbidities including hypertension, dyslipidemia as well as/obstructive sleep apnea. She had a recent ER visit for chest pain and was told to have early pneumonia and being treated for that. She does not have any clear-cut exertional type chest pains which are anginal sounding. Otherwise, no major limitations in her activities. She has dyslipidemia and recently started statins. Otherwise, with regard to her weight, she had tried medications like phentermine, Zepbound at different times. 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 Do you presently have visiting nurse or other home services: No 75 years or older and lives alone: No Alcohol intake: current Alcohol intake frequency: holidays/special occasions only Patient Tobacco Use Status: Former Tobacco user Tobacco use type: Cigarette Cigarette Packs Per Day: 1 Cigarettes Per Day: 2 Years Smoked: 25 e-Cigarette/Vaping Use: Currently Using Second Hand Smoke Exposure: No Substance Use Type: Marijuana Advance Directives Date on File: 04/07/21 service: No Current occupational status: unemployed Gender identity: Female Cognitive needs: No Hearing needs: No Vision needs: Yes Female Reproductive History Menstrual Age of Menarche: 11 Review of Systems Const Denies weakness ENT Denies dizziness Card Reports chest pain, Reports chest pain at rest, Reports chest pain with activity, Denies syncope, Denies rapid heart rate, Denies pedal edema, Denies edema, Denies leg edema, Denies lightheadedness, Reports palpitations, Reports dyspnea, Reports dyspnea on exertion and Reports orthopnea Resp Denies cough, Reports dyspnea and Reports dyspnea on exertion GI Denies hematochezia and Denies change in stool character Musc Denies abnormal gait, Reports back pain, Reports myalgias, Denies muscle cramps, Denies muscle weakness, Denies numbness, Denies radiating pain into limb and Denies tingling Neuro Denies abnormal gait, Denies dizziness, Denies syncope, Denies numbness, Denies tingling and Denies weakness Endo Reports palpitations Physical Exam Vital Signs: Last Vital Signs Pulse 88 01/31/25 13:17 BP 118/68 01/31/25 13:17 BMI result Body Mass Index 55.0 Const General: comfortable and no acute distress Orientation/consciousness: patient oriented x3 HEENT Other: Unremarkable Head: Yes normal to inspection Neck Neck: Yes normal visual inspection Chest Chest palpation & inspection: normal inspection of the chest Resp Auscultation: clear to auscultation bilaterally Cardio Palpation: normal PMI Heart sounds: S1 normal heart sound present, S2 normal heart sound present, no gallops, no murmurs and no rubs GI Palpation (GI): Soft to palpation Back/Spine/Pelvis Other: unremarkable Skin General skin exam: no rashes or lesions noted Neuro General: patient oriented x3 Extrem General: Yes normal to inspection Psych Mental Status: mental status grossly normal Assessment & Plan Assessment & Plan (1) HLD (hyperlipidemia): Onset Date: ~09/2024 Comment: + apolipoprotein B elevated 11/2024 start atorvastatin 20mg QD Cards f/u scheduled Code(s): E78.5 - Hyperlipidemia, unspecified Category: Medical Qualifiers: Hyperlipidemia type: mixed hyperlipidemia Qualified Code(s): E78.2 - Mixed hyperlipidemia (2) Family history of early CAD: Comment: mom Code(s): Z82.49 - Family history of ischemic heart disease and other diseases of the circulatory system Category: Medical (3) Precordial chest pain: Code(s): R07.2 - Precordial pain Category: Medical Plan Recent EKG with underlying sinus rhythm at 93/Min; no ischemic changes and otherwise unremarkable. Available high sensitivity troponins within normal range. In the chest CTA, described to have no pulmonary embolism. [id number] right pleural effusion, pneumonia versus atelectasis. Unremarkable thoracic aorta/great vessels. Labs reveal elevated LDL and triglycerides. Apolipoprotein B is also elevated. Overall, she is morbidly obese with comorbidities and strong family history of coronary artery disease. The chest pains she has had is probably pneumonia related based on presentation as well as CTA findings. However, because of her overall clinical history, recommend a coronary CTA to assess plaque burden. We will also get an echocardiogram for any RV dysfunction/pulmonary hypertension. With regard to lipids, she has been put on statins we will need follow-up lipids in due course. Otherwise, main recommendation is to lose weight as much able and she very well understands the importance of that. We will follow up after the testing. Discussion Notes During the consultation, we reviewed her family history of cardiovascular disease, highlighting the need for cholesterol management and potential lifestyle changes to mitigate risks. The patient was advised on weight management strategies to address her sleep apnea and hypertension, including the possibility of surgical interventions if necessary. Patient was informed and verbally consented to the use of an ambient scribe for clinic note documentation during this visit. Orders: Orders CT Cardiac Coronary Angio Today I25.10 - Atherosclerotic heart disease of [place] coronary artery without angina pectoris, Z82.49 - Family history of ischemic heart disease and other diseases of the circulatory system CA echo transthoracic complete Today I25.10 - Atherosclerotic heart disease of [place] coronary artery without angina pectoris Coding Level of Care Code New Pt Level 4 (42148) Complex EM visit Add On G2211 Diagnoses Mixed hyperlipidemia E78.2 Hyperlipidemia type: mixed hyperlipidemia Family history of early CAD Z82.49 Precordial chest pain R07.2
--- OUTSIDE RECORDS SUMMARY | 2025-01-31 15:23 | XMS_ITS | Clinical Summary ---
Author Organization 175 [facility] Address [address] [place] [address] Phone Care Team Providers Care Pneumatic Tool Operator Name Role Phone Madina Corado MD Primary Care Provider [phone] Social History Tobacco Use Types Packs/Day Years Used Date Smoking Tobacco: Never Assessed Comments Unknown Sex and Gender Information Value Date Recorded Sex Assigned at Not on file Legal Sex Female 4:50 AM EST Gender Identity Not on file Sexual Orientation Not on file Plan of Treatment Upcoming Encounters Date Type Department Care Team ([facility] Contact Info) Description 02/13/2025 3:00 PM EDT Office Visit Orthopedic Surgery [place] [id number] [phone] Jimbo Mariee, DPM [address] [phone] Health Maintenance Due Date Last Done Comments DTaP,Tdap,and Td Vaccines (1 - Tdap) 2011 Hepatitis B Vaccines (1 of 3 - 19+ 3-dose series) 2011 Cervical Cancer Screening: P ap Smear 2013 Depression Screening 05/24/2024 HIV Screening 08/02/2024 Hepatitis C Screening 08/02/2024 Social Influencers of Health Screening 08/02/2024 COVID-19 Vaccine ( - 2023-2 5 season) 2025 Influenza Vaccine (#1) 2025 [...] to complete this topic Insurance [address] [place] [address] MEDICA[place] Care Teams Pneumatic Tool Operator Relationship Specialty Start Date End Date Madina Corado MD [address] [place] [address] PCP - General Internal Medicine 08/02/24
--- OUTSIDE RECORDS SUMMARY | 2025-01-31 15:23 | XMS_ITS | Clinical Summary ---
Author Organization [facility] Address [address] [place] [address] Phone Care Team Providers Care Mobile Electronics Installer Name Role Phone Pcp, Unknown Primary Care [...] Medical Devices Not on file Insurance #[address] [place] [id number] [facility] [employer] [place] [employer] [place] [place] [place] [address] [address] [place] [address] Beyond Compl[facility] [place] [employer] Beyond Compl[employer] [facility] [place] [facility] Care Teams Mobile Electronics Installer Relationship Specialty Start Date End Date Pcp, Unknown PCP - General 01/17/20 Pcp, Unknown 01/17/20 Additional Source Comments The information contained in this document represents components of the legal health record. It is not the complete legal health record.[facility]
== END 2025-01-31 14:00 | disposition home or self-care (01) ==
LOC: HO.HCS 12:19
PROVIDERS: Visit Provider Internal Medicine
DX: E78.2 Mixed hyperlipidemia (principal); Z82.49 Family history of ischemic heart disease and other diseases of the circulatory system; R07.2 Precordial pain
CPT/HCPCS: 99204

== ENCOUNTER → 2025-01-31 12:18 | Outpatient (BNVA) | payer OTHER, SELFPAY | PROVIDERS: Visit Provider Internal Medicine | DX: E78.2 Mixed hyperlipidemia (principal); R07.2 Precordial pain; Z82.49 Family history of ischemic heart disease and other diseases of the circulatory system | CPT/HCPCS: 99202 ==

== ENCOUNTER 2025-02-14 13:32 | Outpatient (REF) | payer OTHER, SELFPAY ==
--- OUTSIDE RECORDS SUMMARY | 2025-02-13 15:00 | XMS_ITS | Encounter Summary ---
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 * Consultation (Routine) - Pending Review Specialty Diagnoses / Procedures Referred By Contact Referred To Contact Podiatry / Orthopaedic Surgery Diagnoses Bilateral foot pain Madina Corado MD [address] [place] [address] Phone: tel: fax: Jimbo Mariee DPM [address] [address] Phone: tel: fax: Referral ID Status Reason Start Date Expiration Date Visits Requested Visits Authorized [id number] Pending Review Specialty Services Required 08/02/2024 08/02/2025 1 1 Encounter Details Date Type Department Care Team (Late st Contact Info) Description 02/13/2025 3:00 PM EDT Office Visit Orthopedic Surgery - [place] [address] [phone] Jimbo Mariee DPM [address] [phone] Ingrowing nail (Primary Dx); Bilateral foot pain; Dermatophytosis of nail; Tinea pedis of both feet Social History Tobacco Use Types Packs/Day Years Used Date Smoking Tobacco: Never Assessed Comments Unknown Sex and Gender Information Value Date Recorded Sex Assigned at Not on file Legal Sex Female 4:50 AM EST Gender Identity Not on file Sexual Orientation Not on file documented as of this encounter Progress Notes * Jimbo Mariee DPM - 02/13/2025 3:00 PM EDT Last PCP visit:Referring MD: Madina Corado MD IDENTIFIER: Negro is a 34 y.o. year old female who presents for consultation. CC: Foot pain HPI: Negro is a 34 y.o. year old female presents complaining of pain discomfort great toe chronic recurring thickened fungal nail and skin is very painful achy she has she had it removed [facility] she states keeps coming back thick and deformed would like to know her treatment options her pain is a 4 out of 10 ROS: GENERAL: Pt denies nausea, fever, vomiting, chills, or shortness of breath. Pt in NAD. CARDIOLOGY: pt denies chest pain, palpitations LUNGS: pt denies shortness of breath MUSCULOSKELETAL: See HPI, otherwise no joint pain or swelling, back pain, or muscle pain. SKIN: see HPI, otherwise no lesions, rash or itching NEURO: No persistent headache, weakness or numbness The remainder of the review of systems is noncontributory PAST MEDICAL HISTORY: There is no problem list on file for this patient. SOCIAL HISTORY: Social History Tobacco Use Smoking status: Not on file Smokeless tobacco: Not on file Substance Use Topics Alcohol use: Not on file ACTIVE MEDICATIONS: Outpatient Medications Marked as Taking for the 02/13/25 encounter (Office Visit) with Jimbo Millan DPM Medication Sig Dispense Refill Alcohol Prep Pads pads, medicated atorvastatin (LIPITOR) 20 mg tablet Take 1 tablet (20 mg total) by mouth. at bedtime benzonatate (TESSALON) 100 mg capsule Take 1 capsule (100 mg total) by mouth 3 (three) times a day if needed. for cough cholecalciferol (VITAMIN D-3) 50 mcg (2,000 unit) capsule Take 1 capsule (2,000 Units total) by mouth 1 (one) time each day. clindamycin (CLEOCIN T) 1 % gel APPLY TO AXILLA AND GROIN TWICE A DAY AFTER BPO colchicine (COLCRYS) 0.6 mg tablet Take 1 tablet (0.6 mg total) by mouth 2 (two) times a day. Cosentyx UnoReady Pen 300 mg/2 mL pen injector doxycycline (VIBRAMYCIN) 100 mg capsule Take 1 capsule (100 mg total) by mouth 2 (two) times a day. metroNIDAZOLE (FLAGYL) 500 mg tablet Take 1 tablet (500 mg total) by mouth 2 (two) times a day. for7 days minocycline (MINOCIN,DYNACIN) 100 mg capsule TAKE 1 CAPSULE TWICE A DAY WITH FOOD AND WATER naratriptan (AMERGE) 2.5 mg tablet TAKE 1 TAB ORALLY EVERY 4 HOURS NEEDED FOR MIGRAINE HEADACHE FOR 30 DAYS, MAX 2 TABS/24 HRS oseltamivir (TAMIFLU) 75 mg capsule Take 1 capsule (75 mg total) by mouth every 12 (twelve) hours. for 5 days phentermine 37.5 mg capsule TAKE 1 CAPSULE BY MOUTH DAILY 30 MINUTES BEFORE OR 1-2 HOURS AFTER BREAKFAST Sharps Container sodium fluoride-pot nitrate 1.1-5 % paste dental paste USE 2-3X/DAILY, SPIT OUT EXCESS DO NOT RINSEWITH WATER. NO EATING OR DRINKING FOR 45 MIN AFTER terconazole (TERAZOL 3) 0.8 % vaginal cream PLACE 1 APPLICATORFUL VAGINALLY EVERY DAY AT BEDTIME FOR 3 DAYS triamcinolone (KENALOG) 0.025 % cream APPLY TO ARM TWICE A DAY NEEDED FOR FLARES valsartan (DIOVAN) 80 mg tablet Take 1 tablet (80 mg total) by mouth 2 (two) times a day. Ventolin HFA 90 mcg/actuation inhaler INHALE 2 PUFFS EVERY 4 TO 6 HOURS NEEDED FOR SHORTNESS OF BREATH OR FOR WHEEZE Zepbound 2.5 mg/0.5 mL injection INJECT 2.5 MG (0.5 ML) SUBCUTANEOUSLY EVERY WEEK ALLERGIES: No Known Allergies PHYSICAL EXAM: There were no vitals taken for this visit. PODIATRIC EXAMINATION: GENERAL: Patient appears well nourished, with NAD. VASCULAR: Dorsalis pedis pulses are 2/4 bilaterally and Posterior tibial pulses are 2/4 bilaterally. Capillary filling time within normal limits the digits. No pallor on elevation or rubor on dependency. No varicosities. Denies rest pain or claudication pain. NEUROLOGICAL: Sharp/dull sensation intact, protective sensation intact 10/10 with Ipswitch touch test bilaterally, vibratory sensation intact to the tibial tuberosity. ORTHOPEDIC: Good muscle strength 5/5 of all flexors and extensors. Dorsi flexion of ankle ,10 degrees, plantar flexion WNL. No muscle atrophy. DERMATOLOGICAL:.Nails thickened discolored fungal subungual debris's with abnormal curvature right great toenail BIOMECHANICS: Ankle ROM WNL, STJ ROM wnl, MTJ ROM wnl, 1st MPJ ROM wnl. IMAGING: IMPRESSION: 1. Ingrowing nail 2. Bilateral foot pain 3. Dermatophytosis of nail 4. Tinea pedis of both feet PLAN: Pt was seen and examined, history reviewed. Antifungal options were discussed and reviewed discussed and reviewed possible effects of oral antifungal medications given she has failed topicals Reviewed medications patient is currently on a statin Minor surgical procedure of nail removal with matrixectomy was discussed and reviewed versus nail removal discussed with patient risks of nail procedure including scar tissue formation reoccurrence loss of more nail deformity cosmetic changes that are undesirable Follow-up in 1 month Jimbo Mariee DPM documented in this encounter Plan of Treatment Upcoming Encounters Date Type Department Care Team (Late st Contact Info) Description 03/27/2025 10:45 AM EST Office Visit Orthopedic Surgery - [place] [address] [phone] Jimbo Mariee DPM [address] [phone] documented as of this encounter Visit Diagnoses Diagnosis Ingrowing nail- Primary Bilateral foot pain Dermatophytosis of nail Tinea pedis of both feet documented in this encounter Historical Medications * This list may reflect changes made after this encounter. valsartan (DIOVAN) 80 mg tablet Take 1 tablet (80 mg total) by mouth 2 (two) times a day. 01/29/2025 triamcinolone (KENALOG) 0.025 % cream APPLY TO ARM TWICE A DAY NEEDED FOR FLARES 11/13/2024 Zepbound 2.5 mg/0.5 mL injection INJECT 2.5 MG (0.5 ML) SUBCUTANEOUSLY EVERY WEEK 09/04/2024 terconazole (TERAZOL 3) 0.8 % vaginal cream PLACE 1 APPLICATORFUL VAGINALLY EVERY DAY AT BEDTIME FOR 3 DAYS 08/21/2024 sodium fluoride-pot nitrate 1.1-5 % paste dental paste USE 2-3X/DAILY, SPIT OUT EXCESS DO NOT RINSE WITH WATER. NO EATING OR DRINKING FOR 45 MIN AFTER 11/11/2024 Cosentyx UnoReady Pen 300 mg/2 mL pen injector 11/22/2024 phentermine 37.5 mg capsule TAKE 1 CAPSULE BY MOUTH DAILY 30 MINUTES BEFORE OR 1-2 HOURS AFTER BREAKFAST 08/15/2024 oseltamivir (TAMIFLU) 75 mg capsule Take 1 capsule (75 mg total) by mouth every 12 (twelve) hours. for 5 days 07/06/2024 naratriptan (AMERGE) 2.5 mg tablet TAKE 1 TAB ORALLY EVERY 4 HOURS NEEDED FOR MIGRAINE HEADACHE FOR 30 DAYS, MAX 2 TABS/24 HRS 09/21/2024 minocycline (MINOCIN,DYNACI N) 100 mg capsule TAKE 1 CAPSULE TWICE A DAY WITH FOOD AND WATER 08/29/2024 doxycycline (VIBRAMYCIN) 100 mg capsule Take 1 capsule (100 mg total) by mouth 2 (two) times a day. 01/30/2025 metroNIDAZOLE (FLAGYL) 500 mg tablet Take 1 tablet (500 mg total) by mouth 2 (two) times a day. for 7 days 08/22/2024 Sharps Container 09/05/2024 colchicine (COLCRYS) 0.6 mg tablet Take 1 tablet (0.6 mg total) by mouth 2 (two) times a day. 04/01/2024 clindamycin (CLEOCIN T) 1 % gel APPLY TO AXILLA AND GROIN TWICE A DAY AFTER BPO 09/18/2024 cholecalciferol (VITAMIN D-3) 50 mcg (2,000 unit) capsule Take 1 capsule (2,000 Units total) by mouth 1 (one) time each day. 10/17/2024 benzonatate (TESSALON) 100 mg capsule Take 1 capsule (100 mg total) by mouth 3 (three) times a day if needed. for cough 07/05/2024 atorvastatin (LIPITOR) 20 mg tablet Take 1 tablet (20 mg total) by mouth. at bedtime 01/29/2025 Alcohol Prep Pads pads, medicated 09/05/2024 Ventolin HFA 90 mcg/actuation inhaler INHALE 2 PUFFS EVERY 4 TO 6 HOURS NEEDED FOR SHORTNESS OF BREATH OR FOR WHEEZE 07/05/2024 added in this encounter Orders Outpatient Referral Count Last Ordered Date Fir st Ordered Date AMB REFERRAL TO PODIATRY 1 02/13/2025 documented in this encounter Care Teams Process Operator Relationship Specialty Start Date End Date Madina Corado MD [address] [place] [address] PCP - General Internal Medicine 08/02/24 documented as of this encounter
--- NOTE | ~2025-02-14 | US_ITS ---
EXAMINATION: Noninvasive assessment of the bilateral lower extremities WITHOUT ARTERIAL DUPLEX, ANKLE BRACHIAL INDICES (ABIs), and PULSE VOLUME RECORDINGS (PVRs). CLINICAL INFORMATION: Z82.49. Family history of ischemic heart disease. TECHNIQUE: Duplex Doppler techniques with waveform analysis and measurement of velocities in the bilateral common femoral, profunda femoris, superficial femoral, popliteal and tibial arteries were performed. Additionally, ankle pulse volume recordings, ankle pressure measurements and ankle brachial indices were obtained of the lower extremity arterial system bilaterally. The study was performed only at rest. COMPARISON: None FINDINGS: DIRECT DUPLEX DOPPLER FINDINGS: RIGHT LEG: Common femoral artery: 145 cm/s, phasicity: Triphasic Profunda femoris artery: 61 cm/s, phasicity: Triphasic. Spectral broadening. Superficial femoral artery (proximal): 138 cm/s, phasicity: Triphasic. Superficial femoral artery (mid): 113 cm/s, phasicity: Triphasic. Superficial femoral artery (distal): 136 cm/s, phasicity: Triphasic. Spectral broadening. Popliteal artery: 97 cm/s, phasicity: Triphasic. Spectral broadening. Posterior tibial artery: 110 cm/s, phasicity: Triphasic. Spectral broadening. Peroneal artery: 35 cm/s, phasicity: Monophasic. Spectral broadening. Anterior tibial artery: 42 cm/s, phasicity: Triphasic. Spectral broadening. Dorsalis pedis artery: 78 cm/s, phasicity:Triphasic. Spectral broadening. LEFT LEG: Common femoral artery: 123 cm/s, phasicity: Triphasic. Profunda femoris artery: 42 cm/s, phasicity: Triphasic. Spectral broadening. Superficial femoral artery (proximal): 108 cm/s, phasicity: Triphasic. Superficial femoral artery (mid): 104 cm/s, phasicity: Triphasic. Superficial femoral artery (distal): 129 cm/s, phasicity: Triphasic. Spectral broadening. Popliteal artery: 75 cm/s, phasicity: Triphasic. Posterior tibial artery: 80 cm/s, phasicity: Triphasic. Peroneal artery: No color Doppler flow. Anterior tibial artery: 29 cm/s, phasicity: Biphasic. Dorsalis pedis artery: 23 cm/s, phasicity: Biphasic. US/US arterial duplex LE BI IMPRESSION: Right: Normal patency and waveforms throughout the interrogated arteries except right parietal area artery. Left: Moderate inflow disease, anterior tibialis and dorsalis pedis arteries. Electronically signed by: Michi Angel MD 02/15/2025 07:21 AM EDT RP
--- NOTE | ~2025-02-14 | US_ITS ---
EXAMINATION: US LOWER EXTREMITY VENOUS (REFLUX EXAM), BILATERAL CLINICAL INFORMATION: Z82.49 - Family history of ischemic heart disease COMPARISON: None. TECHNIQUE: Color flow triplex imaging and compression Doppler was performed to evaluate both the deep and the superficial systems bilaterally. To evaluate the superficial system, the examination was performed in the upright position. Color-flow Doppler ultrasound and compression ultrasound were utilized. In addition, maneuvers were utilized to demonstrate reflux. FINDINGS: 1. DEEP VENOUS ULTRASOUND OF THE RIGHT LOWER EXTREMITY: Common Femoral Vein: Compressible, normal respiratory variation and augmented flow. Femoral Vein: Compressible, normal color flow and augmentation. Popliteal Vein: Compressible, normal augmentation. Deep Reflux: There is no evidence of reflux in the deep system in either the common femoral vein, superficial femoral or the popliteal vein. 2. SUPERFICIAL ULTRASOUND WITH DOPPLER OF RIGHT LOWER EXTREMITY: GREAT SAPHENOUS VEIN: Saphenofemoral Junction: 0.8 cm; Reflux: 0 ms Proximal Thigh: 0.9 cm; Reflux: 0 ms Mid Thigh: 0.6 cm; Reflux: 0 ms Distal Thigh: 0.5 cm; Reflux: 0 ms At Knee: 0.6 cm; Reflux: 0 ms Below Knee/Proximal Calf: 0.5 cm; Reflux: 0 ms Mid Calf: 0.3 cm; Reflux: 0 ms Ankle/Distal Calf: 0.3 cm; Reflux: 0 ms Lateral accessory GREAT SAPHENOUS VEIN: Saphenofemoral Junction: 0.5 cm; Reflux: 0 ms Mid Thigh: 0.3 cm; Reflux: 0 ms SMALL SAPHENOUS VEIN: Drainage: Thigh extension Saphenopopliteal Junction: 0.3 cm; Reflux: 0 ms Mid calf: 0.2 cm; Reflux: 0 ms Distal: 0.2 cm; Reflux: 0 ms VEIN OF GIACOMINI: Size: 0.5 cm Reflux: 0 ms PERFORATORS: Location: Greater saphenous vein, mid calf Size: 0.2 cm Reflux: 0 ms Location: Greater saphenous vein, distal calf Size: 0.2 cm Reflux: 0 ms VARICOSITIES > 3mm: Location: Greater saphenous vein, midthigh Size: 0.8 cm Reflux: 0 ms Location: Greater saphenous vein, at knee Size: 0.3 cm Reflux: 0 ms Location: Greater saphenous vein, proximal calf Size: 0.3 cm Reflux: 0 ms Location: Greater saphenous vein, proximal calf Size: 0.4 cm Reflux: 0 ms Location: Greater saphenous vein, proximal calf Size: 0.4 cm Reflux: 0 ms Location: Greater saphenous vein, midcalf Size: 0.4 cm Reflux: 0 ms Location: Greater saphenous vein, distal calf Size: 0.3 cm Reflux: 0 ms 3. DEEP VENOUS ULTRASOUND OF THE LEFT LOWER EXTREMITY: Common Femoral Vein: Compressible, normal respiratory variation and augmented flow. Femoral Vein: Compressible, normal color flow and augmentation. Popliteal Vein: Compressible, normal augmentation. Deep Reflux: There is no evidence of reflux in the deep system in either the common femoral vein, superficial femoral or the popliteal vein. 4. SUPERFICIAL ULTRASOUND WITH DOPPLER OF LEFT LOWER EXTREMITY: GREAT SAPHENOUS VEIN: Saphenofemoral Junction: 1.4 cm; Reflux: 0 ms Proximal Thigh: 0.8 cm; Reflux: 0 ms Mid Thigh: 0.9 cm; Reflux: 0 ms Distal Thigh: 0.7 cm; Reflux: 0 ms At Knee: 0.5 cm; Reflux: 0 ms Below Knee/Proximl calf: 0.2 cm; Reflux: 0 ms Mid Calf: 0.2 cm; Reflux: 0 ms Distal Calf/Ankle: 0.2 cm; Reflux: 0 ms Lateral accessory GREAT SAPHENOUS VEIN: Saphenofemoral Junction: 0.7 cm; Reflux: 0 ms Mid Thigh: 0.5 cm; Reflux: 0 ms SMALL SAPHENOUS VEIN: Drainage: Thigh extension Saphenopopliteal Junction: 0.2 cm; Reflux: 0 ms Mid calf: 0.2 cm; Reflux: 0 ms Distal calf: 0.2 cm; Reflux: 0 ms VEIN OF GIACOMINI: Size: 0.4 Reflux: 0 PERFORATORS: Location: Small saphenous vein, mid Size: 0.2 cm Reflux: 0 ms Location: Small saphenous vein, mid calf Size: 0.3 cm Reflux: 0 ms VARICOSITIES > 3mm: Location: Great saphenous vein, midthigh Size: 0.6 cm Reflux: 0 ms Location: Great saphenous vein, and the Size: 0.3 cm Reflux: 0 ms Location: Great saphenous vein, proximal calf Size: 0.3 cm Reflux: 0 ms US/US venous insuf bilat IMPRESSION: Right: No venous reflux is demonstrated. There are varicose veins, detailed above. Left: No venous reflux is demonstrated. There are varicose veins, detailed above Electronically signed by: Franklin Hein MD 02/14/2025 05:06 PM EDT
--- OUTSIDE RECORDS SUMMARY | 2025-02-14 15:58 | XMS_ITS | Clinical Summary ---
Author Organization [facility] Address [address] [facility] [address] [place] [address] Phone Care Team Providers Care Tip Stitcher Name Role Phone Pcp, Unknown Primary Care [...] Medical Devices Not on file Insurance #3 [place] [address] [facility] [employer] M[employer] [facility] TOGETHER [employer] Care Teams Tip Stitcher Relationship Specialty Start Date End Date Pcp, Unknown PCP - General 01/17/20 Pcp, Unknown 01/17/20 Additional Source Comments The information contained in this document represents components of the legal health record. It is not the complete legal health record.[facility]
--- OUTSIDE RECORDS SUMMARY | 2025-02-14 15:58 | XMS_ITS | Clinical Summary ---
Author Organization [facility] Address [address] [place] [address] Phone Care Team Providers Care Telephone Sales Agent Name Role Phone Madina Corado MD Primary Care Provider [phone] Allergies No known active allergies Medications Ventolin HFA 90 mcg/actuation inhaler INHALE 2 PUFFS EVERY 4 TO 6 HOURS NEEDED FOR SHORTNESS OF BREATH OR FOR WHEEZE 5 Active Alcohol Prep Pads pads, medicated 5 Active atorvastatin (LIPITOR) 20 mg tablet Take 1 tablet (20 mg total) by mouth. at bedtime 5 Active benzonatate (TESSALON) 100 mg capsule Take 1 capsule (100 mg total) by mouth 3 (three) times a day if needed. for cough 5 Active cholecalcifero l (VITAMIN D-3) 50 mcg (2,000 unit) capsule Take 1 capsule (2,000 Units total) by mouth 1 (one) time each day. 5 Active clindamycin (CLEOCIN T) 1 % gel APPLY TO AXILLA AND GROIN TWICE A DAY AFTER BPO 5 Active colchicine (COLCRYS) 0.6 mg tablet Take 1 tablet (0.6 mg total) by mouth 2 (two) times a day. 4 Active Sharps Container 5 Active metroNIDAZOLE (FLAGYL) 500 mg tablet Take 1 tablet (500 mg total) by mouth 2 (two) times a day. for 7 days 5 Active doxycycline (VIBRAMYCIN) 100 mg capsule Take 1 capsule (100 mg total) by mouth 2 (two) times a day. 5 Active minocycline (MINOCIN,DYNAC IN) 100 mg capsule TAKE 1 CAPSULE TWICE A DAY WITH FOOD AND WATER 5 Active naratriptan (AMERGE) 2.5 mg tablet TAKE 1 TAB ORALLY EVERY 4 HOURS NEEDED FOR MIGRAINE HEADACHE FOR 30 DAYS, MAX 2 TABS/24 HRS 5 Active oseltamivir (TAMIFLU) 75 mg capsule Take 1 capsule (75 mg total) by mouth every 12 (twelve) hours. for 5 days 5 Active phentermine 37.5 mg capsule TAKE 1 CAPSULE BY MOUTH DAILY 30 MINUTES BEFORE OR 1-2 HOURS AFTER BREAKFAST 5 Active Cosentyx UnoReady Pen 300 mg/2 mL pen injector 5 Active sodium fluoride-pot nitrate 1.1-5 % paste dental paste USE 2-3X/DAILY, SPIT OUT EXCESS DO NOT RINSE WITH WATER. NO EATING OR DRINKING FOR 45 MIN AFTER 5 Active terconazole (TERAZOL 3) 0.8 % vaginal cream PLACE 1 APPLICATORFUL VAGINALLY EVERY DAY AT BEDTIME FOR 3 DAYS 5 Active Zepbound 2.5 mg/0.5 mL injection INJECT 2.5 MG (0.5 ML) SUBCUTANEOUSLY EVERY WEEK 5 Active triamcinolone (KENALOG) 0.025 % cream APPLY TO ARM TWICE A DAY NEEDED FOR FLARES 5 Active valsartan (DIOVAN) 80 mg tablet Take 1 tablet (80 mg total) by mouth 2 (two) times a day. 5 Active Encounters Date Type Department Care Team Description 02/13/2025 3:00 PM EDT Office Visit Orth[facility] Surgery - [place] [address] [place] [phone] Jimbo Mariee, DPM Ingrowing nail (Primary Dx); Bilateral foot pain; Dermatophytosis of nail; Tinea pedis of both feet from Last 3 Months Social History Tobacco Use Types Packs/Day Years Used Date Smoking Tobacco: Never Assessed Comments Unknown Sex and Gender Information Value Date Recorded Sex Assigned at Not on file Legal Sex Female 4:50 AM EST Gender Identity Not on file Sexual Orientation Not on file Plan of Treatment Upcoming Encounters Date Type Department Care Team ([facility] st Contact Info) Description 03/27/2025 10:45 AM EST Office Visit Orthopedic Surgery - [place] [address] [facility] [address] [place] [address] Jimbo Mariee, DPM [address] [facility] [address] [place] [phone] Health Maintenance Due Date Last Done Comments Hepatitis B Vaccines (1 of 3 - 19+ 3-dose series) 2011 Cervical Cancer Screening: P ap Smear 2013 Depression Screening 05/24/2024 HIV Screening 08/02/2024 Hepatitis C Screening 08/02/2024 Social Influencers of Health Screening 08/02/2024 COVID-19 Vaccine (2024-2 6 season) 2025 07/17/2021, 12/13/2020, 11/22/2020 Influenza Vaccine (#1) 2025 DTaP,Tdap,and Td Vaccines (2 - Td or Tdap) 10/27/2033 10/28/2023 RSV Immunization Adult Patients (1 - 1-dose 75+ series) 2067 HIB Vaccines Aged Out No longer eligi [...] age to complete this topic Pneumococcal Vaccine: Pediatrics (0 to 5 Years) and At-Risk Patients (6 to 49 Years) Aged Out No longer eligible b ased on patient's age to complete this topic RSV Immunization Patients Under 20 months Aged Out No longer eligible b ased on patient's age to complete this topic Varicella Vaccines Aged Out No longer eligible based on patient's age to complete this topic Insurance [place] [facility] Care Teams Telephone Sales Agent Relationship Specialty Start Date End Date Madina Corado MD [address] [facility] [place] [address] PCP - General Internal Medicine 08/02/24
== END 2025-02-14 13:33 | disposition home or self-care (01) ==
LOC: HO.US 13:32
PROVIDERS: PCP Nurse Practitioner Family; Visit Provider Nurse Practitioner Family
DX: M79.671 Pain in right foot (principal); M79.672 Pain in left foot; E78.5 Hyperlipidemia, unspecified; Z82.49 Family history of ischemic heart disease and other diseases of the circulatory system
CPT/HCPCS: 93925; 93970

== ENCOUNTER → 2025-02-14 13:34 | Outpatient (BNV) | payer OTHER, SELFPAY | PROVIDERS: PCP Nurse Practitioner Family; Visit Provider Radiology Diagnostic Radiology | DX: I70.212 Atherosclerosis of native arteries of extremities with intermittent claudication, left leg (principal); Z82.49 Family history of ischemic heart disease and other diseases of the circulatory system | CPT/HCPCS: 93925 ==

== ENCOUNTER 2025-03-12 12:22 | Outpatient (AMB) | payer OTHER, SELFPAY ==
--- NOTE | 2025-03-12 12:24 | A.OFFPC_ITS ---
Vital Signs 03/12/25 12:30 Height 5 ft 8 in Weight 358 lb 2 oz BMI 54.4 BP 134/75 Blood Pressure Location Rt brachial Position Sitting Respiration 13 Pulse 82 Pulse Source Pulse Oximeter Temp 97.9 F Temp Source Oral Pulse Oximetry (%) 98 Oxygen Delivery Method Room Air Intake Visit Reasons: 3 MONTHS FU ON VASCULAR TESTING Intake Note: 3 Months Follow up on vascular testing. Patient c/o chest discomfort x 3 days. 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: No Allergies phentermine Adverse Reaction (Mild, Verified 03/12/25 12:25) htn Medication List - Last Reconciled 03/12/25 by Carolyne Yancey, METAL INSPECTOR-BC acetaminophen ER (Tylenol 8 Hour) 650 mg PO Q8H PRN albuterol sulfate 90 mcg/actuation 2 inhalations inhalation Q4-6H PRN albuterol sulfate 90 mcg/actuation 2 puffs inhalation Q4-6H PRN alcohol swabs (Alcohol Prep Pads) pad topical DIRECTED atorvastatin (Lipitor) 20 mg PO BEDTIME cholecalciferol (vitamin D3) 50 mcg PO DAILY empty container (Sharps Container) ea miscellaneous DIRECTED ibuprofen 600 mg PO Q6H PRN minocycline 100 mg PO BID naratriptan 2.5 mg PO Q4H PRN 30 days MDD 5mg secukinumab (Cosentyx UnoReady Pen) mg subcut terconazole 0.8% 1 appful vaginal BEDTIME 3 days tirzepatide (weight loss) 5 mg (0.5 mL) subcut QWEEK 30 days triamcinolone acetonide 0.025% appl topical DAILY valsartan 80 mg PO BID Tobacco use date assessed: 03/12/25 Dental Screening Dental Screen Date: 03/12/25 Did you have a dental visit in the last 12 months?: Yes Did you have a dental problem in the last 6 months where you did not have access to dental care?: No Was dental information given to patient?: Patient has dentist HPI HPI Comments History of Present Illness Details Ally 34 y/o F with morbid obesity, fatty live r, reactive airway disease, hx of ectopic , Hidradenitis Supprativa, Vit D def, HTN, family hx of early CAD (Mom PA & Vfib arrest age 40's), family hx of vascular disease (Mom extensive Vascular disease) , HLD, elevated apolipoprotein B, l ovarian cyst s/p lap gregg, R salpingectomy s/p ectopic 2023 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 Since last office visit she did go to the emergency room with right-sided chest pain at [facility]. The workup for this was reviewed. The CT of her chest he has as below. She was found to have a small to moderate right pleural effusion and was treated with amoxicillin and doxycycline. She reports that she completed this as directed however she still feels a sense of fullness and like something is moving in her right upper chest. She is no longer having any chest pains. She reports that she feels like she asked to cough but never get anything up. She did have vascular testing done at [facility] what was positive. She was referred to [facility] vascular as that is where her mother is a patient. Unfortunately I do not have any of the consult notes however she is able to show me the CT w/bifemoral imaging done 03/08/2025. This continues to show a small right pleural effusion. It also showed a left ovarian cyst she reports that this is chronic.She will be going for: CT scan day before thanksgiving Echo 03/23/25 She has hyperlipidemia and elevated Brittanie labeled protein she was started on atorvastatin at the last office visit. She is followed by [facility]'s Cardiology team She has hypertension and is on valsartan blood pressure is at goal She has not morbid obesity with a BMI of 54.5 she is currently on tirzepatide which is not resulting in any weight loss. She was on phentermine which did help with weight loss however she developed headaches and hypertension. She wonders if she can go back on this. She is having a hard time with cocaine for her appointments as well as her medications. She reports that she is picking and choosing what she is following through on. She is open to a referral to nurse navigation for assistance with this. ROS: - General: Denies fever, chills. - Respiratory: Denies cough. - Cardiovascular: Reports chest pain wit h extension to the neck, denies recent significant dyspnea. - Gastrointestinal: Reports sensation of 'bubbling' in the chest area, denies swallowing difficulties. - Genitourinary: Reports left ovarian cy st. - Neurological: Denies headaches, dizzin ess. - Musculoskeletal: Denies muscle or join t pain. Physical Exam General: Well developed, well nourished, in no acute distress. Appears stated age. Head: Normocephalic, atraumatic. Eyes: Pupils are equal, round and reactive to light and accommodation. Conjunctivae are clear. Lungs: Clear to auscultation bilaterally. Dim throughout. +tactile fremitus RUL anteriorly Heart: Regular rate and rhythm. No murmurs, click, rubs or gallops are noted. Pulses: Peripheral pulses are difficult to palpate given body habitus. Bilat feet are warm to touch, toe nails are thickened. Skin is intact. She has nonpitting edema BLE. Her skin of lower ext is pink with what looks like keratosis pilaris. : draining pilonidal cyst, no erythema, no warmth. Psych: Mood and affect appropriate. Results reviewed: 03/18/25 CT with bifemoral 01/2025 [facility] and labs After reviewing the patient's concerns and clinical history, we discussed the next steps in the evaluation and management of her symptoms. The importance of following up on scheduled testing such as the echocardiogram on March [address] scan was emphasized to assess any cardiac causes for the effusion. We discussed initiating a trial of furosemide (Lasix) at a low dose to evaluate its effect on the pleural effusion and chest symptoms, with the patient instructed to report any changes. I also addressed her concerns about insurance and the affordability of medications; our nurse navigator will assist in addressing these challenges. We reviewed the risks of continuing on phentermine, considering her vascular health, and emphasized maintaining current antihypertensive therapy. Relevant lifestyle modifications were encouraged to manage weight alongside medication. Patient was given time to ask questions. All questions were answered to their satisfaction. 1. Right Pleural Effusion - Trial furosemide 20mg x 7 days, potass ium monitoring, echocardiogram planned. send me portal message to let me know if this helped 2. Peripehral Vascular Disease - Continue atorvastatin, further imaging planned. [facility] Vascular I requested notes, Ibis Mckee, but have not rec'd 3. Hypertension - Continue Valsartan, avoid phentermine. 4. Obesity - Lifestyle changes, referral for financ ial assistance. - referred to [facility] for MWL but states can not afford copay 5. Left Ovarian Cyst - Monitor symptoms. - FU with ELECTROMECHANISMS DESIGN DRAFTER Pt Instruction - Start taking Lasix as directed to help with chest symptoms. - Eat foods high in potassium like banan as, nuts, or potatoes daily. - Keep your upcoming appointments for th e echocardiogram and CT scan. - Report any changes in symptoms through the patient portal. - Continue taking your blood pressure an d cholesterol medication. - Follow the lifestyle changes discussed for weight management. - Reach out for assistance with medicati on costs as needed. RTO 3 mo, sooner PRN Consent Patient was informed and verbally consented to the use of an ambient scribe for clinic note documentation during this visit. Total time spent caring for the patient today was 45 minutes. This includes time spent before the visit reviewing the chart, time spent during the visit, and time spent after the visit on documentation, reviewing laboratory results, diagnostic imaging, medications, performing a medically necessary evaluation, counseling on diagnoses, care coordination, ordering appropriate tests, ordering appropriate medications, review of tests performed by other providers, reporting test results with the patient, communication with other healthcare providers. [facility] Medical History Ectopic Obstructive sleep apnea hypopnea, moderate Irregular menses Hydradenitis Pelvic cramping Anxiety Sleep apnea Skin lesion Morbid obesity with BMI of 50.0-59.9, adult Surgical History Hx of cholecystectomy Hx of tonsillectomy Family History Mother Heart disease Vascular disease Father Lupus Pre-diabetes Paternal Grandfather Diabetes HTN (hypertension) Social History Household Members: Children Household Members Other:: 8 yr old son, Both parents involved: No Caregiver staying overnight: No Housing: Apartment Are you a primary home care scheduler to a significant other at home: Yes Do you presently have visiting nurse or other home services: No 75 years or older and lives alone: No Alcohol intake: current Alcohol intake frequency: holidays/special occasions only Patient Tobacco Use Status: Former Tobacco user Tobacco use type: Cigarette Cigarette Packs Per Day: 1 Cigarettes Per Day: 2 Years Smoked: 25 e-Cigarette/Vaping Use: Currently Using Second Hand Smoke Exposure: No Substance Use Type: Marijuana Advance Directives Date on File: 04/07/21 service: No Current occupational status: unemployed Gender identity: Female Cognitive needs: No Hearing needs: No Vision needs: Yes Female Reproductive History Menstrual Age of Menarche: 11 Questionnaire Thrive Questionnaire Date Thrive assessed: 07/14/24 I am a: Patient What is your living situation today?: I have a steady place to live Within the past 12 months, did the food you bought not last and you didn't have the money to get more?: Never true Within the past 12 months, did you worry whether your food would run out before you got money to buy more?: Never true Do you have trouble paying for medicines?: No Do you have trouble getting transportation to medical appointments?: No Do you have trouble paying your heating and electricity bill?: No Do you have trouble taking care of your child, family member or friend?: No Do you have trouble with day-to-day activities such as bathing, preparing meals, shopping, managing finances, etc.?: No Are you currently unemployed and looking for a job?: No Are you interested in more education?: No Please select the resources that you would like help with: None Currently or been in a relationship where the following occur: I choose not to answer THRIVE Score: 0 YAMILET-7 AMB Questionnaire YAMILET-7 Date YAMILET - 7 assessed: 10/11/24 Source: Developed by Drs. Jack Deras, Arabella Dc, Daomn Chowdary and colleagues, with an educational andres from [employer]. Physical exam (Primary Care) Vital Signs: Last Vital Signs Temp 97.9 F 03/12/25 12:30 Pulse 82 03/12/25 12:30 Resp 13 03/12/25 12:30 BP 134/75 03/12/25 12:30 Pulse Ox 98 03/12/25 12:30 Oxygen Delivery Method Room Air 03/12/25 12:30 BMI result Body Mass Index 54.4 Tobacco/Smoking Status: Tobacco use Status Tobacco use date assessed 03/12/25 03/12/25 12:32 Patient Tobacco Use Status Former Tobacco user 03/12/25 12:32 Tobacco use type Cigarette 03/12/25 12:32 e-Cigarette/Vaping Use Currently Using 03/12/25 12:32 Thrive Assessment: Date of Thrive Assessment Date Thrive assessed 07/14/24 03/12/25 12:32 Currently or been in a relationship where the following occur: I choose not to answer Coding Level of Care Code Est Pt Level 5 (02964) Complex EM visit Add On G2211 Diagnoses Family history of early CAD Z82.49 Varicose veins of both legs with edema I83.893 PAD (peripheral artery disease) I73.9 Mixed hyperlipidemia E78.2 Hyperlipidemia type: mixed hyperlipidemia Encounter for screening involving social determinants of health (SDoH) Z13.9 Influenza vaccination declined Z28.21 Left ovarian cyst N83.202 Morbid obesity with BMI of 50.0-59.9, adult E66.01; Z68.43 Recurrent right pleural effusion J90 Assessment & Plan Assessment & Plan (1) Family history of early CAD: Comment: mom Code(s): Z82.49 - Family history of ischemic heart disease and other diseases of the circulatory system Category: Medical (2) Varicose veins of both legs with edema: Comment: US/US arterial duplex LE BI IMPRESSION: Right: Normal patency and waveforms throughout the interrogated arteries except right parietal area artery. Left: Moderate inflow disease, anterior tibialis and dorsalis pedis arteries. Electronically signed by: Michi Angel MD 02/15/2025 07:21 AM EDT RP US/US venous insuf bilat IMPRESSION: Right: No venous reflux is demonstrated. There are varicose veins, detailed above. Left: No venous reflux is demonstrated. There are varicose veins, detailed above Electronically signed by: Franklin Hein MD 02/14/2025 05:06 PM EDT RP Code(s): I83.893 - Varicose veins of bilateral lower extremities with other complications Category: Medical (3) PAD (peripheral artery disease): Comment: US/US arterial duplex LE BI IMPRESSION: Right: Normal patency and waveforms throughout the interrogated arteries except right parietal area artery. Left: Moderate inflow disease, anterior tibialis and dorsalis pedis arteries. Electronically signed by: Michi Angel MD 02/15/2025 07:21 AM EDT RP US/US venous insuf bilat IMPRESSION: Right: No venous reflux is demonstrated. There are varicose veins, detailed above. Left: No venous reflux is demonstrated. There are varicose veins, detailed above Electronically signed by: Franklin Hein MD 02/14/2025 05:06 PM EDT RP Code(s): I73.9 - Peripheral vascular disease, unspecified Category: Medical (4) HLD (hyperlipidemia): Onset Date: ~09/2024 Comment: + apolipoprotein B elevated 11/2024 start atorvastatin 20mg QD Cards f/u scheduled Code(s): E78.5 - Hyperlipidemia, unspecified Category: Medical Qualifiers: Hyperlipidemia type: mixed hyperlipidemia Qualified Code(s): E78.2 - Mixed hyperlipidemia (5) Encounter for screening involving social determinants of health (SDoH): Code(s): Z13.9 - Encounter for screening, unspecified Category: Medical (6) Influenza vaccination declined: Onset Date: ~03/12/25 Code(s): Z28.21 - Immunization not carried out because of patient refusal Category: Medical (7) Left ovarian cyst: Code(s): N83.202 - Unspecified ovarian cyst, left side Category: Medical (8) Morbid obesity with BMI of 50.0-59.9, adult: Comment: side effects from phentermine: high blood pressure, palpitations and frequent headaches Code(s): E66.01 - Morbid (severe) obesity due to excess calories; Z68.43 - Body mass index [BMI] 50.0-59.9, adult Category: Medical (9) Recurrent right pleural effusion: Code(s): J90 - Pleural effusion, not elsewhere classified Category: Medical Plan . Orders: Referrals Nurse Navigator Referral Z13.9 - Encounter for screening, unspecified Medications: Discontinued amoxicillin Discontinued Reason: Patient Completed Course 1,000 mg (2 x 500 mg) PO Q8H 9 days 54 tabs 0RF doxycycline hyclate Discontinued Reason: Patient Completed Course 100 mg PO BID 19 caps 0RF
[2025-03-12 12:30] VITALS: BP 134/75; PULSE 82; RESP 13; TEMP 36.6; O2SAT 98; BMI 54.4
== END 2025-03-12 13:21 | disposition home or self-care (01) ==
LOC: HO.HMCFM 12:23
PROVIDERS: PCP Nurse Practitioner Family; Visit Provider Nurse Practitioner Family
DX: Z82.49 Family history of ischemic heart disease and other diseases of the circulatory system (principal); I83.893 Varicose veins of bilateral lower extremities with other complications; I73.9 Peripheral vascular disease, unspecified; E78.2 Mixed hyperlipidemia; Z13.9 Encounter for screening, unspecified; Z28.21 Immunization not carried out because of patient refusal; N83.202 Unspecified ovarian cyst, left side; E66.01 Morbid (severe) obesity due to excess calories; Z68.43 Body mass index [BMI] 50.0-59.9, adult; J90 Pleural effusion, not elsewhere classified

== ENCOUNTER → 2025-03-12 12:22 | Outpatient (BNVA) | payer OTHER, SELFPAY | PROVIDERS: Visit Provider Nurse Practitioner Family | DX: I83.893 Varicose veins of bilateral lower extremities with other complications (principal); I73.9 Peripheral vascular disease, unspecified; E78.2 Mixed hyperlipidemia; N83.202 Unspecified ovarian cyst, left side; E66.01 Morbid (severe) obesity due to excess calories; Z68.43 Body mass index [BMI] 50.0-59.9, adult; J90 Pleural effusion, not elsewhere classified; Z82.49 Family history of ischemic heart disease and other diseases of the circulatory system; Z28.21 Immunization not carried out because of patient refusal | CPT/HCPCS: 99212 ==

== ENCOUNTER → 2025-03-23 14:40 | Outpatient (REF) | payer OTHER, SELFPAY ==
--- NOTE | 2025-03-23 14:43 | CA_ITS ---
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 Study Quality: Fair/Contrast ECG Rhythm: Sinus Conclusions: - The left ventricular systolic function is normal. The calculated ejection fraction is 64% by biplane method. - No obvious valvular pathology seen on this study. Findings Procedure Information Contrast agent, definity, is being given per protocol without apparent complications. Left Ventricle Normal left ventricular cavity size. There is normal left ventricular wall thickness. The left ventricular systolic function is normal. The calculated ejection fraction is 64% by biplane method. There is no evidence of regional wall motion abnormalities. Diastolic function is normal for age. Right Ventricle Normal right ventricular cavity size and systolic function. Atria Both atria are normal in size. Aortic Valve There is a normal trileaflet aortic valve. There is no aortic valve stenosis. There is no aortic valve regurgitation. Mitral Valve The mitral valve appears normal. There is no mitral valve regurgitation. There is no mitral valve stenosis. Pulmonic Valve The pulmonic valve is likely normal. Tricuspid Valve There is trace tricuspid valve regurgitation. There is no evidence of pulmonary hypertension. Great Vessels The asc aorta is normal in size. Venous The inferior vena cava is mildly dilated and collapses greater than 50% with inspiration. Pericardium/Pleural There is no evidence of pericardial effusion. Prior Study Comparison No prior study available for comparison. Recommendations, Care & Conclusions No obvious valvular pathology seen on this study. Measurements 2D Linear Measurements IVSd: 0.97 0.6-0.9/0.6-1.0 cm LVIDd: 5.05 3.9-5.3/4.2-5.9 cm LVIDd Index: 1.93 2.4-3.2/2.2-3.1 cm/m2 LVIDs: 3.54 2.0-3.6 cm LVPWd: 0.88 0.7-1.1 cm LA Diam: 4.00 2.7-3.8/3.0-4.0 cm LAIDs Index: 1.53 1.5-2.3 cm/m2 LV Mass: 207.41 67-162/88-224 g LV Mass Index: 79.17 43-95/49-115 g/m2 LVOT Diam: 2.30 3.0+(-)1.3 cm 2D Systolic Function EF 4C: 67.30 >55% EF 2C: 61.50 >55% EF BiP: 63.70 >55% Mitral Valve MV Pk E: 0.73 MV PK A: 0.56 MV Decel Time: 178.00 E/A: 1.30 E'Lateral: 14.30 E'Medial: 10.40 E/E' Med: 7.00 E/E' Lat: 5.10 PHT: 52.00 MVA PHT: 4.23 Decel [place]: 4.11 Aortic Valve AoV Pk Praveen: 1.69 AoV Mn Praveen: 1.17 AoV VTI: 0.32 AoV Pk Grad: 11.00 Aov Mn Grad: 6.00 TALI Cont.VTI: 3.18 LVOT LVOT Pk Praveen: 1.33 LVOT Mn Praveen: 0.87 LVOT VTI: 0.25 LVOT Pk Grad: 7.00 LVOT Mn Grad: 4.00 LVOT Diam: 2.30 LVOT Area: 4.15 Diastolic Function MV Pk E: 0.73 MV Pk A: 0.56 E/A: 1.30 E'Medial: 10.40 E/E' Med: 7.00 E' Laterial: 14.30 E/E' Lat: 5.10 Right Ventricle TAPSE (mm): 23.40 TVS' Praveen: 14.40 Tricuspid Valve RA Press: 8.00 Great Vessels Aorta Sinus of Valsalva: 2.81 2.0-3.5 cm Ao Asc: 2.80 2.1-3.4 cm Updated in Other Vendor System with Status of Final Esequiel Benson MD electronically signed on 03/25/2025 2:31:32 PM with status of Final
--- OUTSIDE RECORDS SUMMARY | 2025-03-23 15:10 | XMS_ITS | Clinical Summary ---
Author Organization [facility] Address [address] [place] [phone] Phone Care Team Providers Care Floor Installer Name Role Phone Pcp, Unknown Primary [...] Medical Devices Not on file Insurance #[address] [place] [id number] [facility] [employer] M[employer] [facility] TO[employer]HER [employer] [facility] Gen [facility] TO[facility] TOGETHER [facility] Care Teams Floor Installer Relationship Specialty Start Date End Date Pcp, Unknown PCP - General 01/17/20 Pcp, Unknown 01/17/20 Additional Source Comments The information contained in this document represents components of the legal health record. It is not the complete legal health record.[facility]
== END ==
LOC: HO.CARD 14:40
PROVIDERS: PCP Nurse Practitioner Family; Visit Provider Internal Medicine
DX: I25.10 Atherosclerotic heart disease of native coronary artery without angina pectoris (principal)
CPT/HCPCS: 93306; Q9957

== ENCOUNTER → 2025-03-23 14:43 | Outpatient (BNV) | payer OTHER, SELFPAY | PROVIDERS: PCP Nurse Practitioner Family; Visit Provider Internal Medicine | DX: I25.10 Atherosclerotic heart disease of native coronary artery without angina pectoris (principal) | CPT/HCPCS: 93306 ==